=== PATIENT | female | born 1960 | race Two or more races ===

== ENCOUNTER 2020-07-15 09:13 | Emergency (ER) | payer BC ==
[~2020-07-15] VITALS: Ht 147.3 cm; Wt 83.9 kg
[~2020-07-15 09:13] MED LIST: ALBU18 IN; HYDR12.56 PO; LAMO200T34 PO; LISI-648 PO; MIRT1TAB39 PO; SERT-160 PO
[2020-07-15 10:12] VITALS: BP 133/67
[2020-07-15] MEDS ORDERED: ACETAMINOPHEN 500 MG TAB PO ONE (10:45)
[2020-07-15] MEDS ORDERED: cefTRIAXone SOD 1,000 MG VL IM ONE (10:45)
== END 2020-07-15 12:15 | disposition home or self-care (01) ==
LOC: ER 09:13
DX: U07.1 COVID-19 (principal); J12.89 Other viral pneumonia; J44.9 Chronic obstructive pulmonary disease, unspecified; E11.9 Type 2 diabetes mellitus without complications; I10 Essential (primary) hypertension
CPT/HCPCS: 36415; 71045; 87426; 96372; 99284; J0696

== ENCOUNTER 2020-07-19 11:07 | Outpatient (CLI) | payer BC, OTHER ==
[~2020-07-19] VITALS: Ht 30.5 cm; Wt 83.9 kg
[2020-07-19] VITALS (7 sets, daily range): BP systolic 104–132; BP diastolic 39–75
[2020-07-19] MEDS ORDERED: BAMLANIVIMAB 700MG/200ML 200 ML IV ONE (11:30)
== END 2020-07-19 14:30 | disposition home or self-care (01) ==
LOC: ER 11:07
PROVIDERS: ATTEND Internal Medicine
DX: Z23 Encounter for immunization (principal); U07.1 COVID-19; J44.9 Chronic obstructive pulmonary disease, unspecified; I10 Essential (primary) hypertension; E11.9 Type 2 diabetes mellitus without complications
CPT/HCPCS: M0239; Q0239

== ENCOUNTER → 2020-10-15 | Outpatient (CLI) | payer BC ==
[2020-10-15 10:56] LABS: Basophils # (auto) 0 10 ^3/uL (0-0.2); Basophils % (auto) 0.5 % (0.0-2.0); Eosinophils # (auto) 0.1 10 ^3/uL (0-0.8); Eosinophils % (auto) 0.6 % (0.0-7.0); Hematocrit 41.1 % (36.0-46.0); Hemoglobin 14.4 g/dL (12.2-16.2); Lymphocytes # (auto) 2.1 10 ^3/uL (0.4-5.4); Lymphocytes % (auto) 22.8 % (10.0-50.0); Mean Corpuscular Hemoglobin 29.7 pg (28.0-32.0); Mean Corpuscular Volume 84.9 fL (80.0-100.0); Monocytes # (auto) 0.6 10 ^3/uL (0-1.3); Neutrophils # (auto) 6.3 10 ^3/uL (1.6-8.6); Neutrophils % (auto) 69.1 % (37.0-80.0); Nucleated Red Blood Cells % 0.4 %; Platelet Count (auto) 168 10^3/uL (140-450); Red Blood Cells 4.84 10^6/uL (4.0-5.20); Red Cell Distribution Width 15.7 % (11.8-14.3); White Blood Cell 9.2 10^3/uL (4.4-10.8)
[2020-10-15 17:04] LABS: Albumin 4.2 g/dL (3.4-5.0); Calcium 9.6 mg/dL (8.5-10.1); Potassium 4.4 mmol/L (3.5-5.1)
[2020-10-15 17:19] LABS: BUN/Creatinine Ratio 25.3; Bilirubin, Total 0.7 mg/dL (0.2-1.0); Total Protein 7.7 g/dL (6.4-8.2)
== END | disposition home or self-care (01) ==
LOC: LAB 10:19
PROVIDERS: ATTEND Physician Assistant
DX: I10 Essential (primary) hypertension (principal); E11.40 Type 2 diabetes mellitus with diabetic neuropathy, unspecified; E78.49 Other hyperlipidemia; G62.9 Polyneuropathy, unspecified
CPT/HCPCS: 36415; 80053; 80061; 82043; 83036; 85025

== ENCOUNTER 2024-07-25 04:46 | Inpatient (IN) | payer BC, MEDICAID ==
[2024-07-25] VITALS (10 sets, daily range): BP systolic 97–112; BP diastolic 49–76; PULSE 99–129; RESP 22–29; TEMP 98; O2SAT 90–99
[~2024-07-25] VITALS: Ht 147.3 cm; Wt 78.8 kg
[~2024-07-25 04:46] MED LIST changes: -HYDR12.56 PO; +HYDR12.59 PO; -LISI-648 PO; +LISI10TA34 PO
--- NOTE | 2024-07-25 04:52 | ED.PDOC ---
SOB-HPI HPI Comments 64-year-old female came to ER via EMS for shortness of breath. Patient does have history of hypertension, diabetes, and COPD. Patient last night, started developing cough and shortness of breath which progressively worsened today. Denies any acute chest pains. Upon arrival of paramedics, noted patient to be saturating at 85 % on room air, patient was placed on CPAP, was given albuterol Atrovent nebulization and was rushed to the emergency room. 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 Information Source: Patient, Emergency Med Personnel Mode of Arrival: EMS Severity: Moderate Timing: Hours Duration: Since onset Context: With Light Exertion PE Risk Factors: None History of: COPD Prehospital treatment: Breathing Tx, C-Pap, Oxygen Modifying Factors: Nothing Associated Signs and Symptoms: Cough If cough with SOB: Non-Productive Past Medical History PAST MEDICAL HISTORY: COPD, DM, HTN Surgical History: Denies all surgeries 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 Hx Family History Family History: Reviewed,noncontributory to illness Social History Smoker: Non-Smoker Alcohol: Denies ETOH Use Drugs: Denies Drug Use Lives In: Home Constitutional: denies: chills, diaphoresis, fatigue, fever, malaise, sweats, weakness, others EENTM: denies: blurred vision, double vision, ear bleeding, ear discharge, ear drainage, ear pain, ear ringing, eye pain, eye redness, hearing loss, mouth pain, mouth swelling, nasal discharge, nose bleeding, nose congestion, nose pain, photophobia, tearing, throat pain, throat swelling, voice changes, others Respiratory: reports: cough, SOB at rest, shortness of breath, SOB with excertion; denies: hemoptysis, orthopnea, stridor, wheezing, others Cardiovascular: denies: chest pain, dizzy spells, diaphoresis, Dyspnea on exertion, edema, irregular heart beat, left arm pain, lightheadedness, palpitations, PND, syncope, others Gastrointestinal: denies: abdomen distended, abdominal pain, blood streaked bowels, constipated, diarrhea, dysphagia, difficulty swallowing, hematemesis, melena, nausea, poor appetite, poor fluid intake, rectal bleeding, rectal pain, vomiting, others Genitourinary: denies: abnormal vagina bleeding, burning, dyspareunia, dysuria, flank pain, frequency, hematuria, incontinence, pain, , vagina d ischarge, urgency, others Neurological: denies: dizziness, fainting, headache, left sided numbness, left sided weakness, numbness, paresthesia, pre-existing deficit, right sided numbness, right sided weakness, seizure, speech problems, tingling, tremors, weakness, others Musculoskeletal: denies: back pain, gout, joint pain, joint swelling, muscle pain, muscle stiffness, neck pain, others Integumetry: denies: bruises, change in color, change in hair/nails, dryness, laceration, lesions, lumps, rash, wounds, others Allergic/Immunocompromised: denies: Difficulty Healing, Frequent Infections, Hives, Itching, others Hematologic/Lymphatic: denies: anemia, blood clots, easy bleeding, easy bruising, swollen glands, others Endocrine: denies: excessive hunger, excessive sweating, excessive thirst, excessive urination, flushing, intolerance to cold, intolerance to heat, unexplained weight gain, unexplained weight loss, others Psychiatric: denies: anxiety, bipolar disorder, depression, hopeless, panic disorder, schizophrenia, sleepless, suicidal, others Physical Exam General Appearance: No Apparent Distress, Normal HEENT: Normal ENT Inspection, Pharynx Normal, TMs Normal Neck: Full Range of Motion, Non-Tender, Normal, Normal Inspection Respiratory: Chest Non-Tender, Lungs Clear, No Accessory Muscle Use, No Respiratory Distress, Normal Breath Sounds Cardiovascular: No Edema, No JVD, No Murmur, No Gallop, Normal Peripheral Pulses, Regular Rate/Rhythm Breast Exam: Deferred Gastrointestinal: No Organomegaly, Non Tender, No Pulsatile Mass, Normal Bowel Sounds, Soft Genitalia: Deferred Pelvic: Deferred Rectal: Deferred Extremities: No calf tenderness, Normal capillary refill, Normal inspection, Normal range of motion, Non-tender, No pedal edema Musculoskeletal : Apperance: Normal Neurologic: Alert, echometer engineer II-XII nml as Tested, No Motor Deficits, Normal Affect, Normal Mood, No Sensory Deficits Cerebellar Function: Normal Reflexes: Normal Skin: Dry, Normal Color, Warm Lymphatic: No Adenopathy Was a procedure done? Was a procedure done?: No Differential Dx Differential Diagnosis: Asthma, Bronchitis, COPD, Myocardial infarction, Panic Attack, Pneumonia, Respiratory Distress X-Ray, Labs, Meds, VS Vital Signs Date Time Temp Pulse Resp B/P (MAP) Pulse Ox O2 Delivery O2 Flow Rate FiO2 07/25/24 05:04 98.4 130 24 135/80 (98) 95 07/25/24 04:58 130 07/25/24 04:46 44 93 Bi-Pap+ 40 40 07/25/24 04:46 130 144/118 Facial BiPAP Mask 40 Current Medications Medications (Trade) Dose Ordered Sig/Addi Route Start Time Stop Time Status Last Admin Albuterol (Ventolin Medneb) 5 mg ONCE ONCE N 07/25/24 05:00 07/25/24 05:01 DC 07/25/24 05:04 Ipratropium [place] (Atrovent Medneb) 0.5 mg ONCE ONCE [facility] 07/25/24 05:00 07/25/24 05:01 DC 07/25/24 05:04 Magnesium Sulfate/ Dextrose 100 ml @ 100 mls/hr Q1H IV 07/25/24 05:00 07/25/24 06:59 07/25/24 05:00 Time of 1ST Reevaluation: 04:49 Reevaluation 1ST: Unchanged Time of 2ND Reevaluation: 05:51 Reevaluation 2ND: Unchanged Patient Education/Counseling: Diagnosis, Treatment Family Education/Counseling: No Family Present Departure 1 Departure Time of Disposition: 05:51 Impression: Primary Impression: Respiratory failure Additional Impression: COPD with acute exacerbation Disposition: ADMITTED INPATIENT Admit to: [facility] Condition: Guarded Critical Care Note Critical Care Time?: Yes (35 min-critical care time only) Critical care comment: Shortness of breath Total critical care time: Approximately 36 minutes Due to a high probability of clinically significant, life threatening deterioration, the patient required my highest level of preparedness to intervene emergently and I personally spent this critical care time directly and personally managing the patient. This critical care time included obtaining a history; examining the patient; pulse oximetry; ordering and review of studies; arranging urgent treatment with development of a management plan; evaluation of patient's response to treatment; frequent reassessment; and, discussions with other providers. This critical care time was performed to assess and manage the high probability of imminent, life-threatening deterioration that could result in multi-organ failure. It was exclusive of separately billable procedures and treating other patients. Stability Stability form required: No Heart Score Heart Score: Heart Score Response (Comments) Value History Slightly Suspicious 0 EKG Normal 0 Age 45-64 1 Risk Factors 1 or 2 risk factors 1 Troponin Normal limit 0 Total 2 I personally scribed for ASHLEY COBIAN MD ([email or web address]) on 07/25/24 at 04:52. Electronically submitted by Ten Goldman ([email or web address]). ASHLEY COBIAN MD Jul 25, 2024 04:52
[2024-07-25] MEDS: MAGNESIUM SULFATE 1GM/100ML 100 ML IV SCH (05:00)
[2024-07-25] MEDS: ALBUTEROL SULF 2.5 MG/0.5ML(0.5%) NEB SOLN HHN ONE (05:04)
[2024-07-25] MEDS: IPRATROPIUM BROM 0.5 MG/2.5ML INH SOL HHN ONE (05:04)
--- NOTE | 2024-07-25 05:58 | DVH ---
CHEST RADIOGRAPH Indication: SOB Technique: Single frontal view of the chest was obtained Comparison: CHEST PORTABLE on DOS: 07/15/20 FINDINGS: Lines and Tubes: None Lungs: Patchy bilateral consolidation. Questionable left upper lobe mass. Pleura: No effusion. No pneumothorax. Cardiomediastinal contours: Cardiomegaly. Bones: No acute osseous abnormality. IMPRESSION: 1. Bilateral consolidation which may reflect multifocal pneumonia. Questionable left upper lobe mass . CT chest recommended for further evaluation.
[2024-07-25 06:00] LABS: Base Excess -2.9 mmol/L (-2.0-3.0)
[2024-07-25] MEDS: AZITHROMYCIN 500MG/ 250ML 250 ML IV ONE (06:00)
[2024-07-25] MEDS: cefTRIAXone 1GM/50ML D5W 50 ML IV ONE (06:00)
[2024-07-25] MEDS: FUROSEMIDE 40 MG/4 ML VIAL IV ONE (06:00)
[2024-07-25 06:11] LABS: Eosinophils # (auto) 0 10 ^3/uL (0-0.8); Eosinophils % (auto) 0.1 % (0.0-7.0); Hemoglobin 12.8 g/dL (12.2-16.2)
[2024-07-25 06:14] LABS: Basophils # (auto) 0.1 10 ^3/uL (0-0.2); Basophils % (auto) 0.3 % (0.0-2.0); Hematocrit 41.1 % (36.0-46.0); Lymphocytes # (auto) 2.7 10 ^3/uL (0.4-5.4); Lymphocytes % (auto) 12.5 % (10.0-50.0); Mean Corpuscular Hemoglobin 28.5 pg (28.0-32.0); Mean Corpuscular Hgb Conc. 31.3 g/dL (32.0-36.0); Mean Corpuscular Volume 91.1 fL (80.0-100.0); Monocytes # (auto) 1.2 10 ^3/uL (0-1.3); Monocytes % (auto) 5.4 % (0.0-12.0); Neutrophils # (auto) 17.7 10 ^3/uL (1.6-8.6); Neutrophils % (auto) 81.7 % (37.0-80.0); Nucleated Red Blood Cells % 0.1 %; Platelet Count (auto) 312 10^3/uL (140-450); Red Blood Cells 4.51 10^6/uL (4.0-5.20); Red Cell Distribution Width 16.7 % (11.8-14.3); White Blood Cell 21.7 10^3/uL (4.4-10.8)
[2024-07-25 06:39] LABS: Alanine Aminotransferase 28 U/L (7-40); Anion Gap 14 (5-15); Aspartate Aminotransferase 32 U/L (13-40); BUN/Creatinine Ratio 9.1 (10.0-20.0); Blood Urea Nitrogen 9 mg/dL (9-23); Calcium 9.6 mg/dL (8.7-10.4); Carbon Dioxide 21 mmol/L (20-31); Chloride 100 mmol/L (98-107); Magnesium 2.2 mg/dL (1.6-2.6); Potassium 4.5 mmol/L (3.5-5.1)
[2024-07-25 06:40] LABS: Alkaline Phosphatase 157 U/L (46-116); Bilirubin, Total 1.4 mg/dL (0.2-1.0); Glucose 273 mg/dL (74-106); Sodium 135 mmol/L (136-145); Total Protein 6.2 g/dL (5.7-8.2)
[2024-07-25] MEDS ORDERED: DEXTROSE (50%) 50ML SYRG IV PRN (07:30)
[2024-07-25] MEDS ORDERED: VANCOMYCIN PER PHARMACY 0 MG IV SCH (07:30)
[2024-07-25] MEDS ORDERED: ONDANSETRON HCL 4 MG/2 ML VIAL IV PRN (07:45)
[2024-07-25] MEDS ORDERED: NITROGLYCERIN 0.4 MG SL TAB SL PRN (07:45)
[2024-07-25] MEDS ORDERED: MORPHINE SULFATE INJ 2 MG/ml SYRG IV PRN (07:45)
--- NOTE | 2024-07-25 08:13 | DVHHP2 ---
History of Present Illness Reason for Visit: Cough and shortness of breath History of Present Illness Maeve Steiner is a 64-year-old female with past medical history of hypertension, diabetes, COPD, asthma, and anxiety who presents to the ED today for shortness of breath and cough x1 day. EMS was called and noticed that her room air saturation was 85% placed her on CPAP now in the ED for evaluation. Patient states that she was in [place] 4 days ago was diagnosed with pneumonia at the hospital and treated. 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 Patient reports that she is compliant with her medications. Patient denies chest pain, abdominal pain, nausea, vomiting, diarrhea, back pain, headache, lightheadedness, fever, chills, and dizziness. Patient also reports that she quit in 2014 was smoking 2-3 packs of cigarettes per day. Patient denies illicit drug use and drinking. Patient also reports that she takes dabigatran was informed by her provider that she has a heart issue but she is unsure exactly what. Cardiovascular: HTN Pulmonary: Asthma, COPD Psych: Anxiety Endocrine: Diabetes Past Surgical History: Hysterectomy Family History: Other (Mom pneumonia disease and Dad cerebral aneurysm diseased) Smoke: Quit ALCOHOL: none Drugs: None Lives: with Family Domestic Violence: Neg Review of Systems Constitutional: No: Fever, Chills, Sweats, Weakness, Malaise, Other Eyes: No: Pain, Vision change, Conjunctivae inflammation, Eyelid inflammation, Other, Redness ENT: No: Ear pain, Ear discharge, Nose pain, Nose discharge, Nose congestion, Mouth pain, Mouth swelling, Throat pain, Throat swelling, Other Respiratory: Cough, Shortness of breath; No: Dry, SOB with excertion, Wheezing, Hemoptysis, Pleuritic Pain, Sputum, Wheezing, Other Cardiovascular: No: Chest Pain, Palpitations, Orthopnea, Paroxysmal Noc. Dyspnea, Edema, Lt Headedness, Other Gastrointestinal: No: Nausea, Vomiting, Abdominal Pain, Diarrhea, Constipation, Melena, Hematochezia, Other Genitourinary: No Dysuria, No Frequency, No Incontinence, No Hematuria, No Retention, No Other Musculoskeletal: No: other, neck pain, shoulder pain, arm pain, back pain, hand pain, leg pain, foot pain Skin: No: Rash, Lesions, Jaundice, Bruising, Other Neurological: No: Weakness, Numbness, Incoordination, Change in speech, Confusion, Seizures, Other Allergies: Coded Allergies: NO KNOWN ALLERGIES (Unverified , 11/29/14) Medications Current Medications Medications Dose Ordered Sig/Addi Route Start Time Stop Time Status Last Admin Dose Admin Diagnostic Test (Pha) 1 strip ACHS 07/25/24 11:30 UNV Insulin Human Regular ACHS SC 07/25/24 11:30 UNV Dextrose 50 ml UD PRN IV 07/25/24 07:30 UNV Methylprednisolone Sodium Succinate 40 mg BID IV 07/25/24 10:00 UNV Ipratropium [place] 0.5 mg Q4HWA NEB 07/25/24 10:00 UNV Ipratropium [place] 0.5 mg Q2HPRN PRN NEB 07/25/24 07:30 UNV Famotidine 20 mg DAILY IV 07/25/24 10:00 UNV Levalbuterol HCl 1.25 mg Q4HWA NEB 07/25/24 10:00 UNV Vancomycin HCl 0 ml @ 0 mls/hr UD IV 07/25/24 07:30 UNV Piperacillin Sod/ Tazobactam Sod 100 ml @ 25 mls/hr Q8HR IV 07/25/24 14:00 UNV Furosemide 40 mg DAILY IV 07/25/24 10:00 UNV Sodium Chloride 1,000 ml @ 70 mls/hr [id number] IV 07/25/24 07:45 UNV Acetaminophen/ Hydrocodone Bitart 1 tab Q4HP PRN PO 07/25/24 07:45 UNV Ondansetron HCl 4 mg Q4HP PRN IV 07/25/24 07:45 UNV Acetaminophen 650 mg Q6HP PRN PO 07/25/24 07:45 UNV Morphine Sulfate 2 mg Q4HPRN PRN IV 07/25/24 07:45 UNV Nitroglycerin 0.4 mg Q5MINP PRN SL 07/25/24 07:45 UNV Morphine Sulfate 2 mg Q30M PRN IV 07/25/24 07:45 UNV Enoxaparin Sodium 40 mg DAILY SC 07/25/24 10:00 UNV Exam Vital Signs Vital Signs Date Time Temp Pulse Resp B/P (MAP) Pulse Ox O2 Delivery O2 Flow Rate FiO2 07/25/24 06:09 107 22 124/78 (93) 88 07/25/24 05:50 Facial BiPAP Mask 40 07/25/24 05:04 98.4 General Appearance: Alert, Oriented X3, Cooperative, moderate distress HEENT: Atraumatic, PERRLA, EOMI Respiratory: Other (diminished bilaterally) Cardiovascular: Normal S1, Normal S2 Abdominal: Soft, No tenderness, No hepatospenomegaly, No masses Extremities: No clubbing, No cyanosis, Normal pulses, No tenderness/swelling Skin: No rashes Neuro: Normal tone, Sensation intact Psych/Mental Status: Mental status NL, Mood NL Labs/Xrays Labs Test 07/25/24 07:18 07/25/24 05:56 07/25/24 05:15 Range/Units Blood Gas Specimen Type Arterial Blood Gas Sample Site Right radial Blood Gas Patient Temperature 37.0 Arterial Blood Date Drawn [id number] Arterial Blood pH 7.379 7.350-7.450 Arterial Blood Partial Pressure CO2 37.8 32.0-45.0 mmHg Arterial Blood Partial Pressure O2 59.6 L 83.0-108.0 mmHg Arterial Blood HCO3 21.8 21.0-28.0 mmol/L Arterial Blood Oxygen Saturation 88.6 L 94.0-98.0 % Arterial Blood Base Excess -2.9 L -2.0-3.0 mmol/L Arterial Blood Oxyhemoglobin 86.4 L 94.0-98.0 % Arterial Blood Carboxyhemoglobin 1.8 H 0.5-1.5 % Arterial Blood Methemoglobin 0.7 0.0-1.5 % Roverto Test Yes Blood Gas Total Hemoglobin 13.50 12.0-16.0 g/dL Blood Gas Set Respiration Rate 12.0 Blood Gas Modality Mask - bipap FiO2 % 40.0 Blood Gas EPAP 5 Blood Gas IPAP 12 White Blood Count 21.7 H 4.4-10.8 10^3/uL Red Blood Count 4.51 4.0-5.20 10^6/uL Hemoglobin 12.8 12.2-16.2 g/dL Hematocrit 41.1 36.0-46.0 % Mean Corpuscular Volume 91.1 80.0-100.0 fL Mean Corpuscular Hemoglobin 28.5 28.0-32.0 pg Mean Corpuscular Hemoglobin Concent 31.3 L 32.0-36.0 g/dL Red Cell Distribution Width 16.7 H 11.8-14.3 % Platelet Count 312 140-450 10^3/uL Mean Platelet Volume 9.2 6.9-10.8 fL Neutrophils (%) (Auto) 81.7 H 37.0-80.0 % Lymphocytes (%) (Auto) 12.5 10.0-50.0 % Monocytes (%) (Auto) 5.4 0.0-12.0 % Eosinophils (%) (Auto) 0.1 0.0-7.0 % Basophils (%) (Auto) 0.3 0.0-2.0 % Neutrophils # (Auto) 17.7 H 1.6-8.6 10 ^3/uL Lymphocytes # (Auto) 2.7 0.4-5.4 10 ^3/uL Monocytes # (Auto) 1.2 0-1.3 10 ^3/uL Eosinophils # (Auto) 0 0-0.8 10 ^3/uL Basophils # (Auto) 0.1 0-0.2 10 ^3/uL Nucleated Red Blood Cells 0.1 % Sodium Level 135 L 136-145 mmol/L Potassium Level 4.5 3.5-5.1 mmol/L Chloride Level 100 98-107 mmol/L Carbon Dioxide Level 21 20-31 mmol/L Anion Gap 14 5-15 Blood Urea Nitrogen 9 9-23 mg/dL Creatinine 0.99 0.550-1.02 mg/dL Glomerular Filtration Rate Calc 64 >90 mL/min BUN/Creatinine Ratio 9.1 L 10.0-20.0 Serum Glucose 273 H 74-106 mg/dL Calcium Level 9.6 8.7-10.4 mg/dL Magnesium Level 2.2 1.6-2.6 mg/dL Total Bilirubin 1.4 H 0.2-1.0 mg/dL Aspartate Amino Transferase (AST) 32 13-40 U/L Alanine Aminotransferase (ALT) 28 7-40 U/L Alkaline Phosphatase 157 H 46-116 U/L Troponin I High Sensitivity 18 </=34 ng/L B-Type Natriuretic Peptide 1104.51 0-100 pg/mL Total Protein 6.2 5.7-8.2 g/dL Albumin 4.0 3.2-4.8 g/dL CHEST RADIOGRAPH Indication: SOB Technique: Single frontal view of the chest was obtained Comparison: CHEST PORTABLE on DOS: 07/15/20 FINDINGS: Lines and Tubes: None Lungs: Patchy bilateral consolidation. Questionable left upper lobe mass. Pleura: No effusion. No pneumothorax. Cardiomediastinal contours: Cardiomegaly. Bones: No acute osseous abnormality. IMPRESSION: 1. Bilateral consolidation which may reflect multifocal pneumonia. Questionable left upper lobe mass. CT chest recommended for further evaluation. Assessment/Plan Assessment/Plan Assessment/Plan: Acute hypoxic respiratory failure likely 2nd to PNA Sepsis likely 2nd to PNA Acute asthma exacerbation likely 2nd to PNA Leukocytosis Lactic acidosis cxr lasix IV Abx mag rider given in ER IV steroids resp txs bnp abg mag level ekg blood cx lactic trop negative Flu covid Bipap Pulmonary cx d-dimer echo EF 40% Afib with RVR cardizem Elevated Tbili Elevated ALP monitor Uncontrolled DM HgbA1C ISS and accuchecks Chronic HTN continue home meds Fever tylenol prn Ex -smoker educated on continuing cessation of tobbacco use Obesity Discussed lifestyle modifications, exercise, and diet FEN/PPX NPO IVF DVT ppx - lovenox, truck jumper PUD ppx - on steroids, famotidine Admit patient to [facility] Discussed plan of care with patient and nurse Home medications reconciled Plan discussed with: Patient My Orders Orders - 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 Procedure Category Date Status Time Glucose Blood PHA 07/25/24 Logged (Accu-Chek Comfort 11:30 Insulin R (Human) PHA 07/25/24 Logged (Insulin R) 11:30 Dextrose 50% Syringe PHA 07/25/24 Logged 07:30 Hemoglobin A1c LAB 07/25/24 In Process 07:16 Methylprednisolone PHA 07/25/24 Logged Sod Succ (Solu Medrol 10:00 Ipratropium Medneb PHA 07/25/24 Logged (Atrovent Medneb) 10:00 Ipratropium Medneb PHA 07/25/24 Logged (Atrovent Medneb) 07:30 Famotidine Injection PHA 07/25/24 Logged (Pepcid Injection) 10:00 Chest Xray 1 View XY 07/26/24 Logged 04:00 Electrocardigram EKG 07/26/24 Logged 04:00 D-Dimer LAB 07/25/24 Logged 07:16 Covid19 Antigen Ingrid LAB 07/25/24 Logged Levalbuterol Hcl PHA 07/25/24 Logged (Xopenex Medneb) 10:00 Vancomycin Per PHA 07/25/24 Logged Pharmacy 07:30 Piperacillin-Tazob PHA 07/25/24 Logged 3.375gm (Zosyn 3.375g 14:00 Piperacillin-Tazob PHA 07/25/24 Logged 3.375gm (Zosyn 3.375g 07:30 *Consult CONS 07/25/24 Transmitted / 07:16 Furosemide Injection PHA 07/25/24 Logged (Lasix Injection) 10:00 Admit ADMIT 07/25/24 Transmitted 07:43 Allergies [facility] 07/25/24 In Process 07:43 Code Status CODE 07/25/24 Transmitted 07:43 Sodium Chloride 0.9% PHA 07/25/24 Logged 07:45 Hydrocodone-Acet PHA 07/25/24 Logged 5/325mg Tab ([place] 07:45 Ondansetron Hcl [facility] 07/25/24 Logged (Zofran) 07:45 Complete Blood Count LAB 07/26/24 Verified 04:00 Comprehensive LAB 07/26/24 Verified Metabolic Panel 04:00 Npo (Nothing By DIET 07/25/24 Transmitted Mouth) Diet Breakfast Acetaminophen Tablet [facility] 07/25/24 Logged (Tylenol Tablet) 07:45 Morphine Sulfate PHA 07/25/24 Logged Injection 07:45 Nitroglycerin PHA 07/25/24 Logged Sublingual (Ntrostat 07:45 Morphine Sulfate PHA 07/25/24 Logged Injection 07:45 Stat Ekg For Chest [facility] 07/25/24 In Process Pain 07:43 Notify Md Of Changes [facility] 07/25/24 In Process From Base 07:43 Unit Controller For [facility] 07/25/24 In Process 24 Hours 07:43 Emergency Dysrhythmia [facility] 07/25/24 In Process Protocol 07:43 Rhythm Strips Once [facility] 07/25/24 In Process Every Shift 07:43 Oxygen By Nasal RT 07/25/24 Transmitted Cannula 07:43 Enoxaparin Sodium PHA 07/25/24 Logged (Lovenox) 10:00 Date of Service: Jul 25, 2024 Billing Provider: JEANNINE PENNYP Common Visit Codes: [id number] INP/OBS CARE (HIGH) 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 Jul 25, 2024 08:13
[2024-07-25] MEDS: methylPREDNISolone SOD SUCC 125 MG/2 ML VL IV ONE (08:29)
[2024-07-25] MEDS: SODIUM CHLORIDE 0.9% 1,000 ML IV SCH (09:41)
[2024-07-25] MEDS: PIPERACILLIN-TAZOB 3.375GM 100 ML IV ONE (09:41)
[2024-07-25] MEDS: LEVALBUTEROL HCL 1.25 MG/3 ML NEB NEB SCH (10:07)
[2024-07-25] MEDS: IPRATROPIUM BROM 0.5 MG/2.5ML INH SOL NEB SCH (10:08)
[2024-07-25] MEDS ORDERED: GAB100C PO (10:23)
[2024-07-25] MEDS ORDERED: DABI150C7 PO (10:23)
[2024-07-25] MEDS ORDERED: DIGO0.12 PO (10:23)
[2024-07-25] MEDS ORDERED: AMIO200T13 PO (10:23)
[2024-07-25] MEDS ORDERED: METO1TAB9 PO (10:23)
[2024-07-25] MEDS ORDERED: SIMV20TA20 PO (10:23)
--- NOTE | 2024-07-25 10:43 | DVHSR ---
APPROVED REPORT EXAM: Two-dimensional and M-mode echocardiogram with Doppler and color Doppler. Blood Pressure: 124/78 mmHg INDICATION Dyspnea RISK FACTORS Height: 5'4, Weight: 182 DIMENSIONS LVDd3.6 (3.8-5.7cm)LA (2D)3.9 (1.9-4.0cm)Aortic Root2.8 (2.0-3.7cm) LVDs2.7 (2.5-4.0cm)LA (MM) (1.9-4.0cm)Aortic Cusp Exc1.6 (1.5-2.0cm) EF (%) 49.0 (55-70%)Rt. Atrium (1.9-4.0cm)Asc. Aorta3.0 cm IVSd0.9 (0.7-1.1cm)RV (D) (1.8-2.4cm) PWd1.2 (0.7-1.1cm) Mitral Valve MitralMitral Stenosis E wavem/sMV Mean GR.14mmHg A wavem/sMV Peak GR.104mmHg E/A ratio0.02D MVAcm2 Aortic Valve Aortic ValveAortic Stenosis V10.89m/Kobe Mean GR.3mmHg V21.18m/Kobe Peak GR.6mmHg LVOT Diameter1.7 (1.8-2.4cm)Doppler AVA1.71cm2 Pulmonic Valve V20.82m/s Tricuspid Valve TR Velocity2.89m/s [id number] Other Information Quality : Technically difficultRhythm : Conclusion Moderately reduced left ventricular systolic function estimated ejection fraction of 40%. There is a nterior anteroseptal wall hypokinesia. Normal right ventricular size and dimension. Moderately reduced right ventricular systolic function. [id number] elevated right ventricular systolic [id number] mm of mercury. Moderately dilated right and left atria. Aortic valve is mildly thickened and sclerotic. 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 Peak gradient of 6 mm mean gradient of 3 mm of mercury with a valve area 1.7 cm2 There is [id number] tricuspid valve regurgitation. There is mild pulmonary valve regurgitation. No significant pericardial effusion.
[2024-07-25] MEDS: FAMOTIDINE (10MG/ML) 2ML VL IV SCH (11:29)
[2024-07-25] MEDS: ENOXAPARIN SOD 40 MG/0.4 ML SYRINGE SC SCH (11:29)
[2024-07-25] MEDS: methylPREDNISolone SOD SUCC 40 MG/ML VL IV SCH (11:29)
[2024-07-25] MEDS: FUROSEMIDE 40 MG/4 ML VIAL IV SCH (11:31)
[2024-07-25] MEDS: VANCOMYCIN 1GM/250ML KIT 250 ML IV SCH (11:32)
[2024-07-25] MEDS: ACCU-CHEK COMFORT CURVE STRIP VI SCH (12:03)
[2024-07-25] MEDS: InsuLIN REG 1unit/0.01ml Soln (100units/ml) SC SCH (12:09)
[2024-07-25 12:43] LABS: COVID19 ANTIGEN SOFIA FIA NEGATIVE (NEGATIVE); Rapid Influenza A Negative (Negative); Rapid Influenza B Negative (Negative)
[2024-07-25] MEDS: VANCOMYCIN 1GM/250ML KIT 250 ML IV ONE (13:28)
[2024-07-25] MEDS: PIPERACILLIN-TAZOB 3.375GM 100 ML IV SCH (14:27)
[2024-07-25] MEDS: hydrOXYzine 25 MG TAB or CAP PO ONE (14:27)
[2024-07-25] MEDS: dilTIAZem HCL 60 MG TAB PO ONE (16:14)
--- NOTE | 2024-07-25 18:25 | DVHPN2 ---
Subjective Patient continues to report having anxiety and some shortness of breath. Reviewed: Care Plan, H&P, Labs, Medications, Previous Orders Changes from previous H/P or p: No Changes General: Per HPI Eyes: No Pain, No Vision change, No Conjunctivae inflammation, No Eyelid inflammation, No Other, No Redness ENT: No Ear pain, No Ear discharge, No Nose pain, No Nose discharge, No Nose congestion, No Mouth pain, No Mouth swelling, No Throat pain, No Throat swelling, No Other Cardiovascular: No Chest Pain, No Palpitations, No Orthopnea, No Paroxysmal Noc. Dyspnea, No Edema, No Lt Headedness, No Other Respiratory: Cough; No Dry; Shortness of breath; No SOB with excertion, No Wheezing, No Hemoptysis, No Pleuritic Pain, No Sputum, No Other Gastrointestinal: No Nausea, No Vomiting, No Abdominal Pain, No Diarrhea, No Constipation, No Melena, No Hematochezia, No Other Genitourinary: No Dysuria, No Frequency, No Incontinence, No Hematuria, No Retention, No Other Musculoskeletal: No other, No neck pain, No shoulder pain, No arm pain, No back pain, No hand pain, No leg pain, No foot pain Skin: No Rash, No Lesions, No Jaundice, No Bruising, No Other Objective Vitals Vital Signs Date Time Temp Pulse Resp B/P (MAP) Pulse Ox O2 Delivery O2 Flow Rate FiO2 07/25/24 18:00 95 25 120/79 (93) 95 07/25/24 15:21 Nasal Cannula* 2 28 07/25/24 14:00 97.9 97.9 General Appearance: Alert, Oriented X3, Cooperative, mild distress HEENT: Atraumatic, PERRLA Lungs: Other (Bilateral rhonchi) Cardiovascular: Normal S1, Normal S2, Other (AFib with RVR) Neuro: Normal gait, Normal speech Psych/Mental Status: Mental status NL, Other (Patient reports she was anxious) Medications Current Medications Medications Dose Ordered Sig/Addi Route Start Time Stop Time Status Last Admin Dose Admin Diagnostic Test (Pha) 1 strip ACHS 07/25/24 11:30 07/25/24 17:00 1 STRIP Insulin Human Regular ACHS SC 07/25/24 11:30 07/25/24 17:47 3 UNITS Dextrose 50 ml UD PRN IV 07/25/24 07:30 Methylprednisolone Sodium Succinate 40 mg BID IV 07/25/24 10:00 07/25/24 11:29 40 MG Ipratropium [place] 0.5 mg Q4HWA [facility] 07/25/24 10:00 07/25/24 15:21 0.5 MG Ipratropium [place] 0.5 mg Q2HPRN PRN NEB 07/25/24 07:30 Famotidine 20 mg DAILY IV 07/25/24 10:00 07/25/24 11:29 20 MG Levalbuterol HCl 1.25 mg Q4HWA [facility] 07/25/24 10:00 07/25/24 15:21 1.25 MG Vancomycin HCl 0 ml @ 0 mls/hr UD IV 07/25/24 07:30 Piperacillin Sod/ Tazobactam Sod 100 ml @ 25 mls/hr Q8HR IV 07/25/24 14:00 07/25/24 14:27 25 MLS/HR Furosemide 40 mg DAILY IV 07/25/24 10:00 07/25/24 11:31 40 MG Sodium Chloride 1,000 ml @ 70 mls/hr [id number] IV 07/25/24 07:45 07/25/24 09:41 70 MLS/HR Acetaminophen/ Hydrocodone Bitart 1 tab Q4HP PRN PO 07/25/24 07:45 Ondansetron HCl 4 mg Q4HP PRN IV 07/25/24 07:45 Acetaminophen 650 mg Q6HP PRN PO 07/25/24 07:45 Morphine Sulfate 2 mg Q4HPRN PRN IV 07/25/24 07:45 Nitroglycerin 0.4 mg Q5MINP PRN SL 07/25/24 07:45 Morphine Sulfate 2 mg Q30M PRN IV 07/25/24 07:45 Enoxaparin Sodium 40 mg DAILY SC 07/25/24 10:00 07/25/24 11:29 40 MG Mirtazapine 30 mg HS PO 07/25/24 22:00 Patient Own Medication 200 mg DAILY PO 07/26/24 10:00 UNV Patient Own Medication 10 mg BID PO 07/25/24 22:00 UNV Patient Own Medication 100 mg HS PO 07/25/24 22:00 UNV Lisinopril 10 mg BID PO 07/25/24 22:00 Sertraline HCl 100 mg HS PO 07/25/24 22:00 Lamotrigine 200 mg DAILY PO 07/26/24 10:00 Vancomycin HCl 250 ml @ 250 mls/hr Q12H IV 07/25/24 23:00 Laboratory Results Laboratory Tests 07/25/24 05:15 Chemistry Test 07/25/24 05:15 Albumin 4.0 g/dL (3.2-4.8) Calcium Level 9.6 mg/dL (8.7-10.4) Magnesium Level 2.2 mg/dL (1.6-2.6) Total Protein 6.2 g/dL (5.7-8.2) Coagulation Test 07/25/24 08:07 D-Dimer, Quantitative 1.44 mg/L FEU (0.0-0.49) H Cardiac Markers Test 07/25/24 05:15 B-Type Natriuretic Peptide 1104.51 pg/mL (0-100) LFT Test 07/25/24 05:15 Alanine Aminotransferase (ALT) 28 U/L (7-40) Alkaline Phosphatase 157 U/L (46-116) H Aspartate Amino Transferase (AST) 32 U/L (13-40) Total Bilirubin 1.4 mg/dL (0.2-1.0) H HgA1c, TSH Test 07/25/24 05:15 Hemoglobin A1c 5.9 % A1C (<5.7) H Blood Gas Results Test 07/25/24 05:56 Arterial Blood pH 7.379 (7.350-7.450) FiO2 % 40.0 Labs and/or images reviewed: Labs reviewed by me, Image(s) reviewed by me Assessment/Plan Assessment/Plan Impression: -acute hypoxic respiratory failure -community-acquired pneumonia, probable Gram-positive/Gram-negative etiology -nicotine dependence -COPD with probable exacerbation -obesity -atrial fibrillation with rapid ventricular rate -depression -anxiety disorder -severe sepsis Plan: -O2 supplementation with supplemental O2. BiPAP p.r.n. -echocardiogram -continue home medications for anxiety and depression -bronchodilators -empiric antibiotic therapy -start Cardizem for rapid AFib -PUD, DVT prophylaxis -repeat labs and chest x-ray in a.m. Critical care time spent with patient discussing and formulating plan of care: 40 minutes. This does not include time spent performing procedures. This medical document was created using an electronic medical record system with [employer] dictation system. Although this document has been carefully reviewed, there may still be some phonetic and typographical errors. These areas are purely typographical due to imperfections of the software programs, and do not reflect any compromise in the patient's medical care. Plan discussed with: Patient, Other (RN) Date of Service: Jul 25, 2024 Billing Provider: JUAN YEUNG NP Common Visit Codes: [id number] CARE 30-74 MIN JUAN YEUNG NP Jul 25, 2024 18:25
[2024-07-25] MEDS ORDERED: PATIENTS OWN MEDICATION (Lisinopril 10 MG) PO SCH (22:00)
[2024-07-25] MEDS ORDERED: PATIENTS OWN MEDICATION (Sertraline Hcl 100 MG) PO SCH (22:00)
[2024-07-25] MEDS: LISINOPRIL 5 MG TAB PO SCH (22:57)
[2024-07-25] MEDS: MIRTAZAPINE 30 MG TAB PO SCH (22:57)
[2024-07-25] MEDS: SERTRALINE HCL 50 MG TAB PO SCH (22:58)
[2024-07-26] VITALS (14 sets, daily range): PULSE 95–128; RESP 14–26; O2SAT 90–100
[2024-07-26] MEDS: VANCOMYCIN 1GM/250ML KIT 250 ML IV SCH (01:04)
[2024-07-26 05:01] LABS: Basophils # (auto) 0 10 ^3/uL (0-0.2); Basophils % (auto) 0.2 % (0.0-2.0); Eosinophils # (auto) 0 10 ^3/uL (0-0.8); Hematocrit 37.5 % (36.0-46.0); Hemoglobin 11.9 g/dL (12.2-16.2); Lymphocytes # (auto) 0.7 10 ^3/uL (0.4-5.4); Lymphocytes % (auto) 5.1 % (10.0-50.0); Mean Corpuscular Hemoglobin 28.5 pg (28.0-32.0); Mean Corpuscular Hgb Conc. 31.8 g/dL (32.0-36.0); Mean Corpuscular Volume 89.4 fL (80.0-100.0); Monocytes # (auto) 0.4 10 ^3/uL (0-1.3); Monocytes % (auto) 2.9 % (0.0-12.0); Neutrophils % (auto) 91.8 % (37.0-80.0); Platelet Count (auto) 181 10^3/uL (140-450); Red Blood Cells 4.19 10^6/uL (4.0-5.20); Red Cell Distribution Width 16.3 % (11.8-14.3); White Blood Cell 13.1 10^3/uL (4.4-10.8)
[2024-07-26 07:40] LABS: Alanine Aminotransferase 33 U/L (7-40); Albumin 3.7 g/dL (3.2-4.8); Anion Gap 14 (5-15); Aspartate Aminotransferase 39 U/L (13-40); BUN/Creatinine Ratio 11.6 (10.0-20.0); Bilirubin, Total 1.1 mg/dL (0.2-1.0); Blood Urea Nitrogen 10 mg/dL (9-23); Calcium 9.4 mg/dL (8.7-10.4); Carbon Dioxide 22 mmol/L (20-31); Chloride 105 mmol/L (98-107); Potassium 3.5 mmol/L (3.5-5.1); Sodium 141 mmol/L (136-145); Total Protein 5.8 g/dL (5.7-8.2)
--- NOTE | 2024-07-26 08:07 | DVH ---
CHEST RADIOGRAPH Indication: PNA Technique: Single frontal view of the chest was obtained Comparison: XY CHEST PORTABLE on DOS: 07/25/24, CHEST PORTABLE on DOS: 07/15/20 FINDINGS: Lines and Tubes: None Lungs: Bilateral airspace consolidation and left upper lobe focal consolidation unchanged. Pleura: No effusion. No pneumothorax. Cardiomediastinal contours: Cardiomegaly. Bones: No acute osseous abnormality. IMPRESSION: 1. No significant change in bilateral airspace disease which may reflect multifocal pneumonia. More f ocal left upper lobe opacity is also unchanged. CT of the chest is still recommended for further charu luation to exclude neoplasm.
--- NOTE | 2024-07-26 08:47 | DVHPN2 ---
Subjective Reports that her breathing has improved Reviewed: Care Plan, H&P, Labs, Medications, Previous Orders Changes from previous H/P or p: Changes General: Per HPI Eyes: No Pain, No Vision change, No Conjunctivae inflammation, No Eyelid inflammation, No Other, No Redness ENT: No Ear pain, No Ear discharge, No Nose pain, No Nose discharge, No Nose congestion, No Mouth pain, No Mouth swelling, No Throat pain, No Throat swelling, No Other Cardiovascular: No Chest Pain, No Palpitations, No Orthopnea, No Paroxysmal Noc. Dyspnea, No Edema, No Lt Headedness, No Other Respiratory: Cough; No Dry; Shortness of breath; No SOB with excertion, No Wheezing, No Hemoptysis, No Pleuritic Pain, No Sputum, No Other Gastrointestinal: No Nausea, No Vomiting, No Abdominal Pain, No Diarrhea, No Constipation, No Melena, No Hematochezia, No Other Genitourinary: No Dysuria, No Frequency, No Incontinence, No Hematuria, No Retention, No Other Musculoskeletal: No other, No neck pain, No shoulder pain, No arm pain, No back pain, No hand pain, No leg pain, No foot pain Skin: No Rash, No Lesions, No Jaundice, No Bruising, No Other Objective Vitals Vital Signs Date Time Temp Pulse Resp B/P (MAP) Pulse Ox O2 Delivery O2 Flow Rate FiO2 07/26/24 07:26 106 22 99 07/26/24 07:23 Nasal Cannula* 3 32 07/26/24 06:10 112/82 (92) 07/25/24 14:00 97.9 97.9 Intake/Output Intake and Output 07/26/24 07:00 Intake Total 1022.1666 ml Output Total 2400 ml Balance -1377.8334 ml Intake IV Total 1022.1666 ml Output Urine Total 2400 ml General Appearance: Alert, Oriented X3, Cooperative, mild distress HEENT: Atraumatic, PERRLA Lungs: Other (Bilateral rhonchi, nasal cannula at 2 liters/minutes) Cardiovascular: Normal S1, Normal S2, Other (AFib with RVR) Neuro: Normal gait, Normal speech Psych/Mental Status: Mental status NL, Other (Patient reports she was anxious) Medications Current Medications Medications Dose Ordered Sig/Addi Route Start Time Stop Time Status Last Admin Dose Admin Diagnostic Test (Pha) 1 strip ACHS 07/25/24 11:30 07/26/24 06:08 1 STRIP Insulin Human Regular ACHS SC 07/25/24 11:30 07/25/24 17:47 3 UNITS Dextrose 50 ml UD PRN IV 07/25/24 07:30 Methylprednisolone Sodium Succinate 40 mg BID IV 07/25/24 10:00 07/25/24 22:58 40 MG Ipratropium [place] 0.5 mg Q4HWA NEB 07/25/24 10:00 07/26/24 07:16 0.5 MG Ipratropium [place] 0.5 mg Q2HPRN PRN NEB 07/25/24 07:30 Famotidine 20 mg DAILY IV 07/25/24 10:00 07/25/24 11:29 20 MG Levalbuterol HCl 1.25 mg Q4HWA NEB 07/25/24 10:00 07/26/24 07:16 1.25 MG Vancomycin HCl 0 ml @ 0 mls/hr UD IV 07/25/24 07:30 Piperacillin Sod/ Tazobactam Sod 100 ml @ 25 mls/hr Q8HR IV 07/25/24 14:00 07/26/24 05:46 25 MLS/HR Furosemide 40 mg DAILY IV 07/25/24 10:00 07/25/24 11:31 40 MG Sodium Chloride 1,000 ml @ 70 mls/hr [id number] IV 07/25/24 07:45 07/25/24 22:52 70 MLS/HR Acetaminophen/ Hydrocodone Bitart 1 tab Q4HP PRN PO 07/25/24 07:45 Ondansetron HCl 4 mg Q4HP PRN IV 07/25/24 07:45 Acetaminophen 650 mg Q6HP PRN PO 07/25/24 07:45 Morphine Sulfate 2 mg Q4HPRN PRN IV 07/25/24 07:45 Nitroglycerin 0.4 mg Q5MINP PRN SL 07/25/24 07:45 Morphine Sulfate 2 mg Q30M PRN IV 07/25/24 07:45 Enoxaparin Sodium 40 mg DAILY SC 07/25/24 10:00 07/25/24 11:29 40 MG Mirtazapine 30 mg HS PO 07/25/24 22:00 07/25/24 22:57 30 MG Patient Own Medication 200 mg DAILY PO 07/26/24 10:00 UNV Patient Own Medication 10 mg BID PO 07/25/24 22:00 UNV Patient Own Medication 100 mg HS PO 07/25/24 22:00 UNV Lisinopril 10 mg BID PO 07/25/24 22:00 07/25/24 22:57 10 MG Sertraline HCl 100 mg HS PO 07/25/24 22:00 07/25/24 22:58 100 MG Lamotrigine 200 mg DAILY PO 07/26/24 10:00 Vancomycin HCl 250 ml @ 250 mls/hr Q12H IV 07/25/24 23:00 07/26/24 01:04 250 MLS/HR Diltiazem HCl 120 mg DAILY PO 07/26/24 10:00 Laboratory Results Laboratory Tests 07/26/24 03:50 Chemistry Test 07/26/24 03:50 Albumin Pending Calcium Level Pending Total Protein Pending LFT Test 07/26/24 03:50 Alanine Aminotransferase (ALT) Pending Alkaline Phosphatase Pending Aspartate Amino Transferase (AST) Pending Total Bilirubin Pending Microbiology Microbiology Date/Time Source Procedure Growth Status 07/25/24 05:30 Blood Blood Culture - Preliminary NO GROWTH AFTER 24 HOURS OF INCUBATION. Resulted Labs and/or images reviewed: Labs reviewed by me, Image(s) reviewed by me Assessment/Plan Assessment/Plan Impression: -acute hypoxic respiratory failure -community-acquired pneumonia, probable Gram-positive/Gram-negative etiology -nicotine dependence -COPD with probable exacerbation -obesity -atrial fibrillation with rapid ventricular rate -depression -anxiety disorder -sepsis secondary to pneumonia -mitral valve stenosis Plan: Events: Patient was respiratory status with improvement. White blood cell count decreasing. O2 supplementation now at 2 liters/minute. Continues to have AFib with RVR. -increase Cardizem XL -O2 supplementation with supplemental O2. BiPAP p.r.n. -echocardiogram: Results reviewed -start anticoagulation with Eliquis. CHADS-VASc score 3 -continue home medications for anxiety and depression -bronchodilators: Continue Xopenex, ipratropium, add Pulmicort -empiric antibiotic therapy -rate control with calcium channel ramiro -PUD, DVT prophylaxis -repeat labs and chest x-ray in a.m. Total time spent with patient discussing and formulating plan of care: 35 minutes. This medical document was created using an electronic medical record system with [employer] dictation system. Although this document has been carefully reviewed, there may still be some phonetic and typographical errors. These areas are purely typographical due to imperfections of the software programs, and do not reflect any compromise in the patient's medical care. Plan discussed with: Patient, Other (RN) My Orders Orders - JUAN YEUNG NP Procedure Category Date Status Time Diltiazem Er Capsule PHA 07/26/24 In Process (Cardizem Er Capsul 10:00 Budesonide PHA 07/26/24 Transmitted (Inhalation) 10:00 Apixaban (Eliquis) PHA 07/26/24 Transmitted 10:00 Basic Metabolic Panel LAB 07/27/24 Verified 05:00 Basic Metabolic Panel LAB 07/28/24 Verified 05:00 Basic Metabolic Panel LAB 07/29/24 Verified 05:00 Complete Blood Count LAB 07/27/24 Verified 05:00 Complete Blood Count LAB 07/28/24 Verified 05:00 Complete Blood Count LAB 07/29/24 Verified 05:00 Date of Service: Jul 26, 2024 Billing Provider: JUAN YEUNG NP Common Visit Codes: [id number] INP/OBS CARE(HIGH) JUAN YEUNG NP Jul 26, 2024 08:47
[2024-07-26 09:13] LABS: Alkaline Phosphatase 141 U/L (46-116)
[2024-07-26 09:15] LABS: Glucose 130 mg/dL (74-106)
[2024-07-26] MEDS ORDERED: LAMOTRIGINE 200 MG PO SCH (10:00)
[2024-07-26] MEDS: BUDESONIDE (INHALATION) 0.5 MG/2 ML NEB ONE (10:28)
[2024-07-26] MEDS: dilTIAZem 120MG ER CAP PO SCH (11:00)
[2024-07-26] MEDS: lamoTRIgine 100 MG TAB PO SCH (11:01)
[2024-07-26] MEDS: APIXABAN 5 MG TAB PO SCH (11:02)
[2024-07-26] MEDS: BUDESONIDE (INHALATION) 0.5 MG/2 ML NEB NEB SCH (19:56)
[2024-07-27] VITALS (13 sets, daily range): PULSE 97–134; RESP 12–28; O2SAT 93–100
[2024-07-27 04:31] LABS: Basophils # (auto) 0.1 10 ^3/uL (0-0.2); Basophils % (auto) 1.1 % (0.0-2.0); Eosinophils # (auto) 0.2 10 ^3/uL (0-0.8); Eosinophils % (auto) 1.6 % (0.0-7.0); Hematocrit 32.9 % (36.0-46.0); Hemoglobin 10.8 g/dL (12.2-16.2); Lymphocytes # (auto) 0.5 10 ^3/uL (0.4-5.4); Lymphocytes % (auto) 3.6 % (10.0-50.0); Mean Corpuscular Hemoglobin 29.6 pg (28.0-32.0); Mean Corpuscular Hgb Conc. 32.7 g/dL (32.0-36.0); Mean Corpuscular Volume 90.4 fL (80.0-100.0); Monocytes # (auto) 0.4 10 ^3/uL (0-1.3); Monocytes % (auto) 3.4 % (0.0-12.0); Neutrophils # (auto) 11.9 10 ^3/uL (1.6-8.6); Neutrophils % (auto) 90.3 % (37.0-80.0); Platelet Count (auto) 206 10^3/uL (140-450); Red Blood Cells 3.64 10^6/uL (4.0-5.20); Red Cell Distribution Width 16.4 % (11.8-14.3); White Blood Cell 13.1 10^3/uL (4.4-10.8)
[2024-07-27 04:35] LABS: Chloride 107 mmol/L (98-107); Sodium 143 mmol/L (136-145)
[2024-07-27 04:36] LABS: Anion Gap 6 (5-15); Carbon Dioxide 30 mmol/L (20-31)
[2024-07-27 04:37] LABS: Calcium 9.3 mg/dL (8.7-10.4)
[2024-07-27 05:11] LABS: BUN/Creatinine Ratio 15.5 (10.0-20.0)
[2024-07-27 05:18] LABS: Blood Urea Nitrogen 16 mg/dL (9-23); Glucose 171 mg/dL (74-106); Potassium 3.8 mmol/L (3.5-5.1)
--- NOTE | 2024-07-27 08:08 | DVHPN2 ---
Subjective Reports that her breathing has improved Reviewed: Care Plan, H&P, Labs, Medications, Previous Orders Changes from previous H/P or p: No Changes General: Per HPI Eyes: No Pain, No Vision change, No Conjunctivae inflammation, No Eyelid inflammation, No Other, No Redness ENT: No Ear pain, No Ear discharge, No Nose pain, No Nose discharge, No Nose congestion, No Mouth pain, No Mouth swelling, No Throat pain, No Throat swelling, No Other Cardiovascular: No Chest Pain, No Palpitations, No Orthopnea, No Paroxysmal Noc. Dyspnea, No Edema, No Lt Headedness, No Other Respiratory: Cough; No Dry; Shortness of breath; No SOB with excertion, No Wheezing, No Hemoptysis, No Pleuritic Pain, No Sputum, No Other Gastrointestinal: No Nausea, No Vomiting, No Abdominal Pain, No Diarrhea, No Constipation, No Melena, No Hematochezia, No Other Genitourinary: No Dysuria, No Frequency, No Incontinence, No Hematuria, No Retention, No Other Musculoskeletal: No other, No neck pain, No shoulder pain, No arm pain, No back pain, No hand pain, No leg pain, No foot pain Skin: No Rash, No Lesions, No Jaundice, No Bruising, No Other Objective Vitals Vital Signs Date Time Temp Pulse Resp B/P (MAP) Pulse Ox O2 Delivery O2 Flow Rate FiO2 07/27/24 07:17 97 26 100 07/27/24 07:09 Nasal Cannula 2.0 07/27/24 07:09 28 07/27/24 07:00 117/75 (89) 07/26/24 09:00 97.9 97.9 Intake/Output Intake and Output 07/27/24 07:00 Intake Total 635 ml Balance 635 ml Intake IV Total 635 ml General Appearance: Alert, Oriented X3, Cooperative, mild distress HEENT: Atraumatic, PERRLA Lungs: Other (Bilateral rhonchi, nasal cannula at 2 liters/minutes) Cardiovascular: Normal S1, Normal S2, Other (AFib with RVR) Neuro: Normal gait, Normal speech Psych/Mental Status: Mental status NL, Other (Patient reports she was anxious) Medications Current Medications Medications Dose Ordered Sig/Addi Route Start Time Stop Time Status Last Admin Dose Admin Diagnostic Test (Pha) 1 strip ACHS 07/25/24 11:30 07/27/24 07:22 1 STRIP Insulin Human Regular ACHS SC 07/25/24 11:30 07/27/24 07:23 3 UNITS Dextrose 50 ml UD PRN IV 07/25/24 07:30 Methylprednisolone Sodium Succinate 40 mg BID IV 07/25/24 10:00 07/26/24 22:49 40 MG Ipratropium [place] 0.5 mg Q4HWA [facility] 07/25/24 10:00 07/27/24 07:08 0.5 MG Ipratropium [place] 0.5 mg Q2HPRN PRN NEB 07/25/24 07:30 Famotidine 20 mg DAILY IV 07/25/24 10:00 07/26/24 10:52 20 MG Levalbuterol HCl 1.25 mg Q4HWA [facility] 07/25/24 10:00 07/27/24 07:08 1.25 MG Vancomycin HCl 0 ml @ 0 mls/hr UD IV 07/25/24 07:30 Piperacillin Sod/ Tazobactam Sod 100 ml @ 25 mls/hr Q8HR IV 07/25/24 14:00 07/27/24 03:31 25 MLS/HR Furosemide 40 mg DAILY IV 07/25/24 10:00 07/26/24 11:02 40 MG Acetaminophen/ Hydrocodone Bitart 1 tab Q4HP PRN PO 07/25/24 07:45 Ondansetron HCl 4 mg Q4HP PRN IV 07/25/24 07:45 Acetaminophen 650 mg Q6HP PRN PO 07/25/24 07:45 Morphine Sulfate 2 mg Q4HPRN PRN IV 07/25/24 07:45 Nitroglycerin 0.4 mg Q5MINP PRN SL 07/25/24 07:45 Morphine Sulfate 2 mg Q30M PRN IV 07/25/24 07:45 Mirtazapine 30 mg HS PO 07/25/24 22:00 07/26/24 22:48 30 MG Patient Own Medication 200 mg DAILY PO 07/26/24 10:00 UNV Patient Own Medication 10 mg BID PO 07/25/24 22:00 UNV Patient Own Medication 100 mg HS PO 07/25/24 22:00 UNV Lisinopril 10 mg BID PO 07/25/24 22:00 07/26/24 22:48 10 MG Sertraline HCl 100 mg HS PO 07/25/24 22:00 07/26/24 22:49 100 MG Lamotrigine 200 mg DAILY PO 07/26/24 10:00 07/26/24 11:01 200 MG Vancomycin HCl 250 ml @ 250 mls/hr Q12H IV 07/25/24 23:00 07/27/24 00:07 250 MLS/HR Diltiazem HCl 120 mg DAILY PO 07/26/24 10:00 07/26/24 11:00 120 MG Budesonide 0.5 mg BID NEB 07/26/24 10:00 07/27/24 07:09 0.5 MG Apixaban 5 mg BID PO 07/26/24 10:00 07/26/24 22:48 5 MG Laboratory Results Laboratory Tests 07/27/24 04:06 Chemistry Test 07/27/24 04:06 Calcium Level 9.3 mg/dL (8.7-10.4) Microbiology Microbiology Date/Time Source Procedure Growth Status 07/25/24 05:30 Blood Blood Culture - Preliminary NO GROWTH AFTER 48 HOURS OF INCUBATION. Resulted Labs and/or images reviewed: Labs reviewed by me, Image(s) reviewed by me Assessment/Plan Assessment/Plan Impression: -acute hypoxic respiratory failure -community-acquired pneumonia, probable Gram-positive/Gram-negative etiology -nicotine dependence -COPD with probable exacerbation -obesity -atrial fibrillation with rapid ventricular rate -depression -anxiety disorder -sepsis secondary to pneumonia -mitral valve stenosis Plan: Events: CT of chest performed. Results pending. Noted multifocal pneumonia with right pleural effusion. Patient continues to be in AFib with RVR. Will increase calcium channel ramiro, with beta-ramiro being held given patient's advanced COPD. -increase Cardizem XL -180 mg -O2 supplementation with supplemental O2. BiPAP p.r.n. -echocardiogram: Results reviewed -anticoagulation with Eliquis -continue home medications for anxiety and depression -bronchodilators: Continue Xopenex, ipratropium, add Pulmicort -empiric antibiotic therapy -PUD, DVT prophylaxis -repeat labs in a.m.. Total time spent with patient discussing and formulating plan of care: 35 minutes. This medical document was created using an electronic medical record system with [employer] system. Although this document has been carefully reviewed, there may still be some phonetic and typographical errors. These areas are purely typographical due to imperfections of the software programs, and do not reflect any compromise in the patient's medical care. Plan discussed with: Patient, Other (RN) My Orders Orders - JUAN YEUNG NP Procedure Category Date Status Time Budesonide PHA 07/26/24 In Process (Inhalation) 10:00 Apixaban (Eliquis) PHA 07/26/24 In Process 10:00 Basic Metabolic Panel LAB 07/28/24 Verified 05:00 Basic Metabolic Panel LAB 07/29/24 Verified 05:00 Complete Blood Count LAB 07/28/24 Verified 05:00 Complete Blood Count LAB 07/29/24 Verified 05:00 Cardiac DIET 07/26/24 Transmitted Diet-2gna,Lofat,Lochol Lunch Chest Without Contrast CT 07/27/24 Taken 07:24 Transfer Orders XFER 07/27/24 Transmitted 07:24 Diltiazem Er Capsule PHA 07/27/24 Verified (Cardizem La Capsul 10:00 Diltiazem Injection PHA 07/27/24 Verified (Cardizem Injection) 08:15 Date of Service: Jul 27, 2024 Billing Provider: JUAN YEUNG NP Common Visit Codes: [id number] INP/OBS CARE(HIGH) JUAN YEUNG NP Jul 27, 2024 08:08
[2024-07-27] MEDS: dilTIAZem 25 MG/5 ML VIAL IV ONE (09:09)
--- NOTE | 2024-07-27 09:12 | DVH ---
Procedure: CT CHEST WITHOUT CONTRAST Reason for study/Clinical History: pna, rule out neoplasm Comparison Study: Chest radiograph performed on 07/26/2024 Exam Date: 07/27/2024 07:27 AM TECHNIQUE: Multidetector CT of the chest was performed from the lung apices to the upper abdomen with out the use of intravenous contract. Axial, coronal and sagittal multiplanar reformats were performed . Radiation Dose Information: CT Dose: CTDI volume is 17.18 mGy. Dose-length product is 650.95 mGy*cm The dose indicators for CT are the volume Computed Tomography (CT) Dose Index (CTDIvol) and the Dose Length Product (DLP), and are measured in units of mGy and mGy-cm, respectively. These indicators are not patient dose, but values generated from the CT scanner acquisition factors. The report includes radiation exposure data for exposures received during this examination. FINDINGS: Lower neck: Normal thyroid. Lungs: Diffuse bilateral consolidations consistent with pneumonia. No evidence of pulmonary mass or s uspicious nodule. Central airways: Patent. Pleura: Small bilateral pleural effusions. No pneumothorax. Heart/Vascular Structures: Normal heart size. No pericardial effusion. Lymph Nodes: No adenopathy Musculoskeletal: No acute osseous abnormality. Soft tissues: Subcutaneous edema in the chest wall. Upper abdomen: Limited portions of the upper abdomen are unremarkable. IMPRESSION: 1. Bilateral pneumonia. No suspicious mass or pulmonary nodule. 2. Small bilateral pleural effusions. 3. Cardiomegaly. Radiation optimization: All CT scans at this facility use at least one of these dose optimization leanne hniques: automated exposure control mA and/or kV adjustment per patient size (includes targeted exam s where dose is matched to clinical indication) or iterative reconstruction.
--- NOTE | 2024-07-27 09:40 | DVHINCON2 ---
Date of service: Jul 27, 2024 Referring Physician SALVADOR Jolly Reason for Consultation Acute hypoxic respiratory failure History of Present Illness 64-year-old woman history of hypertension, diabetes mellitus type 2, COPD, asthma, anxiety who presented with shortness of breath and cough. EMS found her with a pulse oximetry reading of 85%. They initiated noninvasive positive pressure ventilation with CPAP. She was recently in [place] four days ago and was diagnosed with pneumonia. She required hospitalization there. 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 She states she has been adherent with her medications. No chest pain. No nausea, vomiting, diarrhea constipation. She was an ex-smoker. She quit in 2014. She smokes 2-3 packs of cigarettes per day. She was also on anticoagulation with dabigatran. Pulmonary consultation is called due to acute hypoxic respiratory failure and pneumonia. Review of systems: 14 point review of systems is negative unless otherwise noted above. Past medical history: Hypertension, asthma/COPD, anxiety, diabetes mellitus type 2 Past surgical history: Hysterectomy Medications: Reviewed Allergies: No known drug allergies. Family history: Mother had pneumonia. Father had cerebral aneurysm. Social history: Ex-smoker. Quit in 2014. Smoked 2-3 packs per day. No alcohol or illicit drug use. Lives with family. Family History: Stroke G8 FATHER ( cerebral aneurysm) Allergies: Coded Allergies: NO KNOWN ALLERGIES (Unverified , 11/29/14) Home Meds Reported Medications Gabapentin (Gabapentin) 100 Mg Cap, 2 CAP PO DAILY 07/25/24 Simvastatin (Simvastatin) 20 Mg Tab, 1 TAB PO 07/25/24 Dabigatran Etexilate Mesylate (Dabigatran Etexilate) 150 Mg Cap, PO 07/25/24 Amiodarone HCl (Amiodarone HCl) 200 Mg Tab, PO 07/25/24 Metoprolol Succinate (Metoprolol Succinate Er) 100 Mg Tab, 1 TAB PO BID 07/25/24 Digoxin (Digoxin) 125 Mcg Tab, 1 TAB PO DAILY 07/25/24 Albuterol Sulfate (Ventolin Hfa) Aer, 1 PUFF IN Q4HP PRN, AER 11/29/14 Lisinopril (Lisinopril) 10 Mg Tab, 10 MG PO BID, TAB 11/29/14 Hydrochlorothiazide (Hydrochlorothiazide) 12.5 Mg Cap, 12.5 MG PO BID, CAP 11/29/14 Lamotrigine (Lamotrigine) 200 Mg Tab, 200 MG PO DAILY, #30 15 Sertraline Hcl (Sertraline Hcl) 100 Mg Tab, 100 MG PO HS, #60 11/29/14 Mirtazapine (Mirtazapine Oral Disintegrating Tablet) 30 Mg Tab, 30 MG PO HS, #30 11/29/14 Current Medications Current Medications Medications (Trade) Dose Ordered Sig/Addi Route PRN Reason Start Time Stop Time Status Last Admin Patient Own Medication 200 mg DAILY PO 07/26/24 10:00 UNV Lamotrigine (LaMICtal TABLET) 200 mg DAILY PO 07/26/24 10:00 07/26/24 11:01 Diltiazem HCl (Cardizem ER Capsule) 120 mg DAILY PO 07/26/24 10:00 07/27/24 08:58 DC 07/26/24 11:00 Budesonide (Pulmicort) 0.5 mg BID NEB 07/26/24 10:00 07/27/24 07:09 Apixaban (Eliquis) 5 mg BID PO 07/26/24 10:00 07/26/24 22:48 Diltiazem HCl (Cardizem LA Capsule) 180 mg DAILY PO 07/27/24 10:00 Vital Signs Vital Signs Date Time Temp Pulse Resp B/P (MAP) Pulse Ox O2 Delivery O2 Flow Rate FiO2 07/27/24 08:00 123 07/27/24 08:00 22 120/73 (89) 94 07/27/24 07:30 Non-Rebreather 12 N/A 07/27/24 07:30 97.8 97.8 Physical Exam Gen.: Patient lying in bed in no apparent distress. On supplemental oxygen. Head: Normocephalic, atraumatic Eyes: EOMI/PERRLA. Ears: Normal hearing. Normal anatomy. Neck/trachea: Trachea midline, supple. Nose: Normal external anatomy. Mouth: Moist mucous membranes. Chest: Fair air entry bilaterally. No wheezing or rhonchi. Cardio vascular: Positive S1, positive S2. Regular rate and rhythm. Abdomen: Positive bowel sounds in all 4 quadrants. Soft, non-tender, non- distended. : Deferred. Rectal: Deferred Skin: Warm, dry. Extremities: 2+ radial pulses bilaterally. No lower extremity edema. Neuro: Awake, alert, oriented x3. No gross motor or sensory deficits. Cranial nerves II through XII intact. Gait not assessed. Labs/Diagnostic Data Labs Test 07/27/24 04:06 07/26/24 23:07 07/26/24 21:52 07/26/24 03:50 Range/Units White Blood Count 13.1 H 4.4-10.8 10^3/uL Red Blood Count 3.64 L 4.0-5.20 10^6/uL Hemoglobin 10.8 L 12.2-16.2 g/dL Hematocrit 32.9 #L 36.0-46.0 % Mean Corpuscular Volume 90.4 80.0-100.0 fL Mean Corpuscular Hemoglobin 29.6 28.0-32.0 pg Mean Corpuscular Hemoglobin Concent 32.7 32.0-36.0 g/dL Red Cell Distribution Width 16.4 H 11.8-14.3 % Platelet Count 206 140-450 10^3/uL Mean Platelet Volume 8.8 6.9-10.8 fL Neutrophils (%) (Auto) 90.3 H 37.0-80.0 % Lymphocytes (%) (Auto) 3.6 L 10.0-50.0 % Monocytes (%) (Auto) 3.4 0.0-12.0 % Eosinophils (%) (Auto) 1.6 0.0-7.0 % Basophils (%) (Auto) 1.1 0.0-2.0 % Neutrophils # (Auto) 11.9 H 1.6-8.6 10 ^3/uL Lymphocytes # (Auto) 0.5 0.4-5.4 10 ^3/uL Monocytes # (Auto) 0.4 0-1.3 10 ^3/uL Eosinophils # (Auto) 0.2 0-0.8 10 ^3/uL Basophils # (Auto) 0.1 0-0.2 10 ^3/uL Nucleated Red Blood Cells 0.0 % Sodium Level 143 136-145 mmol/L Potassium Level 3.8 3.5-5.1 mmol/L Chloride Level 107 98-107 mmol/L Carbon Dioxide Level 30 20-31 mmol/L Anion Gap 6 5-15 Blood Urea Nitrogen 16 9-23 mg/dL Creatinine 1.03 H 0.550-1.02 mg/dL Glomerular Filtration Rate Calc 61 >90 mL/min BUN/Creatinine Ratio 15.5 10.0-20.0 Serum Glucose 171 H 74-106 mg/dL Calcium Level 9.3 8.7-10.4 mg/dL POC Glucose 229 H 70-106 mg/dl Vancomycin Level Trough 27.8 H 5-10 ug/mL Total Bilirubin 1.1 H 0.2-1.0 mg/dL Aspartate Amino Transferase (AST) 39 13-40 U/L Alanine Aminotransferase (ALT) 33 7-40 U/L Alkaline Phosphatase 141 H 46-116 U/L Total Protein 5.8 5.7-8.2 g/dL Albumin 3.7 3.2-4.8 g/dL Test 07/25/24 11:21 07/25/24 08:07 07/25/24 07:18 07/25/24 05:56 Range/Units Influenza Type A Antigen Negative Negative Influenza Type B Antigen Negative Negative SARS-CoV-2 Antigen (Rapid) Negative NEGATIVE D-Dimer, Quantitative 1.44 H 0.0-0.49 mg/L FEU Lactic Acid Level 2.4 *H 0.4-2.0 mmol/L Blood Gas Specimen Type Arterial Blood Gas Sample Site Right radial Blood Gas Patient Temperature 37.0 Arterial Blood Date Drawn [id number] Arterial Blood pH 7.379 7.350-7.450 Arterial Blood Partial Pressure CO2 37.8 32.0-45.0 mmHg Arterial Blood Partial Pressure O2 59.6 L 83.0-108.0 mmHg Arterial Blood HCO3 21.8 21.0-28.0 mmol/L Arterial Blood Oxygen Saturation 88.6 L 94.0-98.0 % Arterial Blood Base Excess -2.9 L -2.0-3.0 mmol/L Arterial Blood Oxyhemoglobin 86.4 L 94.0-98.0 % Arterial Blood Carboxyhemoglobin 1.8 H 0.5-1.5 % Arterial Blood Methemoglobin 0.7 0.0-1.5 % Roverto Test Yes Blood Gas Total Hemoglobin 13.50 12.0-16.0 g/dL Blood Gas Set Respiration Rate 12.0 Blood Gas Modality Mask - bipap FiO2 % 40.0 Blood Gas EPAP 5 Blood Gas IPAP 12 Test 07/25/24 05:15 Range/Units Hemoglobin A1c 5.9 H <5.7 % A1C Magnesium Level 2.2 1.6-2.6 mg/dL Troponin I High Sensitivity 18 </=34 ng/L B-Type Natriuretic Peptide 1104.51 0-100 pg/mL Microbiology Date/Time Source Procedure Growth Status 07/25/24 05:30 Blood Blood Culture - Preliminary NO GROWTH AFTER 48 HOURS OF INCUBATION. Resulted Assessment Impression: Sepsis secondary to pneumonia Acute hypoxic respiratory failure secondary to pneumonia and acute exacerbation of asthma Pneumonia likely Gram-negative Obesity BMI 31.4 Lactic acidosis Atrial fibrillation with RVR Uncontrolled diabetes mellitus Pleural effusions Atelectasis Ex-smoker , quit 2014 Plan: On non-rebreather at 12 liters/minute Chest x-ray demonstrates multifocal pneumonia. CT chest report and images reviewed. Bilateral pneumonia. No mass or pulmonary nodule. Small bilateral pleural effusions. Atelectasis. Cardiomegaly Keep O2 saturation above 92%. Continue antibiotics Follow up cultures Continue bronchodilators Continue Pulmicort twice daily Continue IV steroids for asthma exacerbation Diuresis to maintain euvolemia with Lasix Monitor ins and outs. Monitor renal function. Monitor electrolytes. Supplement as necessary. Glycemic control with Accu-Cheks, insulin sliding scale GI prophylaxis with Pepcid Condition: Critical Prognosis: Poor given multiple comorbidities. Rest of plan per hospitalist and other consultants. Thank you SALVADOR Olea for allowing me to participate in this patient's care. Further recommendations will depend on patient's clinical course. Please do not hesitate to contact me if you have any questions or concerns. This medical document was created using an electronic medical record system with [employer] dictation system. Although this document has been carefully reviewed, there may still be some phonetic and typographical errors. These areas are purely typographical due to imperfections of the software programs, and do not reflect any compromise in the patient's medical care. Plan discussed with: Patient, Other (RN, [employer]) ULISES UMAÑA MD Jul 27, 2024 09:40
[2024-07-27] MEDS: dilTIAZem HCL 180MG ER CAP PO SCH (10:18)
[2024-07-27] MEDS: IPRATROPIUM BROM 0.5 MG/2.5ML INH SOL NEB PRN (12:06)
[2024-07-27] MEDS: ACETAMINOPHEN 325 MG TAB PO PRN (13:02)
[2024-07-27] MEDS: AMIODARONE BOLUS KIT 100 ML IV ONE (16:17)
[2024-07-27] MEDS: AMIODARONE 450mg/250ml AE 250 ML IV SCH ×2 (16:42→22:56)
[2024-07-28] VITALS (19 sets, daily range): BP systolic 131–158; BP diastolic 63–98; PULSE 76–140; RESP 16–28; TEMP 97.4–98.1; O2SAT 92–99
[2024-07-28 04:34] LABS: Basophils # (auto) 0 10 ^3/uL (0-0.2); Eosinophils # (auto) 0 10 ^3/uL (0-0.8); Hematocrit 32.6 % (36.0-46.0); Hemoglobin 10.6 g/dL (12.2-16.2); Lymphocytes # (auto) 0.3 10 ^3/uL (0.4-5.4); Lymphocytes % (auto) 2.5 % (10.0-50.0); Mean Corpuscular Hemoglobin 29.1 pg (28.0-32.0); Mean Corpuscular Hgb Conc. 32.4 g/dL (32.0-36.0); Mean Corpuscular Volume 89.7 fL (80.0-100.0); Monocytes # (auto) 0.4 10 ^3/uL (0-1.3); Monocytes % (auto) 3.3 % (0.0-12.0); Neutrophils # (auto) 10.2 10 ^3/uL (1.6-8.6); Neutrophils % (auto) 94.2 % (37.0-80.0); Platelet Count (auto) 151 10^3/uL (140-450); Red Blood Cells 3.63 10^6/uL (4.0-5.20); Red Cell Distribution Width 16.5 % (11.8-14.3); White Blood Cell 10.8 10^3/uL (4.4-10.8)
[2024-07-28 04:52] LABS: Anion Gap 8 (5-15); Carbon Dioxide 30 mmol/L (20-31); Chloride 105 mmol/L (98-107); Sodium 143 mmol/L (136-145)
[2024-07-28 04:53] LABS: Calcium 9.7 mg/dL (8.7-10.4)
[2024-07-28 04:58] LABS: BUN/Creatinine Ratio 13.7 (10.0-20.0); Blood Urea Nitrogen 18 mg/dL (9-23)
[2024-07-28 05:10] LABS: Glucose 198 mg/dL (74-106); Potassium 3.3 mmol/L (3.5-5.1)
[2024-07-28] MEDS: POTASSIUM EFFERVESENT TAB 25 MEQ PO ONE (08:45)
[2024-07-28] MEDS: POTASSIUM CHL 20 Meq TABLET PO ONE (09:15)
[2024-07-28] MEDS ORDERED: CEFP200T15 PO (09:26)
--- NOTE | 2024-07-28 09:56 | DVHPN2 ---
Subjective Reports that her breathing has improved Reviewed: Care Plan, H&P, Labs, Medications, Previous Orders Changes from previous H/P or p: No Changes General: Per HPI Eyes: No Pain, No Vision change, No Conjunctivae inflammation, No Eyelid inflammation, No Other, No Redness ENT: No Ear pain, No Ear discharge, No Nose pain, No Nose discharge, No Nose congestion, No Mouth pain, No Mouth swelling, No Throat pain, No Throat swelling, No Other Cardiovascular: No Chest Pain, No Palpitations, No Orthopnea, No Paroxysmal Noc. Dyspnea, No Edema, No Lt Headedness, No Other Respiratory: Cough; No Dry; Shortness of breath; No SOB with excertion, No Wheezing, No Hemoptysis, No Pleuritic Pain, No Sputum, No Other Gastrointestinal: No Nausea, No Vomiting, No Abdominal Pain, No Diarrhea, No Constipation, No Melena, No Hematochezia, No Other Genitourinary: No Dysuria, No Frequency, No Incontinence, No Hematuria, No Retention, No Other Musculoskeletal: No other, No neck pain, No shoulder pain, No arm pain, No back pain, No hand pain, No leg pain, No foot pain Skin: No Rash, No Lesions, No Jaundice, No Bruising, No Other Objective Vitals Vital Signs Date Time Temp Pulse Resp B/P (MAP) Pulse Ox O2 Delivery O2 Flow Rate FiO2 07/28/24 08:14 133 07/28/24 08:12 97.9 25 154/82 (106) 93 97.9 07/28/24 08:12 Nasal Cannula* 3 32 Intake/Output Intake and Output 07/28/24 07:00 Intake Total 933.334 ml Balance 933.334 ml Intake IV Total 933.334 ml # Bowel Movements 1 General Appearance: Alert, Oriented X3, Cooperative, mild distress HEENT: Atraumatic, PERRLA Lungs: Other (Bilateral rhonchi, nasal cannula at 2 liters/minutes) Cardiovascular: Normal S1, Normal S2, Other (AFib with RVR) Neuro: Normal gait, Normal speech Psych/Mental Status: Mental status NL, Other (Patient reports she was anxious) Medications Current Medications Medications Dose Ordered Sig/Addi Route Start Time Stop Time Status Last Admin Dose Admin Diagnostic Test (Pha) 1 strip ACHS 07/25/24 11:30 07/28/24 06:38 1 STRIP Insulin Human Regular ACHS SC 07/25/24 11:30 07/28/24 06:39 3 UNITS Dextrose 50 ml UD PRN IV 07/25/24 07:30 Methylprednisolone Sodium Succinate 40 mg BID IV 07/25/24 10:00 07/27/24 22:40 40 MG Ipratropium [place] 0.5 mg Q4HWA [facility] 07/25/24 10:00 07/28/24 08:46 0.5 MG Ipratropium [place] 0.5 mg Q2HPRN PRN NEB 07/25/24 07:30 07/27/24 12:06 0.5 MG Famotidine 20 mg DAILY IV 07/25/24 10:00 07/27/24 10:02 20 MG Levalbuterol HCl 1.25 mg Q4HWA NEB 07/25/24 10:00 07/28/24 08:47 1.25 MG Vancomycin HCl 0 ml @ 0 mls/hr UD IV 07/25/24 07:30 Piperacillin Sod/ Tazobactam Sod 100 ml @ 25 mls/hr Q8HR IV 07/25/24 14:00 07/28/24 05:34 25 MLS/HR Furosemide 40 mg DAILY IV 07/25/24 10:00 07/27/24 10:19 40 MG Acetaminophen/ Hydrocodone Bitart 1 tab Q4HP PRN PO 07/25/24 07:45 Ondansetron HCl 4 mg Q4HP PRN IV 07/25/24 07:45 Acetaminophen 650 mg Q6HP PRN PO 07/25/24 07:45 07/27/24 13:02 650 MG Morphine Sulfate 2 mg Q4HPRN PRN IV 07/25/24 07:45 Nitroglycerin 0.4 mg Q5MINP PRN SL 07/25/24 07:45 Morphine Sulfate 2 mg Q30M PRN IV 07/25/24 07:45 Mirtazapine 30 mg HS PO 07/25/24 22:00 07/27/24 21:54 30 MG Patient Own Medication 200 mg DAILY PO 07/26/24 10:00 UNV Patient Own Medication 10 mg BID PO 07/25/24 22:00 UNV Patient Own Medication 100 mg HS PO 07/25/24 22:00 UNV Lisinopril 10 mg BID PO 07/25/24 22:00 07/27/24 21:55 10 MG Sertraline HCl 100 mg HS PO 07/25/24 22:00 07/27/24 21:54 100 MG Lamotrigine 200 mg DAILY PO 07/26/24 10:00 07/27/24 10:02 200 MG Budesonide 0.5 mg BID NEB 07/26/24 10:00 07/28/24 08:48 0.5 MG Apixaban 5 mg BID PO 07/26/24 10:00 07/27/24 21:55 5 MG Amiodarone HCl 250 ml @ 16.667 mls/ hr Q15H IV 07/27/24 21:45 07/27/24 22:56 16.667 MLS/HR Laboratory Results Laboratory Tests 07/28/24 04:15 Chemistry Test 07/28/24 04:15 Calcium Level 9.7 mg/dL (8.7-10.4) Microbiology Microbiology Date/Time Source Procedure Growth Status 07/25/24 05:30 Blood Blood Culture - Preliminary NO GROWTH AFTER 72 HOURS OF INCUBATION. Resulted Labs and/or images reviewed: Labs reviewed by me, Image(s) reviewed by me Assessment/Plan Assessment/Plan Impression: -acute hypoxic respiratory failure -community-acquired pneumonia, probable Gram-positive/Gram-negative etiology -nicotine dependence -COPD with probable exacerbation -obesity -atrial fibrillation with rapid ventricular rate -depression -anxiety disorder -sepsis secondary to pneumonia -mitral valve stenosis Plan: Events: Patient was continues to be in atrial fibrillation with rapid ventricular rate despite p.o. Cardizem and amiodarone drip. Cardiology consultation was placed. Patient clinically states she feels better. White blood cell count now normal. -continue IV amiodarone -stop calcium channel ramiro, start metoprolol tartrate 25 mg p.o. b.i.d., Mag oxide 400 mg p.o. daily, and a one time dose of IV metoprolol -O2 supplementation with supplemental O2. BiPAP p.r.n. -echocardiogram: Results reviewed -anticoagulation with Eliquis -continue home medications for anxiety and depression -bronchodilators: Continue Xopenex, ipratropium, add Pulmicort -empiric antibiotic therapy -PUD, DVT prophylaxis -repeat labs in a.m.. Critical care time spent with patient discussing and formulating plan of care: 40 minutes. This does not include time spent performing procedures. This medical document was created using an electronic medical record system with [employer] dictation system. Although this document has been carefully reviewed, there may still be some phonetic and typographical errors. These areas are purely typographical due to imperfections of the software programs, and do not reflect any compromise in the patient's medical care. Plan discussed with: Patient, Other ([email or web address]) My Orders Orders - JUAN YEUNG NP Procedure Category Date Status Time Amiodarone PHA 07/27/24 In Process 450mg/250ml Ae 21:45 * Cardiology Consult CONS 07/27/24 Transmitted 15:24 Transfer Orders XFER 07/28/24 Transmitted 09:27 Metoprolol Tartrate PHA 07/28/24 Verified Tablet (Lopressor Ta 10:00 Magnesium Oxide PHA 07/28/24 Verified Tablet (Mag-Ox Tablet) 10:00 Metoprolol Inj PHA 07/28/24 Verified (Lopressor) 10:00 Date of Service: Jul 28, 2024 Billing Provider: JUAN YEUNG NP Common Visit Codes: [id number] CARE 30-74 MIN JUAN YEUNG NP Jul 28, 2024 09:55
--- NOTE | 2024-07-28 10:34 | DVHINCON2 ---
Date Seen: Jul 28, 2024 Referring Physician SALVADOR Olea Reason for Consultation AFib with RVR, CHF, mitral valve disease History of Present Illness This is a 64-year-old female patient who presents to the emergency room with chief complaint of shortness of breath. The patient reports she was recently seen in [place] approximately a week and a half ago and was diagnosed with pneumonia and atrial fibrillation. The patient reports that she left against medical advice to come back home. She reports that the shortness of breath was progressively getting worse so she decided to come to the emergency room for further evaluation. Initial twelve lead electrocardiogram reveals atrial fibrillation (with artifact throughout/poor quality EKG). The patient denies any chest pain. Initial troponin level of 18ng/L. Initial BNP level of 1104.51pg/mL. Significant past medical history includes atrial fibrillation (on Dabigatran and Amiodarone), hypertension, hyperlipidemia, type 2 diabetes mellitus, COPD, previous tobacco use and obesity. Past Medical History Past medical history reviewed. No other significant than mentioned above. Past Surgical History Hysterectomy Family History: Stroke G8 FATHER ( cerebral aneurysm) Family History Family history reviewed. Social History Patient has a 90 pack-year history, quit smoking in 2014 Patient denies any alcohol use Patient denies any illicit drug use Allergies: Coded Allergies: NO KNOWN ALLERGIES (Unverified , 11/29/14) Home Meds Reported Medications Cefpodoxime Proxetil (Cefpodoxime Proxetil) 200 Mg Tab, 200 MG PO DAILY, TAB 07/28/24 Gabapentin (Gabapentin) 100 Mg Cap, 2 CAP PO DAILY 07/25/24 Simvastatin (Simvastatin) 20 Mg Tab, 1 TAB PO 07/25/24 Dabigatran Etexilate Mesylate (Dabigatran Etexilate) 150 Mg Cap, PO 07/25/24 Amiodarone HCl (Amiodarone HCl) 200 Mg Tab, PO 07/25/24 Metoprolol Succinate (Metoprolol Succinate Er) 100 Mg Tab, 1 TAB PO BID 07/25/24 Digoxin (Digoxin) 125 Mcg Tab, 1 TAB PO DAILY 07/25/24 Albuterol Sulfate (Ventolin Hfa) Aer, 1 PUFF IN Q4HP PRN, AER 11/29/14 Lisinopril (Lisinopril) 10 Mg Tab, 10 MG PO BID, TAB 11/29/14 Hydrochlorothiazide (Hydrochlorothiazide) 12.5 Mg Cap, 12.5 MG PO BID, CAP 11/29/14 Lamotrigine (Lamotrigine) 200 Mg Tab, 200 MG PO DAILY, #30 11/29/14 Sertraline Hcl (Sertraline Hcl) 100 Mg Tab, 100 MG PO HS, #60 11/29/14 Mirtazapine (Mirtazapine Oral Disintegrating Tablet) 30 Mg Tab, 30 MG PO HS, #30 11/29/14 Home Meds Home medications reviewed. Current Medications Current Medications Medications (Trade) Dose Ordered Sig/Addi Route PRN Reason Start Time Stop Time Status Last Admin Amiodarone HCl 250 ml @ 33.333 mls/ hr Q7H30M IV 07/27/24 15:45 07/27/24 21:44 DC 07/27/24 16:42 Amiodarone HCl 250 ml @ 16.667 mls/ hr Q15H IV 07/27/24 21:45 07/27/24 22:56 Metoprolol Tartrate (Lopressor Tablet) 25 mg BID PO 07/28/24 10:00 Magnesium Oxide (Mag-Ox Tablet) 400 mg DAILY PO 07/28/24 10:00 Review of Systems Constitutional: No symptom reported Ears, Nose, & Throat: No symptom reported Eyes: No symptom reported Neurological: No symptoms reported Pulmonary/Respiratory: Shortness of breath Cardiovascular: No symptom reported Gastrointestinal: No symptom reported Genitourinary: No symptom reported Musculoskeletal: No symptom reported Skin: No symptom reported Psychiatric: No symptom reported Endocrine: No symptom reported Hematologic/Lymphatic: No symptom reported Vital Signs Vital Signs Date Time Temp Pulse Resp B/P (MAP) Pulse Ox O2 Delivery O2 Flow Rate FiO2 07/28/24 08:56 121 18 99 07/28/24 08:46 Nasal Cannula 3.0 07/28/24 08:46 32 07/28/24 08:12 97.9 154/82 (106) 97.9 Physical Exam General Appearance: Cooperative. Well-developed. Well-nourished. No acute distress. Pulmonary/Respiratory: Coarse throughout Cardiovascular/Chest: Irregular rate and rhythm. Peripheral Pulses: 2+ Radial (R). 2+ Radial (L). 2+ Pedal (R). 2+ Pedal (L) Abdominal Exam: Normal bowel sounds. Ankle Exam: Negative ankle edema Lower extremities: Negative lower extremity edema Neuro/Mental Status: A/OX4, coherent. Thoughts/Psych: Normal thought pattern. Appropriate mood and affect. Good judgment and insight. Appearance: No acute distress. Skin Exam: Normal inspection. Normal color. Warm and dry. Labs/Diagnostic Data Labs Test 07/28/24 06:26 07/28/24 04:15 07/26/24 21:52 07/26/24 03:50 Range/Units POC Glucose 192 H 70-106 mg/dl White Blood Count 10.8 4.4-10.8 10^3/uL Red Blood Count 3.63 L 4.0-5.20 10^6/uL Hemoglobin 10.6 L 12.2-16.2 g/dL Hematocrit 32.6 L 36.0-46.0 % Mean Corpuscular Volume 89.7 80.0-100.0 fL Mean Corpuscular Hemoglobin 29.1 28.0-32.0 pg Mean Corpuscular Hemoglobin Concent 32.4 32.0-36.0 g/dL Red Cell Distribution Width 16.5 H 11.8-14.3 % Platelet Count 151 140-450 10^3/uL Mean Platelet Volume 8.4 6.9-10.8 fL Neutrophils (%) (Auto) 94.2 H 37.0-80.0 % Lymphocytes (%) (Auto) 2.5 L 10.0-50.0 % Monocytes (%) (Auto) 3.3 0.0-12.0 % Eosinophils (%) (Auto) 0.0 0.0-7.0 % Basophils (%) (Auto) 0.0 0.0-2.0 % Neutrophils # (Auto) 10.2 H 1.6-8.6 10 ^3/uL Lymphocytes # (Auto) 0.3 L 0.4-5.4 10 ^3/uL Monocytes # (Auto) 0.4 0-1.3 10 ^3/uL Eosinophils # (Auto) 0 0-0.8 10 ^3/uL Basophils # (Auto) 0 0-0.2 10 ^3/uL Nucleated Red Blood Cells 0.0 % Sodium Level 143 136-145 mmol/L Potassium Level 3.3 L 3.5-5.1 mmol/L Chloride Level 105 98-107 mmol/L Carbon Dioxide Level 30 20-31 mmol/L Anion Gap 8 5-15 Blood Urea Nitrogen 18 9-23 mg/dL Creatinine 1.31 H 0.550-1.02 mg/dL Glomerular Filtration Rate Calc 46 >90 mL/min BUN/Creatinine Ratio 13.7 10.0-20.0 Serum Glucose 198 H 74-106 mg/dL Calcium Level 9.7 8.7-10.4 mg/dL Random Vancomycin Level 27.6 H 5-10 ug/mL Vancomycin Level Trough 27.8 H 5-10 ug/mL Total Bilirubin 1.1 H 0.2-1.0 mg/dL Aspartate Amino Transferase (AST) 39 13-40 U/L Alanine Aminotransferase (ALT) 33 7-40 U/L Alkaline Phosphatase 141 H 46-116 U/L Total Protein 5.8 5.7-8.2 g/dL Albumin 3.7 3.2-4.8 g/dL Test 07/25/24 11:21 07/25/24 08:07 07/25/24 07:18 07/25/24 05:56 Range/Units Influenza Type A Antigen Negative Negative Influenza Type B Antigen Negative Negative SARS-CoV-2 Antigen (Rapid) Negative NEGATIVE D-Dimer, Quantitative 1.44 H 0.0-0.49 mg/L FEU Lactic Acid Level 2.4 *H 0.4-2.0 mmol/L Blood Gas Specimen Type Arterial Blood Gas Sample Site Right radial Blood Gas Patient Temperature 37.0 Arterial Blood Date Drawn [id number] Arterial Blood pH 7.379 7.350-7.450 Arterial Blood Partial Pressure CO2 37.8 32.0-45.0 mmHg Arterial Blood Partial Pressure O2 59.6 L 83.0-108.0 mmHg Arterial Blood HCO3 21.8 21.0-28.0 mmol/L Arterial Blood Oxygen Saturation 88.6 L 94.0-98.0 % Arterial Blood Base Excess -2.9 L -2.0-3.0 mmol/L Arterial Blood Oxyhemoglobin 86.4 L 94.0-98.0 % Arterial Blood Carboxyhemoglobin 1.8 H 0.5-1.5 % Arterial Blood Methemoglobin 0.7 0.0-1.5 % Roverto Test Yes Blood Gas Total Hemoglobin 13.50 12.0-16.0 g/dL Blood Gas Set Respiration Rate 12.0 Blood Gas Modality Mask - bipap FiO2 % 40.0 Blood Gas EPAP 5 Blood Gas IPAP 12 Test 07/25/24 05:15 Range/Units Hemoglobin A1c 5.9 H <5.7 % A1C Magnesium Level 2.2 1.6-2.6 mg/dL Troponin I High Sensitivity 18 </=34 ng/L B-Type Natriuretic Peptide 1104.51 0-100 pg/mL Microbiology Date/Time Source Procedure Growth Status 07/25/24 05:30 Blood Blood Culture - Preliminary NO GROWTH AFTER 72 HOURS OF INCUBATION. Resulted Assessment Acute on chronic decompensated HFrEF, NYHA class III, newly diagnosed Atrial fibrillation with a rapid ventricular response (on Dabigatran and Amiodarone) Acute hypoxic respiratory failure Mild mitral valve stenosis Hypertension Hyperlipidemia Type 2 diabetes mellitus COPD History of tobacco use Obesity Plan/Recommendation We will continue with the following plan/recommendations (Dr. Enamorado): * Echocardiogram reveals EF 40% with anterior anteroseptal wall hypokinesia * Initiate GDMT for CHF as tolerated * Strict intake and output, daily weights, maintain fluid restriction * [id number] VASc score: 3 points, HAS-BLED score: 1 point * Initiate therapeutic Lovenox while inpatient (pending possible ischemic workup), transition back to NOAC when appropriate * Beta-ramiro for rate control * Continue antiarrhythmic agent, amiodarone * Preload and afterload reduction * Monitor and replete electrolytes as needed; keep potassium greater than four magnesium greater than two Patient seen and examined at bedside with . Echocardiogram results reviewed with MD. At this time, no immediate intervention needed for mitral valve disease given that it is mild stenosis in nature. We will recommend outpatient follow up with ornament setter every six months for repeat echocardiogram. Plan of care discussed with the patient and her . We will consider possible inpatient ischemic workup depending on patient's clinical course and progression. Critical care time spent: 44 minutes This medical document was created using an electronic medical record system with voice recognition software and computerized dictation system. Although this document has been carefully reviewed, there might still be some phonetic and typographical errors. Occasional wrong-word or ``sound-alike substitutions may have occurred due to the inherent limitations of voice recognition software. These areas are purely typographical due to imperfections of the software programs and do not reflect any compromise in the patient's medical care. Please read the chart carefully and recognize, using context, where these substitutions have occurred. Plan discussed with: Patient NYHA Physical activity limitations: Class3(Marked) ordinary (activity causes symtoms) Date of Service: Jul 28, 2024 Billing Provider: MACI ENAMORADO MD Cardiology Common Codes: [id number] INP/OBS CARE (High) Cardiology Consultation Codes: [id number] CONSULT <45MIN ANNAMARIA KEITH [facility] Jul 28, 2024 10:34
[2024-07-28] MEDS: MAGNESIUM OXIDE 400 MG TAB PO SCH (10:39)
[2024-07-28] MEDS: METOPROLOL TARTRATE 25 MG TAB PO SCH (10:39)
[2024-07-28] MEDS: METOPROLOL TARTRATE 1MG/1ML-5ML VIAL IV ONE (11:57)
[2024-07-28] MEDS: METOPROLOL TARTRATE 25 MG TAB PO ONE (12:01)
[2024-07-28] MEDS: ALPRAZolam 0.25 MG TAB PO PRN (14:27)
[2024-07-28] MEDS: METOPROLOL TARTRATE 50 MG TAB PO SCH (22:36)
[2024-07-28] MEDS: ENOXAPARIN SOD 80 MG/0.8ML SYRINGE SC SCH (22:50)
[2024-07-29] VITALS (18 sets, daily range): BP systolic 149–187; BP diastolic 90–120; PULSE 50–134; RESP 16–22; TEMP 97.4–98.2; O2SAT 90–100
[2024-07-29] MEDS: HYDROcodone-ACET 5/325MG TAB PO PRN (00:11)
[2024-07-29 08:08] LABS: Chloride 105 mmol/L (98-107); Potassium 3.8 mmol/L (3.5-5.1); Sodium 142 mmol/L (136-145)
[2024-07-29 08:09] LABS: Anion Gap 11 (5-15); Carbon Dioxide 26 mmol/L (20-31)
[2024-07-29 08:10] LABS: Calcium 9.8 mg/dL (8.7-10.4)
[2024-07-29 08:14] LABS: BUN/Creatinine Ratio 15.4 (10.0-20.0); Blood Urea Nitrogen 21 mg/dL (9-23)
[2024-07-29 08:19] LABS: Glucose 150 mg/dL (74-106)
[2024-07-29] MEDS: SPIRONOLACTONE 25 MG TAB PO SCH (09:19)
[2024-07-29] MEDS: EMPAGLIFLOZIN 10 MG TAB PO SCH (09:19)
--- NOTE | 2024-07-29 10:28 | DVHPN2 ---
Subjective Patient was states that her breathing has become worse since yesterday afternoon Reviewed: Care Plan, H&P, Labs, Medications, Previous Orders Changes from previous H/P or p: Changes General: Per HPI Eyes: No Pain, No Vision change, No Conjunctivae inflammation, No Eyelid inflammation, No Other, No Redness ENT: No Ear pain, No Ear discharge, No Nose pain, No Nose discharge, No Nose congestion, No Mouth pain, No Mouth swelling, No Throat pain, No Throat swelling, No Other Cardiovascular: No Chest Pain, No Palpitations, No Orthopnea, No Paroxysmal Noc. Dyspnea, No Edema, No Lt Headedness, No Other Respiratory: Cough; No Dry; Shortness of breath; No SOB with excertion, No Wheezing, No Hemoptysis, No Pleuritic Pain, No Sputum, No Other Gastrointestinal: No Nausea, No Vomiting, No Abdominal Pain, No Diarrhea, No Constipation, No Melena, No Hematochezia, No Other Genitourinary: No Dysuria, No Frequency, No Incontinence, No Hematuria, No Retention, No Other Musculoskeletal: No other, No neck pain, No shoulder pain, No arm pain, No back pain, No hand pain, No leg pain, No foot pain Skin: No Rash, No Lesions, No Jaundice, No Bruising, No Other Objective Vitals Vital Signs Date Time Temp Pulse Resp B/P (MAP) Pulse Ox O2 Delivery O2 Flow Rate FiO2 07/29/24 09:24 164/108 07/29/24 09:23 107 07/29/24 09:00 97.4 20 91 97.4 07/29/24 06:27 Nasal Cannula* 2 28 Intake/Output Intake and Output 07/29/24 07:00 Intake Total 968.336 ml Output Total 1701 ml Balance -732.664 ml Intake Oral 560 ml IV Total 408.336 ml Output Urine Total 1700 ml Stool Total 1 ml # Bowel Movements 1 General Appearance: Alert, Oriented X3, Cooperative, mild distress HEENT: Atraumatic, PERRLA Lungs: Other (Bilateral rhonchi, nasal cannula at 2 liters/minutes) Cardiovascular: Normal S1, Normal S2, Other (AFib with RVR) Neuro: Normal gait, Normal speech Psych/Mental Status: Mental status NL, Other (Patient reports she was anxious) Medications Current Medications Medications Dose Ordered Sig/Addi Route Start Time Stop Time Status Last Admin Dose Admin Diagnostic Test (Pha) 1 strip ACHS 07/25/24 11:30 07/29/24 06:39 1 STRIP Insulin Human Regular ACHS SC 07/25/24 11:30 07/29/24 06:45 3 UNITS Dextrose 50 ml UD PRN IV 07/25/24 07:30 Methylprednisolone Sodium Succinate 40 mg BID IV 07/25/24 10:00 07/29/24 09:32 40 MG Ipratropium [place] 0.5 mg Q4HWA NEB 07/25/24 10:00 07/29/24 06:25 0.5 MG Ipratropium [place] 0.5 mg Q2HPRN PRN NEB 07/25/24 07:30 07/27/24 12:06 0.5 MG Famotidine 20 mg DAILY IV 07/25/24 10:00 07/29/24 09:15 20 MG Levalbuterol HCl 1.25 mg Q4HWA NEB 07/25/24 10:00 07/29/24 06:25 1.25 MG Vancomycin HCl 0 ml @ 0 mls/hr UD IV 07/25/24 07:30 Piperacillin Sod/ Tazobactam Sod 100 ml @ 25 mls/hr Q8HR IV 07/25/24 14:00 07/29/24 06:22 25 MLS/HR Furosemide 40 mg DAILY IV 07/25/24 10:00 Hold 07/28/24 10:41 40 MG Acetaminophen/ Hydrocodone Bitart 1 tab Q4HP PRN PO 07/25/24 07:45 07/29/24 00:11 1 TAB Ondansetron HCl 4 mg Q4HP PRN IV 07/25/24 07:45 Acetaminophen 650 mg Q6HP PRN PO 07/25/24 07:45 07/28/24 11:57 650 MG Morphine Sulfate 2 mg Q4HPRN PRN IV 07/25/24 07:45 Nitroglycerin 0.4 mg Q5MINP PRN SL 07/25/24 07:45 Morphine Sulfate 2 mg Q30M PRN IV 07/25/24 07:45 Mirtazapine 30 mg HS PO 07/25/24 22:00 07/28/24 22:14 30 MG Patient Own Medication 200 mg DAILY PO 07/26/24 10:00 UNV Patient Own Medication 10 mg BID PO 07/25/24 22:00 UNV Patient Own Medication 100 mg HS PO 07/25/24 22:00 UNV Lisinopril 10 mg BID PO 07/25/24 22:00 07/29/24 09:24 10 MG Sertraline HCl 100 mg HS PO 07/25/24 22:00 07/28/24 22:17 100 MG Lamotrigine 200 mg DAILY PO 07/26/24 10:00 07/28/24 10:38 200 MG Budesonide 0.5 mg BID NEB 07/26/24 10:00 07/28/24 18:24 0.5 MG Magnesium Oxide 400 mg DAILY PO 07/28/24 10:00 07/29/24 09:19 400 MG Metoprolol Tartrate 50 mg BID PO 07/28/24 22:00 07/29/24 09:23 50 MG Alprazolam 0.25 mg Q8HP PRN PO 07/28/24 14:15 07/28/24 14:27 0.25 MG Enoxaparin Sodium 80 mg BID SC 07/28/24 22:00 07/29/24 09:26 80 MG Spironolactone 25 mg DAILY PO 07/29/24 10:00 07/29/24 09:19 25 MG Empaglifozin 10 mg DAILY PO 07/29/24 10:00 07/29/24 09:19 10 MG Laboratory Results Laboratory Tests 07/29/24 06:23 Chemistry Test 07/29/24 06:23 Calcium Level 9.8 mg/dL (8.7-10.4) Microbiology Microbiology Date/Time Source Procedure Growth Status 07/25/24 05:30 Blood Blood Culture - Preliminary NO GROWTH AFTER 72 HOURS OF INCUBATION. Resulted Labs and/or images reviewed: Labs reviewed by me, Image(s) reviewed by me Assessment/Plan Assessment/Plan Impression: -acute hypoxic respiratory failure -community-acquired pneumonia, probable Gram-positive/Gram-negative etiology -nicotine dependence -COPD with probable exacerbation -obesity -atrial fibrillation with rapid ventricular rate -depression -anxiety disorder -sepsis secondary to pneumonia -mitral valve stenosis Plan: Events: Continues to be in AFib with heart rate around 110 beats per minute. Transitioned amiodarone to p.o.. Patient subjectively reports having shortness of breath. We will give a trial of pulse dose steroid, repeat chest x-ray. -continue rate control with metoprolol tartrate, Mag oxide. -O2 supplementation with supplemental O2. BiPAP p.r.n. -echocardiogram: Results reviewed -anticoagulation with Eliquis -continue home medications for anxiety and depression -bronchodilators: Continue Xopenex, ipratropium, add Pulmicort -empiric antibiotic therapy -PUD, DVT prophylaxis -repeat labs in a.m.. Total time spent with patient discussing and formulating plan of care: 35 minutes. This medical document was created using an electronic medical record system with Miew dictation system. Although this document has been carefully reviewed, there may still be some phonetic and typographical errors. These areas are purely typographical due to imperfections of the software programs, and do not reflect any compromise in the patient's medical care. Plan discussed with: Patient, Other (RN) My Orders Orders - JUAN YEUNG NP Procedure Category Date Status Time Alprazolam Tablet PHA 07/28/24 In Process (Xanax Tablet) 14:15 Amiodarone Tablet PHA 07/29/24 Logged (Cordarone Tablet) 22:00 Methylprednisolone PHA 07/29/24 Logged Sod Succ (Solu Medrol 10:30 Chest Xray 1 View XY 07/29/24 Verified 10:26 Date of Service: Jul 29, 2024 Billing Provider: JUAN YEUNG NP Common Visit Codes: [id number] INP/OBS CARE(HIGH) JUAN YEUNG NP Jul 29, 2024 10:28
[2024-07-29 10:50] LABS: Basophils # (auto) 0 10 ^3/uL (0-0.2); Eosinophils # (auto) 0 10 ^3/uL (0-0.8); Nucleated Red Blood Cells % 0.1 %
[2024-07-29 10:56] LABS: Hematocrit 37.4 % (36.0-46.0); Lymphocytes # (auto) 1.4 10 ^3/uL (0.4-5.4); Lymphocytes % (auto) 6.4 % (10.0-50.0); Mean Corpuscular Hemoglobin 29.5 pg (28.0-32.0); Mean Corpuscular Hgb Conc. 32.2 g/dL (32.0-36.0); Mean Corpuscular Volume 91.5 fL (80.0-100.0); Monocytes # (auto) 1.1 10 ^3/uL (0-1.3); Monocytes % (auto) 4.9 % (0.0-12.0); Neutrophils # (auto) 19.4 10 ^3/uL (1.6-8.6); Neutrophils % (auto) 88.7 % (37.0-80.0); Platelet Count (auto) 257 10^3/uL (140-450); Red Blood Cells 4.08 10^6/uL (4.0-5.20); White Blood Cell 21.9 10^3/uL (4.4-10.8)
--- NOTE | 2024-07-29 11:01 | DVH ---
CHEST RADIOGRAPH Indication: pna Technique: Single frontal view of the chest was obtained Comparison: XY CHEST XRAY 1 VIEW on DOS: 07/26/24, XY CHEST PORTABLE on DOS: 07/25/24, CHEST PORTABLE on DOS: 07/15/20, XY CHEST XRAY 1 VIEW on DOS: 07/26/24 FINDINGS: Lines and Tubes: None Lungs: Bilateral airspace consolidation and left upper lobe focal consolidation unchanged. Pleura: No effusion. No pneumothorax. Cardiomediastinal contours: Cardiomegaly. Bones: No acute osseous abnormality. IMPRESSION: 1. No significant change in bilateral airspace disease which may reflect multifocal pneumonia. More f ocal left upper lobe opacity is also unchanged. CT of the chest is still recommended for further charu luation to exclude neoplasm.
[2024-07-29] MEDS: methylPREDNISolone SOD SUCC 125 MG/2 ML VL IV ONE (12:34)
[2024-07-29] MEDS: VANCOMYCIN 750MG VIAL 750 MG in D5W 5% 100 ML IV ONE (12:43)
--- NOTE | 2024-07-29 14:20 | DVHPN2 ---
Consult Progress Note Subjective Other Systems: Patient remains in atrial fibrillation on patient monitor, rate in 110's. Reports worsening shortness of breath today. Objective vital signs Vital Sign Date Time Temp Pulse Resp B/P (MAP) Pulse Ox O2 Delivery O2 Flow Rate FiO2 07/29/24 13:11 97.9 69 20 164/109 (127) 93 97.9 07/29/24 06:27 Nasal Cannula* 2 28 Total Intake and Output 07/28/24 07/28/24 07/29/24 15:00 23:00 07:00 Intake Total 291.669 ml 476.667 ml 200 ml Output Total 1301 ml 400 ml Balance 291.669 ml -824.333 ml -200 ml medications Current Medications Medications Dose Ordered Sig/Addi Route Start Time Stop Time Status Last Admin Dose Admin Diagnostic Test (Pha) 1 strip ACHS 07/25/24 11:30 07/29/24 11:30 1 STRIP Insulin Human Regular ACHS SC 07/25/24 11:30 07/29/24 11:30 2 UNITS Dextrose 50 ml UD PRN IV 07/25/24 07:30 Methylprednisolone Sodium Succinate 40 mg BID IV 07/25/24 10:00 07/29/24 09:32 40 MG Ipratropium [place] 0.[address] [facility] 07/25/24 10:00 07/29/24 14:18 0.5 MG Ipratropium [place] 0.5 mg Q2HPRN PRN NEB 07/25/24 07:30 07/27/24 12:06 0.5 MG Famotidine 20 mg DAILY IV 07/25/24 10:00 07/29/24 09:15 20 MG Levalbuterol HCl 1.25 mg Q4HWA NEB 07/25/24 10:00 07/29/24 14:18 1.25 MG Vancomycin HCl 0 ml @ 0 mls/hr UD IV 07/25/24 07:30 Piperacillin Sod/ Tazobactam Sod 100 ml @ 25 mls/hr Q8HR IV 07/25/24 14:00 07/29/24 14:05 25 MLS/HR Furosemide 40 mg DAILY IV 07/25/24 10:00 Hold 07/28/24 10:41 40 MG Acetaminophen/ Hydrocodone Bitart 1 tab Q4HP PRN PO 07/25/24 07:45 07/29/24 00:11 1 TAB Ondansetron HCl 4 mg Q4HP PRN IV 07/25/24 07:45 Acetaminophen 650 mg Q6HP PRN PO 07/25/24 07:45 07/28/24 11:57 650 MG Morphine Sulfate 2 mg Q4HPRN PRN IV 07/25/24 07:45 Nitroglycerin 0.4 mg Q5MINP PRN SL 07/25/24 07:45 Morphine Sulfate 2 mg Q30M PRN IV 07/25/24 07:45 Mirtazapine 30 mg HS PO 07/25/24 22:00 07/28/24 22:14 30 MG Patient Own Medication 200 mg DAILY PO 07/26/24 10:00 UNV Patient Own Medication 10 mg BID PO 07/25/24 22:00 UNV Patient Own Medication 100 mg HS PO 07/25/24 22:00 UNV Lisinopril 10 mg BID PO 07/25/24 22:00 07/29/24 09:24 10 MG Sertraline HCl 100 mg HS PO 07/25/24 22:00 07/28/24 22:17 100 MG Lamotrigine 200 mg DAILY PO 07/26/24 10:00 07/28/24 10:38 200 MG Budesonide 0.5 mg BID NEB 07/26/24 10:00 07/29/24 10:27 0.5 MG Magnesium Oxide 400 mg DAILY PO 07/28/24 10:00 07/29/24 09:19 400 MG Metoprolol Tartrate 50 mg BID PO 07/28/24 22:00 07/29/24 09:23 50 MG Alprazolam 0.25 mg Q8HP PRN PO 07/28/24 14:15 07/28/24 14:27 0.25 MG Enoxaparin Sodium 80 mg BID SC 07/28/24 22:00 07/29/24 09:26 80 MG Spironolactone 25 mg DAILY PO 07/29/24 10:00 07/29/24 09:19 25 MG Empaglifozin 10 mg DAILY PO 07/29/24 10:00 07/29/24 09:19 10 MG Amiodarone HCl 400 mg Q12HR PO 07/29/24 22:00 Examination: GENERAL:Abnormal (Generalized weakness), LUNGS:Abnormal (Coarse throughout), CVS:Normal, NEURO:Normal laboratory and microbiology Laboratory Tests 07/29/24 10:06 07/29/24 06:23 Test 07/29/24 06:23 Range/Units Serum Glucose 150 H 74-106 mg/dL Problem List/Assessment/Plan Problem List/Assessment/Plan Acute on chronic decompensated HFrEF, NYHA class III, newly diagnosed Atrial fibrillation with a rapid ventricular response (on Dabigatran and Amiodarone) Acute hypoxic respiratory failure secondary to pneumonia Mild mitral valve stenosis Hypertension Hyperlipidemia Type 2 diabetes mellitus COPD History of tobacco use Obesity Plan/Recommendation (Dr. Enamorado): * Echocardiogram reveals EF 40% with anterior anteroseptal wall hypokinesia * Continue GDMT for CHF as tolerated * Strict intake and output, daily weights, maintain fluid restriction * [id number] VASc score: 3 points, HAS-BLED score: 1 point * Initiate therapeutic Lovenox while inpatient (pending possible ischemic workup), transition back to NOAC when appropriate * Beta-ramiro for rate control * Continue antiarrhythmic agent, amiodarone * Preload and afterload reduction * Monitor and replete electrolytes as needed; keep potassium greater than four magnesium greater than two Patient seen and examined at bedside with . Echocardiogram results reviewed with MD. At this time, no immediate intervention needed for mitral valve disease given that it is mild stenosis in nature. We will recommend outpatient follow up with surveyor's assistant every six months for repeat echocardiogram. Plan of care discussed with the patient and her . We will consider possible inpatient ischemic workup depending on patient's clinical course and progression. Today, 07/29/24, patient appears with worsening shortness of breath. We will give one time dose IV Lasix and assess for improvement. Thank you for allowing us to care for this patient. Please call with any questions or concerns. This medical document was created using an electronic medical record system with voice recognition software and computerized dictation system. Although this document has been carefully reviewed, there might still be some phonetic and typographical errors. Occasional wrong-word or ``sound-alike substitutions may have occurred due to the inherent limitations of voice recognition software. These areas are purely typographical due to imperfections of the software programs and do not reflect any compromise in the patient's medical care. Please read the chart carefully and recognize, using context, where these substitutions have occurred. Plan discussed with: Patient, Spouse, Other (Bedside RN) Date of Service: Jul 29, 2024 Billing Provider: MACI ENAMORADO MD Common Visit Codes: [id number] INP/OBS CARE(HIGH) ANNAMARIA KEITH [employer] Jul 29, 2024 14:20
[2024-07-29] MEDS: FUROSEMIDE 40 MG/4 ML VIAL IV ONE (16:58)
[2024-07-29] MEDS ORDERED: LABETALOL HCL 20 MG/4 ML VL IV PRN (21:30)
[2024-07-29] MEDS: AMIODARONE HCL 200 MG TAB PO SCH (21:49)
[2024-07-30] VITALS (15 sets, daily range): BP systolic 104–150; BP diastolic 70–97; PULSE 60–130; RESP 12–22; TEMP 97.4–97.8; O2SAT 91–99
[2024-07-30] MEDS: MORPHINE SULFATE INJ 2 MG/ml SYRG IV PRN (05:50)
--- NOTE | 2024-07-30 10:12 | DVHPN2 ---
Subjective Patient reports that her breathing is less labored than yesterday. Reviewed: Care Plan, H&P, Labs, Medications, Previous Orders Changes from previous H/P or p: Changes General: Per HPI Eyes: No Pain, No Vision change, No Conjunctivae inflammation, No Eyelid inflammation, No Other, No Redness ENT: No Ear pain, No Ear discharge, No Nose pain, No Nose discharge, No Nose congestion, No Mouth pain, No Mouth swelling, No Throat pain, No Throat swelling, No Other Cardiovascular: No Chest Pain, No Palpitations, No Orthopnea, No Paroxysmal Noc. Dyspnea, No Edema, No Lt Headedness, No Other Respiratory: Cough; No Dry; Shortness of breath; No SOB with excertion, No Wheezing, No Hemoptysis, No Pleuritic Pain, No Sputum, No Other Gastrointestinal: No Nausea, No Vomiting, No Abdominal Pain, No Diarrhea, No Constipation, No Melena, No Hematochezia, No Other Genitourinary: No Dysuria, No Frequency, No Incontinence, No Hematuria, No Retention, No Other Musculoskeletal: No other, No neck pain, No shoulder pain, No arm pain, No back pain, No hand pain, No leg pain, No foot pain Skin: No Rash, No Lesions, No Jaundice, No Bruising, No Other Objective Vitals Vital Signs Date Time Temp Pulse Resp B/P (MAP) Pulse Ox O2 Delivery O2 Flow Rate FiO2 07/30/24 09:47 135/70 07/30/24 09:46 58 07/30/24 08:20 16 98 Nasal Cannula* 4 36 07/30/24 05:00 97.6 97.6 Intake/Output Intake and Output 07/30/24 07:00 Intake Total 1010 ml Output Total 1700 ml Balance -690 ml Intake Oral 710 ml IV Total 300 ml Output Urine Total 1700 ml General Appearance: Alert, Oriented X3, Cooperative, mild distress HEENT: Atraumatic, PERRLA Lungs: Other (Bilateral rhonchi, nasal cannula at 2 liters/minutes) Cardiovascular: Normal S1, Normal S2, Other (AFib with RVR) Neuro: Normal gait, Normal speech Skin: Dry, Intact Psych/Mental Status: Mental status NL, Other (Patient reports she was anxious) Medications Current Medications Medications Dose Ordered Sig/Addi Route Start Time Stop Time Status Last Admin Dose Admin Diagnostic Test (Pha) 1 strip ACHS 07/25/24 11:30 07/30/24 06:35 1 STRIP Insulin Human Regular ACHS SC 07/25/24 11:30 07/30/24 06:36 2 UNITS Dextrose 50 ml UD PRN IV 07/25/24 07:30 Methylprednisolone Sodium Succinate 40 mg BID IV 07/25/24 10:00 07/30/24 09:44 40 MG Ipratropium [place] 0.5 mg Q4HWA NEB 07/25/24 10:00 07/29/24 22:21 0.5 MG Ipratropium [place] 0.5 mg Q2HPRN PRN NEB 07/25/24 07:30 07/27/24 12:06 0.5 MG Famotidine 20 mg DAILY IV 07/25/24 10:00 07/30/24 09:44 20 MG Levalbuterol HCl 1.25 mg Q4HWA NEB 07/25/24 10:00 07/29/24 22:26 1.25 MG Vancomycin HCl 0 ml @ 0 mls/hr UD IV 07/25/24 07:30 Piperacillin Sod/ Tazobactam Sod 100 ml @ 25 mls/hr Q8HR IV 07/25/24 14:00 07/30/24 05:31 25 MLS/HR Furosemide 40 mg DAILY IV 07/25/24 10:00 Hold 07/28/24 10:41 40 MG Acetaminophen/ Hydrocodone Bitart 1 tab Q4HP PRN PO 07/25/24 07:45 07/29/24 00:11 1 TAB Ondansetron HCl 4 mg Q4HP PRN IV 07/25/24 07:45 Acetaminophen 650 mg Q6HP PRN PO 07/25/24 07:45 07/29/24 20:20 650 MG Morphine Sulfate 2 mg Q4HPRN PRN IV 07/25/24 07:45 07/30/24 05:50 2 MG Nitroglycerin 0.4 mg Q5MINP PRN SL 07/25/24 07:45 Morphine Sulfate 2 mg Q30M PRN IV 07/25/24 07:45 Mirtazapine 30 mg HS PO 07/25/24 22:00 07/29/24 21:49 30 MG Patient Own Medication 200 mg DAILY PO 07/26/24 10:00 UNV Patient Own Medication 10 mg BID PO 07/25/24 22:00 UNV Patient Own Medication 100 mg HS PO 07/25/24 22:00 UNV Lisinopril 10 mg BID PO 07/25/24 22:00 07/30/24 09:47 10 MG Sertraline HCl 100 mg HS PO 07/25/24 22:00 07/29/24 21:48 100 MG Lamotrigine 200 mg DAILY PO 07/26/24 10:00 07/30/24 09:47 200 MG Budesonide 0.5 mg BID NEB 07/26/24 10:00 07/29/24 22:21 0.5 MG Magnesium Oxide 400 mg DAILY PO 07/28/24 10:00 07/30/24 09:45 400 MG Metoprolol Tartrate 50 mg BID PO 07/28/24 22:00 07/30/24 09:46 50 MG Alprazolam 0.25 mg Q8HP PRN PO 07/28/24 14:15 07/29/24 20:08 0.25 MG Enoxaparin Sodium 80 mg BID SC 07/28/24 22:00 07/30/24 09:44 80 MG Empaglifozin 10 mg DAILY PO 07/29/24 10:00 07/30/24 09:44 10 MG Amiodarone HCl 400 mg Q12HR PO 07/29/24 22:00 07/30/24 09:45 400 MG Labetalol HCl 5 mg Q2HPRN PRN IV 07/29/24 21:30 Laboratory Results Chemistry Test 07/30/24 05:33 Calcium Level Pending Microbiology Microbiology Date/Time Source Procedure Growth Status 07/28/24 11:34 Nose MRSA Screen - Final Complete 07/25/24 05:30 Blood Blood Culture - Final NO GROWTH AFTER 5 DAYS OF INCUBATION. Complete Labs and/or images reviewed: Labs reviewed by me, Image(s) reviewed by me Assessment/Plan Assessment/Plan Impression: -acute hypoxic respiratory failure -community-acquired pneumonia, probable Gram-positive/Gram-negative etiology -nicotine dependence -COPD with probable exacerbation -obesity -atrial fibrillation with rapid ventricular rate -depression -anxiety disorder -sepsis secondary to pneumonia -mitral valve stenosis Plan: Events: Patient was assessed to be on 6 L via nasal cannula. I, myself weaned the patient was in a 3 liters/minute with saturation remaining 94%. Patient continues to be in AFib, with heart rate around 100 beats per minute. -continue rate control with metoprolol tartrate, Mag oxide, p.o. amiodarone -O2 supplementation with supplemental O2. BiPAP p.r.n. -echocardiogram: Results reviewed -anticoagulation per Cardiology. Apparently, there is some plans for possible ischemia workup -continue home medications for anxiety and depression -bronchodilators: Continue Xopenex, ipratropium, add Pulmicort -continue current antibiotic -PUD, DVT prophylaxis -PT evaluate -repeat labs in a.m.. Total time spent with patient discussing and formulating plan of care: 35 minutes. This medical document was created using an electronic medical record system with [employer] dictation system. Although this document has been carefully reviewed, there may still be some phonetic and typographical errors. These areas are purely typographical due to imperfections of the software programs, and do not reflect any compromise in the patient's medical care. Plan discussed with: Patient, Other (RN) My Orders Orders - JUAN YEUNG NP Procedure Category Date Status Time Amiodarone Tablet PHA 07/29/24 In Process (Cordarone Tablet) 22:00 Chest Xray 1 View XY 07/29/24 Resulted 10:26 Insert Midline ORDERS 07/29/24 Transmitted 14:13 Cardiac DIET 07/30/24 Transmitted Diet-2gna,Lofat,Lochol Lunch Complete Blood Count LAB 07/30/24 In Process 08:40 Basic Metabolic Panel LAB 07/30/24 In Process 08:40 Date of Service: Jul 30, 2024 Billing Provider: JUAN YEUNG NP Common Visit Codes: [id number] INP/OBS CARE(HIGH) JUAN YEUNG NP Jul 30, 2024 10:12
[2024-07-30 10:20] LABS: Hematocrit 36.8 % (36.0-46.0); Hemoglobin 11.7 g/dL (12.2-16.2); Mean Corpuscular Hemoglobin 28.3 pg (28.0-32.0); Mean Corpuscular Hgb Conc. 31.8 g/dL (32.0-36.0); Mean Corpuscular Volume 89.2 fL (80.0-100.0); Platelet Count (auto) 178 10^3/uL (140-450); Red Blood Cells 4.12 10^6/uL (4.0-5.20); Red Cell Distribution Width 16.8 % (11.8-14.3); White Blood Cell 9.7 10^3/uL (4.4-10.8)
[2024-07-30 10:26] LABS: Chloride 103 mmol/L (98-107); Sodium 141 mmol/L (136-145)
[2024-07-30 10:27] LABS: Anion Gap 11 (5-15); Carbon Dioxide 27 mmol/L (20-31)
[2024-07-30 10:28] LABS: Calcium 9.8 mg/dL (8.7-10.4)
[2024-07-30 10:32] LABS: BUN/Creatinine Ratio 21.6 (10.0-20.0); Basophils % (manual) 0 (0.0-2.0); Blast Cells 0; Eosinophils % (manual) 0 (0-7); Metamyelocytes % 0; Myelocytes % 0; Promyelocytes % 0
[2024-07-30 10:35] LABS: Potassium 3.4 mmol/L (3.5-5.1)
[2024-07-30 10:36] LABS: Blood Urea Nitrogen 32 mg/dL (9-23); Glucose 151 mg/dL (74-106)
[2024-07-30 11:35] LABS: Band Neutrophils % (manual) 1; Lymphocytes % (manual) 11 (10.0-50.0); Monocytes % (manual) 3 (0-12); Reactive Lymphocytes 2
[2024-07-30 11:36] LABS: Anisocytosis Slight; Large Platelets FEW; Ovalocytes FEW; Platelet Estimate Adequa
[2024-07-30] MEDS: VANCOMYCIN 500mg/100mL 100 ML IV ONE (15:45)
[2024-07-31] VITALS (19 sets, daily range): BP systolic 95–140; BP diastolic 52–95; PULSE 64–116; RESP 13–20; TEMP 97.5–98.1; O2SAT 95–100
[2024-07-31 09:53] LABS: Basophils # (auto) 0 10 ^3/uL (0-0.2); Basophils % (auto) 0.3 % (0.0-2.0); Eosinophils # (auto) 0 10 ^3/uL (0-0.8); Hemoglobin 12.2 g/dL (12.2-16.2); Lymphocytes # (auto) 0.5 10 ^3/uL (0.4-5.4); Lymphocytes % (auto) 3.5 % (10.0-50.0); Mean Corpuscular Hemoglobin 28.4 pg (28.0-32.0); Mean Corpuscular Volume 88.7 fL (80.0-100.0); Monocytes # (auto) 0.6 10 ^3/uL (0-1.3); Monocytes % (auto) 4.3 % (0.0-12.0); Neutrophils # (auto) 12.7 10 ^3/uL (1.6-8.6); Neutrophils % (auto) 91.9 % (37.0-80.0); Nucleated Red Blood Cells % 0.2 %; Platelet Count (auto) 216 10^3/uL (140-450); Red Blood Cells 4.29 10^6/uL (4.0-5.20); Red Cell Distribution Width 16.3 % (11.8-14.3); White Blood Cell 13.9 10^3/uL (4.4-10.8)
[2024-07-31 10:15] LABS: Anion Gap 9 (5-15); Carbon Dioxide 30 mmol/L (20-31); Chloride 101 mmol/L (98-107); Sodium 140 mmol/L (136-145)
[2024-07-31 10:16] LABS: Calcium 9.5 mg/dL (8.7-10.4)
[2024-07-31 10:40] LABS: Glucose 163 mg/dL (74-106)
[2024-07-31 11:50] LABS: BUN/Creatinine Ratio 24.5 (10.0-20.0)
[2024-07-31 11:51] LABS: Blood Urea Nitrogen 35 mg/dL (9-23); Potassium 4.5 mmol/L (3.5-5.1)
[2024-07-31] MEDS: METOPROLOL SUCCINATE XL 50 MG TAB PO ONE (12:22)
--- NOTE | 2024-07-31 12:37 | DVHPN2 ---
Subjective Patient reports that her breathing is less labored than yesterday. Reviewed: Care Plan, H&P, Labs, Medications, Previous Orders Changes from previous H/P or p: No Changes General: Per HPI Eyes: No Pain, No Vision change, No Conjunctivae inflammation, No Eyelid inflammation, No Other, No Redness ENT: No Ear pain, No Ear discharge, No Nose pain, No Nose discharge, No Nose congestion, No Mouth pain, No Mouth swelling, No Throat pain, No Throat swelling, No Other Cardiovascular: No Chest Pain, No Palpitations, No Orthopnea, No Paroxysmal Noc. Dyspnea, No Edema, No Lt Headedness, No Other Respiratory: Cough; No Dry; Shortness of breath; No SOB with excertion, No Wheezing, No Hemoptysis, No Pleuritic Pain, No Sputum, No Other Gastrointestinal: No Nausea, No Vomiting, No Abdominal Pain, No Diarrhea, No Constipation, No Melena, No Hematochezia, No Other Genitourinary: No Dysuria, No Frequency, No Incontinence, No Hematuria, No Retention, No Other Musculoskeletal: No other, No neck pain, No shoulder pain, No arm pain, No back pain, No hand pain, No leg pain, No foot pain Skin: No Rash, No Lesions, No Jaundice, No Bruising, No Other Objective Vitals Vital Signs Date Time Temp Pulse Resp B/P (MAP) Pulse Ox O2 Delivery O2 Flow Rate FiO2 07/31/24 12:22 93 116/78 07/31/24 10:28 18 100 07/31/24 10:22 Nasal Cannula 3.0 07/31/24 10:22 32 07/31/24 08:59 97.8 97.8 Intake/Output Intake and Output 07/31/24 07:00 Intake Total 1350 ml Output Total 2050 ml Balance -700 ml Intake Oral 950 ml IV Total 400 ml Output Urine Total 2050 ml Stool Total 0 ml General Appearance: Alert, Oriented X3, Cooperative, mild distress HEENT: Atraumatic, PERRLA Lungs: Other (Bilateral rhonchi, nasal cannula at 2 liters/minutes) Cardiovascular: Normal S1, Normal S2, Other (AFib with RVR) Musculoskeletal: Normal sensory function, Normal motor function Neuro: Normal gait, Normal speech Skin: Dry, Intact Psych/Mental Status: Mental status NL, Other (Patient reports she was anxious) Medications Current Medications Medications Dose Ordered Sig/Addi Route Start Time Stop Time Status Last Admin Dose Admin Diagnostic Test (Pha) 1 strip ACHS 07/25/24 11:30 07/31/24 11:51 1 STRIP Insulin Human Regular ACHS SC 07/25/24 11:30 07/31/24 11:59 2 UNITS Dextrose 50 ml UD PRN IV 07/25/24 07:30 Methylprednisolone Sodium Succinate 40 mg BID IV 07/25/24 10:00 07/31/24 11:37 40 MG Ipratropium [place] 0.5 mg Q4HWA [facility] 07/25/24 10:00 07/31/24 10:22 0.5 MG Ipratropium [place] 0.5 mg Q2HPRN PRN NEB 07/25/24 07:30 07/27/24 12:06 0.5 MG Famotidine 20 mg DAILY IV 07/25/24 10:00 07/31/24 11:36 20 MG Levalbuterol HCl 1.25 mg Q4HWA NEB 07/25/24 10:00 07/31/24 10:22 1.25 MG Vancomycin HCl 0 ml @ 0 mls/hr UD IV 07/25/24 07:30 Piperacillin Sod/ Tazobactam Sod 100 ml @ 25 mls/hr Q8HR IV 07/25/24 14:00 07/31/24 02:51 25 MLS/HR Acetaminophen/ Hydrocodone Bitart 1 tab Q4HP PRN PO 07/25/24 07:45 07/29/24 00:11 1 TAB Ondansetron HCl 4 mg Q4HP PRN IV 07/25/24 07:45 Acetaminophen 650 mg Q6HP PRN PO 07/25/24 07:45 07/31/24 04:48 650 MG Morphine Sulfate 2 mg Q4HPRN PRN IV 07/25/24 07:45 07/30/24 05:50 2 MG Nitroglycerin 0.4 mg Q5MINP PRN SL 07/25/24 07:45 Morphine Sulfate 2 mg Q30M PRN IV 07/25/24 07:45 Mirtazapine 30 mg HS PO 07/25/24 22:00 07/30/24 22:05 30 MG Patient Own Medication 200 mg DAILY PO 07/26/24 10:00 UNV Patient Own Medication 10 mg BID PO 07/25/24 22:00 UNV Patient Own Medication 100 mg HS PO 07/25/24 22:00 UNV Lisinopril 10 mg BID PO 07/25/24 22:00 07/31/24 11:36 10 MG Sertraline HCl 100 mg HS PO 07/25/24 22:00 07/30/24 22:03 100 MG Lamotrigine 200 mg DAILY PO 07/26/24 10:00 07/31/24 12:06 200 MG Budesonide 0.5 mg BID NEB 07/26/24 10:00 07/30/24 18:36 0.5 MG Magnesium Oxide 400 mg DAILY PO 07/28/24 10:00 07/31/24 11:34 400 MG Alprazolam 0.25 mg Q8HP PRN PO 07/28/24 14:15 07/29/24 20:08 0.25 MG Enoxaparin Sodium 80 mg BID SC 07/28/24 22:00 07/31/24 11:36 80 MG Empaglifozin 10 mg DAILY PO 07/29/24 10:00 07/31/24 11:37 10 MG Amiodarone HCl 400 mg Q12HR PO 07/29/24 22:00 07/31/24 11:33 400 MG Labetalol HCl 5 mg Q2HPRN PRN IV 07/29/24 21:30 Atorvastatin Calcium 20 mg HS PO 07/31/24 22:00 Metoprolol Succinate 50 mg DAILY PO 08/01/24 10:00 Furosemide 20 mg DAILY IV 08/01/24 10:00 Laboratory Results Laboratory Tests 07/31/24 09:36 Chemistry Test 07/31/24 09:36 Calcium Level 9.5 mg/dL (8.7-10.4) Microbiology Microbiology Date/Time Source Procedure Growth Status 07/28/24 11:34 Nose MRSA Screen - Final Complete 07/25/24 05:30 Blood Blood Culture - Final NO GROWTH AFTER 5 DAYS OF INCUBATION. Complete Labs and/or images reviewed: Labs reviewed by me, Image(s) reviewed by me Assessment/Plan Assessment/Plan Impression: -acute hypoxic respiratory failure -community-acquired pneumonia, probable Gram-positive/Gram-negative etiology -nicotine dependence -COPD with probable exacerbation -obesity -atrial fibrillation with rapid ventricular rate -depression -anxiety disorder -sepsis secondary to pneumonia -mitral valve stenosis Plan: Events: Atrial fibrillation continues to be uncontrolled. Patient currently on 3 L via nasal cannula. Clinically the patient was states that her breathing has improved. Chest x-ray pending. -continue rate control with metoprolol tartrate, Mag oxide, p.o. amiodarone -O2 supplementation with supplemental O2. BiPAP p.r.n. -echocardiogram: Results reviewed -anticoagulation per Cardiology. Apparently, there is some plans for possible ischemia workup -continue home medications for anxiety and depression -bronchodilators: Continue Xopenex, ipratropium, add Pulmicort -continue current antibiotic -PUD, DVT prophylaxis -PT evaluate -repeat labs in a.m.. Total time spent with patient discussing and formulating plan of care: 35 minutes. This medical document was created using an electronic medical record system with [employer] dictation system. Although this document has been carefully reviewed, there may still be some phonetic and typographical errors. These areas are purely typographical due to imperfections of the software programs, and do not reflect any compromise in the patient's medical care. Plan discussed with: Patient, Other (RN) My Orders Orders - JUAN YEUNG NP Procedure Category Date Status Time Abg W/ Co-Ox RT 07/31/24 Logged 11:04 Chest Xray 1 View XY 07/31/24 Logged 11:05 Date of Service: Jul 31, 2024 Billing Provider: JUAN YEUNG NP Common Visit Codes: [id number] INP/OBS CARE(HIGH) JUAN YEUNG NP Jul 31, 2024 12:37
--- NOTE | 2024-07-31 12:38 | DVHPN2 ---
Consult Progress Note Subjective Other Systems: Patient remains in atrial fibrillation, rate in 110's. Patient reports improvement in shortness of breath, now on 3L nasal cannula. Objective vital signs Vital Sign Date Time Temp Pulse Resp B/P (MAP) Pulse Ox O2 Delivery O2 Flow Rate FiO2 07/31/24 12:22 93 116/78 07/31/24 10:28 18 100 07/31/24 10:22 Nasal Cannula 3.0 07/31/24 10:22 32 07/31/24 08:59 97.8 97.8 Total Intake and Output 07/30/24 07/30/24 07/31/24 15:00 23:00 07:00 Intake Total 750 ml 600 ml Output Total 1500 ml 550 ml Balance -750 ml 50 ml medications Current Medications Medications Dose Ordered Sig/Addi Route Start Time Stop Time Status Last Admin Dose Admin Diagnostic Test (Pha) 1 strip ACHS 07/25/24 11:30 07/31/24 11:51 1 STRIP Insulin Human Regular ACHS SC 07/25/24 11:30 07/31/24 11:59 2 UNITS Dextrose 50 ml UD PRN IV 07/25/24 07:30 Methylprednisolone Sodium Succinate 40 mg BID IV 07/25/24 10:00 07/31/24 11:37 40 MG Ipratropium [place] 0.5 mg Q4HWA [facility] 07/25/24 10:00 07/31/24 10:22 0.5 MG Ipratropium [place] 0.5 mg Q2HPRN PRN NEB 07/25/24 07:30 07/27/24 12:06 0.5 MG Famotidine 20 mg DAILY IV 07/25/24 10:00 07/31/24 11:36 20 MG Levalbuterol HCl 1.25 mg Q4HWA NEB 07/25/24 10:00 07/31/24 10:22 1.25 MG Vancomycin HCl 0 ml @ 0 mls/hr UD IV 07/25/24 07:30 Piperacillin Sod/ Tazobactam Sod 100 ml @ 25 mls/hr Q8HR IV 07/25/24 14:00 07/31/24 02:51 25 MLS/HR Acetaminophen/ Hydrocodone Bitart 1 tab Q4HP PRN PO 07/25/24 07:45 07/29/24 00:11 1 TAB Ondansetron HCl 4 mg Q4HP PRN IV 07/25/24 07:45 Acetaminophen 650 mg Q6HP PRN PO 07/25/24 07:45 07/31/24 04:48 650 MG Morphine Sulfate 2 mg Q4HPRN PRN IV 07/25/24 07:45 07/30/24 05:50 2 MG Nitroglycerin 0.4 mg Q5MINP PRN SL 07/25/24 07:45 Morphine Sulfate 2 mg Q30M PRN IV 07/25/24 07:45 Mirtazapine 30 mg HS PO 07/25/24 22:00 07/30/24 22:05 30 MG Patient Own Medication 200 mg DAILY PO 07/26/24 10:00 UNV Patient Own Medication 10 mg BID PO 07/25/24 22:00 UNV Patient Own Medication 100 mg HS PO 07/25/24 22:00 UNV Lisinopril 10 mg BID PO 07/25/24 22:00 07/31/24 11:36 10 MG Sertraline HCl 100 mg HS PO 07/25/24 22:00 07/30/24 22:03 100 MG Lamotrigine 200 mg DAILY PO 07/26/24 10:00 07/31/24 12:06 200 MG Budesonide 0.5 mg BID NEB 07/26/24 10:00 07/30/24 18:36 0.5 MG Magnesium Oxide 400 mg DAILY PO 07/28/24 10:00 07/31/24 11:34 400 MG Alprazolam 0.25 mg Q8HP PRN PO 07/28/24 14:15 07/29/24 20:08 0.25 MG Enoxaparin Sodium 80 mg BID SC 07/28/24 22:00 07/31/24 11:36 80 MG Empaglifozin 10 mg DAILY PO 07/29/24 10:00 07/31/24 11:37 10 MG Amiodarone HCl 400 mg Q12HR PO 07/29/24 22:00 07/31/24 11:33 400 MG Labetalol HCl 5 mg Q2HPRN PRN IV 07/29/24 21:30 Atorvastatin Calcium 20 mg HS PO 07/31/24 22:00 Metoprolol Succinate 50 mg DAILY PO 08/01/24 10:00 Furosemide 20 mg DAILY IV 08/01/24 10:00 Examination: GENERAL:Abnormal (Generalized weakness), LUNGS:Abnormal (Diminished bilateral lower lobes), CVS:Normal, NEURO:Normal laboratory and microbiology Laboratory Tests 07/31/24 09:36 Test 07/31/24 09:36 Range/Units Serum Glucose 163 H 74-106 mg/dL Problem List/Assessment/Plan Problem List/Assessment/Plan Acute on chronic decompensated HFrEF, NYHA class III, newly diagnosed Atrial fibrillation with a rapid ventricular response (on Dabigatran and Amiodarone) Acute hypoxic respiratory failure secondary to pneumonia Mild mitral valve stenosis Hypertension Hyperlipidemia Type 2 diabetes mellitus COPD History of tobacco use Obesity Plan/Recommendation (Dr. Enamorado): * Echocardiogram reveals EF 40% with anterior anteroseptal wall hypokinesia * Continue GDMT for CHF as tolerated * Consider spironolactone with stable K level * Strict intake and output, daily weights, maintain fluid restriction * [id number] VASc score: 3 points, HAS-BLED score: 1 point * Initiate therapeutic Lovenox while inpatient , transition back to NOAC when appropriate * Beta-ramiro for rate control * Continue antiarrhythmic agent, amiodarone * Preload and afterload reduction * Monitor and replete electrolytes as needed; keep potassium greater than four magnesium greater than two * Coronary angiogram with [facility] on 08/01/24 Patient seen and examined at bedside with . Echocardiogram results reviewed with MD. At this time, no immediate intervention needed for mitral valve disease given that it is mild stenosis in nature. We will recommend outpatient follow up with manager it security every six months for repeat echocardiogram. Plan of care discussed with the patient and her . Plans for ischemic workup tomorrow 08/01/24 with coronary angiogram with left heart catheterization tentatively if patient able to lie flat. The procedure was discussed with the patient in full detail including risks and benefits. Risks include but are not limited to bleeding, contrast induced nephropathy, stroke, and even . The patient understands and agreeable to undergo the procedure. Thank you for allowing us to care for this patient. Please call with any questions or concerns. This medical document was created using an electronic medical record system with voice recognition software and computerized dictation system. Although this document has been carefully reviewed, there might still be some phonetic and typographical errors. Occasional wrong-word or ``sound-alike substitutions may have occurred due to the inherent limitations of voice recognition software. These areas are purely typographical due to imperfections of the software programs and do not reflect any compromise in the patient's medical care. Please read the chart carefully and recognize, using context, where these substitutions have occurred. Plan discussed with: Patient Date of Service: Jul 31, 2024 Billing Provider: MACI ENAMORADO MD Common Visit Codes: [id number] INP/OBS CARE(HIGH) ANNAMARIA KEITH [facility] Jul 31, 2024 12:38
[2024-07-31 12:49] LABS: Base Excess 4.2 mmol/L (-2.0-3.0)
--- NOTE | 2024-07-31 16:25 | DVH ---
EXAM: XY CHEST XRAY 1 VIEW TECHNIQUE: Single frontal chest radiograph CLINICAL HISTORY: pna COMPARISON: XY CHEST XRAY 1 VIEW on DOS: 07/29/24, XY CHEST XRAY 1 VIEW on DOS: 07/26/24, XY CHEST PO RTABLE on DOS: 07/25/24 Findings/Impression: Frontal chest radiograph demonstrates no acute osseous or superficial soft tissue abnormalities. The trachea is midline. Mild cardiomegaly. Multifocal pneumonia and/or pulmonary edema, worse from prior. No pneumothorax or pleural effusions.
[2024-07-31] MEDS: FUROSEMIDE 20 MG/2 ML VIAL IV ONE (16:45)
[2024-07-31] MEDS: VANCOMYCIN 500mg/100mL 100 ML IV SCH (19:05)
[2024-07-31] MEDS: ATORVASTATIN 20 MG TAB PO SCH (21:41)
[2024-08-01] VITALS (18 sets, daily range): BP systolic 104–135; BP diastolic 37–97; PULSE 69–132; RESP 14–24; TEMP 97.6–98.1; O2SAT 93–100
[2024-08-01] MEDS: HEPARIN IN NS 1000Units/500mL 1,500 ML ONE (07:29)
[2024-08-01] MEDS: IODIXANOL 320MG/ML 100ML BTL IV ONE (07:29)
[2024-08-01 07:30] LABS: Hematocrit 34.9 % (36.0-46.0); Hemoglobin 11.5 g/dL (12.2-16.2); Mean Corpuscular Hemoglobin 29.3 pg (28.0-32.0); Mean Corpuscular Volume 88.6 fL (80.0-100.0); Platelet Count (auto) 191 10^3/uL (140-450); Red Blood Cells 3.94 10^6/uL (4.0-5.20); Red Cell Distribution Width 16.2 % (11.8-14.3); White Blood Cell 9.1 10^3/uL (4.4-10.8)
[2024-08-01 07:32] LABS: Chloride 102 mmol/L (98-107); Sodium 143 mmol/L (136-145)
[2024-08-01 07:33] LABS: Anion Gap 10 (5-15); Calcium 9.3 mg/dL (8.7-10.4); Carbon Dioxide 31 mmol/L (20-31); Potassium 3.4 mmol/L (3.5-5.1)
[2024-08-01 07:37] LABS: INR 1.16 (0.9-1.15); Partial Thromboplastin Time 34.2 SEC (24.5-34.5); Prothrombin Time 12.2 sec (9.3-11.8)
[2024-08-01 07:38] LABS: BUN/Creatinine Ratio 26.4 (10.0-20.0); Band Neutrophils % (manual) 0; Basophils % (manual) 0 (0.0-2.0); Blast Cells 0; Eosinophils % (manual) 0 (0-7); Metamyelocytes % 0; Myelocytes % 0; Promyelocytes % 0; Reactive Lymphocytes 0
[2024-08-01 07:39] LABS: Blood Urea Nitrogen 37 mg/dL (9-23); Glucose 217 mg/dL (74-106)
[2024-08-01] MEDS: ANGIOMAX 250 MG VIAL IV ONE (09:37)
[2024-08-01] MEDS: HEPARIN SODIUM (PORCINE) 5000 UNITS/ML 1ML VIAL ONE (09:37)
[2024-08-01] MEDS: fentaNYL CITRATE 100 MCG/2 ML VL ONE (09:38)
[2024-08-01] MEDS: VERAPAMIL 2.5MG/ML INJ 2ML VIAL IV ONE (09:38)
[2024-08-01] MEDS: LIDOCAINE 2%HCL (LOCAL ANESTH.) INJ 20ML MDV ONE (09:38)
[2024-08-01] MEDS: MIDAZOLAM HCL 2MG/2ML 2ml VIAL (1mg/ml) ONE (09:38)
[2024-08-01] MEDS: SODIUM CHL 0.9% 0 ML ONE (09:38)
[2024-08-01] MEDS: METOPROLOL SUCCINATE XL 50 MG TAB PO SCH (10:00)
[2024-08-01] MEDS: FUROSEMIDE 20 MG/2 ML VIAL IV SCH (10:00)
--- NOTE | 2024-08-01 10:30 | DVHOP2 ---
Operative Report - 2 Report Details Date: 08/01/24 Preop Diagnosis: Patient is hospitalized with acute heart failure exacerbation and pneumonia. She had an echo done neutral reported regional wall motion abnormalities with an ejection fraction of 40%. She also has elevated troponins suggestive of non ST- elevation myocardial infarction. Postop Diagnosis: 1. Mild nonobstructive coronary artery disease. 2. Mildly elevated left ventricular end-diastolic pressure. Surgeon: Maci Enamorado MD Anesthesiologist: Patient was deemed an adequate candidate for conscious sedation. Sedation was administered with Versed and fentanyl under my occur with continuous [id number] monitoring. Total sedation time is 15 minutes. Patient was given1 mg of Versed and25 mcg of fentanyl. Anesthesia: Local Consent: The patient was informed of the risks and benefits of the procedure. These include but are not limited to complications of anesthesia, postoperative infection, incomplete relief of symptoms, recurrence of symptoms, damage to blood vessels, nerves and tendons, deep venous thrombosis, pulmonary embolism and possible need for repeat surgery in the future. Complications: None Estimated Blood Loss: 10 cc Name of Procedure Performed 1. Selective coronary angiography. 2. Left heart catheterization. 3. Ultrasound-guided vascular access. 4. Conscious sedation, moderated. Procedure Details Procedure Details: The patient was brought to the factory laborer in a stable condition. She was found to have normal pulses in the right radial artery. We attempted access in the right radial artery, however this was unsuccessful because we could not advance the wire past the mid forearm. She likely has very tortuous vessels. We switched to right groin access. The right groin area was sterilized and draped in sterile fashion. The skin was anesthetized using 1% lidocaine. Access in the right common femoral artery was obtained under ultrasound guidance. A 6 [place], 11 cm sheath was placed in the right common femoral artery. Left coronary angiography was performed using a 6 [place] JL4 catheter. Right coronary angiography and left heart catheterization were performed using a 6 [place] JR4 catheter. At the completion of the procedure, hemostasis in the common femoral artery was obtained using manual pressure. The sheath was pulled out accidentally while getting a groin injection so we ended up doing manual pressure. Findings: Hemodynamics: Invasive blood pressure is 130/60 mm Hg. LVEDP is 15 mm Hg. No significant gradient on LV to aorta pullback. Coronary angiography: The left main is a short bifurcating vessel. It is free of any significant disease. The left anterior descending artery is a normal-caliber vessel descends and wraps around the apex. It has mild diffuse proximal to mid disease that is mildly calcified. The 1st diagonal branch is free of any significant stenosis. The left circumflex artery is a normal caliber and nondominant vessel. It is free of any significant disease. First obtuse marginal branches small in size with no significant stenosis. The left posterolateral branch is moderate in size and has proximal 20% stenosis. The 2nd left posterolateral branches small in size with no significant stenosis. The right coronary artery is a normal caliber and dominant vessel. It is free of any significant disease. RPDA and right posterolateral branches are free of any significant disease. Impressions: Mildly elevated left ventricular end-diastolic pressure. Mild nonobstructive coronary artery disease. Plan: Continue to optimize medical therapy for nonischemic cardiomyopathy. Aggressive medical therapy and risk factors modifications. Patient needs to be on a statin therapy with goal LDL less than 70. Condition Stable Disposition Still a Patient MACI ENAMORADO MD Aug 01, 2024 10:30
[2024-08-01 11:45] LABS: Lymphocytes % (manual) 5 (10.0-50.0); Monocytes % (manual) 3 (0-12); Platelet Estimate Adequate
--- NOTE | 2024-08-01 12:43 | DVHPN2 ---
Subjective Patient reports that her breathing is less labored than yesterday. Reviewed: Care Plan, H&P, Labs, Medications, Previous Orders Changes from previous H/P or p: No Changes General: Per HPI Eyes: No Pain, No Vision change, No Conjunctivae inflammation, No Eyelid inflammation, No Other, No Redness ENT: No Ear pain, No Ear discharge, No Nose pain, No Nose discharge, No Nose congestion, No Mouth pain, No Mouth swelling, No Throat pain, No Throat swelling, No Other Cardiovascular: No Chest Pain, No Palpitations, No Orthopnea, No Paroxysmal Noc. Dyspnea, No Edema, No Lt Headedness, No Other Respiratory: Cough; No Dry; Shortness of breath; No SOB with excertion, No Wheezing, No Hemoptysis, No Pleuritic Pain, No Sputum, No Other Gastrointestinal: No Nausea, No Vomiting, No Abdominal Pain, No Diarrhea, No Constipation, No Melena, No Hematochezia, No Other Genitourinary: No Dysuria, No Frequency, No Incontinence, No Hematuria, No Retention, No Other Musculoskeletal: No other, No neck pain, No shoulder pain, No arm pain, No back pain, No hand pain, No leg pain, No foot pain Skin: No Rash, No Lesions, No Jaundice, No Bruising, No Other Objective Vitals Vital Signs Date Time Temp Pulse Resp B/P (MAP) Pulse Ox O2 Delivery O2 Flow Rate FiO2 08/01/24 11:20 108 22 106/50 (68) 96 08/01/24 09:00 97.7 97.7 08/01/24 08:00 Nasal Cannula* 3 32 Intake/Output Intake and Output 08/01/24 07:00 Intake Total 1100 ml Output Total 2500 ml Balance -1400 ml Intake Oral 600 ml IV Total 300 ml Other 200 ml Output Urine Total 2500 ml # Bowel Movements 1 General Appearance: Alert, Oriented X3, Cooperative, mild distress HEENT: Atraumatic, PERRLA Lungs: Other (Bilateral rhonchi, nasal cannula at 2 liters/minutes) Cardiovascular: Normal S1, Normal S2, Other (AFib with RVR) Musculoskeletal: Normal sensory function, Normal motor function Neuro: Normal gait, Normal speech Skin: Dry, Intact Psych/Mental Status: Mental status NL, Other (Patient reports she was anxious) Medications Current Medications Medications Dose Ordered Sig/Addi Route Start Time Stop Time Status Last Admin Dose Admin Diagnostic Test (Pha) 1 strip ACHS 07/25/24 11:30 08/01/24 06:47 1 STRIP Insulin Human Regular ACHS SC 07/25/24 11:30 08/01/24 06:49 4 UNITS Dextrose 50 ml UD PRN IV 07/25/24 07:30 Methylprednisolone Sodium Succinate 40 mg BID IV 07/25/24 10:00 08/01/24 12:09 40 MG Ipratropium [place] 0.5 mg Q4HWA NEB 07/25/24 10:00 07/31/24 22:38 0.5 MG Ipratropium [place] 0.5 mg Q2HPRN PRN NEB 07/25/24 07:30 07/27/24 12:06 0.5 MG Famotidine 20 mg DAILY IV 07/25/24 10:00 08/01/24 12:09 20 MG Levalbuterol HCl 1.25 mg Q4HWA NEB 07/25/24 10:00 07/31/24 22:38 1.25 MG Vancomycin HCl 0 ml @ 0 mls/hr UD IV 07/25/24 07:30 Piperacillin Sod/ Tazobactam Sod 100 ml @ 25 mls/hr Q8HR IV 07/25/24 14:00 08/01/24 06:39 25 MLS/HR Acetaminophen/ Hydrocodone Bitart 1 tab Q4HP PRN PO 07/25/24 07:45 07/29/24 00:11 1 TAB Ondansetron HCl 4 mg Q4HP PRN IV 07/25/24 07:45 Acetaminophen 650 mg Q6HP PRN PO 07/25/24 07:45 07/31/24 04:48 650 MG Morphine Sulfate 2 mg Q4HPRN PRN IV 07/25/24 07:45 07/30/24 05:50 2 MG Nitroglycerin 0.4 mg Q5MINP PRN SL 07/25/24 07:45 Morphine Sulfate 2 mg Q30M PRN IV 07/25/24 07:45 Mirtazapine 30 mg HS PO 07/25/24 22:00 07/31/24 21:41 30 MG Patient Own Medication 200 mg DAILY PO 07/26/24 10:00 UNV Patient Own Medication 10 mg BID PO 07/25/24 22:00 UNV Patient Own Medication 100 mg HS PO 07/25/24 22:00 UNV Lisinopril 10 mg BID PO 07/25/24 22:00 07/31/24 21:41 10 MG Sertraline HCl 100 mg HS PO 07/25/24 22:00 07/31/24 21:41 100 MG Lamotrigine 200 mg DAILY PO 07/26/24 10:00 07/31/24 12:06 200 MG Budesonide 0.5 mg BID NEB 07/26/24 10:00 07/31/24 22:38 0.5 MG Magnesium Oxide 400 mg DAILY PO 07/28/24 10:00 07/31/24 11:34 400 MG Alprazolam 0.25 mg Q8HP PRN PO 07/28/24 14:15 07/29/24 20:08 0.25 MG Empaglifozin 10 mg DAILY PO 07/29/24 10:00 07/31/24 11:37 10 MG Amiodarone HCl 400 mg Q12HR PO 07/29/24 22:00 07/31/24 21:41 400 MG Atorvastatin Calcium 20 mg HS PO 07/31/24 22:00 07/31/24 21:41 20 MG Metoprolol Succinate 50 mg DAILY PO 08/01/24 10:00 Furosemide 20 mg DAILY IV 08/01/24 10:00 Vancomycin HCl 100 ml @ 200 mls/hr DAILY@1800 IV 07/31/24 18:00 07/31/24 19:05 200 MLS/HR Enoxaparin Sodium 80 mg BID SC 08/02/24 10:00 Laboratory Results Laboratory Tests 08/01/24 06:42 Chemistry Test 08/01/24 06:42 Calcium Level 9.3 mg/dL (8.7-10.4) Coagulation Test 08/01/24 06:42 Prothrombin Time 12.2 sec (9.3-11.8) H Prothrombin Time INR 1.16 (0.9-1.15) H Activated Partial Thromboplast Time 34.2 SEC (24.5-34.5) Microbiology Microbiology Date/Time Source Procedure Growth Status 07/28/24 11:34 Nose MRSA Screen - Final Complete 07/25/24 05:30 Blood Blood Culture - Final NO GROWTH AFTER 5 DAYS OF INCUBATION. Complete Labs and/or images reviewed: Labs reviewed by me, Image(s) reviewed by me Assessment/Plan Assessment/Plan Impression: -acute hypoxic respiratory failure -community-acquired pneumonia, probable Gram-positive/Gram-negative etiology -nicotine dependence -COPD with probable exacerbation -obesity -atrial fibrillation with rapid ventricular rate -depression -anxiety disorder -sepsis secondary to pneumonia -mitral valve stenosis Plan: Events: Patient has able showind left heart catheterization today. No intervention was performed. Patient continues to have uncontrolled AFib. Oxygen continues to be at 3 liters/minute. Home O2 provided. Discharged home once patient was able to ambulate more and heart rate is controlled. -potassium replacement -continue rate control with metoprolol tartrate, Mag oxide, p.o. amiodarone -O2 supplementation with supplemental O2. BiPAP p.r.n. -echocardiogram: Results reviewed -anticoagulation per Cardiology. Apparently, there is some plans for possible ischemia workup -continue home medications for anxiety and depression -bronchodilators: Continue Xopenex, ipratropium, add Pulmicort -continue current antibiotic -PUD, DVT prophylaxis -PT evaluate -repeat labs in a.m.. Total time spent with patient discussing and formulating plan of care: 35 minutes. This medical document was created using an electronic medical record system with [employer] dictation system. Although this document has been carefully reviewed, there may still be some phonetic and typographical errors. These areas are purely typographical due to imperfections of the software programs, and do not reflect any compromise in the patient's medical care. Plan discussed with: Patient, Other (RN) My Orders Orders - JUAN YEUNG NP Procedure Category Date Status Time Ss Eval For Home CONS 07/31/24 Transmitted Oxygen Potassium Effervesent PHA 08/01/24 Verified Tab (Klor-Con/Ef) 12:45 Date of Service: Aug 01, 2024 Billing Provider: JUAN YEUNG NP Common Visit Codes: [id number] INP/OBS CARE(HIGH) JUAN YEUNG NP Aug 01, 2024 12:43
[2024-08-01] MEDS: POTASSIUM EFFERVESENT TAB 25 MEQ PO ONE (14:44)
--- NOTE | 2024-08-01 16:32 | DVHPN2 ---
Consult Progress Note Date Seen: Aug 01, 2024 Subjective Review of Systems: CVS:Normal, RESPIRATORY:Normal, NEURO:Normal Objective vital signs Vital Sign Date Time Temp Pulse Resp B/P (MAP) Pulse Ox O2 Delivery O2 Flow Rate FiO2 08/01/24 12:56 93 21 115/69 (84) 96 08/01/24 09:00 97.7 97.7 08/01/24 08:00 Nasal Cannula* 3 32 Total Intake and Output 07/31/24 07/31/24 08/01/24 15:00 23:00 07:00 Intake Total 800 ml 300 ml Output Total 1100 ml 1400 ml Balance -300 ml -1100 ml medications Current Medications Medications Dose Ordered Sig/Addi Route Start Time Stop Time Status Last Admin Dose Admin Diagnostic Test (Pha) 1 strip ACHS 07/25/24 11:30 08/01/24 06:47 1 STRIP Insulin Human Regular ACHS SC 07/25/24 11:30 08/01/24 06:49 4 UNITS Dextrose 50 ml UD PRN IV 07/25/24 07:30 Methylprednisolone Sodium Succinate 40 mg BID IV 07/25/24 10:00 08/01/24 12:09 40 MG Ipratropium [place] 0.5 mg Q4HWA NEB 07/25/24 10:00 07/31/24 22:38 0.5 MG Ipratropium [place] 0.5 mg Q2HPRN PRN NEB 07/25/24 07:30 07/27/24 12:06 0.5 MG Famotidine 20 mg DAILY IV 07/25/24 10:00 08/01/24 12:09 20 MG Levalbuterol HCl 1.25 mg Q4HWA NEB 07/25/24 10:00 07/31/24 22:38 1.25 MG Vancomycin HCl 0 ml @ 0 mls/hr UD IV 07/25/24 07:30 Piperacillin Sod/ Tazobactam Sod 100 ml @ 25 mls/hr Q8HR IV 07/25/24 14:00 08/01/24 13:39 25 MLS/HR Acetaminophen/ Hydrocodone Bitart 1 tab Q4HP PRN PO 07/25/24 07:45 07/29/24 00:11 1 TAB Ondansetron HCl 4 mg Q4HP PRN IV 07/25/24 07:45 Acetaminophen 650 mg Q6HP PRN PO 07/25/24 07:45 07/31/24 04:48 650 MG Morphine Sulfate 2 mg Q4HPRN PRN IV 07/25/24 07:45 07/30/24 05:50 2 MG Nitroglycerin 0.4 mg Q5MINP PRN SL 07/25/24 07:45 Morphine Sulfate 2 mg Q30M PRN IV 07/25/24 07:45 Mirtazapine 30 mg HS PO 07/25/24 22:00 07/31/24 21:41 30 MG Patient Own Medication 200 mg DAILY PO 07/26/24 10:00 UNV Patient Own Medication 10 mg BID PO 07/25/24 22:00 UNV Patient Own Medication 100 mg HS PO 07/25/24 22:00 UNV Lisinopril 10 mg BID PO 07/25/24 22:00 07/31/24 21:41 10 MG Sertraline HCl 100 mg HS PO 07/25/24 22:00 07/31/24 21:41 100 MG Lamotrigine 200 mg DAILY PO 07/26/24 10:00 07/31/24 12:06 200 MG Budesonide 0.5 mg BID NEB 07/26/24 10:00 07/31/24 22:38 0.5 MG Magnesium Oxide 400 mg DAILY PO 07/28/24 10:00 07/31/24 11:34 400 MG Alprazolam 0.25 mg Q8HP PRN PO 07/28/24 14:15 08/01/24 14:44 0.25 MG Empaglifozin 10 mg DAILY PO 07/29/24 10:00 08/01/24 13:53 10 MG Amiodarone HCl 400 mg Q12HR PO 07/29/24 22:00 08/01/24 13:53 400 MG Metoprolol Succinate 50 mg DAILY PO 08/01/24 10:00 Furosemide 20 mg DAILY IV 08/01/24 10:00 Vancomycin HCl 100 ml @ 200 mls/hr DAILY@1800 IV 07/31/24 18:00 07/31/24 19:05 200 MLS/HR Enoxaparin Sodium 80 mg BID SC 08/02/24 10:00 Atorvastatin Calcium 40 mg HS PO 08/01/24 22:00 Examination: LUNGS:Abnormal (Crackles bilaterally), CVS:Abnormal (A-fib with RVR), NEURO:Normal laboratory and microbiology Laboratory Tests 08/01/24 06:42 Test 08/01/24 06:42 Range/Units Serum Glucose 217 H 74-106 mg/dL Problem List/Assessment/Plan Problem List/Assessment/Plan Acute on chronic decompensated HFrEF, NYHA class III, newly diagnosed Atrial fibrillation with a rapid ventricular response (on Dabigatran and Amiodarone) Acute hypoxic respiratory failure secondary to pneumonia Mild mitral valve stenosis/rheumatic mitral valve disease Nonischemic cardiomyopathy Hypertension Hyperlipidemia Type 2 diabetes mellitus COPD with history of tobacco use Morbid obesity Plan/Recommendation (Dr. Ledbetter) * Echocardiogram revealed EF 40% with anterior anteroseptal wall hypokinesia * Left cardiac catheterization and coronary angiogram revealed mild non- obstructive CAD * Initiate lipid-lowering agent for a goal LDL <70 * GDMT for CHF as tolerated. Initiate mineralocorticoid and SGLT2i with optimal renal function * Preload and afterload reduction, increased lasix to BID * Strict intake and output, daily weights, maintain fluid restriction * Rate control, metoprolol & digoxin therapy including loading dose * Monitor and replete electrolytes as needed, K> 4 and Mg>2 * Antiarrhythmic agent, amiodarone BID * Transition to Pradaxa therapy when appropriate * [id number] VASc score: 3 points, HAS-BLED score: 1 point Thank you for allowing us to care for this patient. Please call with any questions or concerns. This medical document was created using an electronic medical record system with voice recognition software and computerized dictation system. Although this document has been carefully reviewed, there might still be some phonetic and typographical errors. Occasional wrong-word or ``sound-alike substitutions may have occurred due to the inherent limitations of voice recognition software. These areas are purely typographical due to imperfections of the software programs and do not reflect any compromise in the patient's medical care. Please read the chart carefully and recognize, using context, where these substitutions have occurred. Plan discussed with: Patient, Spouse, Other Date of Service: Aug 01, 2024 Billing Provider: DAVID LEDBETTER MD Cardiology Common Codes: [id number] [facility] LARISSA GEE [facility] Aug 01, 2024 16:32
[2024-08-01] MEDS: DIGOXIN (250MCG/ML) 2 ML AMPULE IV ONE (17:01)
[2024-08-01] MEDS: METOPROLOL TARTRATE 1MG/1ML-5ML VIAL IV ONE (17:02)
[2024-08-01] MEDS: FUROSEMIDE 20 MG/2 ML VIAL IV ONE (17:03)
[2024-08-01] MEDS: MAGNESIUM SULFATE 1GM/100ML 100 ML IV ONE (17:03)
[2024-08-01] MEDS: ATORVASTATIN 20 MG TAB PO SCH (21:50)
[2024-08-02] VITALS (21 sets, daily range): BP systolic 100–166; BP diastolic 67–90; PULSE 55–120; RESP 16–21; TEMP 97.4–98; O2SAT 93–100
[2024-08-02] MEDS: FUROSEMIDE 20 MG/2 ML VIAL IV SCH (06:14)
[2024-08-02] MEDS: DIGOXIN 0.125 MG TAB PO SCH (09:40)
[2024-08-02] MEDS: METOPROLOL SUCCINATE XL 50 MG TAB PO SCH (09:40)
[2024-08-02] MEDS: ENOXAPARIN SOD 80 MG/0.8ML SYRINGE SC SCH (09:41)
--- NOTE | 2024-08-02 12:36 | DVHPN2 ---
Consult Progress Note Subjective Other Systems: Patient remains in atrial fibrillation on quality assurance monitor final (rate 110's-120's). Objective vital signs Vital Sign Date Time Temp Pulse Resp B/P (MAP) Pulse Ox O2 Delivery O2 Flow Rate FiO2 08/02/24 10:29 102 18 98 08/02/24 09:41 110/74 08/02/24 09:00 97.8 97.8 08/02/24 08:00 Nasal Cannula* 3 32 Total Intake and Output 08/01/24 08/01/24 08/02/24 15:00 23:00 07:00 Intake Total 300 ml 400 ml Output Total 300 ml 1700 ml Balance 0 ml -1300 ml medications Current Medications Medications Dose Ordered Sig/Addi Route Start Time Stop Time Status Last Admin Dose Admin Diagnostic Test (Pha) 1 strip ACHS 07/25/24 11:30 08/02/24 11:14 1 STRIP Insulin Human Regular ACHS SC 07/25/24 11:30 08/02/24 11:37 6 UNITS Dextrose 50 ml UD PRN IV 07/25/24 07:30 Methylprednisolone Sodium Succinate 40 mg BID IV 07/25/24 10:00 08/02/24 09:40 40 MG Ipratropium [place] 0.5 mg Q4HWA NEB 07/25/24 10:00 08/02/24 10:19 0.5 MG Ipratropium [place] 0.5 mg Q2HPRN PRN NEB 07/25/24 07:30 07/27/24 12:06 0.5 MG Famotidine 20 mg DAILY IV 07/25/24 10:00 08/02/24 09:39 20 MG Levalbuterol HCl 1.25 mg Q4HWA NEB 07/25/24 10:00 08/02/24 10:19 1.25 MG Vancomycin HCl 0 ml @ 0 mls/hr UD IV 07/25/24 07:30 Piperacillin Sod/ Tazobactam Sod 100 ml @ 25 mls/hr Q8HR IV 07/25/24 14:00 08/02/24 06:13 25 MLS/HR Acetaminophen/ Hydrocodone Bitart 1 tab Q4HP PRN PO 07/25/24 07:45 08/02/24 09:41 1 TAB Ondansetron HCl 4 mg Q4HP PRN IV 07/25/24 07:45 Acetaminophen 650 mg Q6HP PRN PO 07/25/24 07:45 07/31/24 04:48 650 MG Morphine Sulfate 2 mg Q4HPRN PRN IV 07/25/24 07:45 07/30/24 05:50 2 MG Nitroglycerin 0.4 mg Q5MINP PRN SL 07/25/24 07:45 Morphine Sulfate 2 mg Q30M PRN IV 07/25/24 07:45 Mirtazapine 30 mg HS PO 07/25/24 22:00 08/01/24 21:51 30 MG Patient Own Medication 200 mg DAILY PO 07/26/24 10:00 UNV Patient Own Medication 10 mg BID PO 07/25/24 22:00 UNV Patient Own Medication 100 mg HS PO 07/25/24 22:00 UNV Lisinopril 10 mg BID PO 07/25/24 22:00 08/02/24 09:41 10 MG Sertraline HCl 100 mg HS PO 07/25/24 22:00 08/01/24 21:51 100 MG Lamotrigine 200 mg DAILY PO 07/26/24 10:00 08/02/24 09:40 200 MG Budesonide 0.5 mg BID NEB 07/26/24 10:00 08/02/24 10:19 0.5 MG Magnesium Oxide 400 mg DAILY PO 07/28/24 10:00 08/02/24 09:40 400 MG Alprazolam 0.25 mg Q8HP PRN PO 07/28/24 14:15 08/01/24 14:44 0.25 MG Empaglifozin 10 mg DAILY PO 07/29/24 10:00 08/02/24 09:40 10 MG Amiodarone HCl 400 mg Q12HR PO 07/29/24 22:00 08/02/24 09:40 400 MG Vancomycin HCl 100 ml @ 200 mls/hr DAILY@1800 IV 07/31/24 18:00 08/01/24 18:46 200 MLS/HR Enoxaparin Sodium 80 mg BID SC 08/02/24 10:00 08/02/24 09:41 80 MG Atorvastatin Calcium 40 mg HS PO 08/01/24 22:00 08/01/24 21:50 40 MG Metoprolol Succinate 25 mg DAILY PO 08/02/24 10:00 08/02/24 09:40 25 MG Furosemide 20 mg BIDD IV 08/02/24 06:00 08/02/24 06:14 20 MG Digoxin 0.125 mg DAILY PO 08/02/24 10:00 08/02/24 09:40 0.125 MG Examination: GENERAL:Normal, LUNGS:Abnormal (Diminished bilateral lower lobes), CVS:Normal, NEURO:Normal laboratory and microbiology Laboratory Tests 08/02/24 10:04 08/01/24 06:42 Test 08/01/24 06:42 Range/Units Serum Glucose 217 H 74-106 mg/dL Problem List/Assessment/Plan Problem List/Assessment/Plan Acute on chronic decompensated HFrEF, NYHA class III, newly diagnosed Atrial fibrillation with a rapid ventricular response (on Dabigatran and Amiodarone) Acute hypoxic respiratory failure secondary to pneumonia Mild mitral valve stenosis/rheumatic mitral valve disease Nonischemic cardiomyopathy Hypertension Hyperlipidemia Type 2 diabetes mellitus COPD with history of tobacco use Morbid obesity Plan/Recommendation (Dr. Sher) * Echocardiogram revealed EF 40% with anterior anteroseptal wall hypokinesia * Left cardiac catheterization and coronary angiogram revealed mild non- obstructive CAD * Initiate lipid-lowering agent for a goal LDL <70 * GDMT for CHF as tolerated. Initiate mineralocorticoid with optimal renal function * Preload and afterload reduction, increased lasix to BID * Strict intake and output, daily weights, maintain fluid restriction * [id number] VASc score: 3 points, HAS-BLED score: 1 point * Rate control, metoprolol & digoxin therapy * Antiarrhythmic agent, amiodarone BID * Transition to Pradaxa therapy when appropriate * Monitor and replete electrolytes as needed, K> 4 and Mg>2 Patient seen and examined at bedside with Dr. Sher. Thank you for allowing us to care for this patient. Please call with any questions or concerns. This medical document was created using an electronic medical record system with voice recognition software and computerized dictation system. Although this document has been carefully reviewed, there might still be some phonetic and typographical errors. Occasional wrong-word or ``sound-alike substitutions may have occurred due to the inherent limitations of voice recognition software. These areas are purely typographical due to imperfections of the software programs and do not reflect any compromise in the patient's medical care. Please read the chart carefully and recognize, using context, where these substitutions have occurred. Plan discussed with: Patient Date of Service: Aug 02, 2024 Billing Provider: ANNAMARIA KEITH Common Visit Codes: [id number] INP/OBS CARE(HIGH) ANNAMARIA KEITH Aug 02, 2024 12:36
--- NOTE | 2024-08-02 17:54 | DVHPN2 ---
Subjective Feels better Reviewed: Care Plan, H&P, Labs, Medications, Previous Orders, Radiology, Other (Consultants) Changes from previous H/P or p: No Changes General: Per HPI Objective Vitals Vital Signs Date Time Temp Pulse Resp B/P (MAP) Pulse Ox O2 Delivery O2 Flow Rate FiO2 08/02/24 17:04 128/86 08/02/24 16:54 98.0 55 20 95 98.0 08/02/24 08:00 Nasal Cannula* 3 32 Intake/Output Intake and Output 08/02/24 07:00 Intake Total 700 ml Output Total 2000 ml Balance -1300 ml Intake Oral 300 ml IV Total 400 ml Output Urine Total 2000 ml # Bowel Movements 1 General Appearance: Alert, Oriented X3, Cooperative, mild distress HEENT: Atraumatic Lungs: Clear to auscultation, Other (Few crackles bilateral lungs with fair air entry) Cardiovascular: Other (Irregular/borderline tachycardia) Abdomen: Normal bowel sounds, Soft, No tenderness Musculoskeletal: Normal sensory function, Normal motor function Extremities: Other (To 3+ bilateral lower extremity edema) Neuro: Normal speech Psych/Mental Status: Mental status NL Medications Current Medications Medications Dose Ordered Sig/Addi Route Start Time Stop Time Status Last Admin Dose Admin Diagnostic Test (Pha) 1 strip ACHS 07/25/24 11:30 08/02/24 16:34 1 STRIP Insulin Human Regular ACHS SC 07/25/24 11:30 08/02/24 16:54 4 UNITS Dextrose 50 ml UD PRN IV 07/25/24 07:30 Methylprednisolone Sodium Succinate 40 mg BID IV 07/25/24 10:00 08/02/24 09:40 40 MG Ipratropium [place] 0.5 mg Q4HWA NEB 07/25/24 10:00 08/02/24 14:34 0.5 MG Ipratropium [place] 0.5 mg Q2HPRN PRN NEB 07/25/24 07:30 07/27/24 12:06 0.5 MG Famotidine 20 mg DAILY IV 07/25/24 10:00 08/02/24 09:39 20 MG Levalbuterol HCl 1.25 mg Q4HWA NEB 07/25/24 10:00 08/02/24 14:33 1.25 MG Vancomycin HCl 0 ml @ 0 mls/hr UD IV 07/25/24 07:30 Piperacillin Sod/ Tazobactam Sod 100 ml @ 25 mls/hr Q8HR IV 07/25/24 14:00 08/02/24 14:03 25 MLS/HR Acetaminophen/ Hydrocodone Bitart 1 tab Q4HP PRN PO 07/25/24 07:45 08/02/24 09:41 1 TAB Ondansetron HCl 4 mg Q4HP PRN IV 07/25/24 07:45 Acetaminophen 650 mg Q6HP PRN PO 07/25/24 07:45 07/31/24 04:48 650 MG Morphine Sulfate 2 mg Q4HPRN PRN IV 07/25/24 07:45 07/30/24 05:50 2 MG Nitroglycerin 0.4 mg Q5MINP PRN SL 07/25/24 07:45 Morphine Sulfate 2 mg Q30M PRN IV 07/25/24 07:45 Mirtazapine 30 mg HS PO 07/25/24 22:00 08/01/24 21:51 30 MG Patient Own Medication 200 mg DAILY PO 07/26/24 10:00 UNV Patient Own Medication 10 mg BID PO 07/25/24 22:00 UNV Patient Own Medication 100 mg HS PO 07/25/24 22:00 UNV Lisinopril 10 mg BID PO 07/25/24 22:00 08/02/24 09:41 10 MG Sertraline HCl 100 mg HS PO 07/25/24 22:00 08/01/24 21:51 100 MG Lamotrigine 200 mg DAILY PO 07/26/24 10:00 08/02/24 09:40 200 MG Budesonide 0.5 mg BID NEB 07/26/24 10:00 08/02/24 10:19 0.5 MG Magnesium Oxide 400 mg DAILY PO 07/28/24 10:00 08/02/24 09:40 400 MG Alprazolam 0.25 mg Q8HP PRN PO 07/28/24 14:15 08/01/24 14:44 0.25 MG Empaglifozin 10 mg DAILY PO 07/29/24 10:00 08/02/24 09:40 10 MG Amiodarone HCl 400 mg Q12HR PO 07/29/24 22:00 08/02/24 09:40 400 MG Vancomycin HCl 100 ml @ 200 mls/hr DAILY@1800 IV 07/31/24 18:00 08/02/24 17:26 200 MLS/HR Enoxaparin Sodium 80 mg BID SC 08/02/24 10:00 08/02/24 09:41 80 MG Atorvastatin Calcium 40 mg HS PO 08/01/24 22:00 08/01/24 21:50 40 MG Metoprolol Succinate 25 mg DAILY PO 08/02/24 10:00 08/02/24 09:40 25 MG Furosemide 20 mg BIDD IV 08/02/24 06:00 08/02/24 17:04 20 MG Digoxin 0.125 mg DAILY PO 08/02/24 10:00 08/02/24 09:40 0.125 MG Laboratory Results Laboratory Tests 08/01/24 06:42 08/02/24 10:04 Chemistry Test 08/02/24 10:04 Magnesium Level 2.4 mg/dL (1.6-2.6) Cardiac Markers Test 08/02/24 10:04 B-Type Natriuretic Peptide 603.19 pg/mL (0-100) Microbiology Microbiology Date/Time Source Procedure Growth Status 07/28/24 11:34 Nose MRSA Screen - Final Complete 07/25/24 05:30 Blood Blood Culture - Final NO GROWTH AFTER 5 DAYS OF INCUBATION. Complete Assessment/Plan Assessment/Plan Acute respiratory failure Heart failure with reduced ejection fraction/[place] [employer] three AFib with RVR Small bilateral pleural effusion Acute kidney injury on top of chronic kidney disease stage 2 Diabetes COPD BILATERAL Pneumonia Dyslipidemia Mild mitral stenosis Mild increase in left ventricular and diastolic pressure Obesity Deconditioning Elevated D-dimer Plan: Continue current plan of care. Ultrasound lower extremity DVT. V/Q scan. We will stop vancomycin due to the kidney function deterioration. Further plans per orders Plan discussed with: Patient, Spouse My Orders Orders - MARY ANNE TIAN MD Procedure Category Date Status Time Discontinue Ross ALEXANDRA 08/02/24 In Process Catheter 10:16 Date of Service: Aug 02, 2024 Billing Provider: MARY ANNE TIAN MD Common Visit Codes: [id number] INP/OBS CARE(HIGH) MARY ANNE TIAN MD Aug 02, 2024 17:54
[2024-08-02] MEDS: cefTRIAXone 1GM/50ML D5W 50 ML IV ONE (18:36)
[2024-08-02] MEDS: AZITHROMYCIN 500MG/ 250ML 250 ML IV ONE (18:36)
--- NOTE | 2024-08-02 19:30 | DVH ---
EXAM: US BILAT LOWER DVT Clinical History: DVT BLE Comparison: None Technique: Duplex Doppler evaluation of the deep venous systems of both lower extremities from the common femora l veins to the popliteal veins including color Doppler and spectral/pulsed waveform analysis was perf ormed. Findings: No visible intraluminal venous thrombus. No evidence of incompressibility or abnormal color or spectr al Doppler flow visualized in the deep bilateral lower extremity veins. Proximal greater saphenous ve ins are grossly unremarkable. 3.5 cm left Allen's cyst. Impression: 1. No sonographic evidence of deep venous thrombosis throughout the bilateral lower extremities from the popliteal veins to the common femoral veins.
[2024-08-03] VITALS (17 sets, daily range): BP systolic 115–149; BP diastolic 52–76; PULSE 81–113; RESP 17–20; TEMP 97–97.7; O2SAT 94–100
--- NOTE | 2024-08-03 06:03 | DVH ---
CHEST RADIOGRAPH Indication: fu Technique: Single frontal view of the chest was obtained Comparison: XY CHEST XRAY 1 VIEW on DOS: 07/31/24, XY CHEST XRAY 1 VIEW on DOS: 07/29/24, XY CHEST XRAY 1 VIEW on DOS: 07/26/24 IMPRESSION: The heart is prominent size with bilateral interstitial and alveolar airspace opacities, similar to p rior examination. Likely trace bilateral pleural effusions. No significant interval change.
[2024-08-03 08:03] LABS: Basophils # (auto) 0 10 ^3/uL (0-0.2); Basophils % (auto) 0.2 % (0.0-2.0); Eosinophils # (auto) 0 10 ^3/uL (0-0.8); Eosinophils % (auto) 0.1 % (0.0-7.0); Hematocrit 36.9 % (36.0-46.0); Hemoglobin 12.1 g/dL (12.2-16.2); Lymphocytes # (auto) 0.7 10 ^3/uL (0.4-5.4); Lymphocytes % (auto) 4.9 % (10.0-50.0); Mean Corpuscular Hemoglobin 28.8 pg (28.0-32.0); Mean Corpuscular Hgb Conc. 32.7 g/dL (32.0-36.0); Mean Corpuscular Volume 88.2 fL (80.0-100.0); Monocytes # (auto) 0.6 10 ^3/uL (0-1.3); Monocytes % (auto) 3.9 % (0.0-12.0); Neutrophils # (auto) 13.4 10 ^3/uL (1.6-8.6); Neutrophils % (auto) 90.9 % (37.0-80.0); Nucleated Red Blood Cells % 0.1 %; Platelet Count (auto) 264 10^3/uL (140-450); Red Blood Cells 4.19 10^6/uL (4.0-5.20); Red Cell Distribution Width 16.4 % (11.8-14.3); White Blood Cell 14.7 10^3/uL (4.4-10.8)
[2024-08-03 08:19] LABS: Anion Gap 7 (5-15); Aspartate Aminotransferase 34 U/L (13-40); Calcium 9.7 mg/dL (8.7-10.4); Potassium 4.6 mmol/L (3.5-5.1); Sodium 141 mmol/L (136-145)
[2024-08-03 08:20] LABS: Albumin 3.7 g/dL (3.2-4.8)
[2024-08-03 08:21] LABS: Bilirubin, Total 0.9 mg/dL (0.2-1.0); Total Protein 5.9 g/dL (5.7-8.2)
[2024-08-03 08:24] LABS: Alanine Aminotransferase 122 U/L (7-40); Alkaline Phosphatase 230 U/L (46-116); Blood Urea Nitrogen 31 mg/dL (9-23); Carbon Dioxide 36 mmol/L (20-31); Chloride 98 mmol/L (98-107); Glucose 149 mg/dL (74-106)
[2024-08-03] MEDS: cefTRIAXone 1GM/50ML D5W 50 ML IV SCH (09:02)
[2024-08-03] MEDS: AZITHROMYCIN 500MG/ 250ML 250 ML IV SCH (10:00)
--- NOTE | 2024-08-03 14:44 | DVHPN2 ---
Consult Progress Note Date Seen: Aug 03, 2024 Subjective Review of Systems: CVS:Normal, RESPIRATORY:Abnormal, NEURO:Normal Other Systems: C/o LANDERS/Fatigue Objective vital signs Vital Sign Date Time Temp Pulse Resp B/P (MAP) Pulse Ox O2 Delivery O2 Flow Rate FiO2 08/03/24 13:00 97.3 84 18 130/76 (94) 94 97.3 08/03/24 10:46 Nasal Cannula 3.0 08/03/24 10:46 32 Total Intake and Output 08/02/24 08/02/24 08/03/24 15:00 23:00 07:00 Intake Total 800 ml 200 ml Output Total 1900 ml 1300 ml Balance -1100 ml -1100 ml medications Current Medications Medications Dose Ordered Sig/Addi Route Start Time Stop Time Status Last Admin Dose Admin Diagnostic Test (Pha) 1 strip ACHS 07/25/24 11:30 08/03/24 12:38 1 STRIP Insulin Human Regular ACHS SC 07/25/24 11:30 08/03/24 12:37 3 UNITS Dextrose 50 ml UD PRN IV 07/25/24 07:30 Methylprednisolone Sodium Succinate 40 mg BID IV 07/25/24 10:00 08/03/24 09:04 40 MG Ipratropium [place] 0.5 mg Q4HWA NEB 07/25/24 10:00 08/03/24 10:44 0.5 MG Ipratropium [place] 0.5 mg Q2HPRN PRN NEB 07/25/24 07:30 07/27/24 12:06 0.5 MG Famotidine 20 mg DAILY IV 07/25/24 10:00 08/03/24 09:08 20 MG Levalbuterol HCl 1.25 mg Q4HWA NEB 07/25/24 10:00 08/03/24 10:44 1.25 MG Acetaminophen/ Hydrocodone Bitart 1 tab Q4HP PRN PO 07/25/24 07:45 08/02/24 09:41 1 TAB Ondansetron HCl 4 mg Q4HP PRN IV 07/25/24 07:45 Acetaminophen 650 mg Q6HP PRN PO 07/25/24 07:45 08/03/24 09:14 650 MG Morphine Sulfate 2 mg Q4HPRN PRN IV 07/25/24 07:45 07/30/24 05:50 2 MG Nitroglycerin 0.4 mg Q5MINP PRN SL 07/25/24 07:45 Morphine Sulfate 2 mg Q30M PRN IV 07/25/24 07:45 Mirtazapine 30 mg HS PO 07/25/24 22:00 08/02/24 21:37 30 MG Patient Own Medication 200 mg DAILY PO 07/26/24 10:00 UNV Patient Own Medication 10 mg BID PO 07/25/24 22:00 UNV Patient Own Medication 100 mg HS PO 07/25/24 22:00 UNV Lisinopril 10 mg BID PO 07/25/24 22:00 08/03/24 09:08 10 MG Sertraline HCl 100 mg HS PO 07/25/24 22:00 08/02/24 21:36 100 MG Lamotrigine 200 mg DAILY PO 07/26/24 10:00 08/03/24 09:06 200 MG Budesonide 0.5 mg BID NEB 07/26/24 10:00 08/03/24 07:45 0.5 MG Magnesium Oxide 400 mg DAILY PO 07/28/24 10:00 08/03/24 09:08 400 MG Alprazolam 0.25 mg Q8HP PRN PO 07/28/24 14:15 08/01/24 14:44 0.25 MG Empaglifozin 10 mg DAILY PO 07/29/24 10:00 08/03/24 09:06 10 MG Amiodarone HCl 400 mg Q12HR PO 07/29/24 22:00 08/03/24 09:07 400 MG Enoxaparin Sodium 80 mg BID SC 08/02/24 10:00 08/03/24 09:00 80 MG Atorvastatin Calcium 40 mg HS PO 08/01/24 22:00 08/02/24 21:34 40 MG Metoprolol Succinate 25 mg DAILY PO 08/02/24 10:00 08/03/24 09:05 25 MG Furosemide 20 mg BIDD IV 08/02/24 06:00 08/03/24 06:03 20 MG Digoxin 0.125 mg DAILY PO 08/02/24 10:00 08/03/24 09:06 0.125 MG Ceftriaxone Sodium 50 ml @ 100 mls/hr DAILY@09 IV 08/03/24 09:00 08/03/24 09:02 100 MLS/HR Azithromycin 250 ml @ 125 mls/hr DAILY IV 08/03/24 10:00 Examination: GENERAL:Abnormal, LUNGS:Normal, CVS:Normal (A-fib controlled rate), NEURO:Normal laboratory and microbiology Laboratory Tests 08/03/24 07:28 Test 08/03/24 07:28 Range/Units Serum Glucose 149 H 74-106 mg/dL Problem List/Assessment/Plan Problem List/Assessment/Plan Acute on chronic decompensated HFrEF, NYHA class III, newly diagnosed Atrial fibrillation with a rapid ventricular response (on Dabigatran and Amiodarone) Acute hypoxic respiratory failure secondary to pneumonia Mild mitral valve stenosis/rheumatic mitral valve disease Nonischemic cardiomyopathy Rule out pulmonary emboli Hypertension Hyperlipidemia Type 2 diabetes mellitus COPD with history of tobacco use Morbid obesity Plan/Recommendation (Dr. Ledbetter) * Echocardiogram revealed EF 40% with anterior anteroseptal wall hypokinesia * Left cardiac catheterization and coronary angiogram revealed mild non- obstructive CAD * Initiate lipid-lowering agent for a goal LDL <70 * GDMT for CHF as tolerated. Initiate mineralocorticoid and SGLT2i with optimal renal function * Preload and afterload reduction, increased lasix to BID * Strict intake and output, daily weights, maintain fluid restriction * Rate control, metoprolol & digoxin therapy * Antiarrhythmic agent, amiodarone BID * Transition to Pradaxa therapy when appropriate * [id number] VASc score: 3 points, HAS-BLED score: 1 point * Monitor and replete electrolytes as needed, K> 4 and Mg>2 * VQ Scan rule out PE, pending Thank you for allowing us to care for this patient. Please call with any questions or concerns. This medical document was created using an electronic medical record system with voice recognition software and computerized dictation system. Although this document has been carefully reviewed, there might still be some phonetic and typographical errors. Occasional wrong-word or ``sound-alike substitutions may have occurred due to the inherent limitations of voice recognition software. These areas are purely typographical due to imperfections of the software programs and do not reflect any compromise in the patient's medical care. Please read the chart carefully and recognize, using context, where these substitutions have occurred. Plan discussed with: Patient, Other Date of Service: Aug 03, 2024 Billing Provider: DAVID LEDBETTER MD Cardiology Common Codes: [id number] HOSP CARE(LARISSA Pickering [facility] Aug 03, 2024 14:44
--- NOTE | 2024-08-03 16:16 | DVHPN2 ---
Subjective Feels better Reviewed: Care Plan, H&P, Labs, Medications, Previous Orders, Radiology, Other (Consultants) Changes from previous H/P or p: No Changes General: Per HPI Objective Vitals Vital Signs Date Time Temp Pulse Resp B/P (MAP) Pulse Ox O2 Delivery O2 Flow Rate FiO2 08/03/24 15:07 84 18 98 08/03/24 15:01 Nasal Cannula* 3 32 08/03/24 13:00 97.3 130/76 (94) 97.3 Intake/Output Intake and Output 08/03/24 07:00 Intake Total 1000 ml Output Total 3200 ml Balance -2200 ml Intake Oral 600 ml IV Total 400 ml Output Urine Total 3200 ml # Bowel Movements 3 General Appearance: Alert, Oriented X3, Cooperative, mild distress HEENT: Atraumatic Lungs: Clear to auscultation, Other (Few crackles bilateral lungs with fair air entry) Cardiovascular: Other (Irregular/borderline tachycardia) Abdomen: Normal bowel sounds, Soft, No tenderness Musculoskeletal: Normal sensory function, Normal motor function Extremities: Other (To 3+ bilateral lower extremity edema) Neuro: Normal speech Psych/Mental Status: Mental status NL Medications Current Medications Medications Dose Ordered Sig/Addi Route Start Time Stop Time Status Last Admin Dose Admin Diagnostic Test (Pha) 1 strip ACHS 07/25/24 11:30 08/03/24 12:38 1 STRIP Insulin Human Regular ACHS SC 07/25/24 11:30 08/03/24 12:37 3 UNITS Dextrose 50 ml UD PRN IV 07/25/24 07:30 Methylprednisolone Sodium Succinate 40 mg BID IV 07/25/24 10:00 08/03/24 09:04 40 MG Ipratropium [place] 0.5 mg Q4HWA [facility] 07/25/24 10:00 08/03/24 15:00 0.5 MG Ipratropium [place] 0.5 mg Q2HPRN PRN NEB 07/25/24 07:30 07/27/24 12:06 0.5 MG Famotidine 20 mg DAILY IV 07/25/24 10:00 08/03/24 09:08 20 MG Levalbuterol HCl 1.25 mg Q4HWA NEB 07/25/24 10:00 08/03/24 15:00 1.25 MG Acetaminophen/ Hydrocodone Bitart 1 tab Q4HP PRN PO 07/25/24 07:45 08/02/24 09:41 1 TAB Ondansetron HCl 4 mg Q4HP PRN IV 07/25/24 07:45 Acetaminophen 650 mg Q6HP PRN PO 07/25/24 07:45 08/03/24 09:14 650 MG Morphine Sulfate 2 mg Q4HPRN PRN IV 07/25/24 07:45 07/30/24 05:50 2 MG Nitroglycerin 0.4 mg Q5MINP PRN SL 07/25/24 07:45 Morphine Sulfate 2 mg Q30M PRN IV 07/25/24 07:45 Mirtazapine 30 mg HS PO 07/25/24 22:00 08/02/24 21:37 30 MG Patient Own Medication 200 mg DAILY PO 07/26/24 10:00 UNV Patient Own Medication 10 mg BID PO 07/25/24 22:00 UNV Patient Own Medication 100 mg HS PO 07/25/24 22:00 UNV Lisinopril 10 mg BID PO 07/25/24 22:00 08/03/24 09:08 10 MG Sertraline HCl 100 mg HS PO 07/25/24 22:00 08/02/24 21:36 100 MG Lamotrigine 200 mg DAILY PO 07/26/24 10:00 08/03/24 09:06 200 MG Budesonide 0.5 mg BID NEB 07/26/24 10:00 08/03/24 07:45 0.5 MG Magnesium Oxide 400 mg DAILY PO 07/28/24 10:00 08/03/24 09:08 400 MG Alprazolam 0.25 mg Q8HP PRN PO 07/28/24 14:15 08/03/24 15:37 0.25 MG Empaglifozin 10 mg DAILY PO 07/29/24 10:00 08/03/24 09:06 10 MG Amiodarone HCl 400 mg Q12HR PO 07/29/24 22:00 08/03/24 09:07 400 MG Enoxaparin Sodium 80 mg BID SC 08/02/24 10:00 08/03/24 09:00 80 MG Atorvastatin Calcium 40 mg HS PO 08/01/24 22:00 08/02/24 21:34 40 MG Metoprolol Succinate 25 mg DAILY PO 08/02/24 10:00 08/03/24 09:05 25 MG Furosemide 20 mg BIDD IV 08/02/24 06:00 08/03/24 06:03 20 MG Digoxin 0.125 mg DAILY PO 08/02/24 10:00 08/03/24 09:06 0.125 MG Ceftriaxone Sodium 50 ml @ 100 mls/hr DAILY@09 IV 08/03/24 09:00 08/03/24 09:02 100 MLS/HR Azithromycin 250 ml @ 125 mls/hr DAILY IV 08/03/24 10:00 Laboratory Results Laboratory Tests 08/03/24 07:28 Chemistry Test 08/03/24 07:28 Albumin 3.7 g/dL (3.2-4.8) Calcium Level 9.7 mg/dL (8.7-10.4) Total Protein 5.9 g/dL (5.7-8.2) Cardiac Markers Test 08/03/24 07:28 B-Type Natriuretic Peptide 388.29 pg/mL (0-100) LFT Test 08/03/24 07:28 Alanine Aminotransferase (ALT) 122 U/L (7-40) H Alkaline Phosphatase 230 U/L (46-116) H Aspartate Amino Transferase (AST) 34 U/L (13-40) Total Bilirubin 0.9 mg/dL (0.2-1.0) Microbiology Microbiology Date/Time Source Procedure Growth Status 07/28/24 11:34 Nose MRSA Screen - Final Complete 07/25/24 05:30 Blood Blood Culture - Final NO GROWTH AFTER 5 DAYS OF INCUBATION. Complete Assessment/Plan Assessment/Plan Acute respiratory failure Heart failure with reduced ejection fraction/Dent heart Association three AFib with RVR Small bilateral pleural effusion Acute kidney injury on top of chronic kidney disease stage 2 Diabetes COPD BILATERAL Pneumonia Dyslipidemia Mild mitral stenosis Mild increase in left ventricular and diastolic pressure Obesity Deconditioning Elevated D-dimer Plan: V/Q scan still pending. Worsening liver enzymes. Worsening leukocytosis. We will repeat labs. No home today due to all the mentioned issues. Stop atorvastatin for now. Reduce Solu-Medrol to daily. Liver ultrasound. Repeat CBC and CMP. Further plan per orders Plan discussed with: Patient My Orders Orders - MARYA NNE TIAN MD Procedure Category Date Status Time Bilat Lower Dvt US 08/02/24 Resulted 17:54 Nm Vq Scan NM 08/02/24 Logged 17:54 Ceftriaxone 1gm/50ml PHA 08/03/24 In Process D5w (Rocephin) 09:00 Azithromycin 500mg/ PHA 08/03/24 In Process 250ml (Zithromax 50 10:00 Chest Portable XY 08/03/24 Resulted 06:00 Date of Service: Aug 03, 2024 Billing Provider: MARY ANNE TIAN MD Common Visit Codes: [id number] INP/OBS CARE(HIGH) MARY ANNE TIAN MD Aug 03, 2024 16:16
--- NOTE | 2024-08-03 17:10 | DVH ---
EXAM: US LIVER CLINICAL HISTORY: pr lft TECHNIQUE: Grayscale and limited color flow doppler ultrasound of the right upper quadrant is perfor med. COMPARISON: None Findings: Liver measures 12.8 cm in length with increased echotexture and contour. No evidence of focal hepatic lesions or intra- or extrahepatic ductal dilatation. Common bile duct measures 0.4 cm in diameter. N ormal hepatopedal flow noted within the portal vein. No perihepatic free fluid is noted. Cholecystectomy. Negative sonographic Banerjee's sign. Pancreas not well-visualized due to overlying bowel gas. Right kidney measures 10.1 cm with normal contours, echotexture and cortical thickness. No evidence o f hydronephrosis, calculi, cystic or solid renal lesions. Partially visualized inferior vena cava unremarkable. Impression: 1. No evidence of acute right upper quadrant abnormalities. 2. Mild hepatic steatosis.
[2024-08-04] VITALS (13 sets, daily range): BP systolic 90–135; BP diastolic 60–72; PULSE 64–95; RESP 16–19; TEMP 97–98.1; O2SAT 94–100
--- NOTE | 2024-08-04 07:15 | DVH ---
CLINICAL INFORMATION: 64 years old, Female; follow-up. No other clinical information provided. TECHNIQUE: Single AP portable chest radiograph was obtained. COMPARISON: XY CHEST PORTABLE on DOS: 08/03/24, XY CHEST XRAY 1 VIEW on DOS: 07/31/24, XY CHEST XRAY 1 EW on DOS: 07/29/24 FINDINGS: Bilateral interstitial opacities and patchy airspace opacities, minimally changed compared to the alesia or exam. No pneumothorax. No other significant interval change. IMPRESSION: No significant interval change as detailed above.
[2024-08-04 07:59] LABS: Anion Gap 8 (5-15); Aspartate Aminotransferase 28 U/L (13-40); BUN/Creatinine Ratio 21.5 (10.0-20.0); Calcium 9.2 mg/dL (8.7-10.4); Carbon Dioxide 31 mmol/L (20-31); Chloride 102 mmol/L (98-107); Glucose 91 mg/dL (74-106); Magnesium 2.3 mg/dL (1.6-2.6); Potassium 3.8 mmol/L (3.5-5.1); Sodium 141 mmol/L (136-145)
[2024-08-04 08:00] LABS: Albumin 3.2 g/dL (3.2-4.8)
[2024-08-04 08:01] LABS: Bilirubin, Total 0.7 mg/dL (0.2-1.0)
[2024-08-04 08:04] LABS: Alanine Aminotransferase 81 U/L (7-40); Alkaline Phosphatase 184 U/L (46-116); Blood Urea Nitrogen 23 mg/dL (9-23); Total Protein 5.1 g/dL (5.7-8.2)
[2024-08-04 08:17] LABS: Basophils # (auto) 0 10 ^3/uL (0-0.2); Basophils % (auto) 0.4 % (0.0-2.0); Eosinophils # (auto) 0 10 ^3/uL (0-0.8); Eosinophils % (auto) 0.3 % (0.0-7.0); Hemoglobin 10.9 g/dL (12.2-16.2); Lymphocytes # (auto) 0.7 10 ^3/uL (0.4-5.4); Mean Corpuscular Hemoglobin 28.9 pg (28.0-32.0); Mean Corpuscular Hgb Conc. 32.1 g/dL (32.0-36.0); Mean Corpuscular Volume 89.9 fL (80.0-100.0); Monocytes # (auto) 0.9 10 ^3/uL (0-1.3); Monocytes % (auto) 9.5 % (0.0-12.0); Neutrophils # (auto) 7.5 10 ^3/uL (1.6-8.6); Neutrophils % (auto) 81.8 % (37.0-80.0); Nucleated Red Blood Cells % 0.1 %; Platelet Count (auto) 173 10^3/uL (140-450); Red Blood Cells 3.78 10^6/uL (4.0-5.20); Red Cell Distribution Width 16.3 % (11.8-14.3); White Blood Cell 9.1 10^3/uL (4.4-10.8)
[2024-08-04] MEDS: methylPREDNISolone SOD SUCC 40 MG/ML VL IV SCH (09:04)
[2024-08-04] MEDS: METOPROLOL SUCCINATE XL 50 MG TAB PO SCH (09:05)
--- NOTE | 2024-08-04 12:57 | DVHPN2 ---
Consult Progress Note Date Seen: Aug 04, 2024 Subjective Review of Systems: CVS:Normal, RESPIRATORY:Normal, NEURO:Normal Other Systems: Denies any cardiac symptoms Objective vital signs Vital Sign Date Time Temp Pulse Resp B/P (MAP) Pulse Ox O2 Delivery O2 Flow Rate FiO2 08/04/24 12:48 97.4 65 16 101/62 (75) 94 97.4 08/04/24 10:38 Nasal Cannula 4.0 08/04/24 10:38 36 Total Intake and Output 08/03/24 08/03/24 08/04/24 15:00 23:00 07:00 Intake Total 50 ml 1250 ml 985 ml Output Total 875 ml Balance 50 ml 375 ml 985 ml medications Current Medications Medications Dose Ordered Sig/Addi Route Start Time Stop Time Status Last Admin Dose Admin Diagnostic Test (Pha) 1 strip ACHS 07/25/24 11:30 08/04/24 06:08 1 STRIP Insulin Human Regular ACHS SC 07/25/24 11:30 08/03/24 17:19 2 UNITS Dextrose 50 ml UD PRN IV 07/25/24 07:30 Ipr[address]ropium [place] 0.5 mg Q4HWA NEB 07/25/24 10:00 08/04/24 10:38 0.5 MG Ipratropium [place] 0.5 mg Q2HPRN PRN NEB 07/25/24 07:30 07/27/24 12:06 0.5 MG Famotidine 20 mg DAILY IV 07/25/24 10:00 08/04/24 09:04 20 MG Levalbuterol HCl 1.25 mg Q4HWA NEB 07/25/24 10:00 08/04/24 10:38 1.25 MG Acetaminophen/ Hydrocodone Bitart 1 tab Q4HP PRN PO 07/25/24 07:45 08/03/24 21:25 1 TAB Ondansetron HCl 4 mg Q4HP PRN IV 07/25/24 07:45 Acetaminophen 650 mg Q6HP PRN PO 07/25/24 07:45 08/04/24 09:07 650 MG Morphine Sulfate 2 mg Q4HPRN PRN IV 07/25/24 07:45 07/30/24 05:50 2 MG Nitroglycerin 0.4 mg Q5MINP PRN SL 07/25/24 07:45 Morphine Sulfate 2 mg Q30M PRN IV 07/25/24 07:45 Mirtazapine 30 mg HS PO 07/25/24 22:00 08/03/24 21:13 30 MG Patient Own Medication 200 mg DAILY PO 07/26/24 10:00 UNV Patient Own Medication 10 mg BID PO 07/25/24 22:00 UNV Patient Own Medication 100 mg HS PO 07/25/24 22:00 UNV Lisinopril 10 mg BID PO 07/25/24 22:00 08/04/24 09:07 10 MG Sertraline HCl 100 mg HS PO 07/25/24 22:00 08/03/24 21:15 100 MG Lamotrigine 200 mg DAILY PO 07/26/24 10:00 08/04/24 09:08 200 MG Budesonide 0.5 mg BID NEB 07/26/24 10:00 08/04/24 07:10 0.5 MG Magnesium Oxide 400 mg DAILY PO 07/28/24 10:00 08/04/24 12:21 400 MG Alprazolam 0.25 mg Q8HP PRN PO 07/28/24 14:15 08/03/24 15:37 0.25 MG Empaglifozin 10 mg DAILY PO 07/29/24 10:00 08/04/24 09:07 10 MG Amiodarone HCl 400 mg Q12HR PO 07/29/24 22:00 08/04/24 09:08 400 MG Enoxaparin Sodium 80 mg BID SC 08/02/24 10:00 08/04/24 09:05 80 MG Furosemide 20 mg BIDD IV 08/02/24 06:00 08/04/24 06:08 20 MG Digoxin 0.125 mg DAILY PO 08/02/24 10:00 08/04/24 09:06 0.125 MG Ceftriaxone Sodium 50 ml @ 100 mls/hr DAILY@09 IV 08/03/24 09:00 08/04/24 12:21 100 MLS/HR Azithromycin 250 ml @ 125 mls/hr DAILY IV 08/03/24 10:00 08/04/24 09:08 125 MLS/HR Methylprednisolone Sodium Succinate 40 mg DAILY IV 08/04/24 10:00 08/04/24 09:04 40 MG Metoprolol Succinate 50 mg DAILY PO 08/04/24 10:00 08/04/24 09:05 50 MG Examination: GENERAL:Abnormal (Lethargic), LUNGS:Abnormal (Diminished), CVS:Normal, NEURO:Normal laboratory and microbiology Laboratory Tests 08/04/24 06:47 Test 08/04/24 06:47 Range/Units Serum Glucose 91 74-106 mg/dL Problem List/Assessment/Plan Problem List/Assessment/Plan Acute on chronic decompensated HFrEF, NYHA class III, newly diagnosed Atrial fibrillation with a rapid ventricular response (on Dabigatran and Amiodarone) Acute hypoxic respiratory failure secondary to pneumonia Mild mitral valve stenosis/rheumatic mitral valve disease Nonischemic cardiomyopathy Rule out pulmonary emboli Hypertension Hyperlipidemia Type 2 diabetes mellitus COPD with history of tobacco use Morbid obesity Plan/Recommendation (Dr. Enamorado) * Echocardiogram revealed EF 40% with anterior anteroseptal wall hypokinesia * Left cardiac catheterization and coronary angiogram revealed mild non- obstructive CAD * Initiate lipid-lowering agent for a goal LDL <70 * Continue GDMT for CHF. Uptitrate as tolerated * Preload and afterload reduction, lasix * Strict intake and output, daily weights, maintain fluid restriction * Rate control, metoprolol. Discontinue digoxin therapy given HR 60s-70s bpm * Antiarrhythmic agent, amiodarone BID * Transition to Pradaxa therapy when appropriate * [id number] VASc score: 3 points, HAS-BLED score: 1 point * Monitor and replete electrolytes as needed, K> 4 and Mg>2 * VQ Scan rule out PE, pending There is no further cardiac work-up indicated at this time. Advised to follow- up with primary report developer within 3-4 weeks post-discharge. Kindly call if in need to re-consult. Thank you for allowing us to care for this patient. This medical document was created using an electronic medical record system with voice recognition software and computerized dictation system. Although this document has been carefully reviewed, there might still be some phonetic and typographical errors. Occasional wrong-word or ``sound-alike substitutions may have occurred due to the inherent limitations of voice recognition software. These areas are purely typographical due to imperfections of the software programs and do not reflect any compromise in the patient's medical care. Please read the chart carefully and recognize, using context, where these substitutions have occurred. Plan discussed with: Patient, Other Date of Service: Aug 04, 2024 Billing Provider: MACI ENAMORADO MD Cardiology Common Codes: [id number] HOSP CARELARISSA Pickering [facility] Aug 04, 2024 12:57
[2024-08-04] MEDS: POTASSIUM CHL 20 Meq TABLET PO ONE (13:00)
[2024-08-04] MEDS ORDERED: EMPA1TAB PO (17:10)
[2024-08-04] MEDS ORDERED: DOXY100C79 PO (17:10)
[2024-08-04] MEDS ORDERED: AMIO200T13 PO (17:10)
--- NOTE | 2024-08-04 17:17 | DVHDS2 ---
Discharge Summary Date of Admission Jul 25, 2024 at 07:43 Date of Discharge: Aug 04, 2024 Admitting Diagnosis Acute hypoxic respiratory failure Labs/Diagnostic Data: Laboratory Results Test 08/04/24 06:47 08/03/24 07:28 08/01/24 17:51 08/01/24 06:42 White Blood Count 9.1 10^3/uL (4.4-10.8) Red Blood Count 3.78 10^6/uL (4.0-5.20) Hemoglobin 10.9 g/dL (12.2-16.2) Hematocrit 34.0 % (36.0-46.0) Mean Corpuscular Volume 89.9 fL (80.0-100.0) Mean Corpuscular Hemoglobin 28.9 pg (28.0-32.0) Mean Corpuscular Hemoglobin Concent 32.1 g/dL (32.0-36.0) Red Cell Distribution Width 16.3 % (11.8-14.3) Platelet Count 173 10^3/uL (140-450) Mean Platelet Volume 9.0 fL (6.9-10.8) Neutrophils (%) (Auto) 81.8 % (37.0-80.0) Lymphocytes (%) (Auto) 8.0 % (10.0-50.0) Monocytes (%) (Auto) 9.5 % (0.0-12.0) Eosinophils (%) (Auto) 0.3 % (0.0-7.0) Basophils (%) (Auto) 0.4 % (0.0-2.0) Neutrophils # (Auto) 7.5 10 ^3/uL (1.6-8.6) Lymphocytes # (Auto) 0.7 10 ^3/uL (0.4-5.4) Monocytes # (Auto) 0.9 10 ^3/uL (0-1.3) Eosinophils # (Auto) 0 10 ^3/uL (0-0.8) Basophils # (Auto) 0 10 ^3/uL (0-0.2) Nucleated Red Blood Cells 0.1 % Sodium Level 141 mmol/L (136-145) Potassium Level 3.8 mmol/L (3.5-5.1) Chloride Level 102 mmol/L (98-107) Carbon Dioxide Level 31 mmol/L (20-31) Anion Gap 8 (5-15) Blood Urea Nitrogen 23 mg/dL (9-23) Creatinine 1.07 mg/dL (0.550-1.02) Glomerular Filtration Rate Calc 58 mL/min (>90) BUN/Creatinine Ratio 21.5 (10.0-20.0) Serum Glucose 91 mg/dL (74-106) Calcium Level 9.2 mg/dL (8.7-10.4) Magnesium Level 2.3 mg/dL (1.6-2.6) Total Bilirubin 0.7 mg/dL (0.2-1.0) Aspartate Amino Transferase (AST) 28 U/L (13-40) Alanine Aminotransferase (ALT) 81 U/L (7-40) Alkaline Phosphatase 184 U/L (46-116) B-Type Natriuretic Peptide 261.22 pg/mL (0-100) Total Protein 5.1 g/dL (5.7-8.2) Albumin 3.2 g/dL (3.2-4.8) Digoxin Level 1.05 ng/mL (0.8-2) Creatine Kinase 26 U/L (34-145) Vancomycin Level Trough 13.9 ug/mL (5-10) Differential Total Cells Counted 100.0 (100) Neutrophils % (Manual) 92 (37.0-80.0) Band Neutrophils % (Manual) 0 Lymphocytes % (Manual) 5 (10.0-50.0) Monocytes % (Manual) 3 (0-12) Eosinophils % (Manual) 0 (0-7) Basophils % (Manual) 0 (0.0-2.0) Metamyelocytes % (manual) 0 Myelocytes % (Manual) 0 Promyelocytes % (Manual) 0 Blast Cells % (Manual) 0 Reactive Lymphocytes 0 Platelet Estimate Adequate Prothrombin Time 12.2 sec (9.3-11.8) Prothrombin Time INR 1.16 (0.9-1.15) Activated Partial Thromboplast Time 34.2 SEC (24.5-34.5) Thyroid Stimulating Hormone (TSH) 1.78 uIU/mL (0.55-4.78) Test 07/31/24 12:40 07/31/24 11:30 07/31/24 09:36 07/30/24 05:33 Blood Gas Specimen Type Arterial Blood Gas Sample Site Right radial Blood Gas Patient Temperature 37.0 Arterial Blood Date Drawn [id number] Arterial Blood pH 7.518 (7.350-7.450) Arterial Blood Partial Pressure CO2 33.8 mmHg (32.0-45.0) Arterial Blood Partial Pressure O2 38.8 mmHg (83.0-108.0) Arterial Blood HCO3 26.9 mmol/L (21.0-28.0) Arterial Blood Oxygen Saturation 73.2 % (94.0-98.0) Arterial Blood Base Excess 4.2 mmol/L (-2.0-3.0) Arterial Blood Oxyhemoglobin 72.2 % (94.0-98.0) Arterial Blood Carboxyhemoglobin 1.2 % (0.5-1.5) Arterial Blood Methemoglobin 0.2 % (0.0-1.5) Roverto Test Yes Blood Gas Total Hemoglobin 13.20 g/dL (12.0-16.0) Blood Gas Modality Room air FiO2 % 21.0 Blood Gas Critical Value Read Back Yes Blood Gas Notified Whom gary Marques Blood Gas Notified Time [id number] Blood Gas Notified By Route Salesperson eileen damon POC Glucose 148 mg/dl (70-106) Random Vancomycin Level 17.6 ug/mL (5-10) Large Platelets Few Anisocytosis (manual) Slight Ovalocytes Few Test 07/25/24 11:21 07/25/24 08:07 07/25/24 07:18 07/25/24 05:56 Influenza Type A Antigen Negative (Negative) Influenza Type B Antigen Negative (Negative) SARS-CoV-2 Antigen (Rapid) Negative (NEGATIVE) D-Dimer, Quantitative 1.44 mg/L FEU (0.0-0.49) Lactic Acid Level 2.4 mmol/L (0.4-2.0) Blood Gas Set Respiration Rate 12.0 Blood Gas EPAP 5 Blood Gas IPAP 12 Test 07/25/24 05:15 Hemoglobin A1c 5.9 % A1C (<5.7) Troponin I High Sensitivity 18 ng/L (</=34) Other Laboratory Tests 08/04/24 06:47 Brief Hx & Hospital Course: History of Present Illness Maeve Steiner is a 64-year-old female with past medical history of hypertension, diabetes, COPD, asthma, and anxiety who presents to the ED today for shortness of breath and cough x1 day. EMS was called and noticed that her room air saturation was 85% placed her on CPAP now in the ED for evaluation. Patient states that she was in [place] 4 days ago was diagnosed with pneumonia at the hospital and treated. 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 Patient reports that she is compliant with her medications. Patient denies chest pain, abdominal pain, nausea, vomiting, diarrhea, back pain, headache, lightheadedness, fever, chills, and dizziness. Patient also reports that she quit in 2014 was smoking 2-3 packs of cigarettes per day. Patient denies illicit drug use and drinking. Patient also reports that she takes dabigatran was informed by her provider that she has a heart issue but she is unsure exactly what. Course of hospitalization: Patient was found to be in atrial fibrillation with rapid ventricular rate, as well as BiPAP upon my initiation of care with the patient. Cardiology consultation was obtained given patient was echocardiogram results as well as persistent atrial fibrillation despite patient being on beta blockers and amiodarone drip. Patient was started on empiric antibiotic therapy, which was deescalated with the patient has improvement multifocal pneumonia. CT scan was performed which ruled out any underlying neoplasm as chest x-ray interpretation recommended to rule out so given radiologist recommendation. Patient has been weaned down to 2-3 L via oxygen. Room air ABG was performed, with the patient qualified for home O2 which has been provided. Patient's chest x-ray also reports having improved bilateral infiltrates. Patient underwent left heart catheterization given the onset of heart failure, with negative findings of CAD requiring intervention. Patient's heart rate has also improved with digoxin, beta-ramiro therapy, as well as p.o. amiodarone. Patient will be discharged home today with continuation of home O2 supplementation as well as current goal- directed medical therapy and heart failure regimen. She will continue Dabigatran as prescribed by the hospital she had seen in [place] prior to coming to this facility. She will follow up with her PCP, Dayana Pretty NP in 1-2 weeks. She will also be continued on antibiotic therapy with doxycycline 100 mg p.o. twice a day. For the medications can be found in the medication reconciliation. All questions answered. Physical examination General: Alert and Oriented x3. No acute distress. Well-nourished. Eyes: EOMI. Anicteric. HENT: Moist mucous membranes. Lungs: Clear to auscultation bilaterally. No accessory muscle use. Cardiovascular: Regular rate and rhythm. No murmur. No JVD. Abdomen: Soft, non-tender and non-distended. No palpable masses. Extremities: No edema. Non-tender. Skin: No rashes or lesions. Warm. Neurologic: No focal neurological deficits. CN II-XII grossly intact, but not individually tested. Psychiatric: Cooperative. Appropriate mood and affect. Total time spent with patient discussing and formulating plan of care: 35 minutes. This medical document was created using an electronic medical record system with [employer] system. Although this document has been carefully reviewed, there may still be some phonetic and typographical errors. These areas are purely typographical due to imperfections of the software programs, and do not reflect any compromise in the patient's medical care. Consults/Reason for consult Cardiology: AFib, heart failure Pulmonology: Acute hypoxic respiratory failure Operations or Procedures Left heart catheterization Condition at Discharge: Guarded Final Diagnosis/Problems List Acute hypoxic respiratory failure secondary to sepsis and pneumonia Secondary Diagnosis: -community-acquired pneumonia, probable Gram-positive/Gram-negative etiology -nicotine dependence -COPD with probable exacerbation -obesity -atrial fibrillation with rapid ventricular rate -depression -anxiety disorder -sepsis secondary to pneumonia -mitral valve stenosis Discharge Disposition: Home Discharge Instruct/Medications Diet: Cardiac 2g Na,low cholest Activity: No Restrictions, As Tolerated Follow Up/Referral: Follow up with PCP, Dayana Pretty NP in 1-2 weeks Discharge Clinic in one week if unable to follow up with this appointment Medications: Refer to medication reconciliation 36 Discharge Statement: "Patient was advised to return to the ER or call 911 if any headaches, dizziness, shortness of breath, chest pain, abdominal pain, bleeding, fevers, or worsening of medical condition. Patient was counseled about treatment plan, medications, possible side effects, patientverbalized understanding. All questions were answered to the best of my ability. This discharge took greater then 30 minutes in planning, reviewing documentation, counseling the patient, and discussing with other team members." ASSESSMENT ASSESSMENT Assessment Acute hypoxic respiratory failure secondary to sepsis and pneumonia Date of Service: Aug 04, 2024 Billing Provider: JUAN YEUNG NP Common Visit Codes: 56038-XMU/OBS DISCH DAY >30min JUAN YEUNG NP Aug 04, 2024 17:17
[2024-08-04] MEDS ORDERED: AMIODARONE HCL 200 MG TAB PO SCH (22:00)
[2024-08-05] MEDS ORDERED: SPIRONOLACTONE 25 MG TAB PO SCH (10:00)
== END 2024-08-04 18:20 | disposition home or self-care (01) | DRG 720 ==
LOC: ER 04:46 → EDBD 04:46 → EDSEX 04:46 → TELE 07:43 → CATH ICU 07-28 11:48 → TELE-WESTW 07-28 14:51
PROVIDERS: ADMIT Nurse Practitioner Acute Care; ATTEND Nurse Practitioner Acute Care
PROC: 5A09357 Assistance with Respiratory Ventilation, Less than 24 Consecutive Hours, Continuous Positive Airway Pressure (ICD-10-PCS; principal; 2024-07-25)
PROC: 4A023N7 Measurement of Cardiac Sampling and Pressure, Left Heart, Percutaneous Approach (ICD-10-PCS; 2024-08-01)
PROC: B211YZZ Fluoroscopy of Multiple Coronary Arteries using Other Contrast (ICD-10-PCS; 2024-08-01)
DX: A41.50 Gram-negative sepsis, unspecified (principal); J96.01 Acute respiratory failure with hypoxia; I50.23 Acute on chronic systolic (congestive) heart failure; J15.69 Pneumonia due to other Gram-negative bacteria; E87.20 Acidosis, unspecified; I42.8 Other cardiomyopathies; J44.0 Chronic obstructive pulmonary disease with (acute) lower respiratory infection; N17.9 Acute kidney failure, unspecified; J45.901 Unspecified asthma with (acute) exacerbation; I13.0 Hypertensive heart and chronic kidney disease with heart failure and stage 1 through stage 4 chronic kidney disease, or unspecified chronic kidney disease; I48.19 Other persistent atrial fibrillation; J44.1 Chronic obstructive pulmonary disease with (acute) exacerbation; Z20.822 Contact with and (suspected) exposure to COVID-19; I25.10 Atherosclerotic heart disease of native coronary artery without angina pectoris; R65.20 Severe sepsis without septic shock; E78.5 Hyperlipidemia, unspecified; F32.A Depression, unspecified; F41.9 Anxiety disorder, unspecified; I05.0 Rheumatic mitral stenosis; J98.11 Atelectasis; E66.01 Morbid (severe) obesity due to excess calories; N18.2 Chronic kidney disease, stage 2 (mild); E11.22 Type 2 diabetes mellitus with diabetic chronic kidney disease; Z82.49 Family history of ischemic heart disease and other diseases of the circulatory system; Z90.710 Acquired absence of both cervix and uterus; Z82.3 Family history of stroke; Z68.31 Body mass index [BMI] 31.0-31.9, adult; Z87.891 Personal history of nicotine dependence; Z79.02 Long term (current) use of antithrombotics/antiplatelets; Z68.39 Body mass index [BMI] 39.0-39.9, adult
CPT/HCPCS: 36415; 36600; 71045; 71250; 76705; 80048; 80053; 80162; 80202; 82550; 82565; 82805; 82962; 83036; 83605; 83735; 83880; 84443; 84484; 85007; 85025; 85027; 85379; 85610; 85730; 87040; 87081; 87426; 87804; 93306; 93970; 94640; 94660; 97110; 97116; 97163; 97530; 99152; 99291; G0378; J1815; J2250; J2543; J3490; J7060; Q9967

== ENCOUNTER 2024-08-30 07:47 | Inpatient (IN) | payer MEDICAID ==
[~2024-08-30] VITALS: Ht 147.3 cm; Wt 70.4 kg
[2024-08-30] VITALS (8 sets, daily range): BP systolic 101–119; BP diastolic 65–80; PULSE 103–127; RESP 18–30; O2SAT 73–99
[~2024-08-30 07:47] MED LIST changes: +AMIO200T13 PO; +DABI150C7 PO; +DIGO0.12 PO; +DOXY100C79 PO; +EMPA1TAB PO; +GAB100C PO; +METO1TAB9 PO; +SIMV20TA20 PO
[2024-08-30] MEDS: ALBUTEROL SULF 2.5 MG/0.5ML(0.5%) NEB SOLN ONE (07:57)
[2024-08-30] MEDS: IPRATROPIUM BROM 0.5 MG/2.5ML INH SOL ONE (07:57)
--- NOTE | 2024-08-30 07:58 | ED.PDOC ---
SOB-HPI HPI Comments 64 year old female CHERYL presents to the ED with chief complaint of SOB. EMS reports patient has been experiencing worsening SOB with associated mild bilateral leg edema for the past 2 days. EMS relays patient started to have worsening SOB at approximately 0630 before calling 911. EMS states patient was noted to be in A-Fib RVR on their EKG along with noting to be 77% on BiPAP and after being given a DuoNeb treatment on route to the ED. EMS notes patient has history of recent intubation approximately 1 month ago. Patient denies any chest pain, cough, fever, or chills. Chief Complaint: Shortness of Breath Time Seen by MD: 07:55 Primary Care Provider: DENIES Reviewed notes: Nurses Notes, Gang Supervisor Pipe Lines Notes, Medications, Allergies Information Source: Emergency Med Personnel Mode of Arrival: EMS Severity: Severe Timing: Days Duration: Since onset Context: At Rest PE Risk Factors: None History of: COPD, CHF Prehospital treatment: 12 Lead EKG, Breathing Tx, Oxygen Modifying Factors: Nothing Associated Signs and Symptoms: None Past Medical History PAST MEDICAL HISTORY: AFIB, CHF, COPD, DM, HTN Surgical History: Denies all surgeries COURT BAILIFF History: Denies all COURT BAILIFF Hx Family History Family History: Reviewed,noncontributory to illness Social History Smoker: Non-Smoker Alcohol: Denies ETOH Use Drugs: Denies Drug Use Lives In: Home Constitutional: denies: chills, diaphoresis, fatigue, fever, malaise, sweats, weakness, others EENTM: denies: blurred vision, double vision, ear bleeding, ear discharge, ear drainage, ear pain, ear ringing, eye pain, eye redness, hearing loss, mouth pain, mouth swelling, nasal discharge, nose bleeding, nose congestion, nose pain, photophobia, tearing, throat pain, throat swelling, voice changes, others Respiratory: reports: shortness of breath; denies: cough, hemoptysis, orthopnea, SOB at rest, SOB with excertion, stridor, wheezing, others Cardiovascular: reports: edema; denies: chest pain, dizzy spells, diaphoresis, Dyspnea on exertion, irregular heart beat, left arm pain, lightheadedness, palpitations, PND, syncope, others Gastrointestinal: denies: abdomen distended, abdominal pain, blood streaked bowels, constipated, diarrhea, dysphagia, difficulty swallowing, hematemesis, melena, nausea, poor appetite, poor fluid intake, rectal bleeding, rectal pain, vomiting, others Genitourinary: denies: abnormal vagina bleeding, burning, dyspareunia, dysuria, flank pain, frequency, hematuria, incontinence, pain, , vagina discharge, urgency, others Neurological: denies: dizziness, fainting, headache, left sided numbness, left sided weakness, numbness, paresthesia, pre-existing deficit, right sided numbness, right sided weakness, seizure, speech problems, tingling, tremors, weakness, others Musculoskeletal: denies: back pain, gout, joint pain, joint swelling, muscle pain, muscle stiffness, neck pain, others Integumetry: denies: bruises, change in color, change in hair/nails, dryness, laceration, lesions, lumps, rash, wounds, others Allergic/Immunocompromised: denies: Difficulty Healing, Frequent Infections, Hives, Itching, others Hematologic/Lymphatic: denies: anemia, blood clots, easy bleeding, easy bruising, swollen glands, others Endocrine: denies: excessive hunger, excessive sweating, excessive thirst, excessive urination, flushing, intolerance to cold, intolerance to heat, unexplained weight gain, unexplained weight loss, others Psychiatric: denies: anxiety, bipolar disorder, depression, hopeless, panic disorder, schizophrenia, sleepless, suicidal, others All Other Systems: Reviewed and Negative Physical Exam General Appearance: Moderate Distress, Obese, Severe Distress HEENT: Normal ENT Inspection, PERRL/EOMI Neck: Full Range of Motion, Non-Tender, Normal, Normal Inspection Respiratory: Chest Non-Tender, Decreased Breath Sounds, Expiration, Inspiration, No Accessory Muscle Use, Rales, Respiratory Distress, Rhonchi Cardiovascular: Irregular, No Edema, No JVD, No Murmur, No Gallop, Normal Peripheral Pulses, Tachycardia Breast Exam: Deferred Gastrointestinal: No Organomegaly, Non Tender, No Pulsatile Mass, Normal Bowel Sounds, Soft Genitalia: Deferred Pelvic: Deferred Rectal: Deferred Extremities: No calf tenderness, Normal capillary refill, Normal inspection, Normal range of motion, Non-tender, No pedal edema Musculoskeletal : Apperance: Normal Neurologic: Alert, coordinator of rehabilitation services II-XII nml as Tested, Depressed Affect, No Motor Deficits, No Sensory Deficits Cerebellar Function: NOT DONE Reflexes: NOT DONE Skin: Dry, Normal Color, Warm Peripheral Pulses: 1+ carotid (R), 1+ carotid (L) Lymphatic: No Adenopathy EKG EKG : Pulse Rate (adult): 113 [place]: RAD Cardiac Rhythm: Aflutter Comments Prolonged QT interval Was a procedure done? Was a procedure done?: No Differential Dx Differential Diagnosis: Anxiety, CHF, COPD, Dysrhythmia, Hyponatremia, Pneumonia, Respiratory Distress X-Ray, Labs, Meds, VS Vital Signs Date Time Temp Pulse Resp B/P (MAP) Pulse Ox O2 Delivery O2 Flow Rate FiO2 08/30/24 09:50 122 127/49 Facial BiPAP Mask 70 08/30/24 09:30 109 22 124/55 (78) 86 08/30/24 08:52 162/147 08/30/24 08:43 113 08/30/24 08:01 44 77 Bi-Pap+ 100 100 08/30/24 08:00 112 08/30/24 07:58 113 08/30/24 07:54 117 44 166/135 (145) 77 08/30/24 07:52 98.0 110 30 166/135 (145) 86 98.0 08/30/24 07:52 110 30 88 Non-Rebreather 15 N/A 08/30/24 07:50 101 Facial BiPAP Mask 100 Lab Test 08/30/24 11:05 08/30/24 10:00 08/30/24 09:27 08/30/24 08:10 Range/Units Prothrombin Time 10.9 9.3-11.8 sec Prothrombin Time INR 1.03 0.9-1.15 Activated Partial Thromboplast Time 25.8 24.5-34.5 SEC Lactic Acid Level 1.3 0.4-2.0 mmol/L Blood Gas Specimen Type Arterial Blood Gas Sample Site Right radial Blood Gas Patient Temperature 37.0 Arterial Blood Date Drawn Arterial Blood pH 7.329 L 7.350-7.450 Arterial Blood Partial Pressure CO2 40.7 32.0-45.0 mmHg Arterial Blood Partial Pressure O2 173.9 H 83.0-108.0 mmHg Arterial Blood HCO3 20.9 L 21.0-28.0 mmol/L Arterial Blood Oxygen Saturation 99.3 H 94.0-98.0 % Arterial Blood Base Excess -4.7 L -2.0-3.0 mmol/L Arterial Blood Oxyhemoglobin 97.6 94.0-98.0 % Arterial Blood Carboxyhemoglobin 1.1 0.5-1.5 % Arterial Blood Methemoglobin 0.6 0.0-1.5 % Roverto Test Yes Blood Gas Total Hemoglobin 11.80 L 12.0-16.0 g/dL Blood Gas Set Respiration Rate 16.0 Blood Gas Modality Mask - bipap FiO2 % 100.0 Blood Gas EPAP 7 Blood Gas IPAP 18 White Blood Count 14.3 H 4.4-10.8 10^3/uL Red Blood Count 3.73 L 4.0-5.20 10^6/uL Hemoglobin 11.1 L 12.2-16.2 g/dL Hematocrit 35.5 L 36.0-46.0 % Mean Corpuscular Volume 95.2 80.0-100.0 fL Mean Corpuscular Hemoglobin 29.9 28.0-32.0 pg Mean Corpuscular Hemoglobin Concent 31.4 L 32.0-36.0 g/dL Red Cell Distribution Width 21.6 H 11.8-14.3 % Platelet Count 500 H 140-450 10^3/uL Mean Platelet Volume 7.6 6.9-10.8 fL Neutrophils (%) (Auto) 72.8 37.0-80.0 % Lymphocytes (%) (Auto) 22.1 10.0-50.0 % Monocytes (%) (Auto) 4.4 0.0-12.0 % Eosinophils (%) (Auto) 0.4 0.0-7.0 % Basophils (%) (Auto) 0.3 0.0-2.0 % Neutrophils # (Auto) 10.4 H 1.6-8.6 10 ^3/uL Lymphocytes # (Auto) 3.2 0.4-5.4 10 ^3/uL Monocytes # (Auto) 0.6 0-1.3 10 ^3/uL Eosinophils # (Auto) 0.1 0-0.8 10 ^3/uL Basophils # (Auto) 0 0-0.2 10 ^3/uL Nucleated Red Blood Cells 0.3 % D-Dimer, Quantitative 4.33 H 0.0-0.49 mg/L FEU Sodium Level 134 L 136-145 mmol/L Potassium Level 4.8 3.5-5.1 mmol/L Chloride Level 103 98-107 mmol/L Carbon Dioxide Level 19 L 20-31 mmol/L Anion Gap 12 5-15 Blood Urea Nitrogen 16 9-23 mg/dL Creatinine 1.46 H 0.550-1.02 mg/dL Glomerular Filtration Rate Calc 40 >90 mL/min BUN/Creatinine Ratio 11.0 10.0-20.0 Serum Glucose 310 H 74-106 mg/dL Calcium Level 9.2 8.7-10.4 mg/dL Magnesium Level 2.1 1.6-2.6 mg/dL Total Bilirubin 1.1 H 0.2-1.0 mg/dL Aspartate Amino Transferase (AST) 24 13-40 U/L Alanine Aminotransferase (ALT) < 9 7-40 U/L Alkaline Phosphatase 122 H 46-116 U/L Troponin I High Sensitivity 9 </=34 ng/L B-Type Natriuretic Peptide 546.27 0-100 pg/mL Total Protein 6.2 5.7-8.2 g/dL Albumin 4.1 3.2-4.8 g/dL Current Medications Medications (Trade) Dose Ordered Sig/Addi Route Start Time Stop Time Status Last Admin Methylprednisolone Sodium Succinate (Solu Medrol) 250 mg ONCE ONCE IV 08/30/24 08:00 08/30/24 08:01 DC 08/30/24 08:08 Sodium Chloride 1,000 ml @ 150 mls/hr [id number] ONCE IV 08/30/24 08:00 08/30/24 14:39 08/30/24 08:08 Furosemide (Lasix Injection) 40 mg ONCE ONCE IV 08/30/24 08:45 08/30/24 08:46 DC 08/30/24 08:52 Chest XR: FINDINGS: LUNGS AND PLEURAL SPACES: See below. HEART: Cardiomegaly with pulmonary congestion and edema. Superimposed pneumonia cannot be excluded. MEDIASTINUM: Unremarkable. Normal mediastinal contour. BONES/JOINTS: Unremarkable. No acute fracture. OTHER FINDINGS: . . IMPRESSION: Cardiomegaly with pulmonary congestion and edema. Superimposed pneumonia cannot be excluded. X-Ray, Labs, Meds, VS Comment Course in the emergency department eventful patient came in with in respiratory distress The chest x-ray shows pulmonary edema cardiomegaly and possible pneumonia EKG shows elde atrial flutter 2-1 AV block right axis deviation and prolonged QT interval Renal ultrasound negative [place] [address] with 72.8% neutrophils H&H 11 and 35.5 INR 1.03 D-dimer elevated at 4.33 CMP GFR at 40 blood sugar 310 Lactic acid 1.3 Magnesium 2.1 Troponin nine BNP 546.27 Patient will be admitted for further care Images Reviewed?: Images reviewed and evaluated by me Time of 1ST Reevaluation: 08:55 Reevaluation 1ST: Unchanged Patient Education/Counseling: Diagnosis, Treatment Family Education/Counseling: No Family Present Departure 1 Departure Time of Disposition: 12:32 Impression: Primary Impression: Respiratory distress determined by examination Additional Impressions: Acute pulmonary edema COPD with acute exacerbation Uncontrolled diabetes mellitus Elevated d-dimer Anemia of chronic disease Diabetic nephropathy Disposition: ADMITTED INPATIENT Admit to: [facility] Condition: Guarded Critical Care Note Critical Care Time?: Yes (45 min-critical care time only) Stability Stability form required: Yes Unstable for transfer: ICU, CCU, PCU, [facility] (Intensive VS monitoring), Requires medication (Requires Med for stabilization) Heart Score Heart Score: Heart Score Response (Comments) Value History Moderate Suspicious 1 EKG Repolarization Disturb 1 Age 45-64 1 Risk Factors >3 or Hx ASHD 2 Troponin Normal limit 0 Total 5 I personally scribed for IMMANUEL RICHEY MD ([email or web address]) on 08/30/24 at 07:58. Electronically submitted by Chris Marie ([email or web address]). I personally scribed for IMMANUEL RICHEY MD ([email or web address]) on 08/30/24 at 08:24. Electronically submitted by Chris Marie ([email or web address]). IMMANUEL RICHEY MD Aug 30, 2024 07:58
[2024-08-30] MEDS: methylPREDNISolone SOD SUCC 125 MG/2 ML VL IV ONE (08:08)
[2024-08-30] MEDS: SODIUM CHLORIDE 0.9% 1,000 ML IV ONE (08:08)
--- NOTE | 2024-08-30 08:12 | DVH ---
EXAM: XR Chest, 1 View CLINICAL INDICATION: SOB TECHNIQUE: Frontal view of the chest. COMPARISON: XY CHEST PORTABLE on DOS: 08/04/24, XY CHEST PORTABLE on DOS: 08/03/24, XY CHEST XRAY 1 VIE W on DOS: 07/31/24, XY CHEST XRAY 1 VIEW on DOS: 07/29/24, XY CHEST XRAY 1 VIEW on DOS: 07/26/24 FINDINGS: LUNGS AND PLEURAL SPACES: See below. HEART: Cardiomegaly with pulmonary congestion and edema. Superimposed pneumonia cannot be excluded. MEDIASTINUM: Unremarkable. Normal mediastinal contour. BONES/JOINTS: Unremarkable. No acute fracture. OTHER FINDINGS: . . IMPRESSION: Cardiomegaly with pulmonary congestion and edema. Superimposed pneumonia cannot be excluded.
[2024-08-30 08:24] LABS: Eosinophils # (auto) 0.1 10 ^3/uL (0-0.8); Eosinophils % (auto) 0.4 % (0.0-7.0); Hemoglobin 11.1 g/dL (12.2-16.2)
[2024-08-30 08:25] LABS: Basophils # (auto) 0 10 ^3/uL (0-0.2); Basophils % (auto) 0.3 % (0.0-2.0); Hematocrit 35.5 % (36.0-46.0); Lymphocytes # (auto) 3.2 10 ^3/uL (0.4-5.4); Lymphocytes % (auto) 22.1 % (10.0-50.0); Mean Corpuscular Hemoglobin 29.9 pg (28.0-32.0); Mean Corpuscular Hgb Conc. 31.4 g/dL (32.0-36.0); Mean Corpuscular Volume 95.2 fL (80.0-100.0); Monocytes # (auto) 0.6 10 ^3/uL (0-1.3); Monocytes % (auto) 4.4 % (0.0-12.0); Neutrophils # (auto) 10.4 10 ^3/uL (1.6-8.6); Neutrophils % (auto) 72.8 % (37.0-80.0); Nucleated Red Blood Cells % 0.3 %; Platelet Count (auto) 500 10^3/uL (140-450); Red Blood Cells 3.73 10^6/uL (4.0-5.20); Red Cell Distribution Width 21.6 % (11.8-14.3); White Blood Cell 14.3 10^3/uL (4.4-10.8)
[2024-08-30 08:45] LABS: Albumin 4.1 g/dL (3.2-4.8); Anion Gap 12 (5-15); Aspartate Aminotransferase 24 U/L (13-40); Bilirubin, Total 1.1 mg/dL (0.2-1.0); Blood Urea Nitrogen 16 mg/dL (9-23); Calcium 9.2 mg/dL (8.7-10.4); Chloride 103 mmol/L (98-107); Magnesium 2.1 mg/dL (1.6-2.6); Potassium 4.8 mmol/L (3.5-5.1); Total Protein 6.2 g/dL (5.7-8.2)
[2024-08-30 08:47] LABS: Alanine Aminotransferase < 9 U/L (7-40); Alkaline Phosphatase 122 U/L (46-116); Carbon Dioxide 19 mmol/L (20-31); Glucose 310 mg/dL (74-106); Sodium 134 mmol/L (136-145)
[2024-08-30] MEDS: FUROSEMIDE 40 MG/4 ML VIAL IV ONE (08:52)
[2024-08-30 09:33] LABS: Base Excess -4.7 mmol/L (-2.0-3.0)
--- NOTE | 2024-08-30 10:36 | DVHHP2 ---
Admitting Diagnosis: SOB History of Present Illness 64 year old female CHERYL presents to the ED with chief complaint of SOB. EMS reports patient has been experiencing worsening SOB with associated mild bilateral leg edema for the past 2 days. EMS relays patient started to have worsening SOB at approximately 0630 before calling 911. EMS states patient was noted to be in A-Fib RVR on their EKG along with noting to be 77% on BiPAP and after being given a DuoNeb treatment on route to the ED. EMS notes patient has history of recent intubation approximately 1 month ago. Patient denies any chest pain, cough, fever, or chills. 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 History: Denies all DYE RANGE OPERATOR Hx Family History: Reviewed,noncontributory to illness Social History Smoker: Non-Smoker Alcohol: Denies ETOH Use Drugs: Denies Drug Use Lives In: Home Patient Family History: Stroke G8 FATHER ( cerebral aneurysm) Allergies: Coded Allergies: NO KNOWN ALLERGIES (Unverified , 11/29/14) Home Meds Active Scripts Doxycycline (Monohydrate) (Doxycycline) 100 Mg Cap, 100 MG PO BID for 5 Days, #10 CAP Prov:JUAN YEUNG ENVIRONMENTAL EDUCATOR 08/04/24 Empagliflozin (Jardiance) 10 Mg Tab, 10 MG PO DAILY for 30 Days, #30 TAB 1 Ref ill Prov:JUAN YEUNG ENVIRONMENTAL EDUCATOR 08/04/24 Amiodarone HCl (Amiodarone HCl) 200 Mg Tab, 200 MG PO Q12HR for 30 Days, #60 TAB Prov:JUAN YEUNG ENVIRONMENTAL EDUCATOR 08/04/24 Reported Medications Gabapentin (Gabapentin) 100 Mg Cap, 2 CAP PO DAILY 07/25/24 Simvastatin (Simvastatin) 20 Mg Tab, 1 TAB PO 07/25/24 Dabigatran Etexilate Mesylate (Dabigatran Etexilate) 150 Mg Cap, PO 07/25/24 Metoprolol Succinate (Metoprolol Succinate Er) 100 Mg Tab, 1 TAB PO BID 07/25/24 Digoxin (Digoxin) 125 Mcg Tab, 1 TAB PO DAILY 07/25/24 Albuterol Sulfate (Ventolin Hfa) Aer, 1 PUFF IN Q4HP PRN, AER 11/29/14 Lisinopril (Lisinopril) 10 Mg Tab, 10 MG PO BID, TAB 11/29/14 Hydrochlorothiazide (Hydrochlorothiazide) 12.5 Mg Cap, 12.5 MG PO BID, CAP 11/29/14 Lamotrigine (Lamotrigine) 200 Mg Tab, 200 MG PO DAILY, #30 11/29/14 Sertraline Hcl (Sertraline Hcl) 100 Mg Tab, 100 MG PO HS, #60 11/29/14 Mirtazapine (Mirtazapine Oral Disintegrating Tablet) 30 Mg Tab, 30 MG PO HS, #30 11/29/14 Current Medications Current Medications Medications (Trade) Dose Ordered Sig/Addi Route PRN Reason Start Time Stop Time Status Last Admin Vancomycin HCl 0 ml @ 0 mls/hr UD IV 08/30/24 11:15 Diagnostic Test (Pha) (Accu-Chek Comfort Curve T) 1 strip ACHS 08/30/24 11:30 08/30/24 11:30 Insulin Human Regular (InsuLIN R) AC SC 08/30/24 11:30 Insulin Human Regular (InsuLIN R) HS SC 08/30/24 22:00 Dextrose 50 ml UD PRN IV Blood Sugar LESS THAN 60 08/30/24 11:15 Heparin Sodium/ Dextrose 250 ml @ 15 mls/hr [id number] IV 08/30/24 11:15 08/30/24 14:05 Furosemide (Lasix Injection) 40 mg BID IV 08/30/24 22:00 Amiodarone HCl (Cordarone Tablet) 200 mg Q12HR PO 08/30/24 22:00 Digoxin (Lanoxin Tablet) 0.125 mg DAILY PO 08/31/24 10:00 Empaglifozin (Jardiance) 10 mg DAILY PO 08/31/24 10:00 Gabapentin (Neurontin Capsule) 100 mg DAILY PO 08/31/24 10:00 Mirtazapine (Remeron Tablet) 30 mg HS PO 08/30/24 22:00 Lamotrigine (LaMICtal TABLET) 200 mg DAILY PO 08/31/24 10:00 Metoprolol Succinate (Toprol Xl) 100 mg BID PO 08/30/24 22:00 Sertraline HCl (Zoloft) 100 mg HS PO 08/30/24 22:00 Sodium Chloride (Saline Lock Ns) 10 ml Q8HR IV 08/30/24 14:00 08/30/24 14:00 Docusate Sodium (Colace Capsule) 100 mg BIDPRN PRN PO FOR CONSTIPATION 08/30/24 11:15 Ondansetron HCl (Zofran) 4 mg Q4HP PRN IV NAUSEA / VOMITING 08/30/24 11:15 Vital Signs Vital Signs Date Time Temp Pulse Resp B/P (MAP) Pulse Ox O2 Delivery O2 Flow Rate FiO2 08/30/24 16:00 124 08/30/24 15:45 119/65 94 Facial BiPAP Mask 30 08/30/24 14:48 18 08/30/24 07:52 98.0 98.0 08/30/24 07:52 15 Physical Exam 64 years old woman, on BiPAP, resting in bed. Mild distress HEENT-atraumatic normocephalic Heart-tachycardic Lungs decreased breath sounds, crackles in lower lung dickey and rhonchi Abdomen soft nontender nondistended Musculoskeletal-pedal edema bilaterally Neuro-awake, alert, follow commands. On BiPAP. No focal deficits Results Labs Test 08/30/24 16:42 08/30/24 11:44 08/30/24 11:05 08/30/24 10:00 Range/Units Urine Color Light-yellow Yellow Urine Clarity Clear Clear Urine pH 6.5 5.0-9.0 Urine Specific [place] 1.011 1.001-1.035 Urine Protein Negative Negative Urine Ketones Negative Negative Urine Blood Negative Negative /uL Urine Nitrite Negative Negative Urine Bilirubin Negative Negative Urine Urobilinogen Normal Negative mg/dL Urine Leukocyte Esterase Negative Negative /uL Urine RBC None seen 0 - 4 /hpf Urine Microscopic WBC 1 0-5 /HPF Urine Squamous Epithelial Cells None seen <5 /hpf Urine Bacteria None seen None Seen /hpf Urine Creatinine 47.37 30.0-125.0 mg/dL Urine Sodium 107 40-220 mmol/L Urine Glucose Normal Normal mg/dL Urine Opiates Screen Neg NEGATIVE Urine Fentanyl Screen Neg NEGATIVE Urine Barbiturates Screen Neg NEGATIVE Urine Phencyclidine Screen Neg NEGATIVE Urine Amphetamines Screen Neg NEGATIVE Urine Benzodiazepines Screen Neg NEGATIVE Urine Cocaine Screen Neg NEGATIVE Urine Cannabinoids Screen Neg NEGATIVE POC Glucose 82 70-106 mg/dl Prothrombin Time 10.9 9.3-11.8 sec Prothrombin Time INR 1.03 0.9-1.15 Activated Partial Thromboplast Time 25.8 24.5-34.5 SEC Lactic Acid Level 1.3 0.4-2.0 mmol/L Test 08/30/24 09:27 08/30/24 08:10 Range/Units Blood Gas Specimen Type Arterial Blood Gas Sample Site Right radial Blood Gas Patient Temperature 37.0 Arterial Blood Date Drawn [id number] Arterial Blood pH 7.329 L 7.350-7.450 Arterial Blood Partial Pressure CO2 40.7 32.0-45.0 mmHg Arterial Blood Partial Pressure O2 173.9 H 83.0-108.0 mmHg Arterial Blood HCO3 20.9 L 21.0-28.0 mmol/L Arterial Blood Oxygen Saturation 99.3 H 94.0-98.0 % Arterial Blood Base Excess -4.7 L -2.0-3.0 mmol/L Arterial Blood Oxyhemoglobin 97.6 94.0-98.0 % Arterial Blood Carboxyhemoglobin 1.1 0.5-1.5 % Arterial Blood Methemoglobin 0.6 0.0-1.5 % Roverto Test Yes Blood Gas Total Hemoglobin 11.80 L 12.0-16.0 g/dL Blood Gas Set Respiration Rate 16.0 Blood Gas Modality Mask - bipap FiO2 % 100.0 Blood Gas EPAP 7 Blood Gas IPAP 18 White Blood Count 14.3 H 4.4-10.8 10^3/uL Red Blood Count 3.73 L 4.0-5.20 10^6/uL Hemoglobin 11.1 L 12.2-16.2 g/dL Hematocrit 35.5 L 36.0-46.0 % Mean Corpuscular Volume 95.2 80.0-100.0 fL Mean Corpuscular Hemoglobin 29.9 28.0-32.0 pg Mean Corpuscular Hemoglobin Concent 31.4 L 32.0-36.0 g/dL Red Cell Distribution Width 21.6 H 11.8-14.3 % Platelet Count 500 H 140-450 10^3/uL Mean Platelet Volume 7.6 6.9-10.8 fL Neutrophils (%) (Auto) 72.8 37.0-80.0 % Lymphocytes (%) (Auto) 22.1 10.0-50.0 % Monocytes (%) (Auto) 4.4 0.0-12.0 % Eosinophils (%) (Auto) 0.4 0.0-7.0 % Basophils (%) (Auto) 0.3 0.0-2.0 % Neutrophils # (Auto) 10.4 H 1.6-8.6 10 ^3/uL Lymphocytes # (Auto) 3.2 0.4-5.4 10 ^3/uL Monocytes # (Auto) 0.6 0-1.3 10 ^3/uL Eosinophils # (Auto) 0.1 0-0.8 10 ^3/uL Basophils # (Auto) 0 0-0.2 10 ^3/uL Nucleated Red Blood Cells 0.3 % D-Dimer, Quantitative 4.33 H 0.0-0.49 mg/L FEU Sodium Level 134 L 136-145 mmol/L Potassium Level 4.8 3.5-5.1 mmol/L Chloride Level 103 98-107 mmol/L Carbon Dioxide Level 19 L 20-31 mmol/L Anion Gap 12 5-15 Blood Urea Nitrogen 16 9-23 mg/dL Creatinine 1.46 H 0.550-1.02 mg/dL Glomerular Filtration Rate Calc 40 >90 mL/min BUN/Creatinine Ratio 11.0 10.0-20.0 Serum Glucose 310 H 74-106 mg/dL Calcium Level 9.2 8.7-10.4 mg/dL Magnesium Level 2.1 1.6-2.6 mg/dL Total Bilirubin 1.1 H 0.2-1.0 mg/dL Aspartate Amino Transferase (AST) 24 13-40 U/L Alanine Aminotransferase (ALT) < 9 7-40 U/L Alkaline Phosphatase 122 H 46-116 U/L Troponin I High Sensitivity 9 </=34 ng/L B-Type Natriuretic Peptide 546.27 0-100 pg/mL Total Protein 6.2 5.7-8.2 g/dL Albumin 4.1 3.2-4.8 g/dL Primary Diagnosis Acute hypoxic respiratory failure possible superimposed pneumonia Acute CHF exacerbation Acute COPD exacerbation ROLF on CKD Elevated D-dimer rule out PE AFib on dabigatran Plan Status post BiPAP currently saturating 100% with 100% FiO2 ABG BiPAP shows metabolic acidosis, done after BiPAP Pulmonology consult Dr. Erwin Solu-Medrol 60 mg every 6 hours Duo nebs q.6 standing Vanc and Zosyn for broad-spectrum antibiotics Follow the sputum culture, blood culture Nephrology consult for ROLF on CKD Check urine sodium, urine creatinine , ultrasound renal Cardiology consult for heart failure Dabigatran non formulary in view of possible PE, will start heparin ggt. resume DOAC when stable IV Lasix 40 mg b.i.d. Daily weights Strict in and out Optimize potassium greater than four, magnesium greater than two Insulin sliding scale Monitor respiratory status Full code PPI for GI prophylaxis while on steroids Cardiac renal diet when stable heparin ggt. Resume dabigatran when stable. Plan discussed with: Patient Problems List: (1) Pneumonia (2) Heart failure (3) A-fib (4) COPD with acute exacerbation Status: Acute (5) Respiratory failure Status: Acute (6) Acute pulmonary edema Status: Acute Date of Service: Aug 30, 2024 Billing Provider: NANDINI JENNINGS MD Common Visit Codes: [id number] INP/OBS CARE (HIGH) NANDINI JENNINGS MD Aug 30, 2024 10:36
[2024-08-30] MEDS ORDERED: ONDANSETRON HCL 4 MG/2 ML VIAL IV PRN (11:15)
[2024-08-30] MEDS ORDERED: DEXTROSE (50%) 50ML SYRG IV PRN (11:15)
[2024-08-30] MEDS ORDERED: DOCUSATE SOD 100 MG CAP PO PRN (11:15)
[2024-08-30] MEDS ORDERED: VANCOMYCIN PER PHARMACY 0 MG IV SCH (11:15)
[2024-08-30] MEDS: InsuLIN REG 1unit/0.01ml Soln (100units/ml) SC SCH ×2 (11:30→21:50)
[2024-08-30] MEDS: ACCU-CHEK COMFORT CURVE STRIP VI SCH (11:30)
[2024-08-30] MEDS: PIPERACILLIN-TAZOB 3.375GM 100 ML IV ONE (11:34)
[2024-08-30 11:48] LABS: INR 1.03 (0.9-1.15); Partial Thromboplastin Time 25.8 SEC (24.5-34.5); Prothrombin Time 10.9 sec (9.3-11.8)
--- NOTE | 2024-08-30 11:55 | DVH ---
INDICATION: diego on ckd TECHNIQUE: Multiple real-time sonographic images of the kidneys and bladder were obtained. COMPARISON: None FINDINGS: The right kidney measures 9.9 cm in length, which is normal in size. There is normal echogenicity of the right kidney. No hydronephrosis. The left kidney measures 9.4 cm in length, which is normal in size. There is normal echogenicity of t he left kidney. No hydronephrosis. No large intraluminal masses are seen in the bladder. Right pleural effusion. IMPRESSION: 1. Normal sonographic appearance of the kidneys. No hydronephrosis.
[2024-08-30] MEDS: SODIUM CHLOR 0.9% PF (SALINE LOCK) 10ML VIAL/SYR IV SCH (14:00)
[2024-08-30] MEDS: HEPARIN DRIP/D5W 100UNITS/ML 250 ML IV SCH ×2 (14:05→23:00)
[2024-08-30] MEDS: VANCOMYCIN 1.25GM/250ML 250 ML IV ONE (15:53)
--- NOTE | 2024-08-30 15:59 | ECG ---
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
[2024-08-30] MEDS: IPRATROPIUM BROM 0.5 MG/2.5ML INH SOL NEB ONE (16:28)
[2024-08-30] MEDS: ALBUTEROL SULF 2.5 MG/0.5ML(0.5%) NEB SOLN NEB ONE (16:29)
[2024-08-30 16:46] LABS: Urine Bacteria None Seen /hpf (None Seen)
[2024-08-30 16:54] LABS: Urine Blood Negative /uL (Negative); Urine Clarity Clear (Clear); Urine Color Light-Yellow (Yellow); Urine Protein, UAD Negative (Negative); Urine Specific Gravity 1.011 (1.001-1.035); Urine Squamous Epithelial Cell None Seen /hpf (<5); Urine Urobilinogen Normal (Negative); Urine WBC 1 /HPF (0-5); Urine pH 6.5 (5.0-9.0)
[2024-08-30 17:05] LABS: Creatinine, Urine 47.37 mg/dL (30.0-125.0)
[2024-08-30 17:07] LABS: Amphetamine Screen, Urine Neg (NEGATIVE); Barbiturate Scree,Urine Neg (NEGATIVE); Benzodiazephine Screen, Urine Neg (NEGATIVE); Cannabinoid Screen, Urine Neg (NEGATIVE); Cocaine Screen, Urine Neg (NEGATIVE); Opiate Scree,Urine Neg (NEGATIVE); Phencyclidine Screen, Urine Neg (NEGATIVE)
--- NOTE | 2024-08-30 17:22 | DVHINCON2 ---
Date Seen: Aug 30, 2024 Referring Physician MD Jr Reason for Consultation CHF exacerbation History of Present Illness This is a 64-year-old female patient who presents to the emergency room with chief complaint of worsening shortness of breath for one day. She comes to the emergency room for further evaluation. Cardiology has now been consulted for CHF exacerbation. Initial twelve lead electrocardiogram reveals atrial fibrillation. Initial troponin level was negative. Initial BNP 546.27pg/mL. Significant past medical history includes congestive heart failure, atrial fibrillation (on Dabigatran and Amiodarone), mild mitral valve stenosis, hypertension, hyperlipidemia, type 2 diabetes mellitus, COPD, history of tobacco use, and obesity. The patient was recently seen at this facility in which she underwent a coronary angiogram on 08/01/24 which revealed mild nonobstructive coronary artery disease. She has not followed up with a hotel housekeeper in the outpatient setting. Past Medical History Past medical history reviewed. No other significant than mentioned above. Past Surgical History Hysterectomy Family History: Stroke G8 FATHER ( cerebral aneurysm) Family History Family history reviewed. Social History Patient has a 90 pack-year history, quit smoking in 2014 Patient denies any alcohol use Patient denies any illicit drug use Allergies: Coded Allergies: NO KNOWN ALLERGIES (Unverified , 11/29/14) Home Meds Active Scripts Doxycycline (Monohydrate) (Doxycycline) 100 Mg Cap, 100 MG PO BID for 5 Days, #10 CAP Prov:JUAN YEUNG AGENT 08/04/24 Empagliflozin (Jardiance) 10 Mg Tab, 10 MG PO DAILY for 30 Days, #30 TAB 1 Refill Prov:JUAN YEUNG AGENT 08/04/24 Amiodarone HCl (Amiodarone HCl) 200 Mg Tab, 200 MG PO Q12HR for 30 Days, #60 TAB Prov:JUAN YEUNG AGENT 08/04/24 Reported Medications Gabapentin (Gabapentin) 100 Mg Cap, 2 CAP PO DAILY 07/25/24 Simvastatin (Simvastatin) 20 Mg Tab, 1 TAB PO 07/25/24 Dabigatran Etexilate Mesylate (Dabigatran Etexilate) 150 Mg Cap, PO 07/25/24 Metoprolol Succinate (Metoprolol Succinate Er) 100 Mg Tab, 1 TAB PO BID 07/25/24 Digoxin (Digoxin) 125 Mcg Tab, 1 TAB PO DAILY 07/25/24 Albuterol Sulfate (Ventolin Hfa) Aer, 1 PUFF IN Q4HP PRN, AER 11/29/14 Lisinopril (Lisinopril) 10 Mg Tab, 10 MG PO BID, TAB 11/29/14 Hydrochlorothiazide (Hydrochlorothiazide) 12.5 Mg Cap, 12.5 MG PO BID, CAP 11/29/14 Lamotrigine (Lamotrigine) 200 Mg Tab, 200 MG PO DAILY, #30 11/29/14 Sertraline Hcl (Sertraline Hcl) 100 Mg Tab, 100 MG PO HS, #60 11/29/14 Mirtazapine (Mirtazapine Oral Disintegrating Tablet) 30 Mg Tab, 30 MG PO HS, #30 11/29/14 Home Meds Home medications reviewed. Current Medications Current Medications Medications (Trade) Dose Ordered Sig/Addi Route PRN Reason Start Time Stop Time Status Last Admin Vancomycin HCl 0 ml @ 0 mls/hr UD IV 08/30/24 11:15 Diagnostic Test (Pha) (Accu-Chek Comfort Curve T) 1 strip ACHS 08/30/24 11:30 08/30/24 11:30 Insulin Human Regular (InsuLIN R) AC SC 08/30/24 11:30 Insulin Human Regular (InsuLIN R) HS SC 08/30/24 22:00 Dextrose 50 ml UD PRN IV Blood Sugar LESS THAN 60 08/30/24 11:15 Heparin Sodium/ Dextrose 250 ml @ 15 mls/hr [id number] IV 08/30/24 11:15 08/30/24 14:05 Furosemide (Lasix Injection) 40 mg BID IV 08/30/24 22:00 Amiodarone HCl (Cordarone Tablet) 200 mg Q12HR PO 08/30/24 22:00 Digoxin (Lanoxin Tablet) 0.125 mg DAILY PO 08/31/24 10:00 Empaglifozin (Jardiance) 10 mg DAILY PO 08/31/24 10:00 Gabapentin (Neurontin Capsule) 100 mg DAILY PO 08/31/24 10:00 Mirtazapine (Remeron Tablet) 30 mg HS PO 08/30/24 22:00 Lamotrigine (LaMICtal TABLET) 200 mg DAILY PO 08/31/24 10:00 Metoprolol Succinate (Toprol Xl) 100 mg BID PO 08/30/24 22:00 Sertraline HCl (Zoloft) 100 mg HS PO 08/30/24 22:00 Sodium Chloride (Saline Lock Ns) 10 ml Q8HR IV 08/30/24 14:00 08/30/24 14:00 Docusate Sodium (Colace Capsule) 100 mg BIDPRN PRN PO FOR CONSTIPATION 08/30/24 11:15 Ondansetron HCl (Zofran) 4 mg Q4HP PRN IV NAUSEA / VOMITING 08/30/24 11:15 Review of Systems Constitutional: No symptom reported Ears, Nose, & Throat: No symptom reported Eyes: No symptom reported Neurological: No symptoms reported Pulmonary/Respiratory: Shortness of breath Cardiovascular: No symptom reported Gastrointestinal: No symptom reported Genitourinary: No symptom reported Musculoskeletal: No symptom reported Skin: No symptom reported Psychiatric: No symptom reported Endocrine: No symptom reported Hematologic/Lymphatic: No symptom reported Vital Signs Vital Signs Date Time Temp Pulse Resp B/P (MAP) Pulse Ox O2 Delivery O2 Flow Rate FiO2 08/30/24 16:00 124 08/30/24 15:45 119/65 94 Facial BiPAP Mask 30 08/30/24 14:48 18 08/30/24 07:52 98.0 98.0 08/30/24 07:52 15 Physical Exam General Appearance: Cooperative. Well-developed. Well-nourished. No acute distress. Pulmonary/Respiratory: Coarse throughout Cardiovascular/Chest: Regular rate and rhythm. Peripheral Pulses: 2+ Radial (R). 2+ Radial (L). 2+ Pedal (R). 2+ Pedal (L) Abdominal Exam: Normal bowel sounds. Ankle Exam: 4+ pitting edema Lower extremities: 4+ pitting edema Neuro/Mental Status: A/OX4, coherent. Thoughts/Psych: Normal thought pattern. Appropriate mood and affect. Good judgment and insight. Appearance: No acute distress. Skin Exam: Normal inspection. Normal color. Warm and dry. Labs/Diagnostic Data Labs Test 08/30/24 16:42 08/30/24 11:44 08/30/24 11:05 08/30/24 10:00 Range/Units Urine Color Light-yellow Yellow Urine Clarity Clear Clear Urine pH 6.5 5.0-9.0 Urine Specific [place] 1.011 1.001-1.035 Urine Protein Negative Negative Urine Ketones Negative Negative Urine Blood Negative Negative /uL Urine Nitrite Negative Negative Urine Bilirubin Negative Negative Urine Urobilinogen Normal Negative mg/dL Urine Leukocyte Esterase Negative Negative /uL Urine RBC None seen 0 - 4 /hpf Urine Microscopic WBC 1 0-5 /HPF Urine Squamous Epithelial Cells None seen <5 /hpf Urine Bacteria None seen None Seen /hpf Urine Creatinine 47.37 30.0-125.0 mg/dL Urine Sodium 107 40-220 mmol/L Urine Glucose Normal Normal mg/dL Urine Opiates Screen Neg NEGATIVE Urine Fentanyl Screen Neg NEGATIVE Urine Barbiturates Screen Neg NEGATIVE Urine Phencyclidine Screen Neg NEGATIVE Urine Amphetamines Screen Neg NEGATIVE Urine Benzodiazepines Screen Neg NEGATIVE Urine Cocaine Screen Neg NEGATIVE Urine Cannabinoids Screen Neg NEGATIVE POC Glucose 82 70-106 mg/dl Prothrombin Time 10.9 9.3-11.8 sec Prothrombin Time INR 1.03 0.9-1.15 Activated Partial Thromboplast Time 25.8 24.5-34.5 SEC Lactic Acid Level 1.3 0.4-2.0 mmol/L Test 08/30/24 09:27 08/30/24 08:10 Range/Units Blood Gas Specimen Type Arterial Blood Gas Sample Site Right radial Blood Gas Patient Temperature 37.0 Arterial Blood Date Drawn Arterial Blood pH 7.329 L 7.350-7.450 Arterial Blood Partial Pressure CO2 40.7 32.0-45.0 mmHg Arterial Blood Partial Pressure O2 173.9 H 83.0-108.0 mmHg Arterial Blood HCO3 20.9 L 21.0-28.0 mmol/L Arterial Blood Oxygen Saturation 99.3 H 94.0-98.0 % Arterial Blood Base Excess -4.7 L -2.0-3.0 mmol/L Arterial Blood Oxyhemoglobin 97.6 94.0-98.0 % Arterial Blood Carboxyhemoglobin 1.1 0.5-1.5 % Arterial Blood Methemoglobin 0.6 0.0-1.5 % Roverto Test Yes Blood Gas Total Hemoglobin 11.80 L 12.0-16.0 g/dL Blood Gas Set Respiration Rate 16.0 Blood Gas Modality Mask - bipap FiO2 % 100.0 Blood Gas EPAP 7 Blood Gas IPAP 18 White Blood Count 14.3 H 4.4-10.8 10^3/uL Red Blood Count 3.73 L 4.0-5.20 10^6/uL Hemoglobin 11.1 L 12.2-16.2 g/dL Hematocrit 35.5 L 36.0-46.0 % Mean Corpuscular Volume 95.2 80.0-100.0 fL Mean Corpuscular Hemoglobin 29.9 28.0-32.0 pg Mean Corpuscular Hemoglobin Concent 31.4 L 32.0-36.0 g/dL Red Cell Distribution Width 21.6 H 11.8-14.3 % Platelet Count 500 H 140-450 10^3/uL Mean Platelet Volume 7.6 6.9-10.8 fL Neutrophils (%) (Auto) 72.8 37.0-80.0 % Lymphocytes (%) (Auto) 22.1 10.0-50.0 % Monocytes (%) (Auto) 4.4 0.0-12.0 % Eosinophils (%) (Auto) 0.4 0.0-7.0 % Basophils (%) (Auto) 0.3 0.0-2.0 % Neutrophils # (Auto) 10.4 H 1.6-8.6 10 ^3/uL Lymphocytes # (Auto) 3.2 0.4-5.4 10 ^3/uL Monocytes # (Auto) 0.6 0-1.3 10 ^3/uL Eosinophils # (Auto) 0.1 0-0.8 10 ^3/uL Basophils # (Auto) 0 0-0.2 10 ^3/uL Nucleated Red Blood Cells 0.3 % D-Dimer, Quantitative 4.33 H 0.0-0.49 mg/L FEU Sodium Level 134 L 136-145 mmol/L Potassium Level 4.8 3.5-5.1 mmol/L Chloride Level 103 98-107 mmol/L Carbon Dioxide Level 19 L 20-31 mmol/L Anion Gap 12 5-15 Blood Urea Nitrogen 16 9-23 mg/dL Creatinine 1.46 H 0.550-1.02 mg/dL Glomerular Filtration Rate Calc 40 >90 mL/min BUN/Creatinine Ratio 11.0 10.0-20.0 Serum Glucose 310 H 74-106 mg/dL Calcium Level 9.2 8.7-10.4 mg/dL Magnesium Level 2.1 1.6-2.6 mg/dL Total Bilirubin 1.1 H 0.2-1.0 mg/dL Aspartate Amino Transferase (AST) 24 13-40 U/L Alanine Aminotransferase (ALT) < 9 7-40 U/L Alkaline Phosphatase 122 H 46-116 U/L Troponin I High Sensitivity 9 </=34 ng/L B-Type Natriuretic Peptide 546.27 0-100 pg/mL Total Protein 6.2 5.7-8.2 g/dL Albumin 4.1 3.2-4.8 g/dL Assessment Acute on chronic decompensated HFrEF, NYHA class III, newly diagnosed Atrial fibrillation (on Dabigatran and Amiodarone) Acute hypoxic respiratory failure secondary to pneumonia Mild mitral valve stenosis/rheumatic mitral valve disease Nonischemic cardiomyopathy Rule out pulmonary emboli Hypertension Hyperlipidemia Type 2 diabetes mellitus COPD with history of tobacco use Morbid obesity Plan/Recommendation We will continue with following plan/recommendations (): (Dr. Sher) * Echocardiogram from 07/25/24 revealed EF 40% with anterior anteroseptal wall hypokinesia * Initiate GDMT for CHF as renal function permits * Preload and afterload reduction * Strict intake and output, daily weights, maintain fluid restriction * [id number] VASc score: 3 points, HAS-BLED score: 1 point * Therapeutic Lovenox while inpatient, transition back to Dabigatran when appropriate * Beta-ramiro for rate control * Continue home dose amiodarone * Monitor and replete electrolytes as needed, K> 4 and Mg>2 Patient seen and examined at bedside with . Thank you for allowing us to care for this patient. Please call with any questions or concerns. Critical care time spent: 41 minutes This medical document was created using an electronic medical record system with voice recognition software and computerized dictation system. Although this document has been carefully reviewed, there might still be some phonetic and typographical errors. Occasional wrong-word or ``sound-alike substitutions may have occurred due to the inherent limitations of voice recognition software. These areas are purely typographical due to imperfections of the software programs and do not reflect any compromise in the patient's medical care. Ramiro fitch read the chart carefully and recognize, using context, where these substitutions have occurred. Plan discussed with: Patient NYHA Physical activity limitations: Class3(Marked) ordinary (activity causes symtoms) Date of Service: Aug 30, 2024 Billing Provider: ANNAMARIA KEITH Cardiology Common Codes: [id number] INP/OBS CARE (High) Cardiology Consultation Codes: [id number] CONSULT <45MIN ANNAMARIA KEITH GERIATRIC PHYSICAL THERAPIST Aug 30, 2024 17:22
--- NOTE | 2024-08-30 18:47 | DVHSR ---
APPROVED REPORT EXAM: LIMITED Two-dimensional and M-mode echocardiogram with Doppler and color Doppler. Blood Pressure: 162/147 mmHg INDICATION Atrial Fibrillation W/ RVR CHF Exacerbation RISK FACTORS Height: 4' 10", Weight: 180 DIMENSIONS LVDd3.7 (3.8-5.7cm)LA (2D)4.4 (1.9-4.0cm)Aortic Root2.7 (2.0-3.7cm) LVDs3.0 (2.5-4.0cm)LA (MM) (1.9-4.0cm)Aortic Cusp Exc1.5 (1.5-2.0cm) EF (%) 35.0 (55-70%)Rt. Atrium4.0 (1.9-4.0cm)Asc. Aorta cm IVSd1.0 (0.7-1.1cm)RV (D) (1.8-2.4cm) PWd1.0 (0.7-1.1cm) Mitral Valve MitralMitral Stenosis E wavem/sMV Mean GR.9mmHg A wavem/sMV Peak GR.18mmHg E/A ratio0.02D MVA1.37cm2 DECEL TimemsPRESS 1/2 [id number] IVRTmsDop MVA1.56cm2 Aortic Valve Aortic ValveAortic Stenosis V10.70m/Kobe Mean GR.3mmHg V21.20m/Kobe Peak GR.6mmHg AI P 1/2 [id number] Pulmonic Valve V20.50m/s Tricuspid Valve TR Velocity3.00m/s [id number] LEFT VENTRICLE The left ventricle is normal size. There is normal left ventricular wall thickness. The left ventricle function is moderate to severely reduced, LVEF 30-35%. Global hypokinesis. There is a flattened septum consistent with right ventricle volume and pressure overload. RIGHT VENTRICLE The right ventricle is normal size. ATRIA The left atrium is severely dilated. The right atrium is mildly dilated. MITRAL VALVE Restricted posterior leaflet motion. There is mild mitral valve stenosis. Calculated mitral valve area is 1.6 cm2 with maximum pressure gradient of 18 mmHg and mean pressure g radient of 9 mmHg at a HR of 110 bpm. Mitral regurgitation is mild to moderate. PULMONIC VALVE The pulmonic valve is not well visualized. TRICUSPID VALVE The tricuspid valve is grossly normal. There is mild tricuspid regurgitation. AORTIC VALVE The aortic valve is trileaflet. No aortic regurgitation is present. GREAT VESSELS The aortic root is normal size. PERICARDIAL EFFUSION Trace pericardial effusion. Other Information Quality : Technically LimitedRhythm : Atrial Fibrillation Technically limited study due to body habitus and patient position, patient on bi-pap. Conclusion Compared to prior echocardiogram from 06/2024: No significant changes. The left ventricle is normal size. There is normal left ventricular wall thickness. The left ventricl e function is modearte to severely reduced, LVEF 30-35%. Global hypokinesis. The right ventricle is normal size. There is a flattened septum consistent with right ventricle volum e and pressure overload. The left atrium is severely dilated. The right atrium is mildly dilated. Restricted posterior leaflet motion. There is mild mitral valve stenosis. Calculated mitral valve are a is 1.6 cm2 with maximum pressure gradient of 18 mmHg and mean pressure gradient of 9 mmHg at a HR o f 110 bpm, consistent with history of rheumatic mitral valve disease. Mitral regurgitation is mild to moderate. Trace pericardial effusion.
[2024-08-30] MEDS: IOHEXOL 350 MG/ML 100ML IJ ONE (21:03)
[2024-08-30 21:31] LABS: INR 1.14 (0.9-1.15); Prothrombin Time 11.9 sec (9.3-11.8)
[2024-08-30 21:37] LABS: Partial Thromboplastin Time > 139.0 SEC (24.5-34.5)
[2024-08-30] MEDS: METOPROLOL SUCCINATE XL 50 MG TAB PO SCH (21:50)
[2024-08-30] MEDS: FUROSEMIDE 40 MG/4 ML VIAL IV SCH (21:57)
[2024-08-30] MEDS: MIRTAZAPINE 30 MG TAB PO SCH (21:57)
[2024-08-30] MEDS: AMIODARONE HCL 200 MG TAB PO SCH (21:57)
[2024-08-30] MEDS: SERTRALINE HCL 50 MG TAB PO SCH (21:57)
[2024-08-30 22:36] LABS: INR 1.13 (0.9-1.15); Prothrombin Time 11.8 sec (9.3-11.8)
[2024-08-30 22:41] LABS: Partial Thromboplastin Time 129.9 SEC (24.5-34.5)
--- NOTE | 2024-08-30 23:17 | DVH ---
CT ANGIOGRAM CHEST WITH CONTRAST FOR PULMONARY EMBOLUS CLINICAL HISTORY: hypoxia elevated d-dimer r/o PE TECHNIQUE: Helical axial scans of the chest during dynamic intravenous contrast injection. Pulmonary embolism protocol. Multiplanar reformats. Postprocessing MIP images. One or more of the following rad iation dose reduction techniques were used for this examination: automated exposure control, adjustme nt of the mA and/or kV according to patient size, use of iterative reconstruction technique. COMPARISON: Chest radiograph obtained earlier the same day. CT dated 07/27/2024 FINDINGS: Pulmonary arteries: There is adequate enhancement of the pulmonary arterial system. Respiratory motio n artifact limits evaluation distally. As visualized, there is no definite central, lobar or proximal segmental branch filling defects to suggest pulmonary embolism. Mediastinum: Heart is enlarged. Small pericardial effusion. Coronary artery calcifications. Enlarged mediastinal lymph nodes which may be reactive. Pretracheal lymph node noted measuring approximately 1.9 cm in short axis. Lung parenchyma: Multifocal pulmonary infiltrates with interstitial thickening /edema. Pleura: Small left and moderate right pleural effusion. No sizable pneumothorax. Chest wall and axillae: No axillary adenopathy noted. Upper abdomen: No acute findings as visualized. IMPRESSION: No definite evidence of pulmonary embolism. Bilateral infiltrates and interstitial thickening may reflect a combination of multifocal pneumonia a nd edema. CHF type pattern with moderate right and small left pleural effusions.
[2024-08-31] MEDS: LORazepam 2MG/ML-1ML VIAL IV PRN (00:43)
[2024-08-31 00:46] VITALS: O2SAT 96
[2024-08-31] MEDS ORDERED: dilTIAZem 25 MG/5 ML VIAL IV ONE (01:15)
[2024-08-31] MEDS: AMIODARONE HCL 200 MG TAB PO ONE (01:25)
[2024-08-31] MEDS: CARVEDILOL 3.125 MG TAB PO SCH (02:15)
[2024-08-31 06:11] LABS: Base Excess -1.9 mmol/L (-2.0-3.0)
[2024-08-31 06:19] LABS: Basophils # (auto) 0 10 ^3/uL (0-0.2); Basophils % (auto) 0.4 % (0.0-2.0); Eosinophils # (auto) 0 10 ^3/uL (0-0.8); Hematocrit 30.6 % (36.0-46.0); Hemoglobin 9.9 g/dL (12.2-16.2); Lymphocytes # (auto) 1.4 10 ^3/uL (0.4-5.4); Lymphocytes % (auto) 13.7 % (10.0-50.0); Mean Corpuscular Hemoglobin 30.4 pg (28.0-32.0); Mean Corpuscular Hgb Conc. 32.4 g/dL (32.0-36.0); Mean Corpuscular Volume 93.8 fL (80.0-100.0); Monocytes # (auto) 0.6 10 ^3/uL (0-1.3); Monocytes % (auto) 6.1 % (0.0-12.0); Neutrophils # (auto) 8.3 10 ^3/uL (1.6-8.6); Neutrophils % (auto) 79.8 % (37.0-80.0); Platelet Count (auto) 289 10^3/uL (140-450); Red Blood Cells 3.26 10^6/uL (4.0-5.20); White Blood Cell 10.5 10^3/uL (4.4-10.8)
[2024-08-31 06:39] LABS: Alanine Aminotransferase 14 U/L (7-40); Albumin 3.8 g/dL (3.2-4.8); Alkaline Phosphatase 96 U/L (46-116); Anion Gap 11 (5-15); Aspartate Aminotransferase 23 U/L (13-40); BUN/Creatinine Ratio 14.7 (10.0-20.0); Bilirubin, Total 0.5 mg/dL (0.2-1.0); Blood Urea Nitrogen 19 mg/dL (9-23); Calcium 9.1 mg/dL (8.7-10.4); Carbon Dioxide 25 mmol/L (20-31); Chloride 104 mmol/L (98-107); Glucose 90 mg/dL (74-106); Magnesium 1.9 mg/dL (1.6-2.6); Potassium 4.2 mmol/L (3.5-5.1); Sodium 140 mmol/L (136-145); Total Protein 5.8 g/dL (5.7-8.2)
[2024-08-31 06:47] LABS: Red Cell Distribution Width 22.2 % (11.8-14.3)
[2024-08-31 06:53] LABS: INR 1.12 (0.9-1.15); Prothrombin Time 11.7 sec (9.3-11.8)
[2024-08-31 06:58] LABS: Partial Thromboplastin Time 130.3 SEC (24.5-34.5)
[2024-08-31 07:43] VITALS: PULSE 143; RESP 26; O2SAT 96
[2024-08-31] MEDS: HEPARIN DRIP/D5W 100UNITS/ML 250 ML IV SCH ×2 (08:00→16:30)
[2024-08-31 08:08] LABS: Anisocytosis Slight; Platelet Estimate Adequate
[2024-08-31] MEDS ORDERED: DIGOXIN 0.125 MG TAB PO SCH (10:00)
[2024-08-31] MEDS ORDERED: ENOXAPARIN SOD 100 MG/1 ML SYRINGE SC SCH (10:00)
[2024-08-31] MEDS: lamoTRIgine 100 MG TAB PO SCH (10:39)
[2024-08-31] MEDS: GABAPENTIN 100 MG CAP PO SCH (10:40)
[2024-08-31] MEDS: EMPAGLIFLOZIN 10 MG TAB PO SCH (10:40)
[2024-08-31] MEDS: AMIODARONE BOLUS KIT 100 ML IV ONE (10:41)
[2024-08-31] MEDS: AMIODARONE 360mg/200mL PREMIX 200 ML IV ONE (11:22)
--- NOTE | 2024-08-31 13:25 | DVHPN2 ---
Consult Progress Note Subjective Other Systems: Patient remains in atrial fibrillation with uncontrolled rate on media monitor. The patient denies any cardiac symptoms at time of assessment Objective vital signs Vital Sign Date Time Temp Pulse Resp B/P (MAP) Pulse Ox O2 Delivery O2 Flow Rate FiO2 08/31/24 12:03 127 08/31/24 12:00 27 109/90 (96) 08/31/24 10:00 97 08/31/24 07:43 Nasal Cannula* 4 36 08/31/24 07:31 98.1 98.1 Total Intake and Output 08/30/24 08/30/24 08/31/24 15:00 23:00 07:00 Intake Total 1000 ml 305 ml 84 ml Output Total 2900 ml Balance 1000 ml 305 ml -2816 ml medications Current Medications Medications Dose Ordered Sig/Addi Route Start Time Stop Time Status Last Admin Dose Admin Vancomycin HCl 0 ml @ 0 mls/hr UD IV 08/30/24 11:15 Diagnostic Test (Pha) 1 strip ACHS 08/30/24 11:30 08/31/24 11:46 1 STRIP Insulin Human Regular AC SC 08/30/24 11:30 08/30/24 17:37 2 UNITS Insulin Human Regular HS SC 08/30/24 22:00 Dextrose 50 ml UD PRN IV 08/30/24 11:15 Furosemide 40 mg BID IV 08/30/24 22:00 08/31/24 10:39 40 MG Empaglifozin 10 mg DAILY PO 08/31/24 10:00 08/31/24 10:40 10 MG Gabapentin 100 mg DAILY PO 08/31/24 10:00 08/31/24 10:40 100 MG Mirtazapine 30 mg HS PO 08/30/24 22:00 08/30/24 21:57 30 MG Lamotrigine 200 mg DAILY PO 08/31/24 10:00 08/31/24 10:39 200 MG Sertraline HCl 100 mg HS PO 08/30/24 22:00 08/30/24 21:57 100 MG Sodium Chloride 10 ml Q8HR IV 08/30/24 14:00 08/31/24 05:35 10 ML Docusate Sodium 100 mg BIDPRN PRN PO 08/30/24 11:15 Ondansetron HCl 4 mg Q4HP PRN IV 08/30/24 11:15 Lorazepam 1 mg Q8HP PRN IV 08/31/24 00:30 08/31/24 00:43 1 MG Heparin Sodium/ Dextrose 250 ml @ 9 mls/hr Q24H IV 08/31/24 08:45 08/31/24 08:45 9 MLS/HR Metoprolol Tartrate 50 mg BID PO 08/31/24 22:00 Examination: GENERAL:Abnormal (Generalized weakness), LUNGS:Normal, CVS:Abnormal (Atrial fibrillation with uncontrolled rate), NEURO:Normal laboratory and microbiology Laboratory Tests 08/31/24 06:09 Test 08/31/24 06:09 Range/Units Serum Glucose 90 74-106 mg/dL Problem List/Assessment/Plan Problem List/Assessment/Plan Acute on chronic decompensated HFrEF, NYHA class III Atrial fibrillation (on Dabigatran and Amiodarone) Mild mitral valve stenosis/rheumatic mitral valve disease Mild nonobstructive coronary artery disease Acute hypoxic respiratory failure Hypertension Hyperlipidemia Type 2 diabetes mellitus COPD History of tobacco use Morbid obesity Plan/Recommendation We will continue with following plan/recommendations (): * Echocardiogram from 07/25/24 revealed EF 40% with anterior anteroseptal wall hypokinesia * Continue GDMT for CHF as renal function permits * Preload and afterload reduction * Strict intake and output, daily weights, maintain fluid restriction * [id number] VASc score: 3 points, HAS-BLED score: 1 point * On heparin drip per primary team, transition back to Dabigatran when appropriate * Beta-ramiro for rate control; up-titrate as tolerated * Amiodarone drip per protocol * Monitor and replete electrolytes as needed, K> 4 and Mg>2 * Lipid-lowering agent * Avoid calcium channel blockers given reduced ejection fraction Patient seen and examined at bedside with . Thank you for allowing us to care for this patient. Please call with any questions or concerns. This medical document was created using an electronic medical record system with voice recognition software and computerized dictation system. Although this document has been carefully reviewed, there might still be some phonetic and typographical errors. Occasional wrong-word or ``sound-alike substitutions may have occurred due to the inherent limitations of voice recognition software. These areas are purely typographical due to imperfections of the software programs and do not reflect any compromise in the patient's medical care. Please read the chart carefully and recognize, using context, where these substitutions have occurred. Plan discussed with: Patient Date of Service: Aug 31, 2024 Billing Provider: ANNAMARIA KEITH Common Visit Codes: [id number] INP/OBS CARE(HIGH) ANNAMARIA KEITH Aug 31, 2024 13:25
[2024-08-31 15:49] LABS: INR 1.08 (0.9-1.15); Partial Thromboplastin Time 23.8 SEC (24.5-34.5); Prothrombin Time 11.4 sec (9.3-11.8)
[2024-08-31] MEDS: VANCOMYCIN 1GM/250ML KIT 250 ML IV ONE (16:13)
[2024-08-31] MEDS: HEPARIN SODIUM (PORCINE) 5000 UNITS/ML 1ML VIAL IV ONE (16:37)
[2024-08-31] MEDS: AMIODARONE 360mg/200mL PREMIX 200 ML IV SCH (16:38)
--- NOTE | 2024-08-31 17:49 | DVHPNRES ---
Progress Note Date Seen: Aug 31, 2024 Resident Creating Document: MEDARDO SALVADOR RESIDENT Medical Necessity Reason Pt with a Central, PICC or Fol: No Medical Necessity Reason Shortness of breath Subjective Review of Systems This is a 64 year old female with a past mediacal history of AFIB, CHF, COPD, DM, HTN and intubated about a month ago presented to the ED via EMS with chief complaint of SOB via. According to the patient, she has experiencing worsening SOB with associated mild bilateral leg edema for the past 2 days. Per EMS states patient was noted to be in A-Fib RVR on their EKG along with noting to be 77% on BiPAP and after being given a DuoNeb treatment on route to the ED. Initial BNP 546.27pg/mL, troponin negative. Initial twelve lead electrocardiogram reveals atrial fibrillation. Patient recently underwent a coronary angiogram on 08/01/24 which revealed mild nonobstructive coronary artery disease. Patient denies any chest pain, cough, fever, or chills. Chest X-ray showed cardiomegaly with pulmonary congestion and edema. Superimposed pneumonia cannot be excluded.US Showed right pleural effusion. Normal sonographic appearance of the kidneys. No hydronephrosis. Objective vital signs Vital Sign Date Time Temp Pulse Resp B/P (MAP) Pulse Ox O2 Delivery O2 Flow Rate FiO2 08/31/24 16:16 142 29 95/66 (76) 98 08/31/24 07:43 Nasal Cannula* 4 36 08/31/24 07:31 98.1 98.1 Total Intake and Output 08/30/24 08/30/24 08/31/24 15:00 23:00 07:00 Intake Total 1000 ml 305 ml 84 ml Output Total 2900 ml Balance 1000 ml 305 ml -2816 ml medications Current Medications Medications Dose Ordered Sig/Addi Route Start Time Stop Time Status Last Admin Dose Admin Vancomycin HCl 0 ml @ 0 mls/hr UD IV 08/30/24 11:15 Diagnostic Test (Pha) 1 strip ACHS 08/30/24 11:30 08/31/24 17:00 1 STRIP Insulin Human Regular AC SC 08/30/24 11:30 08/30/24 17:37 2 UNITS Insulin Human Regular HS SC 08/30/24 22:00 Dextrose 50 ml UD PRN IV 08/30/24 11:15 Furosemide 40 mg BID IV 08/30/24 22:00 08/31/24 10:39 40 MG Empaglifozin 10 mg DAILY PO 08/31/24 10:00 08/31/24 10:40 10 MG Gabapentin 100 mg DAILY PO 08/31/24 10:00 08/31/24 10:40 100 MG Mirtazapine 30 mg HS PO 08/30/24 22:00 08/30/24 21:57 30 MG Lamotrigine 200 mg DAILY PO 08/31/24 10:00 08/31/24 10:39 200 MG Sertraline HCl 100 mg HS PO 08/30/24 22:00 08/30/24 21:57 100 MG Sodium Chloride 10 ml Q8HR IV 08/30/24 14:00 08/31/24 14:15 10 ML Docusate Sodium 100 mg BIDPRN PRN PO 08/30/24 11:15 Ondansetron HCl 4 mg Q4HP PRN IV 08/30/24 11:15 Lorazepam 1 mg Q8HP PRN IV 08/31/24 00:30 08/31/24 00:43 1 MG Metoprolol Tartrate 50 mg BID PO 08/31/24 22:00 Atorvastatin Calcium 20 mg HS PO 08/31/24 22:00 Heparin Sodium/ Dextrose 250 ml @ 12 mls/hr [id number] IV 08/31/24 16:30 08/31/24 16:30 12 MLS/HR Examination General Appearance: Alert, Oriented X3, Cooperative, Mild respiratory distress on 4L of oxygen HEENT: Atraumatic, PERRLA, EOMI, Mucous membrane moist/pink Respiratory: crackles L> R, diminished breath sound on the right Cardiovascular: Regular rate, Normal S1, Normal S2, No murmurs, no chest wall tenderness Abdominal: NO distention, no tenderness, bowel sounds present, no scars noted Extremities: mild pitting Edema Skin: No rashes, No breakdown, No significant lesion Neuro: Normal gait, Normal speech, Strength at 5/5 X4 ext, Normal tone, Sensation intact, Cranial nerves 3-12 NL, Reflexes 2+ Psych/Mental Status: Mental status NL, Mood NL laboratory and microbiology Laboratory Tests 08/31/24 06:09 Test 08/31/24 06:09 Range/Units Serum Glucose 90 74-106 mg/dL Microbiology Date/Time Source Procedure Growth Status 08/30/24 12:55 Blood Blood Culture - Preliminary NO GROWTH AFTER 24 HOURS OF INCUBATION. Resulted Problem List/Assessment/Plan Problem List/Assessment/Plan Assessment Acute on chronic decompensated HFrEF, Atrial fibrillation (on Dabigatran and Amiodarone) Acute hypoxic respiratory failure secondary to pneumonia/ CHF EXACERBATION Mild mitral valve stenosis/rheumatic mitral valve disease Nonischemic cardiomyopathy pulmonary emboli ruled out Hypertension Hyperlipidemia Type 2 diabetes mellitus COPD with history of tobacco use Obesity Plan GDMT as can tolerate Amiodarone bolus slowly in 220-30 and continue with drip 1mg/hr for 6hrs and 0.5mg her for 18 hours Furosemide 40 mg b.i.d. Continue oxygen and titrate down appropriately Control rate with metoprolol tartrate Azithromycin and ceftriaxone Code status: Full Care discussed for more than 35 minutes Case and plan discussed with Dr. Dejesus Plan discussed with: Patient My Orders My Orders Orders - MEDARDO SALVADOR Procedure Category Date Status Time Cardiac DIET 08/31/24 Transmitted Diet-2gna,Lofat,Lochol Lunch Date of Service: Aug 31, 2024 Billing Provider: GIOVANNI DEJESUS MD Common Visit Codes: [id number] INP/OBS CARE(HIGH) MEDARDO SALVADOR Aug 31, 2024 17:49 GIOVANNI DEJESUS MD Sep 01, 2024 10:53
[2024-08-31 19:30] VITALS: PULSE 136; RESP 15; O2SAT 94
[2024-08-31] MEDS: ATORVASTATIN 20 MG TAB PO SCH (22:26)
[2024-08-31] MEDS: METOPROLOL TARTRATE 50 MG TAB PO SCH (22:38)
[2024-08-31 23:49] LABS: INR 1.08 (0.9-1.15); Prothrombin Time 11.4 sec (9.3-11.8)
[2024-09-01 00:01] LABS: Partial Thromboplastin Time 127.7 SEC (24.5-34.5)
[2024-09-01] MEDS: HEPARIN DRIP/D5W 100UNITS/ML 250 ML IV SCH (01:00)
[2024-09-01] MEDS: DIGOXIN (250MCG/ML) 2 ML AMPULE IV ONE (08:14)
[2024-09-01] MEDS: cefTRIAXone 1GM/50ML D5W 50 ML IV SCH (08:26)
[2024-09-01 08:32] LABS: Basophils # (auto) 0 10 ^3/uL (0-0.2); Basophils % (auto) 0.3 % (0.0-2.0); Eosinophils # (auto) 0.1 10 ^3/uL (0-0.8); Eosinophils % (auto) 0.6 % (0.0-7.0); Hematocrit 33.3 % (36.0-46.0); Hemoglobin 10.5 g/dL (12.2-16.2); Lymphocytes # (auto) 2.4 10 ^3/uL (0.4-5.4); Lymphocytes % (auto) 20.1 % (10.0-50.0); Mean Corpuscular Hemoglobin 30.3 pg (28.0-32.0); Mean Corpuscular Hgb Conc. 31.6 g/dL (32.0-36.0); Mean Corpuscular Volume 95.9 fL (80.0-100.0); Monocytes % (auto) 8.4 % (0.0-12.0); Neutrophils # (auto) 8.5 10 ^3/uL (1.6-8.6); Neutrophils % (auto) 70.6 % (37.0-80.0); Nucleated Red Blood Cells % 0.2 %; Platelet Count (auto) 373 10^3/uL (140-450); Red Blood Cells 3.48 10^6/uL (4.0-5.20); Red Cell Distribution Width 22.3 % (11.8-14.3); White Blood Cell 12.1 10^3/uL (4.4-10.8)
[2024-09-01 08:41] LABS: INR 1.08 (0.9-1.15); Partial Thromboplastin Time 54.3 SEC (24.5-34.5); Prothrombin Time 11.4 sec (9.3-11.8)
[2024-09-01 08:50] LABS: Alanine Aminotransferase 18 U/L (7-40); Albumin 4.2 g/dL (3.2-4.8); Anion Gap 10 (5-15); Aspartate Aminotransferase 27 U/L (13-40); BUN/Creatinine Ratio 10.9 (10.0-20.0); Bilirubin, Total 0.8 mg/dL (0.2-1.0); Blood Urea Nitrogen 15 mg/dL (9-23)
[2024-09-01 08:51] LABS: Total Protein 6.5 g/dL (5.7-8.2)
[2024-09-01 08:54] LABS: Alkaline Phosphatase 120 U/L (46-116); Calcium 9.8 mg/dL (8.7-10.4); Carbon Dioxide 25 mmol/L (20-31); Chloride 104 mmol/L (98-107); Glucose 150 mg/dL (74-106); Potassium 3.5 mmol/L (3.5-5.1); Sodium 139 mmol/L (136-145)
[2024-09-01] MEDS: AZITHROMYCIN 500MG/ 250ML 250 ML IV SCH (09:57)
[2024-09-01] MEDS: ENOXAPARIN SOD 80 MG/0.8ML SYRINGE SC SCH (10:34)
[2024-09-01 16:14] VITALS: O2SAT 94
[2024-09-01 16:19] VITALS: O2SAT 94
[2024-09-01 16:20] VITALS: O2SAT 94
[2024-09-01 17:07] VITALS: O2SAT 96
--- NOTE | 2024-09-01 18:46 | DVHPN2 ---
Consult Progress Note Date Seen: Sep 01, 2024 Subjective Review of Systems: CVS:Normal, RESPIRATORY:Abnormal, NEURO:Normal Other Systems: C/o SOB Objective vital signs Vital Sign Date Time Temp Pulse Resp B/P (MAP) Pulse Ox O2 Delivery O2 Flow Rate FiO2 09/01/24 18:26 119 30 122/84 (97) 92 09/01/24 16:20 Hi-Flow NC 6 N/A 09/01/24 07:28 97.1 97.1 Total Intake and Output 08/31/24 08/31/24 09/01/24 14:59 22:59 06:59 Intake Total 253.99 ml 497.62 ml 202.28 ml Output Total 800 ml Balance 253.99 ml -302.38 ml 202.28 ml medications Current Medications Medications Dose Ordered Sig/Addi Route Start Time Stop Time Status Last Admin Dose Admin Diagnostic Test (Pha) 1 strip ACHS 08/30/24 11:30 09/01/24 17:14 1 STRIP Insulin Human Regular AC SC 08/30/24 11:30 09/01/24 12:06 4 UNITS Insulin Human Regular HS SC 08/30/24 22:00 Dextrose 50 ml UD PRN IV 08/30/24 11:15 Furosemide 40 mg BID IV 08/30/24 22:00 09/01/24 09:57 40 MG Empaglifozin 10 mg DAILY PO 08/31/24 10:00 09/01/24 09:56 10 MG Gabapentin 100 mg DAILY PO 08/31/24 10:00 09/01/24 09:56 100 MG Mirtazapine 30 mg HS PO 08/30/24 22:00 08/31/24 22:26 30 MG Lamotrigine 200 mg DAILY PO 08/31/24 10:00 09/01/24 09:56 200 MG Sertraline HCl 100 mg HS PO 08/30/24 22:00 08/31/24 22:26 100 MG Sodium Chloride 10 ml Q8HR IV 08/30/24 14:00 09/01/24 14:00 10 ML Docusate Sodium 100 mg BIDPRN PRN PO 08/30/24 11:15 Ondansetron HCl 4 mg Q4HP PRN IV 08/30/24 11:15 Lorazepam 1 mg Q8HP PRN IV 08/31/24 00:30 09/01/24 00:23 1 MG Metoprolol Tartrate 50 mg BID PO 08/31/24 22:00 09/01/24 09:56 50 MG Atorvastatin Calcium 20 mg HS PO 08/31/24 22:00 08/31/24 22:26 20 MG Ceftriaxone Sodium 50 ml @ 100 mls/hr DAILY@09 IV 09/01/24 09:00 09/01/24 08:26 100 MLS/HR Azithromycin 250 ml @ 125 mls/hr DAILY IV 09/01/24 10:00 09/01/24 09:57 125 MLS/HR Enoxaparin Sodium 80 mg Q12HR SC 09/01/24 10:00 09/01/24 10:34 80 MG Digoxin 0.125 mg DAILY PO 09/02/24 10:00 Examination: GENERAL:Abnormal, LUNGS:Abnormal (Tachypnic, O2 via NC, +accessory muscle use, coarse bilaterally), CVS:Abnormal (A-fib uncontrolled rate 100s bpm), NEURO:Normal laboratory and microbiology Laboratory Tests 09/01/24 08:17 Test 09/01/24 08:17 Range/Units Serum Glucose 150 H 74-106 mg/dL Problem List/Assessment/Plan Problem List/Assessment/Plan Acute on chronic decompensated HFrEF, NYHA class III Paroxysmal atrial fibrillation, Stage III, on Dabigatran and Amiodarone Mild mitral valve stenosis/rheumatic mitral valve disease Mild nonobstructive coronary artery disease Acute on chronic hypoxic respiratory failure Hypertension Hyperlipidemia Type 2 diabetes mellitus COPD with hx of tobacco use Morbid obesity Plan/Recommendation (Dr. Wood) * Echocardiogram from 07/25/24 revealed EF 40% with anterior anteroseptal wall hypokinesia * Continue GDMT for CHF as renal function permits, uptitrate as tolerated * Preload and afterload reduction * Strict I&Os, daily weights, maintain fluid restriction * Therapeutic Lovenox, continue Pradaxa therapy upon discharge * [id number] VASc score: 3 points, HAS-BLED score: 1 point * Rate control, beta-ramiro for rate control plus digoxin including loading dose * Antiarrhythmic, amiodarone drip per protocol transition to oral form HS * Monitor and replete electrolytes as needed, K> 4 and Mg>2 * Lipid-lowering agent * Pulmonology recommendations * CXR in the a.m. Septic work-up per primary care team Thank you for allowing us to care for this patient. Please call with any questions or concerns. This medical document was created using an electronic medical record system with voice recognition software and computerized dictation system. Although this document has been carefully reviewed, there might still be some phonetic and typographical errors. Occasional wrong-word or ``sound-alike substitutions may have occurred due to the inherent limitations of voice recognition software. These areas are purely typographical due to imperfections of the software programs and do not reflect any compromise in the patient's medical care. Please read the chart carefully and recognize, using context, where these substitutions have occurred. Plan discussed with: Patient, Other Date of Service: Sep 01, 2024 Billing Provider: LARISSA GEE Cardiology Common Codes: [id number] [facility] CARE(High LARISSA GEE Sep 01, 2024 18:46
[2024-09-01 19:30] VITALS: PULSE 94; RESP 21; O2SAT 98
--- NOTE | 2024-09-01 19:38 | DVHPNRES ---
Progress Note Date Seen: Sep 01, 2024 Resident Creating Document: MEDARDO SALVADOR RESIDENT Medical Necessity Reason Pt with a Central, PICC or Fol: No Medical Necessity Reason still in respiratory failure Congestive heart failure Subjective Review of Systems This is a 64 year old female with a past mediacal history of AFIB, CHF, COPD, DM, HTN and intubated about a month ago presented to the ED via EMS with chief complaint of SOB via. According to the patient, she has experiencing worsening SOB with associated mild bilateral leg edema for the past 2 days. Per EMS states patient was noted to be in A-Fib RVR on their EKG along with noting to be 77% on BiPAP and after being given a DuoNeb treatment on route to the ED. Initial BNP 546.27pg/mL, troponin negative. Initial twelve lead electrocardiogram reveals atrial fibrillation. Patient recently underwent a coronary angiogram on 08/01/24 which revealed mild nonobstructive coronary artery disease. Patient denies any chest pain, cough, fever, or chills. Chest X-ray showed cardiomegaly with pulmonary congestion and edema. Superimposed pneumonia cannot be excluded.US Showed right pleural effusion. Normal sonographic appearance of the kidneys. No hydronephrosis. PN : Patient seen and examine by the bedside. She is back on 4L of oxygen. HR is better today at 112. Patient is on Amiodarone and Dabigatran. Pitting edema is improved, but still congested. She is also on Furosemide 40 mg BID, GDMT and antibiotics. Will keep montorting. Objective vital signs Vital Sign Date Time Temp Pulse Resp B/P (MAP) Pulse Ox O2 Delivery O2 Flow Rate FiO2 09/01/24 19:00 104 29 105/65 (78) 97 09/01/24 16:20 Hi-Flow NC 6 N/A 09/01/24 07:28 97.1 97.1 Total Intake and Output 08/31/24 08/31/24 09/01/24 15:00 23:00 07:00 Intake Total 253.99 ml 526.28 ml 199.28 ml Output Total 800 ml Balance 253.99 ml -273.72 ml 199.28 ml medications Current Medications Medications Dose Ordered Sig/Addi Route Start Time Stop Time Status Last Admin Dose Admin Diagnostic Test (Pha) 1 strip ACHS 08/30/24 11:30 09/01/24 17:14 1 STRIP Insulin Human Regular AC SC 08/30/24 11:30 09/01/24 12:06 4 UNITS Insulin Human Regular HS SC 08/30/24 22:00 Dextrose 50 ml UD PRN IV 08/30/24 11:15 Furosemide 40 mg BID IV 08/30/24 22:00 09/01/24 09:57 40 MG Gabapentin 100 mg DAILY PO 08/31/24 10:00 09/01/24 09:56 100 MG Mirtazapine 30 mg HS PO 08/30/24 22:00 08/31/24 22:26 30 MG Lamotrigine 200 mg DAILY PO 08/31/24 10:00 09/01/24 09:56 200 MG Sertraline HCl 100 mg HS PO 08/30/24 22:00 08/31/24 22:26 100 MG Sodium Chloride 10 ml Q8HR IV 08/30/24 14:00 09/01/24 14:00 10 ML Docusate Sodium 100 mg BIDPRN PRN PO 08/30/24 11:15 Ondansetron HCl 4 mg Q4HP PRN IV 08/30/24 11:15 Lorazepam 1 mg Q8HP PRN IV 08/31/24 00:30 09/01/24 00:23 1 MG Metoprolol Tartrate 50 mg BID PO 08/31/24 22:00 09/01/24 09:56 50 MG Atorvastatin Calcium 20 mg HS PO 08/31/24 22:00 08/31/24 22:26 20 MG Ceftriaxone Sodium 50 ml @ 100 mls/hr DAILY@09 IV 09/01/24 09:00 09/01/24 08:26 100 MLS/HR Azithromycin 250 ml @ 125 mls/hr DAILY IV 09/01/24 10:00 09/01/24 09:57 125 MLS/HR Enoxaparin Sodium 80 mg Q12HR SC 09/01/24 10:00 09/01/24 10:34 80 MG Digoxin 0.125 mg DAILY PO 09/02/24 10:00 Amiodarone HCl 200 mg Q12HR PO 09/01/24 22:00 Empaglifozin 10 mg DAILY PO 09/02/24 10:00 Lisinopril 10 mg DAILY PO 09/02/24 10:00 Spironolactone 12.5 mg DAILY PO 09/02/24 10:00 Examination General Appearance: Alert, Oriented X3, Cooperative, Mild respiratory distress on 4L of oxygen HEENT: Atraumatic, PERRLA, EOMI, Mucous membrane moist/pink Respiratory: crackles L> R, diminished breath sound on the right Cardiovascular: Regular rate, Normal S1, Normal S2, No murmurs, no chest wall tenderness Abdominal: NO distention, no tenderness, bowel sounds present, no scars noted Extremities: resolved, skin wrinkle noted Skin: No rashes, No breakdown, No significant lesion Neuro: Normal gait, Normal speech, Strength at 5/5 X4 ext, Normal tone, Sensation intact, Cranial nerves 3-12 NL, Reflexes 2+ Psych/Mental Status: Mental status NL, Mood NL laboratory and microbiology Laboratory Tests 09/01/24 08:17 Test 09/01/24 08:17 Range/Units Serum Glucose 150 H 74-106 mg/dL Microbiology Date/Time Source Procedure Growth Status 08/30/24 12:55 Blood Blood Culture - Preliminary NO GROWTH AFTER 48 HOURS OF INCUBATION. Resulted Problem List/Assessment/Plan Problem List/Assessment/Plan Assessment Acute on chronic decompensated HFrEF, Atrial fibrillation (on Dabigatran and Amiodarone) Acute hypoxic respiratory failure secondary to pneumonia/ CHF EXACERBATION Mild mitral valve stenosis/rheumatic mitral valve disease Nonischemic cardiomyopathy pulmonary emboli ruled out Hypertension Hyperlipidemia Type 2 diabetes mellitus COPD with history of tobacco use Obesity Plan Continue GDMT as is renally tolerated Amiodarone 0.5mg her for 18 hours IV Furosemide 40 mg b.i.d. Continue oxygen and titrate down appropriately Control rate with metoprolol tartrate Azithromycin and ceftriaxone Therapeutic Lovenox, continue Pradaxa therapy upon discharge * Rate control, beta-ramiro for rate control plus digoxin including loading dose * Antiarrhythmic, amiodarone drip per protocol transition to oral form HS Code status: Full Care discussed for more than 25 minutes Case and plan discussed with Dr. Dejesus Plan discussed with: Patient, Spouse, Son Date of Service: Sep 01, 2024 Billing Provider: GIOVANNI DEJESUS MD Common Visit Codes: [id number] INP/OBS CARE(HIGH) MEDARDO SALVADOR RESIDENT Sep 01, 2024 19:38 GIOVANNI DEJESUS MD Sep 01, 2024 20:44
[2024-09-01] MEDS: POTASSIUM EFFERVESENT TAB 25 MEQ PO ONE (20:09)
[2024-09-01 21:50] VITALS: O2SAT 94
[2024-09-01] MEDS: AMIODARONE HCL 200 MG TAB PO SCH (21:56)
[2024-09-02 05:20] LABS: Basophils # (auto) 0 10 ^3/uL (0-0.2); Basophils % (auto) 0.3 % (0.0-2.0); Eosinophils # (auto) 0.1 10 ^3/uL (0-0.8); Eosinophils % (auto) 0.8 % (0.0-7.0); Hematocrit 28.1 % (36.0-46.0); Hemoglobin 9.3 g/dL (12.2-16.2); Lymphocytes # (auto) 1.3 10 ^3/uL (0.4-5.4); Lymphocytes % (auto) 18.9 % (10.0-50.0); Mean Corpuscular Hemoglobin 30.4 pg (28.0-32.0); Mean Corpuscular Hgb Conc. 33.1 g/dL (32.0-36.0); Monocytes # (auto) 0.6 10 ^3/uL (0-1.3); Monocytes % (auto) 9.3 % (0.0-12.0); Neutrophils # (auto) 4.8 10 ^3/uL (1.6-8.6); Neutrophils % (auto) 70.7 % (37.0-80.0); Nucleated Red Blood Cells % 0.2 %; Platelet Count (auto) 219 10^3/uL (140-450); Red Blood Cells 3.06 10^6/uL (4.0-5.20); White Blood Cell 6.8 10^3/uL (4.4-10.8)
[2024-09-02 05:29] LABS: Red Cell Distribution Width 21.5 % (11.8-14.3)
[2024-09-02 05:37] LABS: Alanine Aminotransferase 18 U/L (7-40); Albumin 3.4 g/dL (3.2-4.8); Anion Gap 10 (5-15); Aspartate Aminotransferase 23 U/L (13-40); BUN/Creatinine Ratio 11.7 (10.0-20.0); Blood Urea Nitrogen 13 mg/dL (9-23); Calcium 9.5 mg/dL (8.7-10.4); Carbon Dioxide 30 mmol/L (20-31); Chloride 102 mmol/L (98-107); Magnesium 1.8 mg/dL (1.6-2.6); Potassium 3.5 mmol/L (3.5-5.1); Sodium 142 mmol/L (136-145)
[2024-09-02 05:38] LABS: Bilirubin, Total 0.8 mg/dL (0.2-1.0)
[2024-09-02 05:47] LABS: Alkaline Phosphatase 145 U/L (46-116); Glucose 69 mg/dL (74-106); Total Protein 5.5 g/dL (5.7-8.2)
--- NOTE | 2024-09-02 05:56 | DVH ---
CHEST RADIOGRAPH Indication: CHF/PNA Technique: Single frontal view of the chest was obtained COMPARISON: XY CHEST XRAY 1 VIEW on DOS: 08/30/24, XY CHEST PORTABLE on DOS: 08/04/24, XY CHEST PORTABLE on DOS: 08/03/24, XY CHEST XRAY 1 VIEW on DOS: 07/31/24, XY CHEST XRAY 1 VIEW on DOS: 07/29/24 FINDINGS: Lines and Tubes: None Lungs: Unchanged multifocal airspace disease. Pleura: No effusion. No pneumothorax. Cardiomediastinal contours: Unremarkable Bones: Unremarkable IMPRESSION: Unchanged severe multifocal airspace disease.
[2024-09-02 08:47] VITALS: PULSE 127; RESP 22; O2SAT 97
[2024-09-02 09:05] LABS: Anisocytosis Slight; Platelet Estimate Adequate; Stomatocytes Few
[2024-09-02 09:30] VITALS: BP 118/70; PULSE 121; O2SAT 91
--- NOTE | 2024-09-02 09:54 | DVH ---
CLINICAL INFORMATION: 64 years old, Female; persistent pneumonia, shortness of breath. TECHNIQUE: Axial CT imaging of the chest was performed without IV contrast. Sagittal and coronal ref ormatted images were made, stored and reviewed. Evaluation is limited without IV contrast. One or mor e of the following dose reduction techniques were used: Automated exposure control. Adjustment of mA and/or kV according to patient size. CTDIvol = 15.27, 0.07, 0.07 mGy DLP = 553.87 mGy-cm COMPARISON: CTA chest dated 08/30/2024 CT chest dated 07/27/2024. FINDINGS: Aorta: No aneurysm. Dense atherosclerotic calcification of the thoracic aorta. Cardiac: Moderate cardiomegaly. Small pericardial effusion. Mediastinum/crystal: Enlarged right paratracheal lymph node measuring up to 1.8 x 2.0 cm, grossly stable compared to the recent exam. Lungs: Small bilateral pleural effusions. Extensive interstitial opacities and ground-glass opacities throughout both lungs, overall increased compared to the recent examination. Areas of interlobular septal thickening also noted. Pulmonary arteries: Mildly dilated main pulmonary artery measuring up to 3.2 cm, may be seen with pul monary arterial hypertension. Chest wall: No mass or other abnormality. Upper abdomen: Cholecystectomy. Heterogeneous density of the right kidney, may be due to infarcts or pyelonephritis in the appropriate clinical setting. Bones: No fracture or suspicious intraosseous lesions. IMPRESSION: 1. Extensive interstitial opacities and ground-glass opacities throughout both lungs with interlobula r septal thickening, overall increased compared to the recent CTA chest exam. Findings may be seen wi th pulmonary edema in the appropriate clinical setting. Small bilateral pleural effusions also noted. Correlate with clinical findings. Atypical infectious process could also be considered component of chronic interstitial lung disease may also be present. 2. Moderate cardiomegaly with small pericardial effusion. 3. Enlarged right paratracheal lymph node, may be reactive. Malignancy can not be excluded. 4. Dilated main pulmonary artery, may be seen with pulmonary arterial hypertension. 5. Heterogeneous density of the right kidney, may be seen with infarcts or pyelonephritis in the appr opriate clinical setting.
[2024-09-02] MEDS: LISINOPRIL 5 MG TAB PO SCH (10:00)
[2024-09-02] MEDS: SPIRONOLACTONE 25 MG TAB PO SCH (10:02)
[2024-09-02] MEDS: DIGOXIN 0.125 MG TAB PO SCH (10:04)
[2024-09-02] MEDS: EMPAGLIFLOZIN 10 MG TAB PO SCH (10:04)
--- NOTE | 2024-09-02 11:44 | DVHPN2 ---
Consult Progress Note Date Seen: Sep 02, 2024 Subjective Review of Systems: CVS:Normal, RESPIRATORY:Abnormal, NEURO:Normal Other Systems: C/o worsening SOB Objective vital signs Vital Sign Date Time Temp Pulse Resp B/P (MAP) Pulse Ox O2 Delivery O2 Flow Rate FiO2 09/02/24 10:04 105 09/02/24 10:03 105/75 09/02/24 09:30 91 Facial BiPAP Mask 35 09/02/24 08:47 22 6 09/02/24 07:57 98.0 98.0 Total Intake and Output 09/01/24 09/01/24 09/02/24 15:00 23:00 07:00 Intake Total 465.28 ml 122.25 ml Output Total 1100 ml 1100 ml 2100 ml Balance -634.72 ml -977.75 ml -2100 ml medications Current Medications Medications Dose Ordered Sig/Addi Route Start Time Stop Time Status Last Admin Dose Admin Diagnostic Test (Pha) 1 strip ACHS 08/30/24 11:30 09/02/24 06:36 1 STRIP Insulin Human Regular AC SC 08/30/24 11:30 09/01/24 12:06 4 UNITS Insulin Human Regular HS SC 08/30/24 22:00 Dextrose 50 ml UD PRN IV 08/30/24 11:15 Furosemide 40 mg BID IV 08/30/24 22:00 09/02/24 10:00 40 MG Gabapentin 100 mg DAILY PO 08/31/24 10:00 09/02/24 10:03 100 MG Mirtazapine 30 mg HS PO 08/30/24 22:00 09/01/24 21:55 30 MG Lamotrigine 200 mg DAILY PO 08/31/24 10:00 09/02/24 10:04 200 MG Sertraline HCl 100 mg HS PO 08/30/24 22:00 09/01/24 21:56 100 MG Sodium Chloride 10 ml Q8HR IV 08/30/24 14:00 09/02/24 06:05 10 ML Docusate Sodium 100 mg BIDPRN PRN PO 08/30/24 11:15 Ondansetron HCl 4 mg Q4HP PRN IV 08/30/24 11:15 Lorazepam 1 mg Q8HP PRN IV 08/31/24 00:30 09/01/24 22:01 1 MG Metoprolol Tartrate 50 mg BID PO 08/31/24 22:00 09/02/24 10:03 50 MG Atorvastatin Calcium 20 mg HS PO 08/31/24 22:00 09/01/24 21:55 20 MG Ceftriaxone Sodium 50 ml @ 100 mls/hr DAILY@09 IV 09/01/24 09:00 09/02/24 09:59 100 MLS/HR Azithromycin 250 ml @ 125 mls/hr DAILY IV 09/01/24 10:00 09/01/24 09:57 125 MLS/HR Enoxaparin Sodium 80 mg Q12HR SC 09/01/24 10:00 09/02/24 10:05 80 MG Digoxin 0.125 mg DAILY PO 09/02/24 10:00 09/02/24 10:04 0.125 MG Amiodarone HCl 200 mg Q12HR PO 09/01/24 22:00 09/02/24 10:01 200 MG Empaglifozin 10 mg DAILY PO 09/02/24 10:00 09/02/24 10:04 10 MG Lisinopril 10 mg DAILY PO 09/02/24 10:00 Spironolactone 12.5 mg DAILY PO 09/02/24 10:00 09/02/24 10:02 12.5 MG Examination: GENERAL:Abnormal, LUNGS:Abnormal (On BiPAP 35% FiO2. Coarse bilaterally), CVS:Normal (A-fib 100s bpm), NEURO:Normal laboratory and microbiology Laboratory Tests 09/02/24 04:38 Test 09/02/24 04:38 Range/Units Serum Glucose 69 L 74-106 mg/dL Problem List/Assessment/Plan Problem List/Assessment/Plan Acute on chronic decompensated HFrEF, NYHA class III Paroxysmal atrial fibrillation, Stage III, on Dabigatran and Amiodarone Mild mitral valve stenosis/rheumatic mitral valve disease Mild nonobstructive coronary artery disease Acute on chronic hypoxic respiratory failure Hypertension Hyperlipidemia Type 2 diabetes mellitus COPD with hx of tobacco use Morbid obesity Plan/Recommendation (Dr. Wood) * Echocardiogram from 07/25/24 revealed EF 40% with anterior anteroseptal wall hypokinesia * Continue GDMT for CHF as renal function permits, uptitrate as tolerated * Preload and afterload reduction * Strict I&Os, daily weights, maintain fluid restriction * Therapeutic Lovenox, continue Pradaxa therapy upon discharge * [id number] VASc score: 3 points, HAS-BLED score: 1 point * Rate control, beta-ramiro plus digoxin therapy * Antiarrhythmic, amiodarone BID * Monitor and replete electrolytes as needed, K> 4 and Mg>2 * Lipid-lowering agent * Pulmonology recommendations Thank you for allowing us to care for this patient. Please call with any questions or concerns. Critical care time: 30 min. This medical document was created using an electronic medical record system with voice recognition software and computerized dictation system. Although this document has been carefully reviewed, there might still be some phonetic and typographical errors. Occasional wrong-word or ``sound-alike substitutions may have occurred due to the inherent limitations of voice recognition software. These areas are purely typographical due to imperfections of the software programs and do not reflect any compromise in the patient's medical care. Please read the chart carefully and recognize, using context, where these substitutions have occurred. Plan discussed with: Patient, Spouse, Other Date of Service: Sep 02, 2024 Billing Provider: LARISSA GEE Cardiology Common Codes: [id number] CARE 30-74 MIN LARISSA GEE Sep 02, 2024 11:44
[2024-09-02] MEDS ORDERED: FUROSEMIDE 40 MG/4 ML VIAL IV ONE (11:45)
[2024-09-02] MEDS: POTASSIUM CHLORIDE 60 MEQ, LIDOCAINE 1% (LOCAL ANESTH.) 6 ML in SODIUM CHL 0.9% 500 ML IV ONE (11:45)
[2024-09-02 12:40] LABS: Base Excess 6.6 mmol/L (-2.0-3.0)
[2024-09-02] MEDS: MAGNESIUM SULFATE 1GM/100ML 100 ML IV ONE (12:43)
[2024-09-02 14:35] VITALS: O2SAT 93
[2024-09-02 14:40] VITALS: BP 114/62; PULSE 121; RESP 26; O2SAT 93
[2024-09-02 14:48] VITALS: BP 114/62; PULSE 116; RESP 21; O2SAT 97
[2024-09-02] MEDS ORDERED: DEXTROSE (50%) 50ML SYRG IV PRN (16:00)
[2024-09-02] MEDS: InsuLIN REG 1unit/0.01ml Soln (100units/ml) SC SCH (16:00)
[2024-09-02] MEDS: FUROSEMIDE 40 MG/4 ML VIAL IV SCH (16:08)
[2024-09-02] MEDS: SILDENAFIL CITRATE 20 MG TAB PO ONE (16:16)
[2024-09-02] MEDS: methylPREDNISolone SOD SUCC 125 MG/2 ML VL IV SCH (16:22)
[2024-09-02] MEDS: DOXYCYCLINE 100MG/100ML 100 ML IV SCH (16:22)
[2024-09-02] MEDS: ACCU-CHEK COMFORT CURVE STRIP VI SCH (16:28)
--- NOTE | 2024-09-02 16:28 | DVHPNRES ---
Progress Note Date Seen: Sep 02, 2024 Resident Creating Document: MEDARDO SALVADOR RESIDENT Medical Necessity Reason Pt with a Central, PICC or Fol: No Medical Necessity Reason Persistent shortness of breaths Became higher level of oxygen Subjective Review of Systems This is a 64 year old female with a past mediacal history of AFIB, CHF, COPD, DM, HTN and intubated about a month ago presented to the ED via EMS with chief complaint of SOB via. According to the patient, she has experiencing worsening SOB with associated mild bilateral leg edema for the past 2 days. Per EMS states patient was noted to be in A-Fib RVR on their EKG along with noting to be 77% on BiPAP and after being given a DuoNeb treatment on route to the ED. Initial BNP 546.27pg/mL, troponin negative. Initial twelve lead electrocardiogram reveals atrial fibrillation. Patient recently underwent a coronary angiogram on 08/01/24 which revealed mild nonobstructive coronary artery disease. Patient denies any chest pain, cough, fever, or chills. Chest X-ray showed cardiomegaly with pulmonary congestion and edema. Superimposed pneumonia cannot be excluded.US Showed right pleural effusion. Normal sonographic appearance of the kidneys. No hydronephrosis. PN : Patient seen and examine by the bedside. She is back on 4L of oxygen. HR is better today at 112. Patient is on Amiodarone and Dabigatran. Pitting edema is improved, but still congested. She is also on Furosemide 40 mg BID, GDMT and antibiotics. Will keep monitoring PN 09/02/2024: Patient is seen and examined today. CT of the chest also reviewed with the power wood sawyer. CT chest showed diffused glass opacities, areas of bronchiectasis, chronic interstitial lung disease, pleural effusion and pulmonary and pulmonary edema. Also her echo done revealed pulmonary hypertension with RVSP of 50mmHg. Patient is not really doing well. she is now on 6 L of oxygen via high-flow nasal oxygen. Bilateral pitting edema is improved her WBC count is also within normal limits. However she is still be tachycardic and her blood pressure soft. Objective vital signs Vital Sign Date Time Temp Pulse Resp B/P (MAP) Pulse Ox O2 Delivery O2 Flow Rate FiO2 09/02/24 15:00 113 17 101/56 (71) 97 09/02/24 14:48 6.0 55 09/02/24 09:30 Facial BiPAP Mask 09/02/24 07:57 98.0 98.0 Total Intake and Output 09/01/24 09/01/24 09/02/24 15:00 23:00 07:00 Intake Total 465.28 ml 122.25 ml Output Total 1100 ml 1100 ml 2100 ml Balance -634.72 ml -977.75 ml -2100 ml medications Current Medications Medications Dose Ordered Sig/Addi Route Start Time Stop Time Status Last Admin Dose Admin Diagnostic Test (Pha) 1 strip ACHS 08/30/24 11:30 09/02/24 11:30 1 STRIP Insulin Human Regular AC SC 08/30/24 11:30 09/01/24 12:06 4 UNITS Insulin Human Regular HS SC 08/30/24 22:00 Dextrose 50 ml UD PRN IV 08/30/24 11:15 Gabapentin 100 mg DAILY PO 08/31/24 10:00 09/02/24 10:03 100 MG Mirtazapine 30 mg HS PO 08/30/24 22:00 09/01/24 21:55 30 MG Lamotrigine 200 mg DAILY PO 08/31/24 10:00 09/02/24 10:04 200 MG Sertraline HCl 100 mg HS PO 08/30/24 22:00 09/01/24 21:56 100 MG Sodium Chloride 10 ml Q8HR IV 08/30/24 14:00 09/02/24 14:04 10 ML Docusate Sodium 100 mg BIDPRN PRN PO 08/30/24 11:15 Ondansetron HCl 4 mg Q4HP PRN IV 08/30/24 11:15 Lorazepam 1 mg Q8HP PRN IV 08/31/24 00:30 09/01/24 22:01 1 MG Metoprolol Tartrate 50 mg BID PO 08/31/24 22:00 09/01/24 21:56 50 MG Atorvastatin Calcium 20 mg HS PO 08/31/24 22:00 09/01/24 21:55 20 MG Ceftriaxone Sodium 50 ml @ 100 mls/hr DAILY@09 IV 09/01/24 09:00 09/02/24 09:59 100 MLS/HR Enoxaparin Sodium 80 mg Q12HR SC 09/01/24 10:00 09/02/24 10:05 80 MG Digoxin 0.125 mg DAILY PO 09/02/24 10:00 09/02/24 10:04 0.125 MG Amiodarone HCl 200 mg Q12HR PO 09/01/24 22:00 09/02/24 10:01 200 MG Empaglifozin 10 mg DAILY PO 09/02/24 10:00 09/02/24 10:04 10 MG Lisinopril 10 mg DAILY PO 09/02/24 10:00 Spironolactone 12.5 mg DAILY PO 09/02/24 10:00 09/02/24 10:02 12.5 MG Furosemide 40 mg Q6HR IV 09/02/24 16:00 Doxycycline Hyclate 100 ml @ 50 mls/hr Q12H IV 09/02/24 16:00 UNV Methylprednisolone Sodium Succinate 125 mg Q8HR IV 09/02/24 16:00 09/04/24 16:00 UNV Diagnostic Test (Pha) 1 strip IQ4HR 09/02/24 16:00 UNV Insulin Human Regular IQ4HR SC 09/02/24 16:00 UNV Dextrose 50 ml UD PRN IV 09/02/24 16:00 UNV Sildenafil Citrate 20 mg TID@08,14,20 PO 09/02/24 20:00 UNV Examination General Appearance: Alert, Oriented X3, Cooperative, Mild respiratory distress on 4L of oxygen HEENT: Atraumatic, PERRLA, EOMI, Mucous membrane moist/pink Respiratory: crackles L> R, diminished breath sound on the right Cardiovascular: Regular rate, Normal S1, Normal S2, No murmurs, no chest wall tenderness Abdominal: NO distention, no tenderness, bowel sounds present, no scars noted Extremities: resolved, skin wrinkle noted Skin: No rashes, No breakdown, No significant lesion Neuro: Normal gait, Normal speech, Strength at 5/5 X4 ext, Normal tone, Sensation intact, Cranial nerves 3-12 NL, Reflexes 2+ Psych/Mental Status: Mental status NL, Mood NL laboratory and microbiology Laboratory Tests 09/02/24 04:38 Test 09/02/24 04:38 Range/Units Serum Glucose 69 L 74-106 mg/dL Microbiology Date/Time Source Procedure Growth Status 08/30/24 12:55 Blood Blood Culture - Preliminary NO GROWTH AFTER 72 HOURS OF INCUBATION. Resulted Problem List/Assessment/Plan Problem List/Assessment/Plan Assessment Acute on chronic decompensated HFrEF, Atrial fibrillation (on Dabigatran and Amiodarone) Acute hypoxic respiratory failure secondary to pneumonia/ ILD/ chf exacerbation Mild mitral valve stenosis/rheumatic mitral valve disease Nonischemic cardiomyopathy pulmonary emboli ruled out Hypertension Hyperlipidemia Type 2 diabetes mellitus COPD with history of tobacco use Obesity Pulmonary hypertension (RVSP 50mmHg on Echo) Interstitial lung disease Bronchiectasis Plan Antibiotics: Ceftriaxone and doxycycline ( Due to the presence of bronchiectasis, will switch from azithromycin to doxycycline 100mg q12hrs to prevent potential by Mycobacterium avium complex ( MAC)) IV Furosemide 40 mg q6hrs Solu-Medrol 125 mg q.8 hours for 48 hours ( 2 days) Start sildenafil 20 mg t.i.d. pulmonary hypertension; HOLD it if SBP <90 Aggressive sliding scale Once patient is stable we will recommend bronchoscopy for MAC Continue GDMT as tolerated Amiodarone oral Continue oxygen and titrate down appropriately Control rate with metoprolol tartrate Continue Therapeutic Lovenox, continue Pradaxa therapy upon discharge * Rate control, beta-ramiro for rate control plus digoxin including loading dose * Antiarrhythmic, amiodarone drip per protocol transition to oral form HS Code status: Full Care discussed for more than 45 minutes Case and plan discussed with Dr. Dejesus Plan discussed with: Patient My Orders My Orders Orders - MEDARDO SALVADOR RESIDENT Procedure Category Date Status Time Chest Without Contrast CT 09/02/24 Resulted 08:09 *Consult CONS 09/02/24 Verified / 08:09 Respiratory Culture AL 09/02/24 Logged W/ Gs 14:09 Furosemide Injection PHA 09/02/24 In Process (Lasix Injection) 16:00 Doxycycline PHA 09/02/24 Logged 100mg/100ml 16:00 Methylprednisolone PHA 09/02/24 Logged Sod Succ (Solu Medrol 16:00 Accucheck BD 09/02/24 Transmitted 18:00 Accucheck BD 09/03/24 Transmitted 00:00 Accucheck BD 09/03/24 Transmitted 03:00 Accucheck BD 09/03/24 Transmitted 06:00 Accucheck BD 09/03/24 Transmitted 09:00 Accucheck BD 09/03/24 Transmitted 12:00 Accucheck BD 09/03/24 Transmitted 15:00 Accucheck BD 09/03/24 Transmitted 18:00 Accucheck BD 09/04/24 Transmitted 00:00 Accucheck BD 09/04/24 Transmitted 03:00 Accucheck BD 09/04/24 Transmitted 06:00 Accucheck BD 09/04/24 Transmitted 09:00 Accucheck BD 09/04/24 Transmitted 12:00 Accucheck BD 09/04/24 Transmitted 15:00 Accucheck BD 09/04/24 Transmitted 18:00 Glucose Blood PHA 09/02/24 Logged (Accu-Chek Comfort 16:00 Insulin R (Human) PHA 09/02/24 Logged (Insulin R) 16:00 Dextrose 50% Syringe PHA 09/02/24 Logged 16:00 Sildenafil Citrate PHA 09/02/24 Logged (Revatio) 16:00 Sildenafil Citrate PHA 09/02/24 Logged (Revatio) 20:00 Date of Service: Sep 02, 2024 Billing Provider: GIOVANNI DEJESUS MD Common Visit Codes: [id number] INP/OBS CARE(HIGH) MEDARDO SALVADOR RESIDENT Sep 02, 2024 16:28 GIOVANNI DEJESUS MD Sep 02, 2024 18:17
[2024-09-02 19:36] VITALS: PULSE 120; RESP 26; O2SAT 98
[2024-09-02] MEDS ORDERED: ALBUMIN 5% 250 ML IV ONE (20:00)
[2024-09-02] MEDS: SILDENAFIL CITRATE 20 MG TAB PO SCH (20:00)
--- NOTE | 2024-09-02 23:33 | DVHINCON2 ---
Date of service: Sep 02, 2024 Referring Physician Syeda Castano MD Reason for Consultation Acute hypoxic respiratory failure, ILD exacerbation, bronchiectasis, pulmonary h ypertension. History of Present Illness A 64-year-old woman with PMHx of COPD, atrial fibrillation, CHF, diabetes and hypertension who presented to the ED on 08/30/24 with chief complaint of SOB. Per EMS, pt had worsening SOB with associated mild bilateral leg edema for 2 days prior to presentation. Sx worsened on day of presentation, prompting pt to call 911. EMS noted A-Fib with RVR on their EKG; sats were 77% on BiPAP and after being given a DuoNeb treatment en route to the ED. Pt has history of recent intubation approximately 1 month ago. He denied any chest pain, cough, fever, or chills. Patient was admitted for further care, and pulmonary consultation is requested for evaluation and management d/t acute hypoxic respiratory failure, ILD exacerbation, bronchiectasis, and pulmonary hypertension. Review of Systems: 14-point review of systems negative unless otherwise noted above. Past Medical History: COPD, atrial fibrillation, CHF, diabetes and hypertension Past Surgical History: Denies Medications: Reviewed. Allergies: No known drug allergies. Family History: Stroke. Social History: Nonsmoker. No alcohol or illicit drug use. Family History: Stroke G8 FATHER ( cerebral aneurysm) Allergies: Coded Allergies: NO KNOWN ALLERGIES (Unverified , 11/29/14) Home Meds Active Scripts Doxycycline (Monohydrate) (Doxycycline) 100 Mg Cap, 100 MG PO BID for 5 Days, #10 CAP Prov:JUAN YEUNG BRANCH RETAIL EXECUTIVE 08/04/24 Empagliflozin (Jardiance) 10 Mg Tab, 10 MG PO DAILY for 30 Days, #30 TAB 1 Refill Prov:JUAN YEUNG BRANCH RET[employer] EXECUTIVE 08/04/24 Amiodarone HCl (Amiodarone HCl) 200 Mg Tab, 200 MG PO Q12HR for 30 Days, #60 TAB Prov:JUAN YEUNG BRANCH RETAIL EXECUTIVE 08/04/24 Reported Medications Gabapentin (Gabapentin) 100 Mg Cap, 2 CAP PO DAILY 07/25/24 Simvastatin (Simvastatin) 20 Mg Tab, 1 TAB PO 07/25/24 Dabigatran Etexilate Mesylate (Dabigatran Etexilate) 150 Mg Cap, PO 07/25/24 Metoprolol Succinate (Metoprolol Succinate Er) 100 Mg Tab, 1 TAB PO BID 07/25/24 Digoxin (Digoxin) 125 Mcg Tab, 1 TAB PO DAILY 07/25/24 Albuterol Sulfate (Ventolin Hfa) Aer, 1 PUFF IN Q4HP PRN, AER 11/29/14 Lisinopril (Lisinopril) 10 Mg Tab, 10 MG PO BID, TAB 11/29/14 Hydrochlorothiazide (Hydrochlorothiazide) 12.5 Mg Cap, 12.5 MG PO BID, CAP 11/29/14 Lamotrigine (Lamotrigine) 200 Mg Tab, 200 MG PO DAILY, #30 11/29/14 Sertraline Hcl (Sertraline Hcl) 100 Mg Tab, 100 MG PO HS, #60 11/29/14 Mirtazapine (Mirtazapine Oral Disintegrating Tablet) 30 Mg Tab, 30 MG PO HS, #30 11/29/14 Current Medications Current Medications Medications (Trade) Dose Ordered Sig/Addi Route PRN Reason Start Time Stop Time Status Last Admin Digoxin (Lanoxin Tablet) 0.125 mg DAILY PO 09/02/24 10:00 09/02/24 10:04 Empaglifozin (Jardiance) 10 mg DAILY PO 09/02/24 10:00 09/02/24 10:04 Lisinopril (Zestril Tablet) 10 mg DAILY PO 09/02/24 10:00 Spironolactone (Aldactone) 12.5 mg DAILY PO 09/02/24 10:00 09/02/24 10:02 Furosemide (Lasix Injection) 40 mg DAILY IV 09/03/24 10:00 09/02/24 11:44 DC Furosemide (Lasix Injection) 40 mg Q6HR IV 09/02/24 16:00 09/02/24 16:08 Doxycycline Hyclate 100 ml @ 50 mls/hr Q12H IV 09/02/24 16:00 09/02/24 16:22 Methylprednisolone Sodium Succinate (Solu Medrol) 125 mg Q8HR IV 09/02/24 16:00 09/04/24 16:00 09/02/24 21:56 Diagnostic Test (Pha) (Accu-Chek Comfort Curve T) 1 strip IQ4HR 09/02/24 16:00 09/02/24 20:17 Insulin Human Regular (InsuLIN R) IQ4HR SC 09/02/24 16:00 09/02/24 20:18 Dextrose 50 ml UD PRN IV Blood Sugar LESS THAN 60 09/02/24 16:00 Sildenafil Citrate (Revatio) 20 mg TID@08,14,20 PO 09/02/24 20:00 Vital Signs Vital Signs Date Time Temp Pulse Resp B/P (MAP) Pulse Ox O2 Delivery O2 Flow Rate FiO2 09/02/24 22:00 97.9 121 20 102/65 (77) 98 97.9 09/02/24 19:36 Nasal Cannula* 6 N/A Hi-Flow NC Physical Exam Gen.: Patient lying in bed in no apparent distress. On supplemental oxygen. Head: Normocephalic, atraumatic. Eyes: EOMI/PERRLA. Ears: Normal hearing. Normal anatomy. Neck/trachea: Trachea midline, supple. Nose: Normal external anatomy. Mouth: Moist mucous membranes. Chest: Decreased air entry bilaterally. No wheezing or rhonchi. Cardiovascular: Positive S1, positive S2. Regular rate and rhythm. Abdomen: Positive bowel sounds in all 4 quadrants. Soft, non-tender, non- distended. : Deferred. Rectal: Deferred. Skin: Warm, dry. Intact. Extremities: 2+ radial pulses bilaterally. No lower extremity edema. Neuro: Awake, alert, oriented x3. No gross motor or sensory deficits. Cranial nerves II through XII intact. Gait not assessed. Labs/Diagnostic Data Labs Test 09/02/24 20:11 09/02/24 11:37 09/02/24 04:38 09/01/24 08:17 Range/Units POC Glucose 176 H 70-106 mg/dl Blood Gas Specimen Type Arterial Blood Gas Sample Site Right radial Blood Gas Patient Temperature 37.0 Arterial Blood Date Drawn [id number] Arterial Blood pH 7.538 H 7.350-7.450 Arterial Blood Partial Pressure CO2 35.3 32.0-45.0 mmHg Arterial Blood Partial Pressure O2 60.5 L 83.0-108.0 mmHg Arterial Blood HCO3 29.4 H 21.0-28.0 mmol/L Arterial Blood Oxygen Saturation 92.0 L 94.0-98.0 % Arterial Blood Base Excess 6.6 H -2.0-3.0 mmol/L Arterial Blood Oxyhemoglobin 90.3 L 94.0-98.0 % Arterial Blood Carboxyhemoglobin 1.3 0.5-1.5 % Arterial Blood Methemoglobin 0.6 0.0-1.5 % Roverto Test Yes Blood Gas Total Hemoglobin 10.50 L 12.0-16.0 g/dL Blood Gas Set Respiration Rate 12.0 Blood Gas Modality Mask - bipap FiO2 % 35.0 Blood Gas EPAP 7 Blood Gas IPAP 18 White Blood Count 6.8 # 4.4-10.8 10^3/uL Red Blood Count 3.06 L 4.0-5.20 10^6/uL Hemoglobin 9.3 L 12.2-16.2 g/dL Hematocrit 28.1 #L 36.0-46.0 % Mean Corpuscular Volume 92.0 # 80.0-100.0 fL Mean Corpuscular Hemoglobin 30.4 28.0-32.0 pg Mean Corpuscular Hemoglobin Concent 33.1 32.0-36.0 g/dL Red Cell Distribution Width 21.5 H 11.8-14.3 % Platelet Count 219 140-450 10^3/uL Mean Platelet Volume 7.5 6.9-10.8 fL Neutrophils (%) (Auto) 70.7 37.0-80.0 % Lymphocytes (%) (Auto) 18.9 10.0-50.0 % Monocytes (%) (Auto) 9.3 0.0-12.0 % Eosinophils (%) (Auto) 0.8 0.0-7.0 % Basophils (%) (Auto) 0.3 0.0-2.0 % Neutrophils # (Auto) 4.8 1.6-8.6 10 ^3/uL Lymphocytes # (Auto) 1.3 0.4-5.4 10 ^3/uL Monocytes # (Auto) 0.6 0-1.3 10 ^3/uL Eosinophils # (Auto) 0.1 0-0.8 10 ^3/uL Basophils # (Auto) 0 0-0.2 10 ^3/uL Nucleated Red Blood Cells 0.2 % Platelet Estimate Adequate Anisocytosis (manual) Slight Stomatocytes Few Sodium Level 142 136-145 mmol/L Potassium Level 3.5 3.5-5.1 mmol/L Chloride Level 102 98-107 mmol/L Carbon Dioxide Level 30 20-31 mmol/L Anion Gap 10 5-15 Blood Urea Nitrogen 13 9-23 mg/dL Creatinine 1.11 H 0.550-1.02 mg/dL Glomerular Filtration Rate Calc 56 >90 mL/min BUN/Creatinine Ratio 11.7 10.0-20.0 Serum Glucose 69 L 74-106 mg/dL Calcium Level 9.5 8.7-10.4 mg/dL Magnesium Level 1.8 1.6-2.6 mg/dL Total Bilirubin 0.8 0.2-1.0 mg/dL Aspartate Amino Transferase (AST) 23 13-40 U/L Alanine Aminotransferase (ALT) 18 7-40 U/L Alkaline Phosphatase 145 H 46-116 U/L B-Type Natriuretic Peptide 941.66 0-100 pg/mL Total Protein 5.5 L 5.7-8.2 g/dL Albumin 3.4 3.2-4.8 g/dL Prothrombin Time 11.4 9.3-11.8 sec Prothrombin Time INR 1.08 0.9-1.15 Activated Partial Thromboplast Time 54.3 H 24.5-34.5 SEC Test 08/31/24 06:09 08/31/24 06:05 08/30/24 16:42 08/30/24 10:00 Range/Units Random Vancomycin Level 16.6 H 5-10 ug/mL Blood Gas Liter Flow 5.00 Urine Color Light-yellow Yellow Urine Clarity Clear Clear Urine pH 6.5 5.0-9.0 Urine Specific Stanton 1.011 1.001-1.035 Urine Protein Negative Negative Urine Ketones Negative Negative Urine Blood Negative Negative /uL Urine Nitrite Negative Negative Urine Bilirubin Negative Negative Urine Urobilinogen Normal Negative mg/dL Urine Leukocyte Esterase Negative Negative /uL Urine RBC None seen 0 - 4 /hpf Urine Microscopic WBC 1 0-5 /HPF Urine Squamous Epithelial Cells None seen <5 /hpf Urine Bacteria None seen None Seen /hpf Urine Creatinine 47.37 30.0-125.0 mg/dL Urine Sodium 107 40-220 mmol/L Urine Glucose Normal Normal mg/dL Urine Opiates Screen Neg NEGATIVE Urine Fentanyl Screen Neg NEGATIVE Urine Barbiturates Screen Neg NEGATIVE Urine Phencyclidine Screen Neg NEGATIVE Urine Amphetamines Screen Neg NEGATIVE Urine Benzodiazepines Screen Neg NEGATIVE Urine Cocaine Screen Neg NEGATIVE Urine Cannabinoids Screen Neg NEGATIVE Lactic Acid Level 1.3 0.4-2.0 mmol/L Test 08/30/24 08:10 Range/Units D-Dimer, Quantitative 4.33 H 0.0-0.49 mg/L FEU Troponin I High Sensitivity 9 </=34 ng/L Microbiology Date/Time Source Procedure Growth Status 08/30/24 12:55 Blood Blood Culture - Preliminary NO GROWTH AFTER 72 HOURS OF INCUBATION. Resulted Assessment Impression: Acute hypoxic respiratory failure Acute ILD exacerbation Bronchiectasis Pulmonary hypertension Obesity BMI 32.5 Plan: Supplemental oxygen Titrate to keep O2 sats above 92%. Taper O2 as tolerated. BiPAP PRN. Continue bronchodilators. Antibiotics - recommend doxycycline due to bronchiectasis Avoid Zithromax due to risk of CAROL resistance. Continue steroids Start sildenafil TID d/t pulmonary hypertension. Hold for systolic blood pressure less than 90 mmHg. Monitor renal function. Monitor electrolytes. Supplement as necessary. Monitor ins and outs. DVT prophylaxis. Prognosis: Poor given patient's multiple co-morbidities. Rest of plan per hospitalist and other consultants. Thank you Dr. Castano for allowing me to participate in this patient's care. Further recommendations will depend on the patient's clinical course. Please do not hesitate to contact me if you have any questions or concerns. This medical document was created using an electronic medical record system with [employer] dictation system. Although these documentations are being carefully reviewed, there may still be some phonetic and typographical changes. The errors are purely typographical, due to imperfection on the software program, and do not reflect any compromise in the patient's medical care. Plan discussed with: Patient, Other (RN/Dr. Castano) ULISES UMAÑA MD Sep 02, 2024 23:33
[2024-09-03] MEDS: ALBUMIN 25% 100 ML IV ONE (03:11)
[2024-09-03 05:15] LABS: Basophils # (auto) 0 10 ^3/uL (0-0.2); Basophils % (auto) 0.2 % (0.0-2.0); Eosinophils # (auto) 0 10 ^3/uL (0-0.8); Eosinophils % (auto) 0.1 % (0.0-7.0); Hematocrit 26.8 % (36.0-46.0); Hemoglobin 8.6 g/dL (12.2-16.2); Lymphocytes # (auto) 0.4 10 ^3/uL (0.4-5.4); Lymphocytes % (auto) 11.5 % (10.0-50.0); Mean Corpuscular Hemoglobin 29.9 pg (28.0-32.0); Mean Corpuscular Hgb Conc. 32.3 g/dL (32.0-36.0); Mean Corpuscular Volume 92.7 fL (80.0-100.0); Monocytes # (auto) 0.1 10 ^3/uL (0-1.3); Neutrophils # (auto) 3.1 10 ^3/uL (1.6-8.6); Neutrophils % (auto) 86.2 % (37.0-80.0); Nucleated Red Blood Cells % 0.1 %; Platelet Count (auto) 184 10^3/uL (140-450); Red Blood Cells 2.89 10^6/uL (4.0-5.20); White Blood Cell 3.6 10^3/uL (4.4-10.8)
[2024-09-03 05:34] LABS: Alanine Aminotransferase 13 U/L (7-40); Albumin 4.2 g/dL (3.2-4.8); Anion Gap 9 (5-15); BUN/Creatinine Ratio 11.9 (10.0-20.0); Bilirubin, Total 0.6 mg/dL (0.2-1.0); Blood Urea Nitrogen 16 mg/dL (9-23); Calcium 9.4 mg/dL (8.7-10.4); Carbon Dioxide 31 mmol/L (20-31); Chloride 104 mmol/L (98-107); Magnesium 2.2 mg/dL (1.6-2.6); Potassium 3.9 mmol/L (3.5-5.1); Sodium 144 mmol/L (136-145); Total Protein 6.2 g/dL (5.7-8.2)
[2024-09-03 05:49] LABS: Alkaline Phosphatase 125 U/L (46-116); Aspartate Aminotransferase 12 U/L (13-40); Glucose 190 mg/dL (74-106)
[2024-09-03 07:15] VITALS: O2SAT 94
[2024-09-03] MEDS ORDERED: FUROSEMIDE 40 MG/4 ML VIAL IV SCH (10:00)
[2024-09-03] MEDS: PANTOPRAZOLE 40 MG/10 ML VIAL INJ IV ONE (10:15)
--- NOTE | 2024-09-03 11:06 | DVHPN2 ---
Consult Progress Note Date Seen: Sep 03, 2024 Subjective Review of Systems: CVS:Normal, RESPIRATORY:Abnormal, NEURO:Normal Other Systems: C/o SOB, improving Objective vital signs Vital Sign Date Time Temp Pulse Resp B/P (MAP) Pulse Ox O2 Delivery O2 Flow Rate FiO2 09/03/24 10:59 108 09/03/24 10:10 19 94/58 (70) 96 09/03/24 08:10 98.0 98.0 09/03/24 07:15 Hi-Flow NC 6 N/A Total Intake and Output 09/02/24 09/02/24 09/03/24 15:00 23:00 07:00 Intake Total 400 ml 635.998 ml 200 ml Output Total 2100 ml Balance 400 ml -1464.002 ml 200 ml medications Current Medications Medications Dose Ordered Sig/Addi Route Start Time Stop Time Status Last Admin Dose Admin Gabapentin 100 mg DAILY PO 08/31/24 10:00 09/03/24 10:59 100 MG Mirtazapine 30 mg HS PO 08/30/24 22:00 09/02/24 21:57 30 MG Lamotrigine 200 mg DAILY PO 08/31/24 10:00 09/03/24 10:58 200 MG Sertraline HCl 100 mg HS PO 08/30/24 22:00 09/02/24 21:57 100 MG Sodium Chloride 10 ml Q8HR IV 08/30/24 14:00 09/03/24 05:42 10 ML Docusate Sodium 100 mg BIDPRN PRN PO 08/30/24 11:15 Ondansetron HCl 4 mg Q4HP PRN IV 08/30/24 11:15 Lorazepam 1 mg Q8HP PRN IV 08/31/24 00:30 09/01/24 22:01 1 MG Metoprolol Tartrate 50 mg BID PO 08/31/24 22:00 09/01/24 21:56 50 MG Atorvastatin Calcium 20 mg HS PO 08/31/24 22:00 09/02/24 21:56 20 MG Ceftriaxone Sodium 50 ml @ 100 mls/hr DAILY@09 IV 09/01/24 09:00 09/03/24 10:52 100 MLS/HR Enoxaparin Sodium 80 mg Q12HR SC 09/01/24 10:00 09/03/24 11:00 80 MG Digoxin 0.125 mg DAILY PO 09/02/24 10:00 09/03/24 10:59 0.125 MG Amiodarone HCl 200 mg Q12HR PO 09/01/24 22:00 09/03/24 10:52 200 MG Empaglifozin 10 mg DAILY PO 09/02/24 10:00 09/02/24 10:04 10 MG Lisinopril 10 mg DAILY PO 09/02/24 10:00 Spironolactone 12.5 mg DAILY PO 09/02/24 10:00 09/02/24 10:02 12.5 MG Furosemide 40 mg Q6HR IV 09/02/24 16:00 09/03/24 00:07 40 MG Doxycycline Hyclate 100 ml @ 50 mls/hr Q12H IV 09/02/24 16:00 09/03/24 04:13 50 MLS/HR Methylprednisolone Sodium Succinate 125 mg Q8HR IV 09/02/24 16:00 09/04/24 16:00 09/03/24 05:57 125 MG Diagnostic Test (Pha) 1 strip IQ4HR 09/02/24 16:00 09/03/24 08:00 1 STRIP Insulin Human Regular IQ4HR SC 09/02/24 16:00 09/03/24 09:17 4 UNITS Dextrose 50 ml UD PRN IV 09/02/24 16:00 Sildenafil Citrate 20 mg TID@08,14,20 PO 09/02/24 20:00 09/03/24 09:16 20 MG Pantoprazole Sodium 40 mg BID IV 09/03/24 22:00 Examination: GENERAL:Abnormal, LUNGS:Abnormal (O2 via NC at 6 LPM. Coarse), CVS:Abnormal (A-fib 100s-120s bpm), NEURO:Normal laboratory and microbiology Laboratory Tests 09/03/24 04:56 Test 09/03/24 04:56 Range/Units Serum Glucose 190 H 74-106 mg/dL Problem List/Assessment/Plan Problem List/Assessment/Plan Acute on chronic decompensated HFrEF, NYHA class III Paroxysmal atrial fibrillation, Stage III, on Dabigatran and Amiodarone Mild mitral valve stenosis/rheumatic mitral valve disease Mild nonobstructive coronary artery disease Acute on chronic hypoxic respiratory failure Hypertension Hyperlipidemia Type 2 diabetes mellitus COPD with hx of tobacco use Morbid obesity Plan/Recommendation (Dr. Wood) * Echocardiogram from 07/25/24 revealed EF 40% with anterior anteroseptal wall hypokinesia * Continue GDMT for CHF as renal function permits, uptitrate as tolerated * Preload and afterload reduction. Initiate Lasix * Strict I&Os, daily weights, maintain fluid restriction * Therapeutic Lovenox, continue Pradaxa therapy upon discharge * [id number] VASc score: 3 points, HAS-BLED score: 1 point * Rate control, beta-ramiro plus digoxin therapy * Antiarrhythmic, amiodarone BID * Monitor and replete electrolytes as needed, K> 4 and Mg>2 * Lipid-lowering agent * Pulmonology recommendations Thank you for allowing us to care for this patient. Please call with any questions or concerns. Critical care time: 30 min. This medical document was created using an electronic medical record system with voice recognition software and computerized dictation system. Although this document has been carefully reviewed, there might still be some phonetic and typographical errors. Occasional wrong-word or ``sound-alike substitutions may have occurred due to the inherent limitations of voice recognition software. These areas are purely typographical due to imperfections of the software programs and do not reflect any compromise in the patient's medical care. Please read the chart carefully and recognize, using context, where these substitutions have occurred. Plan discussed with: Patient, Other Date of Service: Sep 03, 2024 Billing Provider: LARISSA GEE Cardiology Common Codes: [id number] HOSP CARE([facility] LARISSA GEE Sep 03, 2024 11:06
[2024-09-03] MEDS: FUROSEMIDE 40 MG/4 ML VIAL IV ONE (11:15)
[2024-09-03 14:11] VITALS: O2SAT 95
--- NOTE | 2024-09-03 18:07 | DVHPNRES ---
Progress Note Date Seen: Sep 03, 2024 Resident Creating Document: MEDARDO SALVADOR RESIDENT Medical Necessity Reason Pt with a Central, PICC or Fol: No Medical Necessity Reason Interstitial lung disease Bronchiectasis Acute respiratory failure Subjective Review of Systems This is a 64 year old female with a past mediacal history of AFIB, CHF, COPD, DM, HTN and intubated about a month ago presented to the ED via EMS with chief complaint of SOB via. According to the patient, she has experiencing worsening SOB with associated mild bilateral leg edema for the past 2 days. Per EMS states patient was noted to be in A-Fib RVR on their EKG along with noting to be 77% on BiPAP and after being given a DuoNeb treatment on route to the ED. Initial BNP 546.27pg/mL, troponin negative. Initial twelve lead electrocardiogram reveals atrial fibrillation. Patient recently underwent a coronary angiogram on 08/01/24 which revealed mild nonobstructive coronary artery disease. Patient denies any chest pain, cough, fever, or chills. Chest X-ray showed cardiomegaly with pulmonary congestion and edema. Superimposed pneumonia cannot be excluded.US Showed right pleural effusion. Normal sonographic appearance of the kidneys. No hydronephrosis. PN : Patient seen and examine by the bedside. She is back on 4L of oxygen. HR is better today at 112. Patient is on Amiodarone and Dabigatran. Pitting edema is improved, but still congested. She is also on Furosemide 40 mg BID, GDMT and antibiotics. Will keep monitoring PN 09/02/2024: Patient is seen and examined today. CT of the chest also reviewed with the environmental services floor tech. CT chest showed diffused glass opacities, areas of bronchiectasis, chronic interstitial lung disease, pleural effusion and pulmonary and pulmonary edema. Also her echo done revealed pulmonary hypertension with RVSP of 50mmHg. Patient is not really doing well. she is now on 6 L of oxygen via high-flow nasal oxygen. Bilateral pitting edema is improved her WBC count is also within normal limits. However she is still be tachycardic and her blood pressure soft. PN 09/03/2024: Patient is seen and examined today. CT (09/02/2024) chest showed diffused glass opacities, areas of bronchiectasis, chronic interstitial lung disease, pleural effusion and pulmonary and pulmonary edema. Also her echo done revealed pulmonary hypertension with RVSP of 50mmHg. She is doing much better today. Respiratory improved. Currently on 3L oxygen with Spo2 of 94%. BP is 94/58-112/61. Continue current treatment. Patient on Telemtry status Objective vital signs Vital Sign Date Time Temp Pulse Resp B/P (MAP) Pulse Ox O2 Delivery O2 Flow Rate FiO2 09/03/24 17:12 94 Nasal Cannula* 3 32 09/03/24 16:59 135 22 112/61 (78) 09/03/24 08:10 98.0 98.0 Total Intake and Output 09/02/24 09/02/24 09/03/24 15:00 23:00 07:00 Intake Total 400 ml 635.998 ml 200 ml Output Total 2100 ml Balance 400 ml -1464.002 ml 200 ml medications Current Medications Medications Dose Ordered Sig/Addi Route Start Time Stop Time Status Last Admin Dose Admin Gabapentin 100 mg DAILY PO 08/31/24 10:00 09/03/24 10:59 100 MG Mirtazapine 30 mg HS PO 08/30/24 22:00 09/02/24 21:57 30 MG Lamotrigine 200 mg DAILY PO 08/31/24 10:00 09/03/24 10:58 200 MG Sertraline HCl 100 mg HS PO 08/30/24 22:00 09/02/24 21:57 100 MG Sodium Chloride 10 ml Q8HR IV 08/30/24 14:00 09/03/24 13:38 10 ML Docusate Sodium 100 mg BIDPRN PRN PO 08/30/24 11:15 Ondansetron HCl 4 mg Q4HP PRN IV 08/30/24 11:15 Lorazepam 1 mg Q8HP PRN IV 08/31/24 00:30 09/01/24 22:01 1 MG Atorvastatin Calcium 20 mg HS PO 08/31/24 22:00 09/02/24 21:56 20 MG Ceftriaxone Sodium 50 ml @ 100 mls/hr DAILY@09 IV 09/01/24 09:00 09/03/24 10:52 100 MLS/HR Enoxaparin Sodium 80 mg Q12HR SC 09/01/24 10:00 09/03/24 11:00 80 MG Digoxin 0.125 mg DAILY PO 09/02/24 10:00 09/03/24 10:59 0.125 MG Amiodarone HCl 200 mg Q12HR PO 09/01/24 22:00 09/03/24 10:52 200 MG Empaglifozin 10 mg DAILY PO 09/02/24 10:00 09/03/24 10:00 10 MG Lisinopril 10 mg DAILY PO 09/02/24 10:00 Spironolactone 12.5 mg DAILY PO 09/02/24 10:00 09/02/24 10:02 12.5 MG Furosemide 40 mg Q6HR IV 09/02/24 16:00 09/03/24 12:54 40 MG Doxycycline Hyclate 100 ml @ 50 mls/hr Q12H IV 09/02/24 16:00 09/03/24 15:37 50 MLS/HR Methylprednisolone Sodium Succinate 125 mg Q8HR IV 09/02/24 16:00 09/04/24 16:00 09/03/24 14:06 125 MG Diagnostic Test (Pha) 1 strip IQ4HR 09/02/24 16:00 09/03/24 16:29 1 STRIP Insulin Human Regular IQ4HR SC 09/02/24 16:00 09/03/24 16:28 4 UNITS Dextrose 50 ml UD PRN IV 09/02/24 16:00 Sildenafil Citrate 20 mg TID@08,14,20 PO 09/02/24 20:00 09/03/24 14:06 20 MG Pantoprazole Sodium 40 mg BID IV 09/03/24 22:00 Metoprolol Tartrate 12.5 mg BID PO 09/03/24 22:00 Furosemide 40 mg DAILY IV 09/04/24 10:00 Examination General Appearance: Alert, Oriented X3, Cooperative, improving respiratory distress 3L of oxygen HEENT: Atraumatic, PERRLA, EOMI, Mucous membrane moist/pink Respiratory: crackles L> R, diminished breath sound on the right Cardiovascular: Regular rate, Normal S1, Normal S2, No murmurs, no chest wall tenderness Abdominal: NO distention, no tenderness, bowel sounds present, no scars noted Extremities: resolved, skin wrinkle noted Skin: No rashes, No breakdown, No significant lesion Neuro: Normal gait, Normal speech, Strength at 5/5 X4 ext, Normal tone, Sensation intact, Cranial nerves 3-12 NL, Reflexes 2+ Psych/Mental Status: Mental status NL, Mood NL laboratory and microbiology Laboratory Tests 09/03/24 04:56 Test 09/03/24 04:56 Range/Units Serum Glucose 190 H 74-106 mg/dL Microbiology Date/Time Source Procedure Growth Status 08/30/24 12:55 Blood Blood Culture - Preliminary NO GROWTH AFTER 72 HOURS OF INCUBATION. Resulted Problem List/Assessment/Plan Problem List/Assessment/Plan Assessment Acute on chronic decompensated HFrEF, Atrial fibrillation (on Dabigatran and Amiodarone) Acute hypoxic respiratory failure secondary to pneumonia/ ILD/ chf exacerbation Mild mitral valve stenosis/rheumatic mitral valve disease Nonischemic cardiomyopathy pulmonary emboli ruled out Hypertension Hyperlipidemia Type 2 diabetes mellitus COPD with history of tobacco use Obesity Pulmonary hypertension (RVSP 50mmHg on Echo) Interstitial lung disease Bronchiectasis Plan Antibiotics: Ceftriaxone and doxycycline 100mg q12hrs (Avoid Zithromax due to risk of CAROL resistance) IV Furosemide 40 mg q6hrs Solu-Medrol 125 mg q.8 hours for 48 hours ( 2 days; 09/04/2024) Continue sildenafil 20 mg t.i.d.for pulmonary hypertension; HOLD it if SBP <90 Aggressive sliding scale Supplemental oxygen Titrate to keep O2 sats above 92%. Taper O2 as tolerated. BiPAP PRN. Continue GDMT as tolerated Amiodarone oral Continue oxygen and titrate down appropriately Control rate with metoprolol tartrate Continue Therapeutic Lovenox, continue Pradaxa therapy upon discharge * Rate control, beta-ramiro for rate control plus digoxin including loading dose * Antiarrhythmic, amiodarone drip per protocol transition to oral form HS VT prophylaxis. Code status: Full Care discussed for more than 45 minutes Case and plan discussed with Dr. Dejesus Plan discussed with: Patient, Son My Orders My Orders Orders - MEDARDO SALVADOR Procedure Category Date Status Time Pantoprazole PHA 09/03/24 In Process (Protonix) 22:00 Date of Service: Sep 03, 2024 Billing Provider: GIOVANNI DEJESUS MD Common Visit Codes: [id number] INP/OBS CARE(HIGH) MEDARDO SALVADOR Sep 03, 2024 18:07 GIOVANNI DEJESUS MD Sep 03, 2024 19:47
[2024-09-03 18:15] VITALS: O2SAT 91
[2024-09-03 20:00] VITALS: PULSE 145; RESP 21; O2SAT 92
[2024-09-03 22:41] VITALS: BP 131/71; PULSE 91; RESP 20; TEMP 98.1; O2SAT 94
[2024-09-03 22:43] VITALS: BP 131/71; PULSE 91; RESP 20; TEMP 98.1; O2SAT 94
[2024-09-03] MEDS: PANTOPRAZOLE 40 MG/10 ML VIAL INJ IV SCH (23:17)
[2024-09-03] MEDS: METOPROLOL TARTRATE 25 MG TAB PO SCH (23:19)
[2024-09-04] VITALS (8 sets, daily range): BP systolic 94–138; BP diastolic 34–85; PULSE 60–160; RESP 16–20; TEMP 96.4–98.1; O2SAT 92–98
[2024-09-04 06:36] LABS: Basophils # (auto) 0 10 ^3/uL (0-0.2); Eosinophils # (auto) 0 10 ^3/uL (0-0.8); Hematocrit 27.3 % (36.0-46.0); Hemoglobin 8.9 g/dL (12.2-16.2); Lymphocytes # (auto) 0.6 10 ^3/uL (0.4-5.4); Lymphocytes % (auto) 8.1 % (10.0-50.0); Mean Corpuscular Hemoglobin 30.3 pg (28.0-32.0); Mean Corpuscular Hgb Conc. 32.4 g/dL (32.0-36.0); Mean Corpuscular Volume 93.5 fL (80.0-100.0); Monocytes # (auto) 0.2 10 ^3/uL (0-1.3); Monocytes % (auto) 2.5 % (0.0-12.0); Neutrophils # (auto) 6.6 10 ^3/uL (1.6-8.6); Neutrophils % (auto) 89.4 % (37.0-80.0); Nucleated Red Blood Cells % 0.1 %; Platelet Count (auto) 199 10^3/uL (140-450); Red Blood Cells 2.92 10^6/uL (4.0-5.20); Red Cell Distribution Width 20.7 % (11.8-14.3); White Blood Cell 7.4 10^3/uL (4.4-10.8)
[2024-09-04 06:54] LABS: Alanine Aminotransferase 11 U/L (7-40); Albumin 3.8 g/dL (3.2-4.8); Alkaline Phosphatase 105 U/L (46-116); Anion Gap 11 (5-15); Aspartate Aminotransferase 16 U/L (13-40); BUN/Creatinine Ratio 15.1 (10.0-20.0); Bilirubin, Total 0.5 mg/dL (0.2-1.0); Blood Urea Nitrogen 18 mg/dL (9-23); Calcium 9.5 mg/dL (8.7-10.4); Carbon Dioxide 29 mmol/L (20-31); Chloride 104 mmol/L (98-107); Magnesium 2.1 mg/dL (1.6-2.6); Sodium 144 mmol/L (136-145); Total Protein 5.8 g/dL (5.7-8.2)
[2024-09-04 06:56] LABS: Glucose 144 mg/dL (74-106); Potassium 3.5 mmol/L (3.5-5.1)
--- NOTE | 2024-09-04 07:04 | DVH ---
CHEST RADIOGRAPH Indication: pul edema reassessment Technique: Single frontal view of the chest was obtained Comparison: XY CHEST PORTABLE on DOS: 09/02/24 FINDINGS: Lines and Tubes: None Lungs: Diffuse bilateral airspace disease. Bilateral interstitial opacities. Pleura: No effusion. No pneumothorax. Cardiomediastinal contours: Cardiomegaly. Bones: No acute osseous abnormality. IMPRESSION: 1. No significant change in bilateral airspace and interstitial opacities. 2. Cardiomegaly.
--- NOTE | 2024-09-04 07:10 | ECG ---
[facility] Test Date: 2024-08-31 Test Time: 09:18:26 Pat Name: CHIDI PARMAR Department: ED Room: [facility]3T B Gender: F Manager Of Marketing: : 1960 Requested By: IMMANUEL RICHEY Order Number: [id number] Reading MD: Marco Wood Measurements Intervals [place] Rate: 143 P: 0 WV: 0 QRS: 85 QRSD: 85 T: 143 QT: 313 QTc: 483 Interpretive Statements Atrial fibrillation Borderline right axis deviation Low voltage, precordial leads Repol abnrm suggests ischemia, anterolateral Electronically Signed On 09-04-2024 9:44:50 PST by Marco Wood Please click the below link to view image of tracing.
[2024-09-04] MEDS: FUROSEMIDE 40 MG/4 ML VIAL IV SCH (10:00)
--- NOTE | 2024-09-04 10:19 | CONS ---
Pharmacy Clinical Information: From Heart Failure Fallout Report on CQM Application, Maeve Steiner is a 64 year old female with PMH of Afib, CHF (LVEF 30 -35%), COPD, DM, HTN. Her home medications for heart failure include empagliflozin, lisinopril, and metoprolol succinate, Her inpatient medications include empagliflozin, metoprolol tartrate, lisinopril and spironolactone. EBBB not recommended at this time due to hypotension. Consider switching to metoprolol succinate once patient is hemodynamically stable. RUSTY GUTIÉRREZ PHARMACIST Sep 04, 2024 10:19
[2024-09-04] MEDS: dilTIAZem 120MG ER CAP PO ONE (11:45)
--- NOTE | 2024-09-04 14:52 | DVHPN2 ---
Consult Progress Note Subjective Patient reports: Feels better Other Systems: Patient remains in atrial fibrillation now with controlled rate on primer powder blender wet Patient denies any cardiac symptoms Objective vital signs Vital Sign Date Time Temp Pulse Resp B/P (MAP) Pulse Ox O2 Delivery O2 Flow Rate FiO2 09/04/24 11:59 96.4 85 19 103/63 (76) 93 96.4 09/03/24 22:43 Nasal Cannula* 3 32 Total Intake and Output 09/03/24 09/03/24 09/04/24 15:00 23:00 07:00 Intake Total 200 ml 540 ml Output Total 600 ml 900 ml 900 ml Balance -600 ml -700 ml -360 ml medications Current Medications Medications Dose Ordered Sig/Addi Route Start Time Stop Time Status Last Admin Dose Admin Gabapentin 100 mg DAILY PO 08/31/24 10:00 09/04/24 09:13 100 MG Mirtazapine 30 mg HS PO 08/30/24 22:00 09/03/24 23:17 30 MG Lamotrigine 200 mg DAILY PO 08/31/24 10:00 09/04/24 09:16 200 MG Sertraline HCl 100 mg HS PO 08/30/24 22:00 09/03/24 23:18 100 MG Sodium Chloride 10 ml Q8HR IV 08/30/24 14:00 09/04/24 14:04 10 ML Docusate Sodium 100 mg BIDPRN PRN PO 08/30/24 11:15 Ondansetron HCl 4 mg Q4HP PRN IV 08/30/24 11:15 Lorazepam 1 mg Q8HP PRN IV 08/31/24 00:30 09/03/24 23:37 1 MG Atorvastatin Calcium 20 mg HS PO 08/31/24 22:00 09/03/24 23:19 20 MG Ceftriaxone Sodium 50 ml @ 100 mls/hr DAILY@09 IV 09/01/24 09:00 09/04/24 10:13 100 MLS/HR Enoxaparin Sodium 80 mg Q12HR SC 09/01/24 10:00 09/04/24 09:06 80 MG Digoxin 0.125 mg DAILY PO 09/02/24 10:00 09/04/24 09:11 0.125 MG Amiodarone HCl 200 mg Q12HR PO 09/01/24 22:00 09/04/24 09:19 200 MG Empaglifozin 10 mg DAILY PO 09/02/24 10:00 09/04/24 09:12 10 MG Lisinopril 10 mg DAILY PO 09/02/24 10:00 Spironolactone 12.5 mg DAILY PO 09/02/24 10:00 09/04/24 09:14 12.5 MG Furosemide 40 mg Q6HR IV 09/02/24 16:00 09/03/24 23:25 40 MG Doxycycline Hyclate 100 ml @ 50 mls/hr Q12H IV 09/02/24 16:00 09/04/24 03:33 50 MLS/HR Methylprednisolone Sodium Succinate 125 mg Q8HR IV 09/02/24 16:00 09/04/24 16:00 09/04/24 05:42 125 MG Diagnostic Test (Pha) 1 strip IQ4HR 09/02/24 16:00 09/04/24 12:00 1 STRIP Insulin Human Regular IQ4HR SC 09/02/24 16:00 09/04/24 12:00 2 UNITS Dextrose 50 ml UD PRN IV 09/02/24 16:00 Sildenafil Citrate 20 mg TID@08,14,20 PO 09/02/24 20:00 09/03/24 20:38 20 MG Pantoprazole Sodium 40 mg BID IV 09/03/24 22:00 09/04/24 09:06 40 MG Metoprolol Tartrate 12.5 mg BID PO 09/03/24 22:00 09/04/24 09:12 12.5 MG Furosemide 40 mg DAILY IV 09/04/24 10:00 Examination: GENERAL:Normal, LUNGS:Normal, CVS:Normal, NEURO:Normal laboratory and microbiology Laboratory Tests 09/04/24 05:34 Test 09/04/24 05:34 Range/Units Serum Glucose 144 H 74-106 mg/dL Problem List/Assessment/Plan Problem List/Assessment/Plan Acute on chronic decompensated HFrEF, NYHA class III Paroxysmal atrial fibrillation, Stage III, on Dabigatran and Amiodarone Mild mitral valve stenosis/rheumatic mitral valve disease Mild nonobstructive coronary artery disease Acute on chronic hypoxic respiratory failure Hypertension Hyperlipidemia Type 2 diabetes mellitus COPD with hx of tobacco use Morbid obesity Plan/Recommendation (Dr. Wood) * Echocardiogram from 07/25/24 revealed EF 40% with anterior anteroseptal wall hypokinesia * Continue GDMT for CHF as renal function permits, uptitrate as tolerated * Preload and afterload reduction * Strict I&Os, daily weights, maintain fluid restriction * Therapeutic Lovenox, continue Pradaxa therapy upon discharge * [id number] VASc score: 3 points, HAS-BLED score: 1 point * Rate control, beta-ramiro plus digoxin therapy * Antiarrhythmic, amiodarone BID * Monitor and replete electrolytes as needed, K> 4 and Mg>2 * Lipid-lowering agent * Avoid calcium channel blockers given reduced EF Thank you for allowing us to care for this patient. Please call with any questions or concerns. his medical document was created using an electronic medical record system with voice recognition software and computerized dictation system. Although this document has been carefully reviewed, there might still be some phonetic and typographical errors. Occasional wrong-word or ``sound-alike substitutions may have occurred due to the inherent limitations of voice recognition software. These areas are purely typographical due to imperfections of the software programs and do not reflect any compromise in the patient's medical care. Please read the chart carefully and recognize, using context, where these substitutions have occurred. Plan discussed with: Patient Dietary Evaluation Review Comments: No Sp due to poor kidney function, not inclined to increase PO protein for avoiding worse uremic syndrome. consider tight DM controll and amino acid infusion for promoting wound healing. Recommend both CCHO-60 and Cardiac diet for better DM control. Expected Outcomes/Goals: Improved DM controll and improed wound healing Date of Service: Sep 04, 2024 Billing Provider: RAQUEL WOOD Sr., MD Common Visit Codes: [id number] INP/OBS CARE(HIGH) ANNAMARIA KEITH VEHICLE DAMAGE APPRAISER Sep 04, 2024 14:51
--- NOTE | 2024-09-04 20:11 | DVHPNRES ---
Progress Note Date Seen: Sep 04, 2024 Resident Creating Document: MEDARDO SALVADOR RESIDENT Medical Necessity Reason Pt with a Central, PICC or Fol: No Medical Necessity Reason Interstitial Lung disease acute respiratory failure Subjective Review of Systems This is a 64 year old female with a past mediacal history of AFIB, CHF, COPD, DM, HTN and intubated about a month ago presented to the ED via EMS with chief complaint of SOB via. According to the patient, she has experiencing worsening SOB with associated mild bilateral leg edema for the past 2 days. Per EMS states patient was noted to be in A-Fib RVR on their EKG along with noting to be 77% on BiPAP and after being given a DuoNeb treatment on route to the ED. Initial BNP 546.27pg/mL, troponin negative. Initial twelve lead electrocardiogram reveals atrial fibrillation. Patient recently underwent a coronary angiogram on 08/01/24 which revealed mild nonobstructive coronary artery disease. Patient denies any chest pain, cough, fever, or chills. Chest X-ray showed cardiomegaly with pulmonary congestion and edema. Superimposed pneumonia cannot be excluded.US Showed right pleural effusion. Normal sonographic appearance of the kidneys. No hydronephrosis. PN : Patient seen and examine by the bedside. She is back on 4L of oxygen. HR is better today at 112. Patient is on Amiodarone and Dabigatran. Pitting edema is improved, but still congested. She is also on Furosemide 40 mg BID, GDMT and antibiotics. Will keep monitoring PN 09/02/2024: Patient is seen and examined today. CT of the chest also reviewed with the strategic sourcing consultant. CT chest showed diffused glass opacities, areas of bronchiectasis, chronic interstitial lung disease, pleural effusion and pulmonary and pulmonary edema. Also her echo done revealed pulmonary hypertension with RVSP of 50mmHg. Patient is not really doing well. she is now on 6 L of oxygen via high-flow nasal oxygen. Bilateral pitting edema is improved her WBC count is also within normal limits. However she is still be tachycardic and her blood pressure soft. PN 09/03/2024: Patient is seen and examined today. CT (09/02/2024) chest showed diffused glass opacities, areas of bronchiectasis, chronic interstitial lung disease, pleural effusion and pulmonary and pulmonary edema. Also her echo done revealed pulmonary hypertension with RVSP of 50mmHg. She is doing much better today. Respiratory improved. Currently on 3L oxygen with Spo2 of 94%. BP is 94/58-112/61. Continue current treatment. Patient on Telemtry status PN 09/04/2024: Patient is seen and examined today. He breathing is getting better. She is now on 3L oxygen her baseline oxygen level. Patient is currently on doxycyline, solumedrol high dose for 48 hours ( last dose today). Patient is also on furosemide 40 mg q6hrs and ceftriaxone. Patient is also on iv furosemide,sildenafil and Amiodarone and digoxin. Chest x-ray showed mild lungs improvement. Will continue patient on same regime and continue to observe. Objective vital signs Vital Sign Date Time Temp Pulse Resp B/P (MAP) Pulse Ox O2 Delivery O2 Flow Rate FiO2 09/04/24 18:00 96/61 09/04/24 16:28 97.4 102 16 94 97.4 09/03/24 22:43 Nasal Cannula* 3 32 Total Intake and Output 09/03/24 09/03/24 09/04/24 15:00 23:00 07:00 Intake Total 200 ml 540 ml Output Total 600 ml 900 ml 900 ml Balance -600 ml -700 ml -360 ml medications Current Medications Medications Dose Ordered Sig/Addi Route Start Time Stop Time Status Last Admin Dose Admin Gabapentin 100 mg DAILY PO 08/31/24 10:00 09/04/24 09:13 100 MG Mirtazapine 30 mg HS PO 08/30/24 22:00 09/03/24 23:17 30 MG Lamotrigine 200 mg DAILY PO 08/31/24 10:00 09/04/24 09:16 200 MG Sertraline HCl 100 mg HS PO 08/30/24 22:00 09/03/24 23:18 100 MG Sodium Chloride 10 ml Q8HR IV 08/30/24 14:00 09/04/24 14:04 10 ML Docusate Sodium 100 mg BIDPRN PRN PO 08/30/24 11:15 Ondansetron HCl 4 mg Q4HP PRN IV 08/30/24 11:15 Lorazepam 1 mg Q8HP PRN IV 08/31/24 00:30 09/03/24 23:37 1 MG Atorvastatin Calcium 20 mg HS PO 08/31/24 22:00 09/03/24 23:19 20 MG Ceftriaxone Sodium 50 ml @ 100 mls/hr DAILY@09 IV 09/01/24 09:00 09/04/24 10:13 100 MLS/HR Enoxaparin Sodium 80 mg Q12HR SC 09/01/24 10:00 09/04/24 09:06 80 MG Digoxin 0.125 mg DAILY PO 09/02/24 10:00 09/04/24 09:11 0.125 MG Amiodarone HCl 200 mg Q12HR PO 09/01/24 22:00 09/04/24 09:19 200 MG Empaglifozin 10 mg DAILY PO 09/02/24 10:00 09/04/24 09:12 10 MG Lisinopril 10 mg DAILY PO 09/02/24 10:00 Spironolactone 12.5 mg DAILY PO 09/02/24 10:00 09/04/24 09:14 12.5 MG Furosemide 40 mg Q6HR IV 09/02/24 16:00 09/03/24 23:25 40 MG Doxycycline Hyclate 100 ml @ 50 mls/hr Q12H IV 09/02/24 16:00 09/04/24 18:19 50 MLS/HR Diagnostic Test (Pha) 1 strip IQ4HR 09/02/24 16:00 09/04/24 16:00 1 STRIP Insulin Human Regular IQ4HR SC 09/02/24 16:00 09/04/24 12:00 2 UNITS Dextrose 50 ml UD PRN IV 09/02/24 16:00 Sildenafil Citrate 20 mg TID@08,14,20 PO 09/02/24 20:00 09/03/24 20:38 20 MG Pantoprazole Sodium 40 mg BID IV 09/03/24 22:00 09/04/24 09:06 40 MG Metoprolol Tartrate 12.5 mg BID PO 09/03/24 22:00 09/04/24 09:12 12.5 MG Furosemide 40 mg DAILY IV 09/04/24 10:00 Examination General Appearance: Alert, Oriented X3, Cooperative, improving respiratory distress 3L of oxygen ( base line) HEENT: Atraumatic, PERRLA, EOMI, Mucous membrane moist/pink Respiratory: milds crackles L> R, diminished breath sound on the right Cardiovascular: Regular rate, Normal S1, Normal S2, No murmurs, no chest wall tenderness Abdominal: NO distention, no tenderness, bowel sounds present, no scars noted Extremities: resolved, skin wrinkle noted Skin: No rashes, No breakdown, No significant lesion Neuro: Normal gait, Normal speech, Strength at 5/5 X4 ext, Normal tone, Sensation intact, Cranial nerves 3-12 NL, Reflexes 2+ Psych/Mental Status: Mental status NL, Mood NL laboratory and microbiology Laboratory Tests 09/04/24 05:34 Test 09/04/24 05:34 Range/Units Serum Glucose 144 H 74-106 mg/dL Microbiology Date/Time Source Procedure Growth Status 08/30/24 12:55 Blood Blood Culture - Final NO GROWTH AFTER 5 DAYS OF INCUBATION. Complete Problem List/Assessment/Plan Problem List/Assessment/Plan Assessment Acute on chronic decompensated HFrEF, Atrial fibrillation (on Dabigatran and Amiodarone) Acute hypoxic respiratory failure secondary to pneumonia/ ILD/ chf exacerbation Mild mitral valve stenosis/rheumatic mitral valve disease Nonischemic cardiomyopathy pulmonary emboli ruled out Hypertension Hyperlipidemia Type 2 diabetes mellitus COPD with history of tobacco use Obesity Pulmonary hypertension (RVSP 50mmHg on Echo) Interstitial lung disease Bronchiectasis Plan Antibiotics: Ceftriaxone and doxycycline 100mg q12hrs (Avoid Zithromax due to risk of CAROL resistance) IV Furosemide 40 mg q6hrs Solu-Medrol 125 mg q.8 hours for 48 hours ( 2 days; 09/04/2024) Continue sildenafil 20 mg t.i.d.for pulmonary hypertension; HOLD it if SBP <90 Aggressive sliding scale Supplemental oxygen Titrate to keep O2 sats above 92%. Taper O2 as tolerated. BiPAP PRN. Continue GDMT as tolerated Amiodarone oral bid and digoxin Continue oxygen and titrate down appropriately Control rate with metoprolol tartrate Continue Therapeutic Lovenox, continue Pradaxa therapy upon discharg Code status: Full Care discussed for more than 25minutes Case and plan discussed with Dr. Dejesus Plan discussed with: Patient, Spouse, Son My Orders My Orders Orders - MEDARDO SALVADOR Procedure Category Date Status Time Complete Blood Count LAB 09/05/24 Verified 04:00 Comprehensive LAB 09/05/24 Verified Metabolic Panel 04:00 Dietary Evaluation Review Comments: No Sp due to poor kidney function, not inclined to increase PO protein for avoiding worse uremic syndrome. consider tight DM controll and amino acid infusion for promoting wound healing. Recommend both CCHO-60 and Cardiac diet for better DM control. Expected Outcomes/Goals: Improved DM controll and improed wound healing Date of Service: Sep 04, 2024 Billing Provider: GIOVANNI DEJESUS MD Common Visit Codes: [id number] INP/OBS CARE(HIGH) MEDARDO SALVADOR RESIDENT Sep 04, 2024 20:11 GIOVANNI DEJESUS MD Sep 05, 2024 05:18
[2024-09-04] MEDS: ACETAMINOPHEN 325 MG TAB PO PRN (21:56)
--- NOTE | 2024-09-04 23:10 | DVHPN2 ---
Progress Note - Dictate Date Seen: Sep 04, 2024 Medical Necessity Reason Pt with a Central, PICC or Fol: Yes The following are medically ne: Coleman Catheter Reason for coleman catheter: Strict I&O Subjective Patient seen and examined at bedside. Remains on supplemental oxygen Overnight events reviewed. vital signs Vital Sign Date Time Temp Pulse Resp B/P (MAP) Pulse Ox O2 Delivery O2 Flow Rate FiO2 09/04/24 21:57 97 125/51 09/04/24 21:00 98.0 18 95 98.0 09/04/24 20:00 Nasal Cannula* 3 32 Total Intake and Output 09/03/24 09/03/24 09/04/24 15:00 23:00 07:00 Intake Total 200 ml 540 ml Output Total 600 ml 900 ml 900 ml Balance -600 ml -700 ml -360 ml medications Current Medications Medications Dose Ordered Sig/Addi Route Start Time Stop Time Status Last Admin Dose Admin Gabapentin 100 mg DAILY PO 08/31/24 10:00 09/04/24 09:13 100 MG Mirtazapine 30 mg HS PO 08/30/24 22:00 09/04/24 21:57 30 MG Lamotrigine 200 mg DAILY PO 08/31/24 10:00 09/04/24 09:16 200 MG Sertraline HCl 100 mg HS PO 08/30/24 22:00 09/04/24 21:55 100 MG Sodium Chloride 10 ml Q8HR IV 08/30/24 14:00 09/04/24 21:57 10 ML Docusate Sodium 100 mg BIDPRN PRN PO 08/30/24 11:15 Ondansetron HCl 4 mg Q4HP PRN IV 08/30/24 11:15 Lorazepam 1 mg Q8HP PRN IV 08/31/24 00:30 09/04/24 21:55 1 MG Atorvastatin Calcium 20 mg HS PO 08/31/24 22:00 09/04/24 21:57 20 MG Ceftriaxone Sodium 50 ml @ 100 mls/hr DAILY@09 IV 09/01/24 09:00 09/04/24 10:13 100 MLS/HR Enoxaparin Sodium 80 mg Q12HR SC 09/01/24 10:00 09/04/24 22:01 80 MG Digoxin 0.125 mg DAILY PO 09/02/24 10:00 09/04/24 09:11 0.125 MG Amiodarone HCl 200 mg Q12HR PO 09/01/24 22:00 09/04/24 22:01 200 MG Empaglifozin 10 mg DAILY PO 09/02/24 10:00 09/04/24 09:12 10 MG Lisinopril 10 mg DAILY PO 09/02/24 10:00 Spironolactone 12.5 mg DAILY PO 09/02/24 10:00 09/04/24 09:14 12.5 MG Furosemide 40 mg Q6HR IV 09/02/24 16:00 09/03/24 23:25 40 MG Doxycycline Hyclate 100 ml @ 50 mls/hr Q12H IV 09/02/24 16:00 09/04/24 18:19 50 MLS/HR Diagnostic Test (Pha) 1 strip IQ4HR 09/02/24 16:00 09/04/24 20:16 1 STRIP Insulin Human Regular IQ4HR SC 09/02/24 16:00 09/04/24 20:24 4 UNITS Dextrose 50 ml UD PRN IV 09/02/24 16:00 Sildenafil Citrate 20 mg TID@08,14,20 PO 09/02/24 20:00 09/04/24 20:25 20 MG Pantoprazole Sodium 40 mg BID IV 09/03/24 22:00 09/04/24 21:57 40 MG Metoprolol Tartrate 12.5 mg BID PO 09/03/24 22:00 09/04/24 21:57 12.5 MG Furosemide 40 mg DAILY IV 09/04/24 10:00 Acetaminophen 650 mg Q6HP PRN PO 09/04/24 20:30 09/04/24 21:56 650 MG objective Gen.: Patient lying in bed in no apparent distress. On supplemental oxygen. Head: Normocephalic, atraumatic. Eyes: EOMI/PERRLA. Ears: Normal hearing. Normal anatomy. Neck/trachea: Trachea midline, supple. Nose: Normal external anatomy. Mouth: Moist mucous membranes. Chest: Decreased air entry bilaterally. No wheezing or rhonchi. Cardiovascular: Positive S1, positive S2. Regular rate and rhythm. Abdomen: Positive bowel sounds in all 4 quadrants. Soft, non-tender, non- distended. : Deferred. Rectal: Deferred. Skin: Warm, dry. Intact. Extremities: 2+ radial pulses bilaterally. No lower extremity edema. Neuro: Awake, alert, oriented x3. No gross motor or sensory deficits. Cranial nerves II through XII intact. Gait not assessed. laboratory and microbiology Laboratory Tests 09/04/24 05:34 Test 09/04/24 05:34 Range/Units Serum Glucose 144 H 74-106 mg/dL Assessment/Plan Impression: Acute hypoxic respiratory failure Acute ILD exacerbation Bronchiectasis Pulmonary hypertension Obesity BMI 32.5 Plan: Supplemental oxygen 3 LPM NC Titrate to keep O2 sats above 92%. Taper O2 as tolerated. BiPAP PRN. Continue bronchodilators. Antibiotics - doxycycline due to bronchiectasis Avoid Zithromax due to risk of CAROL resistance. Completed steroids Incentive spirometry Continue sildenafil TID for pulmonary hypertension. Hold for systolic blood pressure less than 90 mmHg. Stop Lasix Monitor renal function. Monitor electrolytes. Supplement as necessary. Monitor ins and outs. DVT prophylaxis. Prognosis: Poor given patient's multiple co-morbidities. Rest of plan per hospitalist and other consultants. Thank you Dr. Castano for allowing me to participate in this patient's care. Further recommendations will depend on the patient's clinical course. Please do not hesitate to contact me if you have any questions or concerns. This medical document was created using an electronic medical record system with [employer] dictation system. Although these documentations are being carefully reviewed, there may still be some phonetic and typographical changes. The errors are purely typographical, due to imperfection on the software program, and do not reflect any compromise in the patient's medical care. Dietary Evaluation Review Comments: No Sp due to poor kidney function, not inclined to increase PO protein for avoiding worse uremic syndrome. consider tight DM controll and amino acid infusion for promoting wound healing. Recommend both CCHO-60 and Cardiac diet for better DM control. Expected Outcomes/Goals: Improved DM controll and improed wound healing Plan discussed with: Patient, Other (MARIO Saenz) ULISES UMAÑA MD Sep 04, 2024 23:10
[2024-09-05] VITALS (8 sets, daily range): BP systolic 96–116; BP diastolic 43–67; PULSE 67–109; RESP 17–20; TEMP 97.5–98.8; O2SAT 90–98
[2024-09-05 08:42] LABS: Basophils # (auto) 0 10 ^3/uL (0-0.2); Basophils % (auto) 0.1 % (0.0-2.0); Eosinophils # (auto) 0 10 ^3/uL (0-0.8); Eosinophils % (auto) 0.1 % (0.0-7.0); Hematocrit 28.9 % (36.0-46.0); Hemoglobin 9.3 g/dL (12.2-16.2); Lymphocytes % (auto) 12.4 % (10.0-50.0); Mean Corpuscular Hemoglobin 30.2 pg (28.0-32.0); Mean Corpuscular Hgb Conc. 32.2 g/dL (32.0-36.0); Mean Corpuscular Volume 93.7 fL (80.0-100.0); Monocytes # (auto) 0.6 10 ^3/uL (0-1.3); Monocytes % (auto) 7.6 % (0.0-12.0); Neutrophils # (auto) 6.7 10 ^3/uL (1.6-8.6); Neutrophils % (auto) 79.8 % (37.0-80.0); Platelet Count (auto) 208 10^3/uL (140-450); Red Blood Cells 3.08 10^6/uL (4.0-5.20); Red Cell Distribution Width 20.7 % (11.8-14.3); White Blood Cell 8.4 10^3/uL (4.4-10.8)
[2024-09-05 08:50] LABS: Alanine Aminotransferase 12 U/L (7-40); Albumin 3.6 g/dL (3.2-4.8); Alkaline Phosphatase 107 U/L (46-116); Anion Gap 11 (5-15); Aspartate Aminotransferase 16 U/L (13-40); BUN/Creatinine Ratio 18.5 (10.0-20.0); Carbon Dioxide 29 mmol/L (20-31); Chloride 106 mmol/L (98-107); Glucose 93 mg/dL (74-106)
[2024-09-05 08:51] LABS: Bilirubin, Total 0.4 mg/dL (0.2-1.0)
[2024-09-05 08:57] LABS: Blood Urea Nitrogen 24 mg/dL (9-23); Potassium 3.1 mmol/L (3.5-5.1); Sodium 146 mmol/L (136-145); Total Protein 5.4 g/dL (5.7-8.2)
[2024-09-05 09:39] LABS: Calcium 9.3 mg/dL (8.7-10.4)
[2024-09-05] MEDS ORDERED: dilTIAZem 120MG ER CAP PO SCH (10:00)
[2024-09-05] MEDS: POTASSIUM EFFERVESENT TAB 25 MEQ PO ONE (10:54)
--- NOTE | 2024-09-05 13:23 | DVHPN2 ---
Consult Progress Note Subjective Other Systems: Patient remains in atrial fibrillation at time of assessment with controlled rate. She denies any cardiac symptoms Objective vital signs Vital Sign Date Time Temp Pulse Resp B/P (MAP) Pulse Ox O2 Delivery O2 Flow Rate FiO2 09/05/24 11:53 116/94 09/05/24 10:18 94 09/05/24 09:01 98.1 20 93 98.1 09/04/24 20:00 Nasal Cannula* 3 32 Total Intake and Output 09/04/24 09/04/24 09/05/24 15:00 23:00 07:00 Intake Total 50 ml 600 ml 805 ml Output Total 350 ml 300 ml Balance 50 ml 250 ml 505 ml medications Current Medications Medications Dose Ordered Sig/Addi Route Start Time Stop Time Status Last Admin Dose Admin Gabapentin 100 mg DAILY PO 08/31/24 10:00 09/05/24 10:16 100 MG Mirtazapine 30 mg HS PO 08/30/24 22:00 09/04/24 21:57 30 MG Lamotrigine 200 mg DAILY PO 08/31/24 10:00 09/05/24 10:17 200 MG Sertraline HCl 100 mg HS PO 08/30/24 22:00 09/04/24 21:55 100 MG Sodium Chloride 10 ml Q8HR IV 08/30/24 14:00 09/05/24 05:46 10 ML Docusate Sodium 100 mg BIDPRN PRN PO 08/30/24 11:15 Ondansetron HCl 4 mg Q4HP PRN IV 08/30/24 11:15 Lorazepam 1 mg Q8HP PRN IV 08/31/24 00:30 09/04/24 21:55 1 MG Atorvastatin Calcium 20 mg HS PO 08/31/24 22:00 09/04/24 21:57 20 MG Ceftriaxone Sodium 50 ml @ 100 mls/hr DAILY@09 IV 09/01/24 09:00 09/05/24 08:30 100 MLS/HR Enoxaparin Sodium 80 mg Q12HR SC 09/01/24 10:00 09/05/24 10:19 80 MG Digoxin 0.125 mg DAILY PO 09/02/24 10:00 09/05/24 10:18 0.125 MG Amiodarone HCl 200 mg Q12HR PO 09/01/24 22:00 09/05/24 10:17 200 MG Empaglifozin 10 mg DAILY PO 09/02/24 10:00 09/05/24 10:18 10 MG Lisinopril 10 mg DAILY PO 09/02/24 10:00 09/05/24 10:18 10 MG Spironolactone 12.5 mg DAILY PO 09/02/24 10:00 09/05/24 10:17 12.5 MG Furosemide 40 mg Q6HR IV 09/02/24 16:00 09/05/24 11:53 40 MG Doxycycline Hyclate 100 ml @ 50 mls/hr Q12H IV 09/02/24 16:00 09/05/24 03:47 50 MLS/HR Diagnostic Test (Pha) 1 strip IQ4HR 09/02/24 16:00 09/05/24 11:53 1 STRIP Insulin Human Regular IQ4HR SC 09/02/24 16:00 09/05/24 09:23 2 UNITS Dextrose 50 ml UD PRN IV 09/02/24 16:00 Sildenafil Citrate 20 mg TID@08,14,20 PO 09/02/24 20:00 09/05/24 08:25 20 MG Pantoprazole Sodium 40 mg BID IV 09/03/24 22:00 09/05/24 10:15 40 MG Metoprolol Tartrate 12.5 mg BID PO 09/03/24 22:00 09/05/24 10:18 12.5 MG Acetaminophen 650 mg Q6HP PRN PO 09/04/24 20:30 09/05/24 10:19 650 MG Examination: GENERAL:Normal, LUNGS:Normal, CVS:Normal, NEURO:Normal laboratory and microbiology Laboratory Tests 09/05/24 06:41 Test 09/05/24 06:41 Range/Units Serum Glucose 93 74-106 mg/dL Problem List/Assessment/Plan Problem List/Assessment/Plan Acute on chronic decompensated HFrEF, NYHA class III Paroxysmal atrial fibrillation, Stage III, on Dabigatran and Amiodarone Mild mitral valve stenosis/rheumatic mitral valve disease Mild nonobstructive coronary artery disease Acute on chronic hypoxic respiratory failure Hypertension Hyperlipidemia Type 2 diabetes mellitus COPD with hx of tobacco use Morbid obesity Plan/Recommendation (Dr. Garay) * Echocardiogram from 07/25/24 revealed EF 40% with anterior anteroseptal wall hypokinesia * Continue GDMT for CHF as renal function permits, uptitrate as tolerated * Preload and afterload reduction * Strict I&Os, daily weights, maintain fluid restriction * Therapeutic Lovenox, continue Pradaxa therapy upon discharge * [id number] VASc score: 3 points, HAS-BLED score: 1 point * Rate control, beta-ramiro plus digoxin therapy * Antiarrhythmic, amiodarone BID * Monitor and replete electrolytes as needed, K> 4 and Mg>2 * Lipid-lowering agent * Avoid calcium channel blockers given reduced EF Patient seen and examined at bedside with . There is no further inpatient cardiac workup indicated at this time. The patient has been scheduled to follow up Cardiology in the outpatient setting with on 09/26/24 at 0845am. Thank you for allowing us to care for this patient. Please call with any questions or concerns. his medical document was created using an electronic medical record system with voice recognition software and computerized dictation system. Although this document has been carefully reviewed, there might still be some phonetic and typographical errors. Occasional wrong-word or ``sound-alike substitutions may have occurred due to the inherent limitations of voice recognition software. These areas are purely typographical due to imperfections of the software programs and do not reflect any compromise in the patient's medical care. Please read the chart carefully and recognize, using context, where these substitutions have occurred. Plan discussed with: Patient Dietary Evaluation Review Comments: No Sp due to poor kidney function, not inclined to increase PO protein for avoiding worse uremic syndrome. consider tight DM controll and amino acid infusion for promoting wound healing. Recommend both CCHO-60 and Cardiac diet for better DM control. Expected Outcomes/Goals: Improved DM controll and improed wound healing Date of Service: Sep 05, 2024 Billing Provider: ANNAMARIA KEITH Common Visit Codes: [id number] INP/OBS CARE(HIGH) ANNAMARIA KEITH Sep 05, 2024 13:23
--- NOTE | 2024-09-05 16:17 | DVHPNRES ---
Progress Note Date Seen: Sep 05, 2024 Resident Creating Document: MEDARDO SALVADOR Medical Necessity Reason Pt with a Central, PICC or Fol: Yes The following are medically ne: Coleman Catheter Reason for coleman catheter: Strict I&O Medical Necessity Reason Interstitial lung disease Acute respiratory failure COPD exacerbation Subjective Review of Systems This is a 64 year old female with a past mediacal history of AFIB, CHF, COPD, DM, HTN and intubated about a month ago presented to the ED via EMS with chief complaint of SOB via. According to the patient, she has experiencing worsening SOB with associated mild bilateral leg edema for the past 2 days. Per EMS states patient was noted to be in A-Fib RVR on their EKG along with noting to be 77% on BiPAP and after being given a DuoNeb treatment on route to the ED. Initial BNP 546.27pg/mL, troponin negative. Initial twelve lead electrocardiogram reveals atrial fibrillation. Patient recently underwent a coronary angiogram on 08/01/24 which revealed mild nonobstructive coronary artery disease. Patient denies any chest pain, cough, fever, or chills. Chest X-ray showed cardiomegaly with pulmonary congestion and edema. Superimposed pneumonia cannot be excluded.US Showed right pleural effusion. Normal sonographic appearance of the kidneys. No hydronephrosis. PN : Patient seen and examine by the bedside. She is back on 4L of oxygen. HR is better today at 112. Patient is on Amiodarone and Dabigatran. Pitting edema is improved, but still congested. She is also on Furosemide 40 mg BID, GDMT and antibiotics. Will keep monitoring PN 09/02/2024: Patient is seen and examined today. 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 CT chest showed diffused glass opacities, areas of bronchiectasis, chronic interstitial lung disease, pleural effusion and pulmonary and pulmonary edema. Also her echo done revealed pulmonary hypertension with RVSP of 50mmHg. Patient is not really doing well. she is now on 6 L of oxygen via high-flow nasal oxygen. Bilateral pitting edema is improved her WBC count is also within normal limits. However she is still be tachycardic and her blood pressure soft. PN 09/03/2024: Patient is seen and examined today. CT (09/02/2024) chest showed diffused glass opacities, areas of bronchiectasis, chronic interstitial lung disease, pleural effusion and pulmonary and pulmonary edema. Also her echo done revealed pulmonary hypertension with RVSP of 50mmHg. She is doing much better today. Respiratory improved. Currently on 3L oxygen with Spo2 of 94%. BP is 94/58-112/61. Continue current treatment. Patient on Telemtry status PN 09/04/2024: Patient is seen and examined today. He breathing is getting better. She is now on 3L oxygen her baseline oxygen level. Patient is currently on doxycyline, solumedrol high dose for 48 hours ( last dose today). Patient is also on furosemide 40 mg q6hrs and ceftriaxone. Patient is also on iv furosemide,sildenafil and Amiodarone and digoxin. Chest x-ray showed mild lungs improvement. Will continue patient on same regime and continue to observe. PN 09/05/2024: Patient is seen and examined today. He breathing is getting better. She is now on 3L oxygen her baseline oxygen level. Patient is currently on doxycyline, solumedrol high dose for 48 hours ( last dose today).ceftriaxone. Patient is also on iv furosemide,sildenafil and Amiodarone and digoxin. Will switch to oral furosemide 40mg bid. Objective vital signs Vital Sign Date Time Temp Pulse Resp B/P (MAP) Pulse Ox O2 Delivery O2 Flow Rate FiO2 09/05/24 11:53 116/94 09/05/24 10:18 94 09/05/24 09:01 98.1 20 93 98.1 09/04/24 20:00 Nasal Cannula* 3 32 Total Intake and Output 09/04/24 09/04/24 09/05/24 15:00 23:00 07:00 Intake Total 50 ml 600 ml 805 ml Output Total 350 ml 300 ml Balance 50 ml 250 ml 505 ml medications Current Medications Medications Dose Ordered Sig/Addi Route Start Time Stop Time Status Last Admin Dose Admin Gabapentin 100 mg DAILY PO 08/31/24 10:00 09/05/24 10:16 100 MG Mirtazapine 30 mg HS PO 08/30/24 22:00 09/04/24 21:57 30 MG Lamotrigine 200 mg DAILY PO 08/31/24 10:00 09/05/24 10:17 200 MG Sertraline HCl 100 mg HS PO 08/30/24 22:00 09/04/24 21:55 100 MG Sodium Chloride 10 ml Q8HR IV 08/30/24 14:00 09/05/24 15:37 10 ML Docusate Sodium 100 mg BIDPRN PRN PO 08/30/24 11:15 Ondansetron HCl 4 mg Q4HP PRN IV 08/30/24 11:15 Lorazepam 1 mg Q8HP PRN IV 08/31/24 00:30 09/04/24 21:55 1 MG Atorvastatin Calcium 20 mg HS PO 08/31/24 22:00 09/04/24 21:57 20 MG Ceftriaxone Sodium 50 ml @ 100 mls/hr DAILY@09 IV 09/01/24 09:00 09/05/24 08:30 100 MLS/HR Enoxaparin Sodium 80 mg Q12HR SC 09/01/24 10:00 09/05/24 10:19 80 MG Digoxin 0.125 mg DAILY PO 09/02/24 10:00 09/05/24 10:18 0.125 MG Amiodarone HCl 200 mg Q12HR PO 09/01/24 22:00 09/05/24 10:17 200 MG Empaglifozin 10 mg DAILY PO 09/02/24 10:00 09/05/24 10:18 10 MG Lisinopril 10 mg DAILY PO 09/02/24 10:00 09/05/24 10:18 10 MG Spironolactone 12.5 mg DAILY PO 09/02/24 10:00 09/05/24 10:17 12.5 MG Furosemide 40 mg Q6HR IV 09/02/24 16:00 09/05/24 11:53 40 MG Doxycycline Hyclate 100 ml @ 50 mls/hr Q12H IV 09/02/24 16:00 09/05/24 15:54 50 MLS/HR Diagnostic Test (Pha) 1 strip IQ4HR 09/02/24 16:00 09/05/24 15:47 1 STRIP Insulin Human Regular IQ4HR SC 09/02/24 16:00 09/05/24 09:23 2 UNITS Dextrose 50 ml UD PRN IV 09/02/24 16:00 Sildenafil Citrate 20 mg TID@08,14,20 PO 09/02/24 20:00 09/05/24 15:37 20 MG Pantoprazole Sodium 40 mg BID IV 09/03/24 22:00 09/05/24 10:15 40 MG Metoprolol Tartrate 12.5 mg BID PO 09/03/24 22:00 09/05/24 10:18 12.5 MG Acetaminophen 650 mg Q6HP PRN PO 09/04/24 20:30 09/05/24 10:19 650 MG Examination General Appearance: Alert, Oriented X3, Cooperative, improving respiratory distress 3L/min of oxygen ( base line) HEENT: Atraumatic, PERRLA, EOMI, Mucous membrane moist/pink Respiratory: mild crackles L> R, diminished breath sound on the right. no wheezes Cardiovascular: Irregularly irregular, Normal S1, Normal S2, No murmurs, no chest wall tenderness Abdominal: NO distention, no tenderness, bowel sounds present, no scars noted Extremities: resolved, skin wrinkle noted Skin: No rashes, No breakdown, No significant lesion Neuro: Normal gait, Normal speech, Strength at 5/5 X4 ext, Normal tone, Sensation intact, Cranial nerves 3-12 NL, Reflexes 2+ Psych/Mental Status: Mental status NL, Mood NL laboratory and microbiology Laboratory Tests 09/05/24 06:41 Test 09/05/24 06:41 Range/Units Serum Glucose 93 74-106 mg/dL Microbiology Date/Time Source Procedure Growth Status 08/30/24 12:55 Blood Blood Culture - Final NO GROWTH AFTER 5 DAYS OF INCUBATION. Complete Labs and/or images reviewed: Labs reviewed by me, Image(s) reviewed by me Problem List/Assessment/Plan Problem List/Assessment/Plan Assessment Acute on chronic decompensated HFrEF, Atrial fibrillation ( Amiodarone and Digoxin) Acute hypoxic respiratory failure secondary to pneumonia/ ILD/ chf exacerbation Mild mitral valve stenosis/rheumatic mitral valve disease Nonischemic cardiomyopathy Pulmonary emboli ruled out Hypertension Hyperlipidemia Type 2 diabetes mellitus COPD with history of tobacco use Obesity Pulmonary hypertension (RVSP 50mmHg on Echo) Interstitial lung disease Bronchiectasis Plan Antibiotics: Ceftriaxone and doxycycline 100mg q12hrs (Avoid Zithromax due to risk of CAROL resistance) Switched furosemide from IV 40 mg every 6 hours to oral oral Furosemide 40 mg bid Solu-Medrol 125 mg q.8 hours for 48 hours ( 2 days; 09/04/2024) Continue sildenafil 20 mg t.i.d.for pulmonary hypertension; HOLD it if SBP <90 Aggressive sliding scale Supplemental oxygen Titrate to keep O2 sats above 92%. Taper O2 as tolerated. BiPAP PRN. Continue GDMT as tolerated; cardiology is following Amiodarone oral bid and digoxin Continue oxygen and titrate down appropriately Control rate with metoprolol tartrate Continue Therapeutic Lovenox, continue Pradaxa therapy upon discharge Code status: Full Goals of Care discussed for 20 minutes Case and plan discussed with Dr. Lee Plan discussed with: Patient, Spouse, Son, Other (RN) Dietary Evaluation Review Comments: No Sp due to poor kidney function, not inclined to increase PO protein for avoiding worse uremic syndrome. consider tight DM controll and amino acid infusion for promoting wound healing. Recommend both CCHO-60 and Cardiac diet for better DM control. Expected Outcomes/Goals: Improved DM controll and improed wound healing Addendum Addendum Addendum I was physically present for the dennis portions of the service provided to patient by THE RESIDENT. I have reviewed the documentation, discussed the case with resident and agree with the resident's documentation except as noted. Also the patient's clinical case was discussed with the patient's nurse. This medical document was created using an electronic medical record system with computerized dictation system. Although this document has been carefully reviewed, there might still be some phonetic and typographical errors. These areas are purely typographical due to imperfections of the software programs, and do not reflect any compromise in the patient's medical care. Late signature. Date of Service: Sep 05, 2024 Billing Provider: ROCKY LEE MD Common Visit Codes: 89341-[id number] INP/OBS CARE(HIGH) Secondary Visit Codes: [id number] CARE PLAN 30 MINUTES (20 minutes) MEDARDO SALVADOR RESIDENT Sep 05, 2024 16:17 ROCKY LEE MD Sep 06, 2024 07:37
[2024-09-05] MEDS: FUROSEMIDE 40 MG TAB PO SCH (19:00)
--- NOTE | 2024-09-05 23:49 | DVHPN2 ---
Consult Progress Note Subjective Other Systems: Patient was seen and evaluated in follow up. Patient remains in atrial fibrillation with controlled rate. She denies any cardiac symptoms. HGB 9.3, HCT 28.9, NA 146, K 3.1, BUN 24, PIANO TUNER 1.30. Objective vital signs Vital Sign Date Time Temp Pulse Resp B/P (MAP) Pulse Ox O2 Delivery O2 Flow Rate FiO2 09/05/24 21:00 97.5 67 17 100/59 (73) 90 97.5 09/05/24 20:00 Nasal Cannula* 3 32 Total Intake and Output 09/04/24 09/04/24 09/05/24 15:00 23:00 07:00 Intake Total 50 ml 600 ml 805 ml Output Total 350 ml 300 ml Balance 50 ml 250 ml 505 ml medications Current Medications Medications Dose Ordered Sig/Addi Route Start Time Stop Time Status Last Admin Dose Admin Gabapentin 100 mg DAILY PO 08/31/24 10:00 09/05/24 10:16 100 MG Mirtazapine 30 mg HS PO 08/30/24 22:00 09/04/24 21:57 30 MG Lamotrigine 200 mg DAILY PO 08/31/24 10:00 09/05/24 10:17 200 MG Sertraline HCl 100 mg HS PO 08/30/24 22:00 09/04/24 21:55 100 MG Sodium Chloride 10 ml Q8HR IV 08/30/24 14:00 09/05/24 15:37 10 ML Docusate Sodium 100 mg BIDPRN PRN PO 08/30/24 11:15 Ondansetron HCl 4 mg Q4HP PRN IV 08/30/24 11:15 Lorazepam 1 mg Q8HP PRN IV 08/31/24 00:30 09/04/24 21:55 1 MG Atorvastatin Calcium 20 mg HS PO 08/31/24 22:00 09/04/24 21:57 20 MG Ceftriaxone Sodium 50 ml @ 100 mls/hr DAILY@09 IV 09/01/24 09:00 09/05/24 08:30 100 MLS/HR Enoxaparin Sodium 80 mg Q12HR SC 09/01/24 10:00 09/05/24 10:19 80 MG Digoxin 0.125 mg DAILY PO 09/02/24 10:00 09/05/24 10:18 0.125 MG Amiodarone HCl 200 mg Q12HR PO 09/01/24 22:00 09/05/24 10:17 200 MG Empaglifozin 10 mg DAILY PO 09/02/24 10:00 09/05/24 10:18 10 MG Lisinopril 10 mg DAILY PO 09/02/24 10:00 09/05/24 10:18 10 MG Spironolactone 12.5 mg DAILY PO 09/02/24 10:00 09/05/24 10:17 12.5 MG Doxycycline Hyclate 100 ml @ 50 mls/hr Q12H IV 09/02/24 16:00 09/05/24 15:54 50 MLS/HR Diagnostic Test (Pha) 1 strip IQ4HR 09/02/24 16:00 09/05/24 20:00 1 STRIP Insulin Human Regular IQ4HR SC 09/02/24 16:00 09/05/24 09:23 2 UNITS Dextrose 50 ml UD PRN IV 09/02/24 16:00 Sildenafil Citrate 20 mg TID@08,14,20 PO 09/02/24 20:00 09/05/24 20:16 20 MG Pantoprazole Sodium 40 mg BID IV 09/03/24 22:00 09/05/24 10:15 40 MG Metoprolol Tartrate 12.5 mg BID PO 09/03/24 22:00 09/05/24 10:18 12.5 MG Acetaminophen 650 mg Q6HP PRN PO 09/04/24 20:30 09/05/24 10:19 650 MG Furosemide 40 mg BIDD PO 09/05/24 18:00 09/05/24 19:00 40 MG Examination: GENERAL:Normal, HEENT:Normal, NECK:Normal, LUNGS:Normal, CVS:Normal, ABDOMEN:Normal, MSK:Normal, SKIN:Normal, NEURO:Normal laboratory and microbiology Laboratory Tests 09/05/24 06:41 Test 09/05/24 06:41 Range/Units Serum Glucose 93 74-106 mg/dL Problem List/Assessment/Plan Problem List/Assessment/Plan Acute on chronic decompensated HFrEF, NYHA class III. Paroxysmal atrial fibrillation, Stage III, on Dabigatran and Amiodarone. Mild mitral valve stenosis/rheumatic mitral valve disease. Mild nonobstructive coronary artery disease. Acute on chronic hypoxic respiratory failure. Hypertension. Hyperlipidemia. Type 2 diabetes mellitus. COPD with hx of tobacco use. Morbid obesity. Plan/Recommendation Continued all current supportive medical care. Patient has been seen by Nery Chapman NP on my behalf, her and I discussed the plan with the patient. Telemetry reviewed. Echocardiogram from 07/25/24 revealed EF 40% with anterior anteroseptal wall hypokinesia. Continue GDMT for CHF as renal function permits, uptitrate as tolerated. Preload and afterload reduction. Strict I&Os, daily weights, maintain fluid restriction. Therapeutic Lovenox, continue Pradaxa therapy upon discharge. [id number] VASc score: 3 points, HAS-BLED score: 1 point. Rate control, beta-ramiro plus digoxin therapy. Antiarrhythmic, amiodarone BID. Monitor and replete electrolytes as needed, K> 4 and Mg>2. Lipid-lowering agent. Avoid calcium channel blockers given reduced EF. Additional plan as per the hospital course. Plan discussed with: Patient Dietary Evaluation Review Comments: No Sp due to poor kidney function, not inclined to increase PO protein for avoiding worse uremic syndrome. consider tight DM controll and amino acid infusion for promoting wound healing. Recommend both CCHO-60 and Cardiac diet for better DM control. Expected Outcomes/Goals: Improved DM controll and improed wound healing Date of Service: Sep 05, 2024 Billing Provider: LILIAM QUIROGA MD Cardiology Common Codes: [id number] HOSP CARE(High LILIAM QUIROGA MD Sep 05, 2024 22:48
[2024-09-06 05:00] VITALS: BP 102/50; PULSE 102; RESP 17; TEMP 97.4; O2SAT 94
[2024-09-06 08:00] VITALS: PULSE 112; PULSE 57; RESP 17; O2SAT 100
[2024-09-06 09:00] VITALS: BP 95/64; PULSE 57; RESP 17; TEMP 97.8; O2SAT 100
[2024-09-06 09:47] LABS: Chloride 104 mmol/L (98-107); Potassium 3.4 mmol/L (3.5-5.1); Sodium 143 mmol/L (136-145)
[2024-09-06 09:48] LABS: Anion Gap 9 (5-15); Calcium 8.8 mg/dL (8.7-10.4); Carbon Dioxide 30 mmol/L (20-31)
[2024-09-06 09:53] LABS: BUN/Creatinine Ratio 17.9 (10.0-20.0); Blood Urea Nitrogen 21 mg/dL (9-23)
[2024-09-06 10:04] LABS: Glucose 158 mg/dL (74-106)
[2024-09-06] MEDS: POTASSIUM EFFERVESENT TAB 25 MEQ GT ONE (12:22)
[2024-09-06 12:54] VITALS: BP 95/45; PULSE 72; RESP 15; TEMP 97.8; O2SAT 95
[2024-09-06] MEDS ORDERED: SILD20TA PO (14:57)
[2024-09-06] MEDS ORDERED: SPIR25TA PO (14:57)
[2024-09-06] MEDS ORDERED: ATOR20TA50 PO (14:57)
[2024-09-06] MEDS ORDERED: DIGO1TAB48 PO (14:57)
[2024-09-06] MEDS ORDERED: AMIO200T13 PO (14:57)
[2024-09-06] MEDS ORDERED: DOCU-265 PO (14:57)
[2024-09-06] MEDS ORDERED: MET25T PO (14:57)
[2024-09-06] MEDS ORDERED: DOXY-346 PO (14:57)
[2024-09-06] MEDS ORDERED: FURO40TA4 PO (14:57)
[2024-09-06] MEDS ORDERED: EMPA1TAB PO (14:57)
[2024-09-06] MEDS ORDERED: DABI75CA5 PO (15:01)
[2024-09-06] MEDS ORDERED: METH4PAK PO (15:07)
--- NOTE | 2024-09-06 15:32 | DVHDSRES ---
Discharge Summary Date of Admission Resident Creating Document: MEDARDO SALVADOR Aug 30, 2024 at 11:12 Date of Discharge: Sep 06, 2024 Admitting Diagnosis Multifocal pneumonia COPD exacerbation Labs/Diagnostic Data: PATIENT: CHIDI PARMAR ACCT: [id number] UNIT: [id number] : 1960 LOC: [facility] ROOM / BED: 0273T / B AGE / SEX: 64 / F ADM STATUS: ADM IN SERVICE 0700 ORDERING PHYSICIAN: MEDARDO SALVADOR PROCEDURE(s): CXR1 - CHEST XRAY 1 VIEW REASON: pul edema reassessment ORDER NUMBER(s): [id number], ACCESSION NUMBER(s): [id number] CHEST RADIOGRAPH Indication: pul edema reassessment Technique: Single frontal view of the chest was obtained Comparison: XY CHEST PORTABLE on DOS: 09/02/24 FINDINGS: Lines and Tubes: None Lungs: Diffuse bilateral airspace disease. Bilateral interstitial opacities. Pleura: No effusion. No pneumothorax. Cardiomediastinal contours: Cardiomegaly. Bones: No acute osseous abnormality. IMPRESSION: 1. No significant change in bilateral airspace and interstitial opacities. 2. Cardiomegaly. ATED BY: TORIE FREGOSO MD DICTATED DATE/TIME: 09/04/24 0702 PATIENT: CHIDI PARMAR ACCT: [id number] UNIT: [id number] : 1960 LOC: [facility] ROOM / BED: [address] / A AGE / SEX: 64 / F ADM STATUS: ADM IN SERVICE 0809 ORDERING PHYSICIAN: MEDARDO SALVADOR PROCEDURE(s): CX2CT - CHEST WITHOUT CONTRAST REASON: persistent pneumonia, shortness of breath ORDER NUMBER(s): [id number], ACCESSION NUMBER(s): [id number] CLINICAL INFORMATION: 64 years old, Female; persistent pneumonia, shortness of breath. TECHNIQUE: Axial CT imaging of the chest was performed without IV contrast. Sagittal and coronal reformatted images were made, stored and reviewed. Evaluation is limited without IV contrast. One or more of the following dose reduction techniques were used: Automated exposure control. Adjustment of mA and/or kV according to patient size. CTDIvol = 15.27, 0.07, 0.07 mGy DLP = 553.87 mGy-cm COMPARISON: CTA chest dated 08/30/2024 CT chest dated 07/27/2024. FINDINGS: Aorta: No aneurysm. Dense atherosclerotic calcification of the thoracic aorta. Cardiac: Moderate cardiomegaly. Small pericardial effusion. Mediastinum/crystal: Enlarged right paratracheal lymph node measuring up to 1.8 x 2.0 cm, grossly stable compared to the recent exam. Lungs: Small bilateral pleural effusions. Extensive interstitial opacities and ground-glass opacities throughout both lungs, overall increased compared to the recent examination. Areas of interlobular septal thickening also noted. Pulmonary arteries: Mildly dilated main pulmonary artery measuring up to 3.2 cm, may be seen with pulmonary arterial hypertension. Chest wall: No mass or other abnormality. Upper abdomen: Cholecystectomy. Heterogeneous density of the right kidney, may be due to infarcts or pyelonephritis in the appropriate clinical setting. Bones: No fracture or suspicious intraosseous lesions. IMPRESSION: 1. Extensive interstitial opacities and ground-glass opacities throughout both lungs with interlobular septal thickening, overall increased compared to the recent CTA chest exam. Findings may be seen with pulmonary edema in the appropriate clinical setting. Small bilateral pleural effusions also noted. Correlate with clinical findings. Atypical infectious process could also be considered component of chronic interstitial lung disease may also be present. 2. Moderate cardiomegaly with small pericardial effusion. 3. Enlarged right paratracheal lymph node, may be reactive. Malignancy can not be excluded. 4. Dilated main pulmonary artery, may be seen with pulmonary arterial hypertension. 5. Heterogeneous density of the right kidney, may be seen with infarcts or pyelonephritis in the appropriate clinical setting. ATED BY: TAVIA MCCLELLAN DO DICTATED DATE/TIME: 09/02/24 0951 PATIENT: CHIDI PARMAR ACCT: [id number] UNIT: [id number] : 1960 LOC: [facility] ROOM / BED: [address] [place] [address] / AGE / SEX: 64 / F ADM STATUS: ADM IN SERVICE 0400 ORDERING PHYSICIAN: LARISSA GEE GYROSCOPIC ENGINEERING TECHNICIAN PROCEDURE(s): CXRP - CHEST PORTABLE REASON: CHF/PNA ORDER NUMBER(s): [id number], ACCESSION NUMBER(s): [id number] CHEST RADIOGRAPH Indication: CHF/PNA Technique: Single frontal view of the chest was obtained COMPARISON: XY CHEST XRAY 1 VIEW on DOS: 08/30/24, XY CHEST PORTABLE on DOS: 08/04/24, XY CHEST PORTABLE on DOS: 08/03/24, XY CHEST XRAY 1 VIEW on DOS: 07/31/24, XY CHEST XRAY 1 VIEW on DOS: 07/29/24 FINDINGS: Lines and Tubes: None Lungs: Unchanged multifocal airspace disease. Pleura: No effusion. No pneumothorax. Cardiomediastinal contours: Unremarkable Bones: Unremarkable IMPRESSION: Unchanged severe multifocal airspace disease. ATED BY: ANTHONY CHEN MD DICTATED DATE/TIME: 09/02/24 0551 PATIENT: CHIDI PARMAR ACCT: [id number] UNIT: [id number] : 1960 LOC: [facility]OM / BED: [address] [place] [address] / A AGE / SEX: 64 / F ADM STATUS: ADM IN SERVICE 1109 ORDERING PHYSICIAN: NANDINI JENNINGS MD PROCEDURE(s): KIDUS - KIDNEY REASON: diego on ckd ORDER NUMBER(s): [id number], ACCESSION NUMBER(s): [id number] INDICATION: diego on ckd TECHNIQUE: Multiple real-time sonographic images of the kidneys and bladder were obtained. COMPARISON: None FINDINGS: The right kidney measures 9.9 cm in length, which is normal in size. There is normal echogenicity of the right kidney. No hydronephrosis. The left kidney measures 9.4 cm in length, which is normal in size. There is normal echogenicity of the left kidney. No hydronephrosis. No large intraluminal masses are seen in the bladder. Right pleural effusion. IMPRESSION: 1. Normal sonographic appearance of the kidneys. No hydronephrosis. ATED BY: PING PAYNE MD DICTATED DATE/TIME: 08/30/24 1152 PATIENT: CHIDI PARMAR ACCT: [id number] UNIT: [id number] : 1960 LOC: [facility] / BED: 1020-ER / A AGE / SEX: 64 / F ADM STATUS: ADM IN SERVICE 1058 ORDERING PHYSICIAN: NANDINI JENNINGS MD PROCEDURE(s): CTACH - CT ANGIO CHEST CONTRAST REASON: hypoxia elevated d-dimer r/o PE ORDER NUMBER(s): [id number], ACCESSION NUMBER(s): [id number] CT ANGIOGRAM CHEST WITH CONTRAST FOR PULMONARY EMBOLUS CLINICAL HISTORY: hypoxia elevated d-dimer r/o PE TECHNIQUE: Helical axial scans of the chest during dynamic intravenous contrast injection. Pulmonary embolism protocol. Multiplanar reformats. Postprocessing MIP images. One or more of the following radiation dose reduction techniques were used for this examination: automated exposure control, adjustment of the mA and/or kV according to patient size, use of iterative reconstruction technique. COMPARISON: Chest radiograph obtained earlier the same day. CT dated 07/27/2024 FINDINGS: Pulmonary arteries: There is adequate enhancement of the pulmonary arterial system. Respiratory motion artifact limits evaluation distally. As visualized, there is no definite central, lobar or proximal segmental branch filling defects to suggest pulmonary embolism. Mediastinum: Heart is enlarged. Small pericardial effusion. Coronary artery calcifications. Enlarged mediastinal lymph nodes which may be reactive. Pretracheal lymph node noted measuring approximately 1.9 cm in short axis. Lung parenchyma: Multifocal pulmonary infiltrates with interstitial thickening /edema. Pleura: Small left and moderate right pleural effusion. No sizable pneumothorax. Chest wall and axillae: No axillary adenopathy noted. Upper abdomen: No acute findings as visualized. IMPRESSION: No definite evidence of pulmonary embolism. Bilateral infiltrates and interstitial thickening may reflect a combination of multifocal pneumonia and edema. CHF type pattern with moderate right and small left pleural effusions. ATED BY: CARLOS GARAY MD DICTATED DATE/TIME: 08/30/24 2314 PATIENT: CHIDI PARMAR ACCT: [id number] UNIT: [id number] : 1960 LOC: [facility] ROOM / BED: / AGE / SEX: 64 / F ADM STATUS: REG ER SERVICE 0753 ORDERING PHYSICIAN: IMMANUEL RICHEY MD PROCEDURE(s): CXR1 - CHEST XRAY 1 VIEW REASON: SOB ORDER NUMBER(s): [id number], ACCESSION NUMBER(s): [id number] EXAM: XR Chest, 1 View CLINICAL INDICATION: SOB TECHNIQUE: Frontal view of the chest. COMPARISON: XY CHEST PORTABLE on DOS: 08/04/24, XY CHEST PORTABLE on DOS: 08/03/24, XY CHEST XRAY 1 VIEW on DOS: 07/31/24, XY CHEST XRAY 1 VIEW on DOS: 07/29/24, XY CHEST XRAY 1 VIEW on DOS: 07/26/24 FINDINGS: LUNGS AND PLEURAL SPACES: See below. HEART: Cardiomegaly with pulmonary congestion and edema. Superimposed pneumonia cannot be excluded. MEDIASTINUM: Unremarkable. Normal mediastinal contour. BONES/JOINTS: Unremarkable. No acute fracture. OTHER FINDINGS: . . IMPRESSION: Cardiomegaly with pulmonary congestion and edema. Superimposed pneumonia cannot be excluded. ATED BY: PING PAYNE MD DICTATED DATE/TIME: 08/30/24 0810 Laboratory Results Test 09/06/24 12:28 09/06/24 09:10 09/05/24 06:41 09/04/24 05:34 POC Glucose 89 mg/dl (70-106) Sodium Level 143 mmol/L (136-145) Potassium Level 3.4 mmol/L (3.5-5.1) Chloride Level 104 mmol/L (98-107) Carbon Dioxide Level 30 mmol/L (20-31) Anion Gap 9 (5-15) Blood Urea Nitrogen 21 mg/dL (9-23) Creatinine 1.17 mg/dL (0.550-1.02) Glomerular Filtration Rate Calc 52 mL/min (>90) BUN/Creatinine Ratio 17.9 (10.0-20.0) Serum Glucose 158 mg/dL (74-106) Calcium Level 8.8 mg/dL (8.7-10.4) White Blood Count 8.4 10^3/uL (4.4-10.8) Red Blood Count 3.08 10^6/uL (4.0-5.20) Hemoglobin 9.3 g/dL (12.2-16.2) Hematocrit 28.9 % (36.0-46.0) Mean Corpuscular Volume 93.7 fL (80.0-100.0) Mean Corpuscular Hemoglobin 30.2 pg (28.0-32.0) Mean Corpuscular Hemoglobin Concent 32.2 g/dL (32.0-36.0) Red Cell Distribution Width 20.7 % (11.8-14.3) Platelet Count 208 10^3/uL (140-450) Mean Platelet Volume 8.3 fL (6.9-10.8) Neutrophils (%) (Auto) 79.8 % (37.0-80.0) Lymphocytes (%) (Auto) 12.4 % (10.0-50.0) Monocytes (%) (Auto) 7.6 % (0.0-12.0) Eosinophils (%) (Auto) 0.1 % (0.0-7.0) Basophils (%) (Auto) 0.1 % (0.0-2.0) Neutrophils # (Auto) 6.7 10 ^3/uL (1.6-8.6) Lymphocytes # (Auto) 1.0 10 ^3/uL (0.4-5.4) Monocytes # (Auto) 0.6 10 ^3/uL (0-1.3) Eosinophils # (Auto) 0 10 ^3/uL (0-0.8) Basophils # (Auto) 0 10 ^3/uL (0-0.2) Nucleated Red Blood Cells 0.0 % Total Bilirubin 0.4 mg/dL (0.2-1.0) Aspartate Amino Transferase (AST) 16 U/L (13-40) Alanine Aminotransferase (ALT) 12 U/L (7-40) Alkaline Phosphatase 107 U/L (46-116) Total Protein 5.4 g/dL (5.7-8.2) Albumin 3.6 g/dL (3.2-4.8) Magnesium Level 2.1 mg/dL (1.6-2.6) Digoxin Level 0.90 ng/mL (0.8-2) Test 09/03/24 04:56 09/02/24 11:37 09/02/24 04:38 09/01/24 08:17 B-Type Natriuretic Peptide 729.97 pg/mL (0-100) Blood Gas Specimen Type Arterial Blood Gas Sample Site Right radial Blood Gas Patient Temperature 37.0 Arterial Blood Date Drawn [id number] Arterial Blood pH 7.538 (7.350-7.450) Arterial Blood Partial Pressure CO2 35.3 mmHg (32.0-45.0) Arterial Blood Partial Pressure O2 60.5 mmHg (83.0-108.0) Arterial Blood HCO3 29.4 mmol/L (21.0-28.0) Arterial Blood Oxygen Saturation 92.0 % (94.0-98.0) Arterial Blood Base Excess 6.6 mmol/L (-2.0-3.0) Arterial Blood Oxyhemoglobin 90.3 % (94.0-98.0) Arterial Blood Carboxyhemoglobin 1.3 % (0.5-1.5) Arterial Blood Methemoglobin 0.6 % (0.0-1.5) Roverto Test Yes Blood Gas Total Hemoglobin 10.50 g/dL (12.0-16.0) Blood Gas Set Respiration Rate 12.0 Blood Gas Modality Mask - bipap FiO2 % 35.0 Blood Gas EPAP 7 Blood Gas IPAP 18 Platelet Estimate Adequate Anisocytosis (manual) Slight Stomatocytes Few Prothrombin Time 11.4 sec (9.3-11.8) Prothrombin Time INR 1.08 (0.9-1.15) Activated Partial Thromboplast Time 54.3 SEC (24.5-34.5) Test 08/31/24 06:09 08/31/24 06:05 08/30/24 16:42 08/30/24 10:00 Random Vancomycin Level 16.6 ug/mL (5-10) Blood Gas Liter Flow 5.00 Urine Color Light-yellow (Yellow) Urine Clarity Clear (Clear) Urine pH 6.5 (5.0-9.0) Urine Specific [place] 1.011 (1.001-1.035) Urine Protein Negative (Negative) Urine Ketones Negative (Negative) Urine Blood Negative /uL (Negative) Urine Nitrite Negative (Negative) Urine Bilirubin Negative (Negative) Urine Urobilinogen Normal mg/dL (Negative) Urine Leukocyte Esterase Negative /uL (Negative) Urine RBC None seen /hpf (0 - 4) Urine Microscopic WBC 1 /HPF (0-5) Urine Squamous Epithelial Cells None seen /hpf (<5) Urine Bacteria None seen /hpf (None Seen) Urine Creatinine 47.37 mg/dL (30.0-125.0) Urine Sodium 107 mmol/L (40-220) Urine Glucose Normal mg/dL (Normal) Urine Opiates Screen Neg (NEGATIVE) Urine Fentanyl Screen Neg (NEGATIVE) Urine Barbiturates Screen Neg (NEGATIVE) Urine Phencyclidine Screen Neg (NEGATIVE) Urine Amphetamines Screen Neg (NEGATIVE) Urine Benzodiazepines Screen Neg (NEGATIVE) Urine Cocaine Screen Neg (NEGATIVE) Urine Cannabinoids Screen Neg (NEGATIVE) Lactic Acid Level 1.3 mmol/L (0.4-2.0) Test 08/30/24 08:10 D-Dimer, Quantitative 4.33 mg/L FEU (0.0-0.49) Troponin I High Sensitivity 9 ng/L (</=34) Other Laboratory Tests 09/06/24 09:10 09/05/24 06:41 Brief Hx & Hospital Course: Brief History and Hospital course Ms Jatin Mcfarlane is a 64 year old female with a past mediacal history significant for AFIB, CHF, COPD, DM, HTN and intubated about a month ago presented to the ED via EMS with chief complaint of SOB. According to the patient, she has experiencing worsening SOB with associated mild bilateral leg edema for the past 2 days. Per EMS statement, patient was noted to be in A-Fib RVR on their EKG along with decreased oxygen level at 77% on BiPAP and after being given a DuoNeb treatment on route to the ED. Initial BNP 546.27pg/mL, troponin negative. Initial twelve lead electrocardiogram reveals atrial fibrillation. Patient recently underwent a coronary angiogram on 08/01/24 which revealed mild nonobstructive coronary artery disease. Patient denies any chest pain, cough, fever, or chills. Chest X-ray showed cardiomegaly with pulmonary congestion and edema. Superimposed pneumonia cannot be excluded. US Showed right pleural effusion. Normal sonographic appearance of the kidneys. No hydronephrosis. Hospitals course At the time of my assessment, patient was on 4L of oxygen. HR 112 but still congested but with improving pitting edema. We continued furosemide 40 mg BID, GDMT and antibiotics. Patient started on Amiodarone and Dabigatran. No significant improvement in 2days. Patient now on with increased oxygen demand up to 6 L of oxygen via high-flow nasal oxygen, tachycardic and her blood pressure soft. A CT lung showed diffused glass opacities, areas of bronchiectasis, chronic interstitial lung disease pattern, pleural effusion and pulmonary and pulmonary edema. Also an echo done revealed pulmonary hypertension with RVSP of 50mmHg. Patient was started of high dose steroids and switch in antibiotics to doxycyline 100mg bid, continued ceftriaxone, started sildenafil, and increased furosemide 40 mg q6hrs. Continued Amiodarone and digoxin per cardiology recommendation. She remained on high dose solumedrol for 48 and tapered to regular maintenance dose. Chest x-ray two days later showed an improvement in her lungs and her breathing also improved. We observed the patient further. Changed furosemide to oral dose and monitored. PT evaluation consulted. She continue to do well, stable currently at her baseline home oxygen level. Thus, she is stable for discharge home. Patient advised to adhere to all the medical education and post discharge management plans and follow up. Examination General Appearance: Alert, Oriented X3, Cooperative, improved respiratory distress 3L/min of oxygen ( base line) HEENT: Atraumatic, PERRLA, EOMI, Mucous membrane moist/pink Respiratory: mild crackles L> R, diminished breath sound on the right. no wheezes; at baseline Cardiovascular: Irregularly irregular, Normal S1, Normal S2, No murmurs, no chest wall tenderness Abdominal: NO distention, no tenderness, bowel sounds present, no scars noted Extremities: resolved, skin wrinkle noted Skin: No rashes, No breakdown, No significant lesion Neuro: Normal gait, Normal speech, Strength at 5/5 X4 ext, Normal tone, Sensation intact, Cranial nerves 3-12 NL, Reflexes 2+ Psych/Mental Status: Mental status NL, Mood NL Diagnoses Severe sepsis due to pneumonia, poa Acute on chronic decompensated HFrEF, Atrial fibrillation ( Amiodarone and Digoxin) Acute hypoxic respiratory failure secondary to pneumonia/ ILD/ chf exacerbation Mild mitral valve stenosis/rheumatic mitral valve disease pneumonia like due to gram-/gram+ Nonischemic cardiomyopathy Pulmonary emboli ruled out Hypertension Hyperlipidemia Type 2 diabetes mellitus COPD with history of tobacco use Obesity, bmi 32.4 Pulmonary hypertension (RVSP 50mmHg on Echo) Acute exacerbation of Interstitial lung disease Bronchiectasis Discharge plan Doxycycline 100 mg BID X7 days Pradaxa 75 mg bid and see cardiology Medrolpak as directed Continue all home medication as directed Follow at the discharge clinic 7 days Follow up with Haulpak Driver for further management and broncho to rule out MAC infection Follow up with the cardiology Avoid cigarette smokes Case and discharge plan discussed with Dr. Jackson Case and discharge plan discussed with Dr. Jackson Consults/Reason for consult Cardiology: Reason for Consultation: CHF exacerbation Pulmonology Reason for Consultation: Acute hypoxic respiratory failure, ILD exacerbation, bronchiectasis, pulmonary hypertension Condition at Discharge: Good Final Diagnosis/Problems List Severe sepsis due to pneumonia, poa Acute on chronic decompensated HFrEF, Atrial fibrillation ( Amiodarone and Digoxin) Acute hypoxic respiratory failure secondary to pneumonia/ ILD/ chf exacerbation Mild mitral valve stenosis/rheumatic mitral valve disease pneumonia like due to gram-/gram+ Nonischemic cardiomyopathy Pulmonary emboli ruled out Hypertension Hyperlipidemia Type 2 diabetes mellitus COPD with history of tobacco use Obesity, bmi 32.4 Pulmonary hypertension (RVSP 50mmHg on Echo) Acute exacerbation of Interstitial lung disease Bronchiectasis Discharge Disposition: Home Discharge Statement: "Patient was advised to return to the ER or call 911 if any headaches, dizziness, shortness of breath, chest pain, abdominal pain, bleeding, fevers, or worsening of medical condition. Patient was counseled about treatment plan, medications, possible side effects, patientverbalized understanding. All questions were answered to the best of my ability. This discharge took greater then 30 minutes in planning, reviewing documentation, counseling the patient, and discussing with other team members." ASSESSMENT ASSESSMENT Assessment Date of Service: Sep 06, 2024 Billing Provider: GIOVANNI JACKSON MD Common Visit Codes: 55937-YEJ/OBS DISCH DAY >30min MEDARDO SALVADOR RESIDENT Sep 06, 2024 15:32 GIOVANNI JACKSON MD Sep 07, 2024 09:45
[2024-09-06 17:00] VITALS: BP 124/91; PULSE 124; RESP 16; TEMP 98.1; O2SAT 94
[2024-09-06 17:03] VITALS: BP 124/91; PULSE 104; RESP 16; TEMP 98.1; O2SAT 94
--- NOTE | 2024-09-06 21:41 | DVHPN2 ---
Progress Note - Dictate Date Seen: Sep 06, 2024 Medical Necessity Reason Pt with a Central, PICC or Fol: Yes The following are medically ne: Coleman Catheter Reason for coleman catheter: Strict I&O Subjective Patient was seen and evaluated in follow up. Patient has no new complaints at this time. Patient denies any cardiac symptoms. Patient is cardiac stable for discharge. vital signs Vital Sign Date Time Temp Pulse Resp B/P (MAP) Pulse Ox O2 Delivery O2 Flow Rate FiO2 09/06/24 17:03 98.1 104 16 94 09/06/24 17:00 124/91 (102) 09/06/24 08:00 Nasal Cannula* 3 32 Total Intake and Output 09/05/24 09/05/24 09/06/24 15:00 23:00 07:00 Intake Total 50 ml 840 ml 1000 ml Output Total 1000 ml Balance 50 ml -160 ml 1000 ml objective GENERAL: Awake, alert, oriented. LUNGS: Clear. CARDIOVASCULAR: Heart sounds are good. ABDOMEN: Soft. laboratory and microbiology Laboratory Tests 09/06/24 09:10 09/05/24 06:41 Test 09/06/24 09:10 Range/Units Serum Glucose 158 H 74-106 mg/dL Problem List Acute on chronic decompensated HFrEF, NYHA class III. Paroxysmal atrial fibrillation, Stage III, on Dabigatran and Amiodarone. Mild mitral valve stenosis/rheumatic mitral valve disease. Mild nonobstructive coronary artery disease. Acute on chronic hypoxic respiratory failure. Hypertension. Hyperlipidemia. Type 2 diabetes mellitus. COPD with hx of tobacco use. Morbid obesity. Assessment/Plan Continued all current supportive medical care. Continue GDMT for CHF as renal function permits, uptitrate as tolerated. Preload and afterload reduction. Pradaxa therapy upon discharge. Rate control, beta-ramiro plus digoxin therapy. Antiarrhythmic, amiodarone BID. Lipid-lowering agent. Avoid calcium channel blockers given reduced EF. Additional plan as per the hospital course. Dietary Evaluation Review Comments: No Sp due to poor kidney function, not inclined to increase PO protein for avoiding worse uremic syndrome. consider tight DM controll and amino acid infusion for promoting wound healing. Recommend both CCHO-60 and Cardiac diet for better DM control. Expected Outcomes/Goals: Improved DM controll and improed wound healing Plan discussed with: Patient LILIAM QUIROGA MD Sep 06, 2024 21:41
== END 2024-09-06 17:52 | disposition home or self-care (01) | DRG 720 ==
LOC: ER 07:47 → EDBD 07:47 → OVERFLOW 11:12 → TELE 09-01 01:26 → TELE-WESTW 09-03 21:52
PROVIDERS: ADMIT Internal Medicine; ATTEND Internal Medicine
PROC: 5A09357 Assistance with Respiratory Ventilation, Less than 24 Consecutive Hours, Continuous Positive Airway Pressure (ICD-10-PCS; principal; 2024-08-30)
PROC: 05HD33Z Insertion of Infusion Device into Right Cephalic Vein, Percutaneous Approach (ICD-10-PCS; 2024-08-30)
PROC: B54MZZA Ultrasonography of Right Upper Extremity Veins, Guidance (ICD-10-PCS; 2024-08-30)
PROC: 5A0935A Assistance with Respiratory Ventilation, Less than 24 Consecutive Hours, High Flow/Velocity Cannula (ICD-10-PCS; 2024-09-01)
PROC: 5A0935A Assistance with Respiratory Ventilation, Less than 24 Consecutive Hours, High Flow/Velocity Cannula (ICD-10-PCS; 2024-09-02)
PROC: 5A0935A Assistance with Respiratory Ventilation, Less than 24 Consecutive Hours, High Flow/Velocity Cannula (ICD-10-PCS; 2024-09-03)
DX: A41.59 Other Gram-negative sepsis (principal); J96.21 Acute and chronic respiratory failure with hypoxia; I50.23 Acute on chronic systolic (congestive) heart failure; J15.69 Pneumonia due to other Gram-negative bacteria; I27.20 Pulmonary hypertension, unspecified; I42.8 Other cardiomyopathies; N17.9 Acute kidney failure, unspecified; D63.1 Anemia in chronic kidney disease; I13.0 Hypertensive heart and chronic kidney disease with heart failure and stage 1 through stage 4 chronic kidney disease, or unspecified chronic kidney disease; J15.9 Unspecified bacterial pneumonia; R65.20 Severe sepsis without septic shock; J44.1 Chronic obstructive pulmonary disease with (acute) exacerbation; J47.0 Bronchiectasis with acute lower respiratory infection; E11.22 Type 2 diabetes mellitus with diabetic chronic kidney disease; I05.9 Rheumatic mitral valve disease, unspecified; N18.9 Chronic kidney disease, unspecified; E78.5 Hyperlipidemia, unspecified; E66.01 Morbid (severe) obesity due to excess calories; E11.65 Type 2 diabetes mellitus with hyperglycemia; I48.0 Paroxysmal atrial fibrillation; I25.10 Atherosclerotic heart disease of native coronary artery without angina pectoris; J44.0 Chronic obstructive pulmonary disease with (acute) lower respiratory infection; Z79.02 Long term (current) use of antithrombotics/antiplatelets; Z86.73 Personal history of transient ischemic attack (TIA), and cerebral infarction without residual deficits; Z79.01 Long term (current) use of anticoagulants; Z82.3 Family history of stroke; Z87.891 Personal history of nicotine dependence; Z90.710 Acquired absence of both cervix and uterus; Z68.32 Body mass index [BMI] 32.0-32.9, adult; Z79.899 Other long term (current) drug therapy
CPT/HCPCS: 36415; 36600; 71045; 71250; 71275; 76775; 80048; 80053; 80162; 80202; 80307; 81001; 82570; 82805; 82962; 83605; 83735; 83880; 84300; 84484; 85025; 85379; 85610; 85730; 87040; 93005; 93306; 94644; 94660; 97163; 99291; G0378; J1642; J1815; J2003; J2470; J2543; P9047

== ENCOUNTER 2025-02-02 11:15 | Outpatient (CLI) | payer MEDICAID ==
[~2025-02-02 11:15] MED LIST changes: +ATOR20TA50 PO; +DABI75CA5 PO; +DIGO1TAB48 PO; +DOCU-265 PO; +DOXY-346 PO; +FURO40TA4 PO; +MET25T PO; +METH4PAK PO; +SILD20TA PO; +SPIR25TA PO
[2025-02-02] MEDS ORDERED: ALBUTEROL SULF 2.5 MG/0.5ML(0.5%) NEB SOLN ONE (11:28)
== END 2025-02-02 17:00 | disposition home or self-care (01) ==
LOC: RT 11:15
PROVIDERS: ATTEND Internal Medicine Pulmonary Disease
DX: J44.9 Chronic obstructive pulmonary disease, unspecified (principal); J84.89 Other specified interstitial pulmonary diseases; R06.00 Dyspnea, unspecified
CPT/HCPCS: 94060; 94618; 94727; 94729

== ENCOUNTER 2025-02-24 07:36 | Outpatient (CLI) | payer MEDICAID ==
[~2025-02-24] VITALS: Ht 147.3 cm; Wt 70.3 kg
[2025-02-24] MEDS: REGADENOSON 0.4 MG/5 ML SYRG IV ONE ×2 (09:59→10:04)
--- NOTE | 2025-02-24 12:39 | DVHSR ---
APPROVED REPORT Exam: Nuclear Stress Test BMI: 0 Stress Test Details HR Max Heart Rate (APMHR): 157.580226 bpm Target HR (85% APMHR): 133.762885 bpm BP ECG Stress ECG Conclusion lvef 68% anterior wall fixed defect, could be breast artifact vs previous infarct clinical correlate no major ischemia noted NM EXAM: Myocardial Perfusion REST/STRESS Resting Data Rest SPECT myocardial perfusion imaging was performed in supine position 60 minutes following the int ravenous injection of 9.8 mCi of Tc-99m Sestamibi. Time of rest injection: 08:00 Date: 02/24/2025 Time of rest imagin:00 Date: 02/24/2025 Administration Route: IV Administration Site: Left Arm Pharmacologic Stress Pharmacologic stress test was performed by injecting Regadenoson 0.4 mg IV push followed by the intra venous injection of 33.2 mCi of Tc-99m Sestamibi. Time of stress injection: 10:00 Date: 02/24/2025 Time of stress imagin:00 Date: 02/24/2025 Administration Route: IV Administration Site: Left Arm Gated Stress SPECT was performed 60 minutes after stress injection. The images were gated to evaluate regional wall motion and calculate left ventricular ejection fracti on. Stress only was performed in the Supine position. Nuclear Conclusion Nuclear Findings: negative for ischemia lvef 68% anterior wall fixed defect, could be breast artifact vs previous infarct clinical correlate no major ischemia noted
== END 2025-02-24 17:00 | disposition home or self-care (01) ==
LOC: XYW 07:36
PROVIDERS: ATTEND Internal Medicine
DX: R07.9 Chest pain, unspecified (principal); E03.9 Hypothyroidism, unspecified; R06.02 Shortness of breath; I27.20 Pulmonary hypertension, unspecified
CPT/HCPCS: 78452; 93017; A9500; J2785